=== PATIENT | female | born 1990 | race Caucasian/White ===

== ENCOUNTER 2023-09-16 18:47 | Emergency (ER) | payer OTHER, SELFPAY ==
--- NOTE | ~2023-09-16 | CT_ITS ---
EXAMINATION: CT ABDOMEN AND PELVIS WITHOUT CONTRAST CLINICAL INFORMATION: Lower abdominal pain COMPARISON: None available. TECHNIQUE: Multidetector volumetric imaging was performed from the superior aspect of the liver through the pubic symphysis. Sagittal and coronal reformatted images were obtained on the technologist's workstation. This CT examination was performed using dose optimization techniques as appropriate, variously including the following: *Automated exposure control *Adjustment of mA and/or kV according to patient size (this includes techniques or standardized protocols for targeted exams where dose is matched to indication/reason for exam; i.e. extremities or head) *Use of iterative reconstruction technique DLP: 277 mGy-cm FINDINGS: LUNG BASES: The visualized lung bases are unremarkable. LIVER, GALLBLADDER, AND BILIARY TREE: The liver is normal in size, shape, and attenuation. No focal hepatic lesion or biliary ductal dilatation is present. The gallbladder has been removed. PANCREAS: Unremarkable. SPLEEN: Unremarkable. ADRENAL GLANDS: Unremarkable. KIDNEYS AND URETERS: The kidneys are normal in size, shape, and attenuation. No hydronephrosis, hydroureter, or calculi seen. No perinephric stranding. BLADDER: Slightly thickened gallbladder wall, particularly on the left. Small left dome bladder diverticulum 2 small 2 mm dependent calcification questionable for small stones. GASTROINTESTINAL TRACT: The small and large bowel are unremarkable. The appendix is unremarkable. ABDOMINAL WALL: No significant hernia is appreciated. LYMPH NODES: Normal. VASCULAR: Unremarkable. PELVIC VISCERA: Unremarkable. OSSEOUS STRUCTURES: Unremarkable. CT/CT abdomen pelvis wo IV con IMPRESSION: Slightly thickened bladder wall, particularly on the left. Small left dome of bladder diverticulum. 2 small dependent 2mm calcifications questionable for small stones. Fleischner guidelines were followed.
[2023-09-16 19:21] VITALS: BP 136/79; PULSE 64; RESP 16; TEMP 36.9; O2SAT 98; BMI 22.6
--- NOTE | 2023-09-16 19:22 | ED.GENADULT ---
HPI - General Adult General Chief complaint: Abdominal Pain Stated complaint: abd pain Time Seen by Provider: 09/16/23 22:59 Source: patient and old records reviewed Mode of arrival: ambulatory Limitations: no limitations History of Present Illness HPI narrative: 33 yo female with PMH of cholecystectomy, recent kidney infection treated at [facility] states she just finished cephalexin denies ureteral stones or being told she had bladder stones. Her last dose of abx was one week ago. She comes in today with diffuse abdominal pain she has n/v/d and cannot eat. Her pain worsens with eating. She has had intermittent fevers as well. MD complaint: abdominal pain Onset (ago): week(s) (1) Location: abdomen Radiation: non-radiation Severity: moderate Quality: aching Pain Consistency: intermittent Relieving factors: none Exacerbating factors: eating Associated symptoms: fever/chills, loss of appetite, malaise and nausea/vomiting Treatments prior to arrival: none Related Data Previous Rx's Medication Instructions Recorded famotidine 20 mg tablet (Pepcid) 20 mg PO BID abdominal discomfort 09/17/23 #60 tabs lactobacillus combination no.4 3 3,000 mmu cells PO DAILY #14 caps 09/17/23 billion cell capsule (Probiotic) nitrofurantoin 100 mg PO BID 7 days #14 caps 09/17/23 monohydrate/macrocrystals 100 mg capsule (Macrobid) ondansetron 4 mg disintegrating 4 mg PO Q8H PRN nausea and 09/17/23 tablet vomiting #20 tabs Allergies Allergy/AdvReac Type Severity Reaction Status Date / Time No Known Allergies Allergy Verified 09/16/23 19:28 Review of Systems Review of Systems: Constitutional : No Weight loss, pos Fever, pos Chills ENT/Mouth : No sore throat, No Rhinorrhea Eyes: No Swelling, No Redness Cardiovascular : No Chest Pain, No SOB, NoEdema Respiratory : No Cough, No Sputum, No Wheezing Gastrointestinal : Positive Nausea, Positive Vomiting, positive Diarrhea, positive abdominal Pain, No Hematochezia, No Melena Genitourinary : No Dysuria, No Urinary Frequency, No Hematuria, No Urgency Musculoskeletal : No joint pain, No Myalgias, No Joint Swelling Skin : No Skin Lesions, No rash Neuro : No Weakness, No Numbness, No Dizziness, No Headache Psych : No Anxiety/Panic, No Depression All other systems reviewed and are negative. [facility] Past Medical History Attestation statement: The following information was validated with the patient. Medical History (Updated 09/17/23 @ 00:45 by Breonna Montilla DO) Pyelonephritis Surgical History S/P cholecystectomy Social History Social History (Updated 09/16/23 @ 23:30 by Breonna Montilla DO) Patient Tobacco Use Status: Never used Tobacco Advance Directives: No Advance Directives Information Provided: No Physical Exam ED Vital Signs: Vital Signs - 24 hr 09/16/23 19:21 09/16/23 21:38 09/16/23 22:56 Temperature 98.5 F 98.2 F 97.1 F Pulse Rate 64 65 58 Respiratory Rate 16 16 16 Blood Pressure 136/79 132/48 L 127/54 L Pulse Oximetry 98 97 100 Oxygen Delivery Method Room Air Room Air Room Air BMI result Body Mass Index 22.6 Appearance: Alert. Oriented X3. No acute distress. Eyes: Pupils equal, round and reactive to light. ENT: Pharynx normal. Neck: Normal inspection. Neck supple. CVS: Normal heart rate and rhythm. Pulses normal. Respiratory: No respiratory distress. Breath sounds normal. Abdomen: Soft and mild diffuse ttp has ttp suprapubic Skin: Skin warm and dry. Normal skin color. Normal skin turgor. Extremities: No lower extremity edema. Neuro: Oriented X 3. No motor deficit. No sensory deficit. Course Course Course Narrative: RME:?33 yo female here for eval of intermittent lower abd pain, N/V, diarrhea, fevers x2 weeks. 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 Taking tylenol at home without relief, last took this 4 hours ago. reports pain like this in the past when she had issues with my pancreas . denies current or hx of etoh consumption. reports being hospitalized for kidney infection at [facility] 2 weeks ago, prior to onset of symptoms. was placed on abx which she finished one week ago. no cvat. ttp of lower abd, no rebound or guarding. normoative bs x4. labs, UA, stool culture and imaging ordered. Full HPI, ROS and PE to be performed by the primary ED provider. Reevaluation(s) Reevaluation #1: cuello results - blood culture negative, UA did have positive results and WBC clumps but urine culture was negative Reevaluation #2: no diarrhea while in ED 5+ hours doubt cdiff Medications Administered Discontinued Medications Generic Name Dose Route Start Last Admin Trade Name Jennie PRN Reason Stop Dose Admin Sodium Chloride 1,000 mls @ 999 mls/hr 09/16/23 23:30 09/16/23 23:48 Ns IV 09/17/23 00:30 999 mls/hr .Q1H1M MARIAM Administration Ketorolac Tromethamine 15 mg 09/16/23 23:22 09/16/23 23:48 Ketorolac Tromethamine 15 Mg/Ml Vial IVPUSH 09/16/23 23:23 15 mg ONCE ONE Administration Ondansetron HCl 4 mg 09/16/23 23:22 09/16/23 23:48 Ondansetron Hcl 4 Mg/2 Ml Vial IVPUSH 09/16/23 23:23 4 mg ONCE ONE Administration Medical Decision Making Medical Decision Making [facility] Narrative: 33 yo female hx of recent pyelonephritis just finished cephalexin 1 week ago now here with lower abdominal pain but no urinary symptoms n/v and loose stools but denies numerous stools a day and no fecal incontinence. Not consistent with cdiff. She notes she has had fevers and chills as well. At this time will obtain labs, UA and CT scan for possible colitis. IVF, zofran and toradol ordered Differential Diagnosis Differential Diagnoses: The differential diagnosis associated with the presentation includes colitis, diverticulitis, UTI, renal colic, cdiff Admission/Observation Consideration of admission/observation: Escalation of care including admission/observation considered labs and CT scan reassuring normal VS not toxic can tolerate PO afebrile here neg CRP and ESR Lab Data [facility] Lab Attestation statement: I reviewed the patient's lab results. 09/16/23 20:09 09/16/23 20:09 Labs: Lab Results 09/16/23 Range/Units 20:09 WBC 5.0 (4.8-10.8) X10*3/uL RBC 4.46 (4.20-5.50) X10*6/uL Hgb 12.3 (12.0-16.0) g/dl Hct 38.2 (37.0-47.0) % MCV 85.7 (80.0-98.0) fL MCH 27.6 (27.0-33.0) pg MCHC 32.2 (31.0-35.0) g/dl RDW 14.9 (11.0-16.0) % Plt Count 199 (160-400) X10*3/uL MPV 10.4 (9.4-12.3) fL Immature Gran % (Auto) 0.2 (0.0-0.4) % Neut % (Auto) 57.4 (45-73) % Lymph % (Auto) 34.6 (20-40) % [place] % (Auto) 6.2 (2-11) % Eos % (Auto) 1.4 (0-4) % Baso % (Auto) 0.2 (0-2) % Lymph # (Auto) 1.7 (1.2-4.9) X10*3/uL [place] # (Auto) 0.3 (0.1-1.2) X10*3/uL Eos # (Auto) 0.1 (0.0-0.4) X10*3/uL Baso # (Auto) 0.0 (0.0-0.2) X10*3/uL Abs Immat Gran (auto) 0.01 (0.00-0.03) X10*3/uL Absolute Neuts (auto) 2.9 (2.0-8.3) x10*3/uL Absolute Nucleated RBC 0.000 (0.0-0.012) X10*3/uL Nucleated RBC % (auto) 0.0 (0.0-0.2) /100WBC ESR 5 (0-20) MM/HR Sodium 141 (135-145) mmol/L Potassium 3.8 (3.3-5.1) mmol/L Chloride 109 H (96-108) mmol/L Carbon Dioxide 23 (22-29) mmol/L Anion Gap 13 (12-20) BUN 7 L (9-16) mg/dL Creatinine 0.68 (0.5-1.4) mg/dL Estim Creat Clear Calc 75.9 Estimated GFR > 60 Random Glucose 93 (60-115) mg/dL Calcium 9.9 (8.4-10.2) mg/dL Magnesium 2.0 (1.6-2.6) mg/dL Total Bilirubin 0.4 (0.0-1.0) mg/dL AST 17 (5-31) U/L ALT 20 (0-31) U/L Alkaline Phosphatase 45 (39-117) U/L C-Reactive Protein < 0.10 (< or = 0.50) mg/dL Total Protein 7.9 (6.5-8.0) g/dL Albumin 4.7 (3.5-5.0) g/dL Lipase 27 (8-78) U/L Urine Color Yellow Urine Appearance Clear Urine pH 6.0 (5.0-9.0) Ur Specific [place] 1.010 (1.005-1.025) Urine Protein Negative (Neg-Trace) mg/dL Urine Glucose (UA) Negative (Negative) mg/dL Urine Ketones Negative (Negative) mg/dL Urine Blood Negative (Negative) Urine Nitrite Negative (Negative) Ur Leukocyte Esterase Negative (Negative) Urine Test NEGATIVE (NEGATIVE) COVID-19 (MICHELL) Negative (Negative) COVID-19 Clin Com See Note Influenza Type A (LAUREN) Negative (Negative) Influenza Type B (LAUREN) Negative (Negative) Influenza A & B Note See Note Independent Interpretation I performed an independent interpretation of an: CT Scan (bladder inflammation/bladder stones) Radiology Impression Discussion of test interpretation with radiology: I have reviewed the radiologist's reading. External Record Review External record reviewed: Prior outpatient labs Prescription Management I considered prescription management with: Antibiotic and Other Discharge Plan Discharge Clinical Impression: Bladder diverticulum, Bladder calculi Abdominal pain Qualifiers: Abdominal location: lower abdomen, unspecified Qualified Code(s): R10.30 - Lower abdominal pain, unspecified Diarrhea Qualifiers: Diarrhea type: unspecified type Qualified Code(s): R19.7 - Diarrhea, unspecified Patient Disposition: Home, Self-Care Instructions: Acute Diarrhea (ED), Abdominal Pain (ED), Bladder Stones (ED) Additional Instructions: return for worsening symptoms, return for fevers, vomiting, increased pain, inability to eat or drink. your CT scan shows possible inflammation and stones in the bladder but your labs and urine are normal at this time will start you on medications to coat your stomach and also urinary anti-septic. you need to see a urologist Prescriptions: New famotidine [Pepcid] 20 mg tablet 20 mg PO BID Qty: 60 0RF ondansetron 4 mg tablet,disintegrating 4 mg PO Q8H PRN (Reason: nausea and vomiting) Qty: 20 0RF nitrofurantoin monohyd/m-cryst [Macrobid] 100 mg capsule 100 mg PO BID 7 Days Qty: 14 0RF Rx Instructions: must administer with a meal/food Probiotic 3 billion cell capsule 3,000 mmu cells PO DAILY Qty: 14 0RF Rx Instructions: administer with a meal Referrals: Josh Waddell MD [Physician] - (call to schedule appointment)
[2023-09-16 20:12] LABS: MANUAL DIFF FLAG NO
[2023-09-16 20:13] LABS: Basophils Percent Auto 0.2 % (0-2); Eosinophils Absolute Auto 0.1 X10*3/uL (0.0-0.4); Eosinophils Percent Auto 1.4 % (0-4); Hematocrit 38.2 % (37.0-47.0); Hemoglobin 12.3 g/dl (12.0-16.0); Imm Gran Abs Auto 0.01 X10*3/uL (0.00-0.03); Imm Gran Pct Auto 0.2 % (0.0-0.4); Lymphocytes Absolute Auto 1.7 X10*3/uL (1.2-4.9); Lymphocytes Percent Auto 34.6 % (20-40); Mean Corpuscular HGB Conc 32.2 g/dl (31.0-35.0); Mean Corpuscular Hemoglobin 27.6 pg (27.0-33.0); Mean Corpuscular Volume 85.7 fL (80.0-98.0); Mean Platelet Volume 10.4 fL (9.4-12.3); Monocytes Absolute Auto 0.3 X10*3/uL (0.1-1.2); Monocytes Percent Auto 6.2 % (2-11); Neutrophils Absolute Auto 2.9 x10*3/uL (2.0-8.3); Neutrophils Percent Auto 57.4 % (45-73); Platelet Count 199 X10*3/uL (160-400); Red Blood Count 4.46 X10*6/uL (4.20-5.50); Red Cell Distribution Width 14.9 % (11.0-16.0)
[2023-09-16 20:14] LABS: Appearance Urine Clear; Color Urine Yellow; Glucose Urine UA Negative (Negative); Leukocyte Esterase Urine Negative (Negative); Nitrite Urine Negative (Negative); Urine Blood Negative (Negative); Urine Ketones Negative (Negative); Urine Protein Negative (Neg-Trace)
[2023-09-16 20:16] LABS: UPreg QC Valid YES; Urine Pregnancy NEGATIVE (NEGATIVE)
[2023-09-16 20:28] LABS: Alanine Aminotransferase 20 U/L (0-31); Albumin Level 4.7 g/dL (3.5-5.0); Alkaline Phosphatase 45 U/L (39-117); Anion Gap 13 (12-20); Aspartate Amino Transferase 17 U/L (5-31); Bilirubin Total 0.4 mg/dL (0.0-1.0); Blood Urea Nitrogen 7 mg/dL (9-16); Calcium 9.9 mg/dL (8.4-10.2); Carbon Dioxide 23 mmol/L (22-29); Chloride 109 mmol/L (96-108); Creatinine Clr Calc Pharmacy 75.9; Estimated Glomerular Filt Rate > 60; Glucose Random 93 mg/dL (60-115); Lipase 27 U/L (8-78); Potassium 3.8 mmol/L (3.3-5.1); Sodium 141 mmol/L (135-145); Total Protein 7.9 g/dL (6.5-8.0)
[2023-09-16 20:31] LABS: COVID-19 Test Negative (Negative); IDNOW Serial# 08D9AD1C; IDNOW Serial# 152EDE1D; Influenza A Negative (Negative); Influenza B2 Negative (Negative)
[2023-09-16 21:38] VITALS: BP 132/48; PULSE 65; RESP 16; TEMP 36.8; O2SAT 97
[2023-09-16 22:56] VITALS: BP 127/54; PULSE 58; RESP 16; TEMP 36.2; O2SAT 100
[2023-09-16] MEDS: ondansetron HCL 4 MG/2 ML VIAL IVPUSH (23:48)
[2023-09-16] MEDS: Ketorolac Tromethamine 15 MG/ML VIAL IVPUSH (23:48)
[2023-09-16] MEDS: 0.9 % Sodium Chloride 1,000 ML 999 ML IV (23:48)
[2023-09-16 23:49] LABS: C Reactive Protein < 0.10 mg/dL (< or = 0.50)
[2023-09-17 00:15] LABS: Erythrocyte Sedimentation Rate 5 MM/HR (0-20)
== END 2023-09-17 01:06 | disposition home or self-care (01) ==
PROVIDERS: Physician Assistant Medical; Emergency Provider Emergency Medicine; PCP Nurse Practitioner
DX: N32.3 Diverticulum of bladder (principal); R10.30 Lower abdominal pain, unspecified; R19.7 Diarrhea, unspecified; Z11.52 Encounter for screening for COVID-19; Z79.899 Other long term (current) drug therapy
CPT/HCPCS: 74176; 80053; 81003; 81025; 83690; 83735; 85025; 85652; 86140; 87502; 87635; 96374; 96375; 99284; J1885; J2405

== ENCOUNTER 2023-10-20 11:04 | Outpatient (AMB) | payer MEDICAID, SELFPAY ==
--- NOTE | 2023-10-20 08:54 | A.OFFVIS_ITS ---
Intake Intake Visit Reasons: 2mm Bladder Stones Intake Note: NEW Patient presents today via phone to established treatment for Bladder Stones: Meds- None Allergies to Antibiotic- No Known Allergies Blood Thinner- None Honeycomb Decapper Required: No Accompanied by: Self / Same As Patient Allergies No Known Allergies Allergy (Verified 10/20/23 09:16) Medication List - Last Reconciled 10/20/23 by Eun Hunt MD amoxicillin-pot clavulanate 500-125 mg (Augmentin) 1 tab PO BID cyanocobalamin (vitamin B-12) 1,000 mcg IM ergocalciferol (vitamin D2) 1,250 mcg PO QWEEK famotidine (Pepcid) 20 mg PO BID ferrous sulfate 30 mg PO lactobacillus combination no.4 (Probiotic) 3,000 mmu cells PO DAILY naproxen 250 mg PO BID PRN ondansetron 4 mg PO Q8H PRN HPI HPI Comments History of Present Illness Details Telehealth visit. Video attempted. Latoya is a 33 yo female with PMH of cholecystectomy, who was seen in the emergency room at [facility] on 09/16/2023 for abdominal pain. The patient states that she was previously admitted to [facility] for 3 days for a kidney infection. She had symptoms of fever vomiting for about 2 weeks so she went to [facility] to be evaluated, she was admitted for 3 days and she was sent home on antibiotics and felt better but then about 5 days after completing the antibiotics she began to have fever and nausea again and that is why she went to the [place] ED. She presented to the ED with complaints of abdominal pain, nausea vomiting diarrhea and intermittent fevers. Workup in the ED included CT scan of the abdomen and pelvis without IV contrast-findings kidneys within normal limits no hydronephrosis, small bladder stones approximately 2 mm with bladder wall thickening and bladder diverticulum. Urinalysis was not obtained on 09/16/2023. The patient was empirically treated with Macrobid 100 mg twice a day for 7 days. The patient states she still has intermittent fever which she takes Tylenol for. She states that when she feels that she has a fever and takes her temperature it has been between 99.8 and 100. The fever does respond to the Tylenol. I have discussed repeat imaging with renal and bladder ultrasound I will empirically give her a course of Augmentin 500 mg twice a day for 5 days and keep her on probiotics while she is taking the antibiotics. I have discussed follow-up in the office for office cystoscopy. Imaging: CTAP-09/16/23--Slightly thickened bladder wall, particularly on the left. Small left dome of bladder diverticulum. 2 small dependent 2mm calcifications questionable for small stones. 40 minutes spent in review of records pe rtaining to this visit, discussion with the patient and documentation of this visit. [facility] Medical History Ovarian cyst rupture Conductive hearing loss of left ear with unrestricted hearing of right ear History of pancreatitis Functional diarrhea Chronic abdominal pain History of COVID-19 Concussion with loss of consciousness Systolic murmur Current mild episode of major depressive disorder without prior episode Gastroesophageal reflux disease Closed fracture of left distal radius Vitamin B12 deficiency Syncope and collapse Menorrhagia Iron deficiency Chronic migraine without aura with status migrainosus, not intractable History of bladder stone Surgical History S/P laparoscopic appendectomy S/P cholecystectomy Family History Father No problems noted. Mother No problems noted. Social History Alcohol intake: current Alcohol intake frequency: does not drink Patient Tobacco Use Status: Never used Tobacco Review of Systems Const All systems reviewed & are unremarkable except as noted in HPI and below Reports no additional complaints Eyes Reports no additional complaints ENT Reports no additional complaints Card Denies dyspnea Resp Denies cough and Denies dyspnea GI Reports as per HPI Reports as per HPI Musc Reports numbness Skin/Breast Reports system reviewed and no additional complaints, except as documented, Reports rash and Reports unusual bruising Neuro Reports numbness Psych Reports no additional complaints Endo Reports no additional complaints Haseeb/Lymph Reports no additional complaints Aller/Immun Reports no additional complaints Results Reviewed Results Reviewed: Date of Service: 09/16/23 EXAMINATION: CT ABDOMEN AND PELVIS WITHOUT CONTRAST CLINICAL INFORMATION: Lower abdominal pain COMPARISON: None available. TECHNIQUE: Multidetector volumetric imaging was performed from the superior aspect of the liver through the pubic symphysis. Sagittal and coronal reformatted images were obtained on the technologist's workstation. This CT examination was performed using dose optimization techniques as appropriate, variously including the following: *Automated exposure control *Adjustment of mA and/or kV according to patient size (this includes techniques or standardized protocols for targeted exams where dose is matched to indication/reason for exam; i.e. extremities or head) *Use of iterative reconstruction technique DLP: 277 mGy-cm FINDINGS: LUNG BASES: The visualized lung bases are unremarkable. LIVER, GALLBLADDER, AND BILIARY TREE: The liver is normal in size, shape, and attenuation. No focal hepatic lesion or biliary ductal dilatation is present. The gallbladder has been removed. PANCREAS: Unremarkable. SPLEEN: Unremarkable. ADRENAL GLANDS: Unremarkable. KIDNEYS AND URETERS: The kidneys are normal in size, shape, and attenuation. No hydronephrosis, hydroureter, or calculi seen. No perinephric stranding. BLADDER: Slightly thickened gallbladder wall, particularly on the left. Small left dome bladder diverticulum 2 small 2 mm dependent calcification questionable for small stones. GASTROINTESTINAL TRACT: The small and large bowel are unremarkable. The appendix is unremarkable. ABDOMINAL WALL: No significant hernia is appreciated. LYMPH NODES: Normal. VASCULAR: Unremarkable. PELVIC VISCERA: Unremarkable. OSSEOUS STRUCTURES: Unremarkable. IMPRESSION: Slightly thickened bladder wall, particularly on the left. Small left dome of bladder diverticulum. 2 small dependent 2mm calcifications questionable for small stones. Assessment & Plan Assessment & Plan (1) Abdominal pain: Code(s): R10.9 - Unspecified abdominal pain Qualifiers: Abdominal location: lower abdomen, unspecified Qualified Code(s): R10.30 - Lower abdominal pain, unspecified (2) Bladder calculi: Code(s): N21.0 - Calculus in bladder Plan Augmentin 500 mg twice a day for 5 days Probiotics while on antibiotics Renal/bladder ultrasound. Follow-up office cystoscopy Orders: Orders US retroperitoneal comp Today N21.0 - Calculus in bladder, N39.0 - Urinary tract infection, site not specified, R10.9 - Unspecified abdominal pain Medications: New amoxicillin-pot clavulanate 500-125 mg (Augmentin) 1 tab PO BID 10 tabs 0RF Refilled lactobacillus combination no.4 (Probiotic) administer with a meal 3,000 mmu cells PO DAILY 14 caps 1RF Patient Instructions: The patient had an opportunity to ask questions regarding treatment plan. All questions were answered. Imaging, Laboratory studies and physical exam results were discussed and reviewed in detail. No major barriers to understanding were identified. The patient expressed understanding and agreement with the above treatment plan. The patient is aware they should contact our office by phone for worsening of their current condition or the appearance of new symptoms. Compliance is encouraged with any medications and followup testing that is ordered. It is a privilege to be allowed the opportunity to participate in the urologic care of your patient. If you have any questions or concerns regarding treatment for the above conditions please do not hesitate to contact me. The office telephone contact is [phone]. This note is constructed in part using voice recognition software. While every effort has been made to ensure accuracy rack puller errors may have been included. Yours sincerely, Eun Hunt MD Telehealth Telehealth Location of provider rendering services: practice address Location of patient: address on file Patient Identification confirmed using: Name, : Yes Telehealth method: voice only Patient verbally consented to treatment: Yes Patient verbally consented to billing insurance company: Yes Patient informed of any privacy concerns related to visit: Yes Minutes spent on Phone/Video with Pt.: 15 Coding Level of Care Code Tele New Pt Level 3 (00759) Diagnoses Abdominal pain R10.30 Abdominal location: lower abdomen, unspecified Bladder calculi N21.0
== END 2023-10-20 11:24 | disposition home or self-care (01) ==
LOC: HO.HUSH 11:04
PROVIDERS: PCP Nurse Practitioner; Visit Provider Urology
DX: R10.30 Lower abdominal pain, unspecified (principal); N21.0 Calculus in bladder
CPT/HCPCS: 99203

== ENCOUNTER → 2023-10-20 11:04 | Outpatient (BNVA) | payer MEDICAID, SELFPAY | PROVIDERS: PCP Nurse Practitioner; Visit Provider Urology ==

== ENCOUNTER 2023-11-09 09:57 | Outpatient (REF) | payer MEDICAID, SELFPAY ==
--- NOTE | ~2023-11-09 | US_ITS ---
EXAMINATION: US RETROPERITONEAL COMPLETE (RENAL) CLINICAL INFORMATION: Urinary tract infection, site not specified. COMPARISON: CT abdomen and pelvis 09/16/2023. TECHNIQUE: Real-time imaging of the kidneys and bladder. FINDINGS: RIGHT KIDNEY: 10.3 x 3.8 x 5.6 cm (SAG x AP x TRV). The kidney is normal in size, contour, and echogenicity. Renal cortical thickness is normal. No renal calculi or hydronephrosis. Small subcentimeter simple cyst in the right kidney. No imaging follow-up is recommended. LEFT KIDNEY: 11.7 x 5.2 x 4.2 cm (SAG x AP x TRV). The kidney is normal in size, contour, and echogenicity. Renal cortical thickness is normal. No calculi or focal parenchymal lesions. No hydronephrosis. BLADDER: Trabeculated bladder wall with small diverticuli including one at the superior anterior aspect of the bladder in the midline consistent with a urachal diverticulum/cyst. There are small calcifications in this diverticulum/cyst. US/US retroperitoneal comp IMPRESSION: Trabeculated urinary bladder. Multiple diverticuli, including a midline likely urachal remnant cyst/diverticulum with small calcifications. A discrete mass is not seen. Consider cystoscopy for further evaluation.
== END 2023-11-09 09:58 | disposition home or self-care (01) ==
LOC: HO.US 09:57
PROVIDERS: Visit Provider Urology
DX: N39.0 Urinary tract infection, site not specified (principal); R10.9 Unspecified abdominal pain; N21.0 Calculus in bladder
CPT/HCPCS: 76770

== ENCOUNTER 2023-11-25 14:14 | Outpatient (AMB) | payer OTHER, SELFPAY ==
--- NOTE | 2023-11-25 14:19 | A.OFFVIS_ITS ---
Intake Visit Reasons: cysto/US Intake Note: Patient presents today for a CYSTOSCOPY Procedure: Meds: None Allergies to Antibiotic: No Known Allergies Blood Thinner: None Urinalysis test clear for Cysto? YES Disposable Uro-G HD Cystoscope Cannula: Lot: [id number] Exp: 06/23/2026 Buggy Operator Required: No Accompanied by: Self / Same As Patient Allergies No Known Allergies Allergy (Verified 11/25/23 14:19) HPI Comments Details: 11/25/2023--Latoya is here for office cystoscopy. Cystoscopy findings, significant trabeculations with cellule and small diverticuli noted, in addition a larger diverticulum noted posterior to the left ureteral orifice. No suspicious bladder lesions visualized. Discussed with Latoya the it is unclear etiology for the significant bladder wall thickening. She denies any neurological conditions or childhood urological diagnoses. She does complain of having to push when urinating and hesitency of urination. Plan trial of alpha-kimi, tamsulosin. Review of chart: 10/20/2023-Telehealth visit. Video attempted. Latoya is a 33 yo female with PMH of cholecystectomy, who was seen in the emergency room at [facility] on 09/16/2023 for abdominal pain. The patient states that she was previously admitted to [facility] for 3 days for a kidney infection. She had symptoms of fever vomiting for about 2 weeks so she went to [facility] to be evaluated, she was admitted for 3 days and she was sent home on antibiotics and felt better but then about 5 days after completing the antibiotics she began to have fever and nausea again and that is why she went to the [place] ED. She presented to the ED with complaints of abdominal pain, nausea vomiting diarrhea and intermittent fevers. Workup in the ED included CT scan of the abdomen and pelvis without IV contrast-findings kidneys within normal limits no hydronephrosis, small bladder stones approximately 2 mm with bladder wall thickening and bladder diverticulum. Urinalysis was not obtained on 09/16/2023. The patient was empirically treated with Macrobid 100 mg twice a day for 7 days. The patient states she still has intermittent fever which she takes Tylenol for. She states that when she feels that she has a fever and takes her temperature it has been between 99.8 and 100. The fever does respond to the Tylenol. I have discussed repeat imaging with renal and bladder ultrasound I will empirically give her a course of Augmentin 500 mg twice a day for 5 days and keep her on probiotics while she is taking the antibiotics. I have discussed follow-up in the office for office cystoscopy. Imaging: CTAP-09/16/23--Slightly thickened bladder wall, particularly on the left. Small left dome of bladder diverticulum. 2 small dependent 2mm calcifications questionable for small stones. Plan: Tamsulosin 0.4 mg q hs, discussed SE dizzines. [facility] Medical History Ovarian cyst rupture Conductive hearing loss of left ear with unrestricted hearing of right ear History of pancreatitis Functional diarrhea Chronic abdominal pain History of COVID-19 Concussion with loss of consciousness Systolic murmur Current mild episode of major depressive disorder without prior episode Gastroesophageal reflux disease Closed fracture of left distal radius Vitamin B12 deficiency Syncope and collapse Menorrhagia Iron deficiency Chronic migraine without aura with status migrainosus, not intractable History of bladder stone Surgical History S/P laparoscopic appendectomy S/P cholecystectomy Family History Father No problems noted. Mother No problems noted. Social History Alcohol intake: current Alcohol intake frequency: does not drink Patient Tobacco Use Status: Never used Tobacco Review of Systems Const All systems reviewed & are unremarkable except as noted in HPI and below Reports no additional complaints Eyes Reports no additional complaints ENT Reports no additional complaints Card Reports no additional complaints Resp Reports no additional complaints GI Reports no additional complaints Reports as per HPI Musc Reports no additional complaints Skin/Breast Reports system reviewed and no additional complaints, except as documented Neuro Reports no additional complaints Psych Reports no additional complaints Endo Reports no additional complaints Haseeb/Lymph Reports no additional complaints Aller/Immun Reports no additional complaints Office Procedures Cystoscopy Consent Discussed risk and benefit or proposed procedure with the patient. Information consent for procedure given to the patient. Discussed technical aspects, risks, benefits and alternatives in full. Addressed all of the patient's questions and concerns regarding the procedure. The patient demonstrated knowledge and understanding. They wish to proceed with this procedure. Preparation The patient was prepped in the usual manner. A finance effectiveness manager was present and in the room. Genitalia was prepped with betadine solution in a sterile manner. Lidocaine Jelly 2% was placed into the urethra and 16Fr flexible Olympus cystoscope was inserted into the meatus after adequate lubrication. Procedure Time out per protocol performed. Bladder Inspection Bladder Inspection: The bladder was inspected in its entirety with utilization retroflexion displaying: Tumor(s): none visualized Trabeculation: moderate to severe, with cellule changes and diverticuli Mucosal Erthema: N/A Orifices: normal shape and position Urethra: normal Cystoscopy findings, significant trabeculations with cellule and small diverticuli noted, in addition a larger diverticulum noted posterior to the left ureteral orifice. No suspicious bladder lesions visualized. [id number] DISPOSABLE SCOPE URO-G FLEXIBLE SCOPE Procedure code (CPT) selection complete Office Meds lidocaine HCl 2 % mucosal jelly in applicator Performing Provider: Eun Hunt MD Performing Location: [facility] [place] [facility] Administered by: Fernando Guerra LPN on 11/25/23 14:38 Dose Route Admin Location Dispensed Lot Number Expiration Date ND Quilt Sewer 10 mL intra-urethral 20 mL naproxen 500 mg tablet Performing Provider: Eun Hunt MD Performing Location: [facility] [place] [facility] Administered by: Fernando Guerra LPN on 11/25/23 14:38 Dose Route Admin Location Dispensed Lot Number Expiration Date ND Quilt Sewer 500 mg PO 1 tab ciprofloxacin HCl 500 mg tablet Performing Provider: Eun Hunt MD Performing Location: [facility] [place] [facility] Administered by: Fernando Guerra LPN on 11/25/23 14:38 Dose Route Admin Location Dispensed Lot Number Expiration Date ND Quilt Sewer 500 mg PO 1 tab Results AMB Urinalysis, Automated UA Leukoctes 15 Madhu/uL Last Edit by DIPTI Mcpherson on 11/25/23 14:34 UA Nitrite Negative Last Edit by Roxane Dorsey A on 11/25/23 14:34 UA Urobilinogen 0.2 mg/dL Last Edit by Roxane Dorsey A on 11/25/23 14:3 4 UA Protein 15 mg/dL Last Edit by Roxane Dorsey A on 11/25/23 14:34 UA pH 6.0 Last Edit by Roxane Dorsey A on 11/25/23 14:34 UA Blood 200 Jhonny/uL Last Edit by Roxane Dorsey A on 11/25/23 14:34 3+ Roxane Dorsey 11/25/23 14:34 UA Specific [place] 1.020 Last Edit by Roxane Dorsey A on 11/25/23 14: 34 UA Ketone Negative Last Edit by Roxane Dorsey [facility] on 11/25/23 14:34 UA Bilirubin 0 mg/dL Last Edit by Roxane Dorsey [facility] on 11/25/23 14:34 UA Glucose 0 mg/dL Last Edit by Roxane Dorsey [facility] on 11/25/23 14:34 Results Reviewed Results Reviewed: Laboratory Last Values Urine pH (Auto) 6.0 11/25/23 14:33 Specific [place] (Auto) 1.020 11/25/23 14:33 Urine Protein (Auto) 15 mg/dL 11/25/23 14:33 Glucose (UA)(Auto) 0 mg/dL 11/25/23 14:33 Urine Ketones (Auto) Negative 11/25/23 14:33 Urine Blood (Auto) 200 Jhonny/uL 11/25/23 14:33 Urine Nitrite (Auto) Negative 11/25/23 14:33 Urine Bilirubin (Auto) 0 mg/dL 11/25/23 14:33 Urine Urobilinogen (Auto) 0.2 mg/dL 11/25/23 14:33 Leukocyte Esterase (Auto) 15 Madhu/uL 11/25/23 14:33 Date of Service: 09/16/23 EXAMINATION: CT ABDOMEN AND PELVIS WITHOUT CONTRAST CLINICAL INFORMATION: Lower abdominal pain COMPARISON: None available. TECHNIQUE: Multidetector volumetric imaging was performed from the superior aspect of the liver through the pubic symphysis. Sagittal and coronal reformatted images were obtained on the technologist's workstation. This CT examination was performed using dose optimization techniques as appropriate, variously including the following: *Automated exposure control *Adjustment of mA and/or kV according to patient size (this includes techniques or standardized protocols for targeted exams where dose is matched to indication/reason for exam; i.e. extremities or head) *Use of iterative reconstruction technique DLP: 277 mGy-cm FINDINGS: LUNG BASES: The visualized lung bases are unremarkable. LIVER, GALLBLADDER, AND BILIARY TREE: The liver is normal in size, shape, and attenuation. No focal hepatic lesion or biliary ductal dilatation is present. The gallbladder has been removed. PANCREAS: Unremarkable. SPLEEN: Unremarkable. ADRENAL GLANDS: Unremarkable. KIDNEYS AND URETERS: The kidneys are normal in size, shape, and attenuation. No hydronephrosis, hydroureter, or calculi seen. No perinephric stranding. BLADDER: Slightly thickened gallbladder wall, particularly on the left. Small left dome bladder diverticulum 2 small 2 mm dependent calcification questionable for small stones. GASTROINTESTINAL TRACT: The small and large bowel are unremarkable. The appendix is unremarkable. ABDOMINAL WALL: No significant hernia is appreciated. LYMPH NODES: Normal. VASCULAR: Unremarkable. PELVIC VISCERA: Unremarkable. OSSEOUS STRUCTURES: Unremarkable. IMPRESSION: Slightly thickened bladder wall, particularly on the left. Small left dome of bladder diverticulum. 2 small dependent 2mm calcifications questionable for small stones. Date of Service: 11/09/23 Procedure(s): US retroperitoneal comp Accession Number(s): [id number] cc: Eun Hunt MD~ 11/09/23-- EXAMINATION: US RETROPERITONEAL COMPLETE (RENAL) CLINICAL INFORMATION: Urinary tract infection, site not specified. COMPARISON: CT abdomen and pelvis 09/16/2023. TECHNIQUE: Real-time imaging of the kidneys and bladder. FINDINGS: RIGHT KIDNEY: 10.3 x 3.8 x 5.6 cm (SAG x AP x TRV). The kidney is normal in size, contour, and echogenicity. Renal cortical thickness is normal. No renal calculi or hydronephrosis. Small subcentimeter simple cyst in the right kidney. No imaging follow-up is recommended. LEFT KIDNEY: 11.7 x 5.2 x 4.2 cm (SAG x AP x TRV). The kidney is normal in size, contour, and echogenicity. Renal cortical thickness is normal. No calculi or focal parenchymal lesions. No hydronephrosis. BLADDER: Trabeculated bladder wall with small diverticuli including one at the superior anterior aspect of the bladder in the midline consistent with a urachal diverticulum/cyst. There are small calcifications in this diverticulum/cyst. IMPRESSION: Trabeculated urinary bladder. Multiple diverticuli, including a midline likely urachal remnant cyst/diverticulum with small calcifications. A discrete mass is not seen. Consider cystoscopy for further evaluation. Assessment & Plan Assessment & Plan (1) Slowing of urinary stream: Code(s): R39.198 - Other difficulties with micturition Category: Medical (2) Recurrent UTI: Code(s): N39.0 - Urinary tract infection, site not specified Category: Medical (3) Bladder wall thickening: Code(s): N32.89 - Other specified disorders of bladder Category: Medical Plan Flomax 0.4 mg daily Orders: Orders AMB Urinalysis Automated 11/25/23 Z13.9 - Encounter for screening, unspecified AMB Cystoscopy 11/25/23 N39.0 - Urinary tract infection, site not specified, R10.9 - Unspecified abdominal pain Medications: New tamsulosin (Flomax) 0.4 mg PO BEDTIME 30 caps 2RF Patient Instructions: The patient had an opportunity to ask questions regarding treatment plan. The patient expressed understanding and agreement with the above treatment plan. The patient is aware they should contact our office by phone for worsening of their current condition or the appearance of new symptoms. Compliance is encouraged with any medications and followup testing that is ordered. It is a privilege to be allowed the opportunity to participate in the urologic care of your patient. If you have any questions or concerns regarding treatment for the above conditions please do not hesitate to contact me. The office telephone contact is [phone]. This note is constructed in part using voice recognition software. While every effort has been made to ensure accuracy tourist camp attendant errors may have been included. Yours sincerely, Eun Hunt, MD Coding Level of Care Code Est Pt Level 4 (56584) Diagnoses Slowing of urinary stream R39.198 Recurrent UTI N39.0 Bladder wall thickening N32.89 CPT Codes Cystoscopy - CPT: 47179-[id number] ([id number])
== END 2023-11-25 15:33 | disposition home or self-care (01) ==
PROVIDERS: PCP Nurse Practitioner; Visit Provider Urology
DX: R10.9 Unspecified abdominal pain (principal); N39.0 Urinary tract infection, site not specified; Z13.9 Encounter for screening, unspecified
CPT/HCPCS: 52000; 99214

== ENCOUNTER → 2023-11-25 14:14 | Outpatient (BNVA) | payer OTHER, SELFPAY | PROVIDERS: PCP Nurse Practitioner; Visit Provider Urology | DX: R39.198 Other difficulties with micturition (principal); N39.0 Urinary tract infection, site not specified; N32.89 Other specified disorders of bladder | CPT/HCPCS: 52000; 81003; 99212 ==

== ENCOUNTER 2023-12-28 15:55 | Emergency (ER) | payer OTHER, SELFPAY ==
--- NOTE | ~2023-12-28 | XR_ITS ---
EXAMINATION: XR CHEST CLINICAL INFORMATION: Chest pain COMPARISON: None available. TECHNIQUE: Frontal view of the chest was obtained. FINDINGS: No significant abnormality is noted involving the heart, lungs, mediastinum, bony thorax or soft tissues. XR/XR chest 1V IMPRESSION: Unremarkable examination.
--- NOTE | 2023-12-28 15:56 | ECG_ITS ---
Test Reason : CP Blood Pressure : / mmHG Vent. Rate : 067 BPM Atrial Rate : 067 BPM P-R Int : 164 ms QRS Dur : 072 ms QT Int : 410 ms P-R-T Axes : 064 045 039 degrees QTc Int : 433 ms Normal sinus rhythm Normal ECG No previous ECGs available Referred By: Jennyfer Mckeon Electronically Signed By:MAIN CALVILLO
[2023-12-28 16:19] VITALS: BP 135/63; PULSE 67; RESP 16; TEMP 37; O2SAT 100; BMI 22.2
[2023-12-28 16:19] LABS: MANUAL DIFF FLAG NO
[2023-12-28 16:20] LABS: Basophils Percent Auto 0.3 % (0-2); Eosinophils Percent Auto 0.3 % (0-4); Hematocrit 33.5 % (37.0-47.0); Hemoglobin 10.4 g/dl (12.0-16.0); Imm Gran Abs Auto 0.01 X10*3/uL (0.00-0.03); Imm Gran Pct Auto 0.1 % (0.0-0.4); Lymphocytes Absolute Auto 1.6 X10*3/uL (1.2-4.9); Lymphocytes Percent Auto 22.8 % (20-40); Mean Corpuscular Hemoglobin 24.6 pg (27.0-33.0); Mean Corpuscular Volume 79.4 fL (80.0-98.0); Mean Platelet Volume 10.3 fL (9.4-12.3); Monocytes Absolute Auto 0.5 X10*3/uL (0.1-1.2); Neutrophils Absolute Auto 4.9 x10*3/uL (2.0-8.3); Neutrophils Percent Auto 69.5 % (45-73); Platelet Count 329 X10*3/uL (160-400); Red Blood Count 4.22 X10*6/uL (4.20-5.50); Red Cell Distribution Width 14.1 % (11.0-16.0); White Blood Count 7.1 X10*3/uL (4.8-10.8)
--- NOTE | 2023-12-28 16:30 | ED.GENADULT ---
HPI - General Adult General Chief complaint: Dizziness Stated complaint: chest pain, syncope, numbness Time Seen by Provider: 12/28/23 17:55 Source: patient, RN notes reviewed and old records reviewed Mode of arrival: ambulatory Limitations: no limitations History of Present Illness ED Provider: Parul HPI narrative: 33-year-old female with past medical history significant for an iron deficiency anemia, B12 deficiency presents for evaluation of intermittent chest pains and syncope Patient reports intermittent right-sided chest pain She does not currently experience the chest pain She states the pain is intermittent but random and not related to exertion She denies associated shortness of breath, coughing Patient states that she was supposed to get iron and B12 infusions twice a month She states that she has not had these infusions since July She reports that she was admitted a month ago at [facility] for ?a kidney infection. ? Denies any flank pain, fevers, chills, burning with urination currently. Related Data Home Medications ?Medication ?Instructions ?Recorded ?Confirmed cyanocobalamin (vitamin B-12) 1,000 mcg IM 10/20/23 10/20/23 1,000 mcg/mL injection solution ergocalciferol (vitamin D2) 1,250 1,250 mcg PO QWEEK 10/20/23 10/20/23 mcg (50,000 unit) capsule ferrous sulfate 28 mg iron tablet 30 mg PO 10/20/23 10/20/23 naproxen 250 mg tablet 250 mg PO BID PRN mild pain 10/20/23 10/20/23 Previous Rx's ?Medication ?Instructions ?Recorded famotidine 20 mg tablet (Pepcid) 20 mg PO BID abdominal discomfort 09/17/23 #60 tabs ondansetron 4 mg disintegrating 4 mg PO Q8H PRN nausea and 09/17/23 tablet vomiting #20 tabs amoxicillin 500 mg-potassium 1 tab PO BID #10 tabs 10/20/23 clavulanate 125 mg tablet (Augmentin) lactobacillus combination no.4 3 3,000 mmu cells PO DAILY #14 caps 10/20/23 billion cell capsule (Probiotic) tamsulosin 0.4 mg capsule (Flomax) 0.4 mg PO BEDTIME #30 caps 11/25/23 Allergies Allergy/AdvReac Type Severity Reaction Status Date / Time No Known Allergies Allergy Verified 12/28/23 16:23 Review of Systems Constitutional: Constitutional: Denies body ache(s), Denies chills and Denies fever(s) Eyes: Eyes: Denies blurry vision ENT: Denies sore throat Cardiovascular: Cardiovascular: Reports chest pain, Reports syncope and Denies dyspnea Respiratory: Respiratory: Denies cough and Denies dyspnea Gastrointestinal: Gastrointestinal: Denies abdominal pain, Denies nausea and Denies vomiting Musculoskeletal: Musculoskeletal: Denies back pain Integumentary/Breasts: Skin/Breast: Denies rash Neurologic: Reports syncope PMFSH Past Medical History Medical History Ovarian cyst rupture Conductive hearing loss of left ear with unrestricted hearing of right ear History of pancreatitis Functional diarrhea Chronic abdominal pain History of COVID-19 Concussion with loss of consciousness Systolic murmur Current mild episode of major depressive disorder without prior episode Gastroesophageal reflux disease Closed fracture of left distal radius Vitamin B12 deficiency Syncope and collapse Menorrhagia Iron deficiency Chronic migraine without aura with status migrainosus, not intractable History of bladder stone Surgical History S/P laparoscopic appendectomy S/P cholecystectomy Family History Family History Father No problems noted. Mother No problems noted. Social History Social History Alcohol intake: current Alcohol intake frequency: does not drink Patient Tobacco Use Status: Never used Tobacco Advance Directives: No Advance Directives Information Provided: No Physical Exam ED Vital Signs: Vital Signs - 24 hr 12/28/23 16:19 Temperature 98.6 F Pulse Rate 67 Respiratory Rate 16 Blood Pressure 135/63 Pulse Oximetry 100 Oxygen Delivery Method Room Air BMI result Body Mass Index 22.2 Const General: healthy appearing, comfortable, no acute distress, alert and awake Nutritional Appearance: well nourished Orientation/consciousness: patient oriented x3 HENMT Head: Yes normocephalic and Yes atraumatic Eyes Eyelids: Yes eyelids normal Conjunctivae: conjunctivae normal Sclerae: sclerae normal Corneas: corneas normal Pupils: Equal, round and reactive pupils present EOM: EOMs intact bilaterally Neck Neck: Yes full ROM Resp Effort & Inspection: normal respiratory effort, able to speak in complete sentences, no audible wheezes and not labored Auscultation: clear to auscultation bilaterally Cardio Rate: regular rate Rhythm: regular rhythm GI Inspection: No distended Palpation (GI): Soft to palpation, not firm, nontender, no guarding and not rigid Skin General skin exam: elasticity normal Neuro General: patient oriented x3 Cranial nerves: Yes Equal, round and reactive pupils present and Yes Bilaterally intact EOM present Cognition (Neuro): normal cognition Extrem Other: Moving all extremities well without any obvious deformities Course Course Course Narrative: This is an RME done by SALUD Mckeon: Additional HPI, ROS, PE not included below will be deferred to primary provider. 33 year old female presents w/ r sided cp x few days comes and goes, worse at night. Had 2 syncopal episode over the past few days. Numbness and tingling in both hands. Not on thinners or control. Hx of anemia which has felt like this in the past. Doesnt think she is Plan- labs Appearance: Alert.? Oriented X3.? No acute cardiopulmonary distress distress.? Head: Normocephalic, atraumatic, no step-offs or deformities CVS: Pulses normal.? Respiratory: No respiratory distress.? Abdomen: Soft and nontender.? Skin: ? Normal skin color. Extremities: 5/5 strength to bilateral upper and lower extremities Neuro: Oriented X 3.? No motor deficit.? No sensory deficit. Medical Decision Making Medical Decision Making [facility] Narrative: 33-year-old female presents for evaluation of intermittent chest pain. She has not currently experiencing chest pain. Her EKG is nonischemic, she is PERC negative. She is mildly anemic but admits to not having her infusions for the last 5 months. She has not currently on menstrual cycle. Her labs are otherwise reassuring. Vital signs are within normal limits. Plan for UA given the recent kidney infection Differential Diagnosis Differential Diagnoses: The differential diagnosis associated with the presentation includes Syncope Chest pain Costochondritis PE ACS Anemia Lab Data [facility] Lab Attestation statement: I reviewed the patient's lab results. No leukocytosis. The patient does have an anemia with a hemoglobin 10.4 and hematocrit 33.5. This is a microcytic anemia in the patient does have known microcytic anemia. No significant electrolyte abnormalities. The troponin is undetectable at less than 2.7 12/28/23 16:14 12/28/23 16:14 Labs: Lab Results 12/28/23 Range/Units 16:14 WBC 7.1 (4.8-10.8) X10*3/uL RBC 4.22 (4.20-5.50) X10*6/uL Hgb 10.4 L (12.0-16.0) g/dl Hct 33.5 L (37.0-47.0) % MCV 79.4 L (80.0-98.0) fL MCH 24.6 L (27.0-33.0) pg MCHC 31.0 (31.0-35.0) g/dl RDW 14.1 (11.0-16.0) % Plt Count 329 D (160-400) X10*3/uL MPV 10.3 (9.4-12.3) fL Immature Gran % (Auto) 0.1 (0.0-0.4) % Neut % (Auto) 69.5 (45-73) % Lymph % (Auto) 22.8 (20-40) % Rogers % (Auto) 7.0 (2-11) % Eos % (Auto) 0.3 (0-4) % Baso % (Auto) 0.3 (0-2) % Lymph # (Auto) 1.6 (1.2-4.9) X10*3/uL Rogers # (Auto) 0.5 (0.1-1.2) X10*3/uL Eos # (Auto) 0.0 (0.0-0.4) X10*3/uL Baso # (Auto) 0.0 (0.0-0.2) X10*3/uL Abs Immat Gran (auto) 0.01 (0.00-0.03) X10*3/uL Absolute Neuts (auto) 4.9 (2.0-8.3) x10*3/uL Absolute Nucleated RBC 0.000 (0.0-0.012) X10*3/uL Nucleated RBC % (auto) 0.0 (0.0-0.2) /100WBC Sodium 139 (135-145) mmol/L Potassium 3.9 (3.3-5.1) mmol/L Chloride 105 (96-108) mmol/L Carbon Dioxide 25 (22-29) mmol/L Anion Gap 13 (12-20) BUN 7 L (9-16) mg/dL Creatinine 0.74 (0.5-1.4) mg/dL Estim Creat Clear Calc 69.8 Estimated GFR > 60 Random Glucose 99 (60-115) mg/dL Calcium 9.8 (8.4-10.2) mg/dL Magnesium 2.1 (1.6-2.6) mg/dL Total Bilirubin 0.5 (0.0-1.0) mg/dL AST 25 (5-31) U/L ALT 25 (0-31) U/L Alkaline Phosphatase 43 (39-117) U/L Troponin I High Sens < 2.7 (<3.5-17.0) ng/L Total Protein 7.6 (6.5-8.0) g/dL Albumin 4.6 (3.5-5.0) g/dL Independent Interpretation I performed an independent interpretation of an: EKG and Plain X-Ray (No infiltrates or effusions) Interpretation: Normal sinus rhythm with a rate of 67 beats minute. No ectopy or ischemic changes Radiology Impression Discussion of test interpretation with radiology: I have reviewed the radiologist's reading. Radiologist Impression: XR/XR chest 1V IMPRESSION: Unremarkable examination. Discharge Plan Discharge Clinical Impression: Chest pain Patient Disposition: Home, Self-Care Instructions: Chest Pain (ED) Additional Instructions: Your workup in the ER today was reassuring. This includes your blood work, chest x-ray and EKG. You do have a mild anemia, I recommend rescheduling your iron and B12 infusions Follow-up with your primary doctor, return for new or worsening symptoms Prescriptions: No Action famotidine [Pepcid] 20 mg tablet 20 mg PO BID Qty: 60 0RF ondansetron 4 mg tablet,disintegrating 4 mg PO Q8H PRN (Reason: nausea and vomiting) Qty: 20 0RF cyanocobalamin (vitamin B-12) 1,000 mcg/mL solution 1,000 mcg IM ergocalciferol (vitamin D2) 1,250 mcg (50,000 unit) capsule 1,250 mcg PO QWEEK naproxen 250 mg tablet 250 mg PO BID PRN (Reason: mild pain) ferrous sulfate 28 mg iron tablet 30 mg PO Probiotic 3 billion cell capsule 3,000 mmu cells PO DAILY Qty: 14 1RF Rx Instructions: administer with a meal amoxicillin-pot clavulanate [Augmentin] 500-125 mg tablet 1 tab PO BID Qty: 10 0RF tamsulosin [Flomax] 0.4 mg capsule 0.4 mg PO BEDTIME Qty: 30 2RF Print Language: Chinese
[2023-12-28 16:40] LABS: Alanine Aminotransferase 25 U/L (0-31); Albumin Level 4.6 g/dL (3.5-5.0); Alkaline Phosphatase 43 U/L (39-117); Anion Gap 13 (12-20); Aspartate Amino Transferase 25 U/L (5-31); Bilirubin Total 0.5 mg/dL (0.0-1.0); Blood Urea Nitrogen 7 mg/dL (9-16); Calcium 9.8 mg/dL (8.4-10.2); Carbon Dioxide 25 mmol/L (22-29); Chloride 105 mmol/L (96-108); Creatinine Clr Calc Pharmacy 69.8; Estimated Glomerular Filt Rate > 60; Glucose Random 99 mg/dL (60-115); Magnesium 2.1 mg/dL (1.6-2.6); Potassium 3.9 mmol/L (3.3-5.1); Sodium 139 mmol/L (135-145); Total Protein 7.6 g/dL (6.5-8.0)
[2023-12-28 16:47] LABS: Troponin-I High Sensitivity < 2.7 ng/L (<3.5-17.0)
--- OUTSIDE RECORDS SUMMARY | 2023-12-28 17:31 | XMS_ITS | Continuity of Care Document ---
Author Organization [facility] ter Address [address] [place] [address]- Care Team Providers Care Wrapping Clerk Name Role Phone Claribel JOHNSON, Ynes Carter Primary Care Physician [phone] [place]counter [facility] [place](s): 02/18/22 - 05/02/[address] [address]- Attending Physician: Manuel Linn MD Admitting Physician: Manuel Linn MD Referring Physician: Manuel Linn MD Allergies, Adverse Reactions, Alerts No Known Allergies Medications Doculase 50 mg oral capsule 1 capsule = 50 mg, By Mouth, 2 times a day, PRN for constipation, may purchase over the counter. Hold for loose stools, # 180 capsule, 0 Refills, Maintenance, 09/06/19 12:26:00 EST, Capsule Start Date: 09/06/19 Status: Ordered ferrous sulfate 325 mg oral enteric coated tablet 325 mg, 1, tablet, By Mouth, Daily, # 90 tablet, Refills 0, Maintenance, 08/28/19 15:03:00 EST Start Date: 08/28/19 Status: Ordered omeprazole 20 mg oral delayed release tablet 1 tablet = 20 mg, By Mouth, Daily, # 30 tablet, 0 Refills, Maintenance, 08/28/19 14:54:00 EST, EC Tablet Start Date: 08/28/19 Status: Ordered Vitamin B12 1000 mcg oral tablet 1 tablet = 1,000 mcg, By Mouth, Daily, # 90 tablet, 0 Refills, Maintenance, 08/28/19 15:01:00 EST, Tablet Start Date: 08/28/19 Status: Ordered Vitamin C 500 mg oral tablet 1 tablet = 500 mg, By Mouth, Daily, # 90 tablet, 0 Refills, Maintenance, 08/28/19 15:00:00 EST, Tablet Start Date: 08/28/19 Status: Ordered Welchol 625 mg oral tablet 2 tablet = 1,250 mg, By Mouth, 2 times a day, # 56 tablet, 0 Refills, Maintenance, 01/07/21 13:22:00 EDT, Tablet, [id number], Partial fill upon patient request if the prescription isfor a schedule II opioid drug., 147.32, cm, ... Start Date: 01/07/21 Stop Date: 01/21/21 Status: Ordered Problem List Condition Confirmation Course Effective Dates Status H ealth Status Informant Anemia Confirmed Active S/P cholecystectomy Confirmed Active Social History Social History Type Response Smoking Status Never smoker entered on: 04/09/15 Sex Patient Care team information Personnel Name: Ynes Sanford NP Address: Address: [address] [place] [id number]
--- OUTSIDE RECORDS SUMMARY | 2023-12-28 17:31 | XMS_ITS | Continuity of Care Document ---
Author Organization [facility] Adult Address [address] [place] [address]- Care Team Providers Care Step Down Nurse Name Role Phone France Aj NP Primary Care Physician Encounter [facility] Date(s): 09/21/23 - 10/21/[address] [id number] Allergies, Adverse Reactions, Alerts No Known Allergies Immunizations Given and Recorded Vaccine Date Status Refusal Reason influenza virus vaccine, inactivated 07/08/21 Prabhu rded influenza virus vaccine, inactivated 09/17/16 Prabhu rded influenza virus vaccine, inactivated 07/03/15 Prabhu rded Human Papillomavirus Vaccine 09/17/16 Recorded Human Papillomavirus Vaccine 03/23/16 Recorded Human Papillomavirus Vaccine 04/29/09 Recorded Varicella Virus Vaccine 03/23/16 Recorded Varicella Virus Vaccine 08/07/15 Recorded tetanus/diphtheria/pertussis, acel(Tdap) 08/07/15 Recorded Meningococcal Conjugate Vaccine 04/29/09 Recorded tetanus-diphtheria toxoids (Td) 09/29/01 Recorded tetanus-diphtheria toxoids (Td) 12/20/00 Recorded tetanus-diphtheria toxoids (Td) 06/06/00 Recorded hepatitis B pediatric vaccine 12/21/00 Recorded hepatitis B pediatric vaccine 07/20/00 Recorded hepatitis B pediatric vaccine 06/06/00 Recorded Hepatitis A Pediatric Vaccine 12/21/00 Recorded Hepatitis A Pediatric Vaccine 07/20/00 Recorded Hepatitis A Pediatric Vaccine 06/06/00 Recorded Measles/Mumps/Rubella Virus Vaccine 07/20/00 Recor ded Measles/Mumps/Rubella Virus Vaccine 06/06/00 Recor ded Poliovirus Vaccine, Inactivated 11/15/96 Recorded Poliovirus Vaccine, Inactivated 02/24/93 Recorded Poliovirus Vaccine, Inactivated 06/28/92 Recorded Poliovirus Vaccine, Inactivated 03/17/92 Recorded Poliovirus Vaccine, Inactivated 06/04/91 Recorded Poliovirus Vaccine, Inactivated 02/13/91 Recorded Poliovirus Vaccine, Inactivated 90 Recorded Medications cyanocobalamin (B-12) (OP) = 1,000 mcg, take every other week, 0 Refills, Maintenance, 2 Start Date: 08/22/23 Status: Ordered ergocalciferol 63145 iu oral capsule 50,000 International_Units, 1, capsule, By Mouth, Every week, # 5 capsule, Refills 0, Tot. Refills 0, Maintenance, 07/24/23 9:21:00 EST, Route to Pharmacy Electronically, [facility]/pharmacy #[id number], Partial fill upon patient request if the prescription is for... Start Date: 07/24/23 Stop Date: 08/23/23 Status: Ordered Pepcid 40 mg oral tablet 1 tablet = 40 mg, By Mouth, Daily at bedtime, # 30 tablet, 0 Refills, Maintenance, 08/10/23 12:57:00 EST, Tablet, [facility]/pharmacy #[id number], Partial fill upon patient request if the prescription is for a schedule II opioid drug., 148, cm, 08/10/23 12:01:00 E... Start Date: 08/10/23 Status: Ordered Problem List Condition Confirmation Course Effective Dates Status H ealth Status Informant Anemia Confirmed Active Chronic diarrhea of unknown origin Confirmed Active Vitamin B12 deficiency Confirmed Active Ovarian cyst Confirmed Active S/P cholecystectomy Confirmed Active Iron deficiency Confirmed Active Anorexia Confirmed Active Heavy menses Confirmed Active Migraines Confirmed Active Pyelonephritis Confirmed Active Ovarian cyst rupture Confirmed Active MDD (major depressive disorder), recurrent episode, severe Confirmed Active Vitamin D deficiency Confirmed Active Social History Social History Type Response Smoking Status Never smoker entered on: 04/09/15 Sex Patient Care team information Care Team Personnel Name: Meghan Castro RN Position: [facility] RN Member Role: Primary Care Nurse Name: Nehal Oh Position: [facility] [place] RN Member Role: Primary Care Nurse Name: Anabela Fernandes RN Position: [facility] [place] RN Member Role: Primary Care Nurse Name: Theresa Bird Position: S RN Member Role: Primary Care Nurse Name: France Aj NP Position: [facility] PCO Associate Professional Member Role: PCP Address: Address: [address] [place] [address]- Name: Wendy Watson RN Position: [facility] SN RN Member Role: Primary Care Nurse Name: Maxwell Guevara RN Position: [facility] RN Member Role: Primary Care Nurse Care Team Related Persons Name: KAROLINA CALVO Address: home [address] [place] [address]
--- OUTSIDE RECORDS SUMMARY | 2023-12-28 17:31 | XMS_ITS | Continuity of Care Document ---
Author Organization [facility] Address [address] [place] [address]- Care Team Providers Care Databases Software Consultant Name Role Phone Claribel JOHNSON, Ynes Carter Primary Care Physician [id number] Date(s): 09/11/20 - 11/15/20 [facility] [address] [place] [id number] Discharge Disposition: A-D/C Home Attending Physician: Manuela [place] MD Admitting Physician: Manuela [place] MD Referring Physician: Claribel JOHNSON, Ynes Carter Allergies, Adverse Reactions, Alerts Substance Reaction Severity Status NKA Active Medications Doculase 50 mg oral capsule 1 [...] EST, Tablet Start Date: 08/28/19 Status: Ordered Problem List Condition Effective Dates Status Health Status Inform ant Anemia(Confirmed) Active S/P cholecystectomy(Confirmed) Active Vital Signs Most recent to oldest [Reference Range]: 1 Height 147 cm (09/15/20 2:38 PM) Weight 52.9 kg (09/15/20 2:38 PM) Pulse Rate [55-90 bpm] 85 bpm (09/15/20 2:38 PM) Body Mass Index [18.5-24.99] 24.48 (09/15/20 2:38 PM) Blood Pressure [90-138/55-84 mm Hg] 122/ 48mm Hg (09/15/20 2:38 PM) Temperature [96.8-100.4 DegF] 98.6 DegF (09/15/20 2:38 PM) Blood pressure sites Arm, right (09/15/20 2:38 PM) Temperature Route Temporal (09/15/20 2:38 PM) Dry Weight 52.9 kg (09/15/20 2:38 PM) Weight Obtained Via Standing scale (09/15/20 2:38 PM) Dry Weight Obtained Via Standing scale (09/15/20 2:38 PM) Social History Social History Type Response Smoking Status Never smoker entered on: 04/09/15 Sex
--- OUTSIDE RECORDS SUMMARY | 2023-12-28 17:31 | XMS_ITS | Continuity of Care Document ---
Author Organization [facility] Adult Address [address] [place] [address]- Care Team Providers Care Ehr Trainer Name Role Phone France Aj NP Primary Care Physician Encounter [facility] Date(s): 12/12/23 - 12/19/[address] [address]- Encounter Diagnosis Vitamin B12 deficiency(Discharge Diagnosis) - 12/12/23 Vitamin D deficiency(Discharge Diagnosis) - 12/12/23 Iron deficiency(Discharge Diagnosis) - 12/12/23 Heavy menses(Discharge Diagnosis) - 12/12/23 MDD (major depressive disorder), recurrent episode, severe(Discharge Diagnosis) - 12/12/23 Anemia(Discharge Diagnosis) - 12/12/23 Pyelonephritis(Discharge Diagnosis) - 12/12/23 Attending Physician: France Aj NP Allergies, Adverse Reactions, Alerts No Known Allergies [...] 2 Start Date: 08/22/23 Status: Ordered ergocalciferol 39552 iu oral capsule 50,000 International_Units, 1, capsule, By Mouth, Every week, # 5 capsule, Refills 0, Tot. Refills 0, Maintenance, 07/24/23 9:21:00 EST, Route to Pharmacy Electronically, [facility]/pharmacy #[id number], Partial fill upon patient request if the prescription is for... Start Date: 07/24/23 Stop Date: 08/23/23 Status: Ordered Pepcid 40 mg oral tablet 1 tablet = 40 mg, By Mouth, Daily at bedtime, # 30 tablet, 0 Refills, Maintenance, 08/10/23 12:57:00 EST, Tablet, [facility]/pharmacy #[id number], Partial fill upon patient request if the prescription is for a schedule II opioid drug., 148, cm, 08/10/23 12:01:00 E... Start Date: 08/10/23 Status: Ordered tamsulosin 0.4 mg oral capsule TAKE 1 CAPSULE BY MOUTH EVERY DAY AT BEDTIME Start Date: 12/02/23 Status: Ordered Problem List Condition Confirmation Course Effective Dates Status H ealth Status Informant Anemia Confirmed Active Anxiety disorder, unspecified Confirmed Active Chronic diarrhea of unknown origin Confirmed Active Vitamin B12 deficiency Confirmed Active Ovarian cyst Confirmed Active S/P cholecystectomy Confirmed Active Iron deficiency Confirmed Active Anorexia Confirmed Active Heavy menses Confirmed Active Migraines Confirmed Active Pyelonephritis Confirmed Active Ovarian cyst rupture Confirmed Active MDD (major depressive disorder), recurrent episode, severe Confirmed Active Vitamin D deficiency Confirmed Active Diagnosis Diagnosis Type Effective Dates Health Status Clinical Service Informant Vitamin B12 deficiency Discharge Diagnosis 12/12/23 Vitamin D deficiency Discharge Diagnosis 12/12/23 Iron deficiency Discharge Diagnosis 12/12/23 Heavy menses Discharge Diagnosis 12/12/23 MDD (major depressive disorder), recurrent episode, severe Discharge Diagnosis 12/12/23 Anemia Discharge Diagnosis 12/12/23 Pyelonephritis Discharge Diagnosis 12/12/23 Vital Signs Most recent to oldest [Reference Range]: 1 Height 147 cm (12/12/23 10:13 AM) Weight 47 kg (12/12/23 10:13 AM) Oxygen Saturation [94-100 %] 100 % (12/12/23 10:13 AM) Pulse Rate [55-90 bpm] 63 bpm (12/12/23 10:13 AM) Body Mass Index [18.5-24.99 kg/m2] 21.75 kg/m2 (12/12/23 10:13 AM) Blood Pressure [90-138/55-84 mm Hg] 105/ 64mm Hg (12/12/23 10:13 AM) Temperature [96.8-100.4 DegF] 98.3 DegF (12/12/23 10:13 AM) Mode of Delivery (Oxygen) Room air (12/12/23 10:13 AM) Blood pressure sites Arm, left (12/12/23 10:13 AM) Temperature Route Oral (12/12/23 10:13 AM) Weight Obtained Via Standing scale (12/12/23 10:13 AM) Social History Social History Type Response Smoking Status Never smoker entered on: 04/09/15 Sex Note * [place] Peter: PERFORM Event Display: Patient Education/Instruction Authored Date: [id number] Ambulatory Adult Visit Summary [facility] [address] [place], [place] [id number] Name: BURAK CALVO : 1990?? Visit: 12/12/2023 10:11?? Ambulatory Visit Instructions ?? Your Care Team Primary Care Provider France Aj NP? This Visit Provider France Aj NP Your Diagnosis Adult general medical exam Vitamin B12 deficiency Vitamin D deficiency Iron deficiency Heavy menses MDD (major depressive disorder), recurrent episode, severe Anemia Pyelonephritis Vitals Signs Temperature: 98.3 DegF Height: 147 cm Pulse Rate: 63 bpm Weight: 47 kg Systolic Blood Pressure: 105 mm Hg Body Mass Index: 21.75 kg/m2 Diastolic Blood Pressure: 64 mm Hg Body surface area: 1.39 Oxygen Saturation: 100 % ?? What to do next Scheduled Follow-Up Appointments Tuesday 11:00 AM EDT ?? With: Makayla Veliz [facility]: [facility] Status: Pending Tuesday 9:30 AM EDT ?? With: Mark Bhatia Where: [facility] [address] [place] [address]- Status: Pending Follow-Up Appointments Follow Up with??France Aj NP When:??12/19/2024 11:30 AM EDT Why: PETER Where: [address] [place] [address]- Future Orders Vitamin B12 Level (B12 Vitamin Level) - Once, *Est. 10/05/23, Order for Today?? Vitamin D 25 Hydroxy Level - Once, *Est. 10/05/23, Order for Today?? Medications The list below reflects the information in our records and provided by you today along with any changes made during this visit. Please continue your medications until treatment is completed or stopped by your provider. If this is different from the information you have or there are other questions,please contact the prescribing provider. What How Much When Instructions Unchanged Cyanocobalamin (cyanocobalamin (B-12) (OP)) 1,000 Microgram take every other week ?? Unchanged Ergocalciferol (ergocalciferol 72728 iu oral capsule) 1 capsule Oral Every week Duration: 30 Days Unchanged Famotidine (Pepcid 40 mg oral tablet) 1 tab(s) Oral Daily at Bedtime Unchanged Tamsulosin (tamsulosin 0.4 mg oral capsule) TAKE 1 CAPSULE BY MOUTH EVERY DAY AT BEDTIME ?? Medications and Immunizations Administered Medications Given During Visit No medications given during this visit.?? Allergies (NKA means No Known Allergies) NKA Common Emergency Awareness Tips IS IT A STROKE? Act FAST and Check for these signs: FACE Does the face look uneven? ARM Does one arm drift down? SPEECH Does their speech sound strange? TIME Call at any sign of stroke ?? Heart Attack Signs Chest discomfort: Most heart attacks involve discomfort in the center of the chest and lasts more than a few minutes, or goes away and comes back. It can feel like uncomfortable pressure, squeezing, fullness or pain. Discomfort in upper body: Symptoms can include pain or discomfort in one or both arms, back, neck, jaw or stomach. Shortness of breath: With or without discomfort. Other signs: Breaking out in a cold sweat, nausea, or lightheaded. Remember, MINUTES DO MATTER. If you experience any of these heart attack warning signs, call to get immediate medical attention! ?? Smoking can increase your chances of developing chronic health problems and can cause harmful effects to other family members in your house. If you smoke, you are strongly encouraged to quit. Please call [employer] at [phone] or 7-082-[employer]21[employer] (1898) or log in to [email or web address] for referrals to smoking cessation programs. ?? The National Suicide Prevention Hotline is available 21/02 if you or someone you know needs to find a reason to keep living. By calling 3-135-929-[employer] (3244) you'll be connected to a skilled, trained counselor at a crisis center in your area. [facility] [employer]ocket[employer] Education Portal You can view and manage your care through the patient portal or by using a health care ramón of your choosing. [employer] is a website that allows you to securely view your medical information including your hospital discharge summary, office visit summaries, medications and follow-up visits. You can also request appointments, renew medications, and request access to your medical information using a health care ramón of your choosing, or just ask a question. You can enroll at [email or web address] or register during your next office visit. [facility], in keeping with [facility] guidance, no longer requires face masks for staff, patientsor visitors in most situations. Similiar to time spent indoors at other locations, there is the chance that you were exposed to repiratory viruses during your time with us (such as flu or COVID-19). If you develop symptoms concerning for a viral respiratory infection, please seek testing (and treatment if indicated) from your medical provider or home test kit. ?? Disclaimer: The information provided is of a general nature and is intended to be used in conjunction with the recommendations and advice of your health care practitioner. Every effort has been made to ensure that the information provided is accurate and complete at the time it is provided to you however, as your needs change, or, as new information becomes available, different or additional instructions may be required. ?? If you have questions, please consult with your primary care provider or pharmacist, as appropriate. This information is not intended to serve as substitution for assessment and evaluation by a qualified health care provider. If you do not have a primary care provider, you may find a [facility] provider by calling [facility] at [phone]. Patient Care team information Care Team Personnel Name: Meghan Castro RN Position: [facility] RN Member Role: Primary Care Nurse Name: Nehal Oh Position: [facility] Onco RN Member Role: Primary Care Nurse Name: Anabela Fernandes RN Position: [facility] Onco RN Member Role: Primary Care Nurse Name: Theresa Bird Position: [facility] RN Member Role: Primary Care Nurse Name: France Aj NP Position: [facility] PCO Associate Professional Member Role: PCP Address: Address: [address] [place] [address]- Name: Elia Brower RN Position: [facility] RN Member Role: Primary Care Nurse Name: Wendy Watson RN Position: [facility] AMB Nurse Member Role: Primary Care Nurse Name: Maxwell Guevara RN Position: S RN Member Role: Primary Care Nurse Care Team Related Persons Name: KAROLINA CALVO Address: [address] [address]
--- OUTSIDE RECORDS SUMMARY | 2023-12-28 17:31 | XMS_ITS | Continuity of Care Document ---
Author Organization [facility] Address [address] [place] [address]- Care Team Providers Care Product Marketing Consultant Name Role Phone Claribel JOHNSON, Ynes Carter Primary Care Physician [phone] Encounter [facility] [id number] Date(s): 04/15/20 - 05/15/20 [facility] [address] [place] [address] [facility] Attending Physician: Singh Post Admitting Physician: AdmSingh iyer Referring Physician: AdmtrSingh Allergies, Adverse Reactions, Alerts Substance Reaction Severity [...] EC Tablet Start Date: 08/28/19 Status: Ordered topiramate 50 mg oral tablet 1 tablet = 50 mg, By Mouth, 2 times a day, # 60 tablet, 0 Refills, Maintenance, 08/28/19 14:58:00 EST, Tablet Start Date: 08/28/19 Status: Ordered Vitamin B12 1000 mcg oral tablet 1 tablet = 1,000 mcg, By Mouth, Every 7 days, # 90 tablet, 0 Refills, Maintenance, 08/28/19 15:01:00 EST, Tablet Start Date: 08/28/19 Status: Ordered Vitamin C 500 mg oral tablet 1 tablet = 500 mg, By Mouth, Daily, # 90 tablet, 0 Refills, Maintenance, 08/28/19 15:00:00 EST, Tablet Start Date: 08/28/19 Status: Ordered Zofran 8 mg oral tablet 1 tablet = 8 mg, By Mouth, Every 8 hours, PRN Nausea & Vomiting, # 10 tablet, 0 Refills, Maintenance, 09/06/19 12:25:00 EST, Tablet, [facility][id number], 147, cm, 09/05/19 22:13:00 EST, Height, 53.1, kg, 09/03/19 14:18:00 EST, Dry Weight Start Date: 09/06/19 Status: Ordered Problem List Condition Effective Dates Status Health Status Inform ant Anemia(Confirmed) Active S/P cholecystectomy(Confirmed) Active Social History Social History Type Response Smoking Status Never smoker entered on: 04/09/15 Sex
--- OUTSIDE RECORDS SUMMARY | 2023-12-28 17:31 | XMS_ITS | Continuity of Care Document ---
Author Organization [facility] Address [address] [place] [address]- Care Team Providers Care Billing Specialist Name Role Phone Claribel JOHNSON, Ynes Carter Primary [facility] Phys[id number] Date[facility]/03[facility] - 04/18/22 [facility] [address] [place] [address]- Discharge Disposition: A-D/C Home Attending Physician: Not on Staff, Attending MD Admitting Physician: Fred Rendon MD, Manuel Crenshaw Referring Physician: Ynes Sanford NP Allergies, Adverse Reactions, Alerts No Known [...] 0 Refills, Maintenance, 01/07/21 13:22:00 EDT, Tablet, [facility] #[id number], Partial fill upon patient request if the prescription isfor a schedule II opioid drug., 147.32, cm, ... Start Date: 01/07/21 Stop Date: 01/21/21 Status: Ordered Problem List Condition Effective Dates Status Health Status Inform ant Anemia(Confirmed) Active S/P cholecystectomy(Confirmed) Active Vital Signs Most recent to oldest [Reference Range]: 1 Height 147 cm (02/16/22 10:57 AM) Weight 48.1 kg (02/16/22 10:57 AM) Pulse Rate [55-90 bpm] 70 bpm (02/16/22 10:57 AM) Body Mass Index [18.5-24.99] 22.26 (02/16/22 10:57 AM) Blood Pressure [90-138/55-84 mm Hg] 122/ 49mm Hg (02/16/22 10:57 AM) Temperature [96.8-100.4 DegF] 98.6 DegF (02/16/22 10:57 AM) Blood pressure sites Arm, right (02/16/22 10:57 AM) Temperature Route Oral (02/16/22 10:57 AM) Dry Weight 48.1 kg (02/16/22 10:57 AM) Weight Obtained Via Standing scale (02/16/22 10:57 AM) Dry Weight Obtained Via Standing scale (02/16/22 10:57 AM) Social History Social History Type Response Smoking Status Never smoker entered on: 04/09/15 Sex Care Team Personnel Name: Ynes Sanford NP Address: [address] [place] [address]
--- OUTSIDE RECORDS SUMMARY | 2023-12-28 17:31 | XMS_ITS | Continuity of Care Document ---
Author Organization [facility] ter Address [address] [place] [address]- Care Team Providers Care Kiln Door Repairer Name Role Phone France Aj NP Primary Care Physician Encounter [facility] [facility] Date(s): 07/28/23 - 10/12/[address] [address] Attending Physician: Manuel Linn MD Admitting Physician: Manuel Linn MD Referring Physician: Fred Rendon MD, Manuel Crenshaw Allergies, Adverse Reactions, Alerts No Known Allergies [...] Maintenance, 2 Start Date: 08/22/23 Status: Ordered cyanocobalamin 1000 mcg/ml injectable solution 1 mL = 1,000 mcg, Intramuscular, Every 28 days, # 1 mL, 0 Refills, Maintenance, 07/24/23 9:20:00 EST, In[facility], [id number], Partial fill upon patient request if the prescription is for a schedule II opioid drug., 155, cm, 07/23/23 22:26:00 ES... Start Date: 07/24/23 Status: Ordered ergocalciferol 14335 iu oral capsule 50,000 International_Units, 1, capsule, By Mouth, Every week, # 5 capsule, Refills 0, Tot. Refills 0, Maintenance, 07/24/23 9:21:00 EST, Route to Pharmacy Electronically, [id number], Partial fill upon patient request if the prescription is for... Start Date: 07/24/23 Stop Date: 08/23/23 Status: Ordered Pepcid 40 mg oral tablet 1 tablet = 40 mg, By Mouth, Daily at bedtime, # 30 tablet, 0 Refills, Maintenance, 08/10/23 12:57:00 EST, Tablet, [id number], Partial fill upon patient request if [...] Team Personnel Name: Meghan Castro RN Position: S RN Member Role: Primary Care Nurse Name: Nehal Oh Position: [facility] Onco RN Member Role: Primary Care Nurse Name: Anabela Fernandes RN Position: [facility] Onco RN Member Role: Primary Care Nurse Name: Theresa Bird Position: S RN Member Role: Primary Care Nurse Name: France Aj NP Position: [facility] PCO Associate Professional Member Role: PCP Address: Address: [address] [place] [address]- Name: Wendy Watson RN Position: [facility] SN RN Member Role: Primary Care Nurse Name: Maxwell Guevara RN Position: S RN Member Role: Primary Care Nurse Care Team Related Persons Name: KAROLINA CALVO Address: home [address] [place] [address]
--- OUTSIDE RECORDS SUMMARY | 2023-12-28 17:31 | XMS_ITS | Continuity of Care Document ---
Author Organization [facility] ancer Care Address [address] [place] [address]- Care Team Providers Care Applique Cutter Name Role Phone Claribel JOHNSON, Ynes Carter Primary [id number] Date[facility]s): 02/03/22 - 03/05/22 [facility] [address] [place] [id number] Attending Physician: Singh Post Admitting Physician: AdmSingh iyer Referring Physician: Admtr, Singh Allergies, Adverse Reactions, Alerts No Known Allergies [...] 0 Refills, Maintenance, 01/07/21 13:22:00 EDT, Tablet, [facility][id number], Partial fill upon patient request if the prescription isfor a schedule II opioid drug., 147.32, cm, ... Start Date: 01/07/21 Stop Date: 01/21/21 Status: Ordered Problem List Condition Effective Dates Status Health Status Inform ant Anemia(Confirmed) Active S/P cholecystectomy(Confirmed) Active Social History Social History Type Response Smoking Status Never smoker entered on: 04/09/15 Sex
--- OUTSIDE RECORDS SUMMARY | 2023-12-28 17:32 | XMS_ITS | Continuity of Care Document ---
Author Organization [facility] Address [address] [place] [address]- Care Team Providers Care Tunnel Kiln Operator Name Role Phone Claribel JOHNSON, Ynes Carter Primary Care Physician Encounter [facility] [place] Date(s): 02/23/21 - 03/25/21 [facility] [address] [place] [address]- [place] Allergies, Adverse Reactions, Alerts Substance Reaction Severity Status NKA Active Medications Carafate 1 gm oral tablet 1 Gm, 1, tablet, By Mouth, 3 times a day before meals and bedtime, # 120 tablet, Refills 1, Tot. Refills 1, Maintenance, 02/23/21 16:58:00 EDT, Route to Pharmacy [facility]ically, [id number], Partial fill upon patient request if the prescription... Start Date: 02/23/21 Stop Date: 04/24/21 Status: Ordered Doculase 50 mg oral capsule 1 capsule [...] 15:03:00 EST Start Date: 08/28/19 Status: Ordered Nexium 40 mg oral enteric coated capsule 1 capsule = 40 mg, By Mouth, 2 times a day, # 90 capsule, 0 Refills, Maintenance, 03/09/21 21:30:00EDT, CR Capsule, [id number], Partial fill upon patient request if the prescription is for aschedule II opioid drug., 148, cm, 02/26/21 1:04:00... Start Date: 03/09/21 Status: Ordered omeprazole 20 mg oral delayed release tablet 1 tablet = 20 mg, By Mouth, Daily, # 30 tablet, 0 Refills, Maintenance, 08/28/19 14:54:00 EST, EC Tablet Start Date: 08/28/19 Status: Ordered Topamax 50 mg oral tablet 1 tablet = 50 mg, By Mouth, PRN Headache, 0 Refills, Maintenance, 12/30/20 12:27:00 EDT, Partial fill upon patient request if the prescription is for a schedule II opioid drug. Start Date: 12/30/20 Status: Ordered Vitamin B12 1000 mcg oral [...] 0 Refills, Maintenance, 01/07/21 13:22:00 EDT, [id number], Partial fill upon patient request if the prescription isfor a schedule II opioid drug., 147.32, cm, ... Start Date: 01/07/21 Stop Date: 01/21/21 Status: Ordered Zofran 4 mg oral tablet 1 tablet = 4 mg, By Mouth, Every 8 hours, PRN as needed for nausea/vomiting, # 15 tablet, 0 Refills, Maintenance, 02/26/21 0:57:00 EDT, Tablet, [facility]/pharmacy #[id number], Partial fill upon patient request if the prescription is for a schedule II opioid drug.... Start Date: 02/26/21 Stop Date: 03/03/21 Status: Ordered Zofran 4 mg oral tablet 1 tablet = 4 mg, By Mouth, PRN Vomiting, 0 Refills, Maintenance, 12/30/20 12:28:00 EDT, Partial fill upon patient request if the prescription is for a schedule II opioid drug. Start Date: 12/30/20 Status: Ordered Problem List Condition Effective Dates Status Health Status Inform ant Anemia(Confirmed) Active S/P cholecystectomy(Confirmed) Active Social History Social History Type Response Smoking Status Never smoker entered on: 04/09/15 Sex
--- OUTSIDE RECORDS SUMMARY | 2023-12-28 17:32 | XMS_ITS | Continuity of Care Document ---
Author Organization [facility] ter Address [address] [place] [address]- Care Team Providers Care Gimp Buttonhole Machine Operator Name Role Phone Claribel JOHNSON, Ynes Carter Primary Care Physician Encounter [place] Date(s): 12/04/20 - 12/11/[address] [address] Attending Physician: Manuela Tuttle MD Referring Physician: Ynes Sanford NP Allergies, Adverse Reactions, Alerts Substance Reaction Severity [...] EC Tablet Start Date: 08/28/19 Status: Ordered PEG-3350 with Electrolytes (Eqv-NuLYTELY) oral powder for reconstitution See Instructions, as directed, # 1 each, 0 Refills, Maintenance, 12/01/20 14:59:00 EDT, [facility] #[id number], ok to sub for any gallon prep, as directed, 148, cm, 10/16/20 3:30:00 EDT, Height,50, kg, 10/16/20 3:30:00 EDT, Dry Weight Start Date: 12/01/20 Status: Ordered Vitamin B12 1000 mcg oral [...]
--- OUTSIDE RECORDS SUMMARY | 2023-12-28 17:32 | XMS_ITS | Continuity of Care Document ---
Author Organization [facility] anc Care Address [address] [place] [address]- Care Team Providers Care Alcohol Rubber Name Role Phone Claribel JOHNSON, Ynes Carter Primary Care Physician Encounter [facility] Date(s): 06/03/23 - 07/03/23 [facility] [address] [place] [address] Attending Physician: AdmSingh iyer Admitting Physician: Admtr, Singh Referring Physician: Admtr, Ar8 Allergies, Adverse Reactions, Alerts No Known Allergies Medications cyanocobalamin 500 mcg sublingual tablet 1 tablet = 500 mcg, Sublingual, Daily, # 90 tablet, 0 Refills, Maintenance, 08/24/22 18:04:00 EST, Tablet, [facility]/pharmacy #[id number], Partial fill upon patient request if the prescription is for a schedule II opioid drug., 148, cm, 08/24/22 9:06:00 EST, Alan... Start Date: 08/24/22 Stop Date: 11/22/22 Status: Ordered Doculase 50 mg oral capsule [...] 0 Refills, Maintenance, 01/07/21 13:22:00 EDT, Tablet, [facility] #[id number], Partial fill upon patient request if the prescription isfor a schedule II opioid drug., 147.32, cm, ... Start Date: 01/07/21 Stop Date: 01/21/21 Status: Ordered Problem List Condition Confirmation Course Effective Dates Status H ealth Status Informant Anemia Confirmed Active S/P cholecystectomy Confirmed Active Social History Social History Type Response Smoking Status Never smoker entered on: 04/09/15 Sex Laboratory * Event Display: Non Lab Results Authored Date: * Event Display: Non Lab Results Authored Date: * Event Display: Non Lab Results Authored Date: * Event Display: Non Lab Results Authored Date: Patient Care team information Care Team Personnel Name: Nehal Oh Position: [facility] Onco RN Member Role: Primary Care Nurse Name: Ynes Sanford NP Position: [facility] Outreach Member Role: PCP Address: Address: [address] [place] [address] Name: Anabela Fernandes RN Position: [facility] Onco RN Member Role: Primary Care Nurse Name: Wendy Watson RN Position: [facility] SN RN Member Role: Primary Care Nurse Care Team Related Persons Name: KAROLINA CALVO Address: home [address] [place] [address]
--- OUTSIDE RECORDS SUMMARY | 2023-12-28 17:32 | XMS_ITS | Continuity of Care Document ---
Author Organization [facility] an[facility] Care Address [address] [place] [address]- Care Team Providers Care Raise Miner Name Role Phone Claribel JOHNSON, Ynes Carter Primary Care [id number] Date(s): 11/18/22 - 02/21/23 [facility] [address] [place] [address] Discharge Disposition: A-D/C Home Attending Physician: Fred Rendon MD, Manuel Crenshaw Admitting Physician: Manuel Linn MD Referring Physician: Ynes Sanford NP Allergies, Adverse Reactions, Alerts No Known Allergies Medications cyanocobalamin 500 mcg sublingual tablet 1 tablet = 500 mcg, Sublingual, Daily, # 90 tablet, 0 Refills, Maintenance, 08/24/22 18:04:00 EST, Tablet, [facility]/pharmacy #[id number], Partial fill upon patient request if the prescription is for a schedule II opioid drug., 148, cm, 08/24/22 9:06:00 EST, Heig... Start Date: 08/24/22 Stop Date: 11/22/22 Status: [...] 0 Refills, Maintenance, 01/07/21 13:22:00 EDT, Tablet, [facility][id number], Partial fill upon patient request if the [...] Care Team Personnel Name: Nehal Oh Position: S Onco RN Member Role: Primary Care Nurse Name: Ynes Sanford NP Position: S Outreach Member Role: PCP Address: Address: [address] [place] [id number] Name: Dena DEMPSEY, [facility] Position: S Onco RN Member Role: Primary Care Nurse Care Team Related Persons Name: HEMANT CALVOA Address: home [address] [place] [address]
--- OUTSIDE RECORDS SUMMARY | 2023-12-28 17:32 | XMS_ITS | Continuity of Care Document ---
Author Organization [facility] Address [address] [place] [address]- Care Team Providers Care Clerk Supervisor Name Role Phone Claribel JOHNSON, Ynes Carter Primary Care Physician [place] [facility] [place] 02/23/21 - 03/25/21 [facility] [address] [place] [address]- [place] Allergies, Adverse Reactions, Alerts Substance Reaction [...] 0 Refills, Maintenance, 01/07/21 13:22:00 EDT, [id number], Partial fill upon patient request if the prescription isfor a schedule II opioid drug., 147.32, cm, ... Start Date: 01/07/21 Stop Date: 01/21/21 Status: Ordered Zofran 4 mg oral tablet 1 tablet = 4 mg, By Mouth, Every 8 hours, PRN as needed for nausea/vomiting, # 15 tablet, 0 Refills, Maintenance, 02/26/21 0:57:00 EDT, Tablet, [facility]/pharmacy #[id number], Partial fill upon patient request [...]
--- OUTSIDE RECORDS SUMMARY | 2023-12-28 17:32 | XMS_ITS | Continuity of Care Document ---
Author Organization [facility] Address [address] [place] [address]- Care Team Providers Care Regional Vice President Life Sales Name Role Phone Claribel JOHNSON, Ynes Carter Primary Care Physician Encounter [facility] Date(s): 02/23/21 - 03/25/21 [facility] [address] [place] [address]- [place] Allergies, Adverse Reactions, Alerts Substance Reaction [...] 0 Refills, Maintenance, 01/07/21 13:22:00 EDT, Tablet, [facility] #[id number], Partial fill upon patient request if the prescription isfor a schedule II opioid drug., 147.32, cm, ... Start Date: 01/07/21 Stop Date: 01/21/21 Status: Ordered Zofran 4 mg oral tablet 1 tablet = 4 mg, By Mouth, Every 8 hours, PRN as needed for nausea/vomiting, # 15 tablet, 0 Refills, Maintenance, 02/26/21 0:57:00 EDT, Tablet, [facility]/pharmacy #[id number], Partial fill upon patient [...]
--- OUTSIDE RECORDS SUMMARY | 2023-12-28 17:32 | XMS_ITS | Continuity of Care Document ---
Author Organization [facility] Address [address] [place] [address]- Care Team Providers Care Molder Bench Name Role Phone Claribel JOHNSON, Ynes Carter Primary Care Physician Encounter [facility] Date(s): 01/12/21 - 02/11/21 [facility] [address] [place] [address]- Allergies, Adverse Reactions, Alerts Substance Reaction Severity [...] 0 Refills, Maintenance, 01/07/21 13:22:00 EDT, Tablet, [facility] #[id number], Partial fill upon patient request if the [...]
--- OUTSIDE RECORDS SUMMARY | 2023-12-28 17:32 | XMS_ITS | Continuity of Care Document ---
Author Organization [facility] Address [address] [place] [address]- Care Team Providers Care Hedis Review Nurse Name Role Phone France Aj NP Primary Care Physician En[place] [facility] [place]s): 10/06/23 - 11/05/[facility] [address] [place] [id number] Attending Physician: Singh Post Admitting Physician: AdmSingh iyer Referring Physician: AdmtrSingh Allergies, Adverse Reactions, Alerts No Known Allergies [...] 2 Start Date: 08/22/23 Status: Ordered ergocalciferol 50375 iu oral capsule 50,000 International_Units, 1, capsule, By Mouth, Every week, # 5 capsule, Refills 0, Tot. Refills 0, Maintenance, 07/24/23 9:21:00 EST, Route to Pharmacy Electronically, [facility]/pharmacy #[id number], Partial fill upon patient request if the prescription is for... Start Date: 07/24/23 Stop Date: 08/23/23 Status: Ordered Pepcid 40 mg oral tablet 1 tablet = 40 mg, By Mouth, Daily at bedtime, # 30 tablet, 0 Refills, Maintenance, 08/10/23 12:57:00 EST, Tablet, [facility]/pharmacy #[id number], Partial fill upon patient request [...] 04/09/15 Sex Laboratory * Event Display: Non BH Lab Results Authored Date: * Event Display: Non BH Lab Results Authored Date: * Event Display: Non BH Lab Results Authored Date: * Event Display: Non BH Lab Results Authored Date: Patient Care team information Care Team Personnel Name: Meghan Castro RN Position: [facility] RN Member Role: Primary Care Nurse Name: Nehal Oh Position: [facility] Onco RN Member Role: Primary Care Nurse Name: Anabela Fernandes RN Position: [facility] Onco RN Member Role: Primary Care Nurse Name: Theresa Bird Position: [facility] RN Member Role: Primary Care Nurse Name: France Aj NP Position: [facility] PCO Associate Professional Member Role: PCP Address: Address: [address] [place] [address]- Name: Wendy Watson RN Position: [facility] SN RN Member Role: Primary Care Nurse Name: Maxwell Guevara RN Position: [facility] RN Member Role: Primary Care Nurse Care Team Related Persons Name: KAROLINA CALVO Address: [address] [address]
--- OUTSIDE RECORDS SUMMARY | 2023-12-28 17:32 | XMS_ITS | Continuity of Care Document ---
Author Organization [facility] Address [address] [place] [address]- Care Team Providers Care Driving Teacher Name Role Phone Claribel JOHNSON, Ynes Carter Primary Care Physician [id number] Date(s): 01/07/22 - 02/06/22 [facility] [address] [place] [address]- Attending Physician: Singh Psot Admitting Physician: AdmtrSingh Referring Physician: Admtr ArSelina Allergies, Adverse Reactions, Alerts No Known Allergies Medications Carafate 1 gm oral tablet 1 Gm, 1, tablet, By Mouth, 3 times a day before meals and bedtime, # 120 tablet, Refills 1, Tot. Refills 1, Maintenance, 02/23/21 16:58:00 EDT, Route to Pharmacy Electronically, [facility]/pharmacy #[id number], Partial fill upon patient request [...] 0 Refills, Maintenance, 01/07/21 13:22:00 EDT, Tablet, [facility] #[id number], Partial fill upon patient request if the prescription isfor a schedule II opioid drug., 147.32, cm, ... Start Date: 01/07/21 Stop Date: 01/21/21 Status: Ordered Zofran 4 mg oral tablet 1 tablet = 4 mg, By Mouth, Every 8 hours, PRN as needed for nausea/vomiting, # 15 tablet, 0 Refills, Maintenance, 02/26/21 0:57:00 EDT, Tablet, [id number], Partial fill upon patient request if the prescription is for a schedule II opioid drug.... Start Date: 02/26/21 Stop Date: 03/03/21 Status: Ordered Zofran 4 mg oral tablet 1 tablet = 4 mg, By Mouth, Every 8 hours, PRN as needed for nausea/vomiting, # 15 tablet, 0 Refills, Maintenance, 10/28/21 0:32:00 EDT, Tablet, [id number], Partial fill upon patient request if the prescription is for a schedule II opioid drug.... Start Date: 10/28/21 Stop Date: 11/02/21 Status: Ordered Zofran 4 mg oral tablet [...]
--- OUTSIDE RECORDS SUMMARY | 2023-12-28 17:32 | XMS_ITS | Continuity of Care Document ---
Author Organization [facility] ancer Care Address [address] [place] [address]- Care Team Providers Care Financial Secretary Name Role Phone Claribel JOHNSON, Ynes Carter [id number] 08[facility]14[facility] [address] [place] [address] Allergies, Adverse Reactions, Alerts No Known Allergies Medications cyanocobalamin 1000 mcg/ml injectable solution 1 mL = 1,000 mcg, Intramuscular, Every week, # 4 mL, 0 Refills, Maintenance, 07/24/23 9:20:00 EST, Injection, [facility]/pharmacy #[id number], Partial fill upon patient request if the prescription is for a schedule II opioid drug., 155, cm, 07/23/23 22:26:00 EST,... Start Date: 07/24/23 Status: Ordered ergocalciferol 59218 iu oral capsule 50,000 International_Units, 1, capsule, [...] 12:01:00 E... Start Date: 08/10/23 Status: Ordered thiamine 100 mg oral tablet 100 mg, 1, tablet, By Mouth, Daily, for 30 days, # 30 tablet, Refills 0, Tot. Refills 0, Acute 08/23/23 9:22:00 EST, 07/24/23 9:22:00 EST, Route to Pharmacy Electronically, [facility]/pharmacy #[id number], Partial fill upon patient request if the prescription is f... Start Date: 07/24/23 Stop Date: 08/23/23 Status: Ordered Problem List Condition Confirmation Course [...] Care Nurse Name: Ynes Sanford NP Position: [facility] Outreach Member Role: PCP Address: Address: [address] [place] [address] Name: Anabela Fernandes RN Position: S Onco RN Member Role: Primary Care Nurse Name: Theresa Bird Position: S RN Member Role: Primary Care Nurse Name: Elia Brower RN Position: S RN Member Role: Primary Care Nurse Name: Wendy Watson RN Position: [facility] SN RN Member Role: Primary Care Nurse Name: Maxwell Guevara RN Position: S RN Member Role: Primary Care Nurse Care Team Related Persons Name: KAROLINA CALVO Address: home [address] [place] [address]
--- OUTSIDE RECORDS SUMMARY | 2023-12-28 17:32 | XMS_ITS | Continuity of Care Document ---
Author Organization [facility] ancer Care Address [address] [place] [address]- Care Team Providers Care Director Loan Name Role Phone Claribel JOHNSON, Ynes Carter Primary Care Physician Encounter [facility] [place] Date(s): 02/21/23 - 03/23/23 [facility] [address] [place] [address] Allergies, Adverse Reactions, Alerts No Known Allergies Medications cyanocobalamin 500 mcg sublingual tablet 1 tablet = 500 mcg, Sublingual, Daily, # 90 tablet, 0 Refills, Maintenance, 08/24/22 18:04:00 EST, Tablet, [facility]/pharmacy #[id number], Partial fill upon patient request if the prescription is for a schedule II opioid drug., 148, cm, 08/24/22 9:06:00 EST, [facility]... Start Date: 08/24/22 Stop Date: 11/22/22 Status: [...] 0 Refills, Maintenance, 01/07/21 13:22:00 EDT, Tablet, [facility] #[id number], Partial fill upon patient request if the [...] Care Team Personnel Name: Nehal Oh Position: [facility] Onco RN Member Role: Primary Care Nurse Name: Ynes Sanford NP Position: [facility] Outreach Member Role: PCP Address: Address: [address] [place] [address] Name: Anabela Fernandes RN Position: [facility] Onco RN Member Role: Primary Care Nurse Name: Wendy Watson RN Position: [facility] SN RN Member Role: Primary Care Nurse Care Team Related Persons Name: CLOVERIsmaelDAYAN KAROLINA Address: home [address] [place] [address]
--- OUTSIDE RECORDS SUMMARY | 2023-12-28 17:32 | XMS_ITS | Continuity of Care Document ---
Author Organization 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 Role Phone [place] Aj NP Primary Care Physician [phone] Encounter [facility] Date(s): 12/02/23 - 12/09/[address] [address]- Encounter Diagnosis Dizziness(Discharge Diagnosis) - 12/02/23 Benign positional vertigo(Discharge Diagnosis) - 12/02/23 Generalized weakness(Discharge Diagnosis) - 12/02/23 Anemia(Discharge Diagnosis) - 12/02/23 Attending Physician: Valeria Banks NP Allergies, Adverse Reactions, Alerts No Known [...] 2 Start Date: 08/22/23 Status: Ordered ergocalciferol 77930 iu oral capsule 50,000 International_Units, 1, capsule, By Mouth, Every week, # 5 capsule, Refills 0, Tot. Refills 0, Maintenance, 07/24/23 9:21:00 EST, Route to Pharmacy Electronically, [facility]/pharmacy #[id number], Partial fill upon patient request if the prescription is for... Start Date: 07/24/23 Stop Date: 08/23/23 Status: Ordered Pepcid 40 mg oral tablet 1 tablet = 40 mg, By Mouth, Daily at bedtime, # 30 tablet, 0 Refills, Maintenance, 08/10/23 12:57:00 EST, Tablet, [facility]/pharmacy #[id number], Partial fill upon patient request if [...] Effective Dates Health Status Clinical Service Informant Dizziness Discharge Diagnosis 12/02/23 Benign positional vertigo Discharge Diagnosis 12/02/23 Generalized weakness Discharge Diagnosis 12/02/23 Anemia Discharge Diagnosis 12/02/23 Vital Signs Most recent to oldest [Reference Range]: 1 2 Height 147 cm (12/02/23 10:04 AM) 147 cm (12/02/23 9:45 AM) Weight 47.2 kg (12/02/23 9:45 AM) Oxygen Saturation [94-100 %] 99 % (12/02/23 9:45 AM) Pulse Rate [55-90 bpm] 74 bpm (12/02/23 9:45 AM) Body Mass Index [18.5-24.99 kg/m2] 21.84 kg/m2 (12/02/23 9:45 AM) Blood Pressure [90-138/55-84 mm Hg] 106/ 60mm Hg (12/02/23 10:04 AM) 103/60mm Hg (12/02/23 9:45 AM) Temperature [96.8-100.4 DegF] 98.3 DegF (12/02/23 9:45 AM) Mode of Delivery (Oxygen) Room air (12/02/23 9:45 AM) Blood pressure sites Arm, left (12/02/23 10:04 AM) Arm, right (12/02/23 9:45 AM) Temperature Route Oral (12/02/23 9:45 AM) Social History Social History Type Response Smoking Status Never smoker entered on: 04/09/15 Sex Note * Charu Bowman: PERFORM, SIGN, VERIFY Event Display: Patient Education/Instruction Authored Date: [id number] [facility] *[facility] Clinical Summary Name BURAK CALVO Age 33 Years 1990 PCP France Aj NP PCP Visit Date 12/02/2023 09:34:00 Additional Instructions: Please schedule an appointment with Makayla Pineda for counseling Scheduled Appointments?? Future Appointments ?*[facility] ?[address],??[address] ?Phone:??[phone]?Fax:??-- ?Appt. Date:??12/12/2023?10:15 AM ?Scheduled Provider:??Madai JOHNSON, [place] ?*[facility] ?Phone:??--?Fax:??-- ?Appt. Date:??12/16/2023?11:00 AM ?Scheduled Provider:??Makayla Veliz ?*[facility] ?[address]??[place],??[place],??[address] ?Phone:??--?Fax:??-- ?Appt. Date:??02/20/2024?9:30 AM ?Scheduled Provider:??Antonieta BRANNON, Mark Sewell Follow-Up Instructions ?? Diagnosis Weakness; Dizziness and giddiness; Benign paroxysmal vertigo, unspecified ear; Anemia, unspecified Medications: Please continue your medications until treatment is completed or stopped by your provider. Discuss any questions related to medications with your provider. Medications to Continue with No Changes These medications were not printed or sent to your pharmacy Cyanocobalamin (cyanocobalamin (B-12) (OP)) 1,000 Microgram. take every other week. Next Dose: Ergocalciferol (ergocalciferol 97028 iu oral capsule) 1 capsule Oral every week for 30 Days. Refills: 0. Next Dose: Famotidine (Pepcid 40 mg oral tablet) 1 tab(s) Oral Daily at Bedtime. Refills: 0. Next Dose: Meclizine (meclizine 12.5 mg oral tablet) 2 tab(s) Oral 3 times a day as needed for dizziness for 10 Days. Refills: 0. Next Dose: Tamsulosin (tamsulosin 0.4 mg oral capsule) TAKE 1 CAPSULE BY MOUTH EVERY DAY AT BEDTIME. Next Dose: Allergy Info:?? NKA Medications Given This Visit Future Orders ?No future orders Future Orders ?No future orders Vital Signs Height 147 cm Weight 47.2 kg BMI 21.84 kg/m2 Blood Pressure 106 mm Hg/60 mm Hg Temperature 98.3 DegF Pulse Rate 74 bpm Respiratory Rate 02 Sat Mode of Delivery 99 %/Room air You can now view a summary of your hospital visit from the comfort of your home through a free online portal called [employer]. [employer] is a website that allows you to securely view your medical information including discharge summary, medications and follow-up visits. ??You can alsosend a secure electronic message to your doctor???s office to request appointments, renew medications or just ask a question. You can enroll at [email or web address] or register during your next office visit. Disclaimer:?? The information provided is of a general nature and is intended to be used in conjunction with the recommendations and advice of your health care practitioner. ??Every effort has been made to ensure that the information provided is accurate and complete at the time it is provided to you however, as your needs change, or, as new ??information becomes available, different or additional instructions may be required. If you have questions, please consult with your primary care provider or pharmacist, as appropriate. ??This information is not intended to serve as substitution for assessment and evaluation by a qualified health care provider. If you do not have a primary care provider, you may find a [facility] provider by calling [facility] Tap[employer]wd Link at [phone]. [facility], in keeping with [facility] guidance, no longer requires face masks for staff, patientsor visitors in most situations. Similar to time spent indoors at other locations, there is the chance that you were exposed to respiratory viruses during your time with us (such as flu or COVID-19).? If you develop symptoms concerning for a viral respiratory infection, please seek testing (and treatment if indicated) from your medical provider or home test kit. For information about the plan of care including goals and instructions for your diagnosis, please see the patient education orders section of this document. Patient Education Materials?? The content of this educational material or handout may have been modified, supplemented, or adapted from its original content and format to support your individualized medical care. * Valeria Banks NP: PERFORM, SIGN, VERIFY Event Display: Patient Education/Instruction Authored Date: [id number] [facility] *[facility] Clinical Summary Name BURAK CALVO Age 33 Years 1990 PCP [place] Aj NP PCP Visit Date 12/02/2023 09:34:00 Additional Instructions: Please schedule an appointment with Makayla Pineda for counseling Scheduled Appointments?? Future Appointments ?*[facility] ?[address],??[place],??[address] ?Phone:??[phone]?Fax:??-- ?Appt. Date:??12/12/2023?10:15 AM ?Scheduled Provider:??Madai JOHNSON, [place] ?*[facility] ?[address]??[place],??[place],??[address] ?Phone:??--?Fax:??-- ?Appt. Date:??02/20/2024?9:30 AM ?Scheduled Provider:??Antonieta BRANNON, Mark Sewell Follow-Up Instructions ?? Diagnosis Weakness; Dizziness and giddiness; Benign paroxysmal vertigo, unspecified ear; Anemia, unspecified Medications: Please continue your medications until treatment is completed or stopped by your provider. Discuss any questions related to medications with your provider. Medications to Continue with No Changes These medications were not printed or sent to your pharmacy Cyanocobalamin (cyanocobalamin (B-12) (OP)) 1,000 Microgram. take every other week. Next Dose: Ergocalciferol (ergocalciferol 01396 iu oral capsule) 1 capsule Oral every week for 30 Days. Refills: 0. Next Dose: Famotidine (Pepcid 40 mg oral tablet) 1 tab(s) Oral Daily at Bedtime. Refills: 0. Next Dose: Meclizine (meclizine 12.5 mg oral tablet) 2 tab(s) Oral 3 times a day as needed for dizziness for 10 Days. Refills: 0. Next Dose: Tamsulosin (tamsulosin 0.4 mg oral capsule) TAKE 1 CAPSULE BY MOUTH EVERY DAY AT BEDTIME. Next Dose: Allergy Info:?? NKA Medications Given This Visit Future Orders ?No future orders Future Orders ?No future orders Vital Signs Height 147 cm Weight 47.2 kg BMI 21.84 kg/m2 Blood Pressure 103 mm Hg/60 mm Hg Temperature 98.3 DegF Pulse Rate 74 bpm Respiratory Rate 02 Sat Mode of Delivery 99 %/Room air You can now view a summary of your hospital visit from the comfort of your home through a free online portal called [employer]. [employer] is a website that allows you to securely view your medical information including discharge summary, medications and follow-up visits. ??You can alsosend a secure electronic message to your doctor???s office to request appointments, renew medications or just ask a question. You can enroll at [email or web address] or register during your next office visit. Disclaimer:?? The information provided is of a general nature and is intended to be used in conjunction with the recommendations and advice of your health care practitioner. ??Every effort has been made to ensure that the information provided is accurate and complete at the time it is provided to you however, as your needs change, or, as new ??information becomes available, different or additional instructions may be required. If you have questions, please consult with your primary care provider or pharmacist, as appropriate. ??This information is not intended to serve as substitution for assessment and evaluation by a qualified health care provider. If you do not have a primary care provider, you may find a [facility] provider by calling [facility] [employer]wd Link at [phone]. [facility], in keeping with [facility] guidance, no longer requires face masks for staff, patientsor visitors in most situations. Similar to time spent indoors at other locations, there is the chance that you were exposed to respiratory viruses during your time with us (such as flu or COVID-19).? If you develop symptoms concerning for a viral respiratory infection, please seek testing (and treatment if indicated) from your medical provider or home test kit. For information about the plan of care including goals and instructions for your diagnosis, please see the patient education orders section of this document. Patient Education Materials?? The content of this educational material or handout may have been modified, supplemented, or adapted from its original content and format to support your individualized medical care. * Darren JOHNSON, Valeria Heath: SIGN, VERIFY, PERFORM Event Display: Patient Education/Instruction Authored Date: [id number] [facility] *[facility] Clinical Summary Name BURAK CALVO Age 33 Years 1990 PCP [place] Aj NP PCP Visit Date 12/02/2023 09:34:00 Additional Instructions: Please schedule an appointment with Brody Verde for counseling Scheduled Appointments?? Future Appointments ?*[facility] ?[address],??[place],??[address] ?Phone:??[phone]?Fax:??-- ?Appt. Date:??12/12/2023?10:15 AM ?Scheduled Provider:??[place] Aj NP ?*[facility] ?[address]??[place],??[place],??[address] ?Phone:??--?Fax:??-- ?Appt. Date:??02/20/2024?9:30 AM ?Scheduled Provider:??Antonieta BRANNON, Mark Sewell Follow-Up Instructions ?? Diagnosis Weakness; Dizziness and giddiness; Benign paroxysmal vertigo, unspecified ear; Anemia, unspecified Medications: Please continue your medications until treatment is completed or stopped by your provider. Discuss any questions related to medications with your provider. Medications to Continue with No Changes These medications were not printed or sent to your pharmacy Cyanocobalamin (cyanocobalamin (B-12) (OP)) 1,000 Microgram. take every other week. Next Dose: Ergocalciferol (ergocalciferol 61527 iu oral capsule) 1 capsule Oral every week for 30 Days. Refills: 0. Next Dose: Famotidine (Pepcid 40 mg oral tablet) 1 tab(s) Oral Daily at Bedtime. Refills: 0. Next Dose: Meclizine (meclizine 12.5 mg oral tablet) 2 tab(s) Oral 3 times a day as needed for dizziness for 10 Days. Refills: 0. Next Dose: Tamsulosin (tamsulosin 0.4 mg oral capsule) TAKE 1 CAPSULE BY MOUTH EVERY DAY AT BEDTIME. Next Dose: Allergy Info:?? NKA Medications Given This Visit Future Orders ?No future orders Future Orders ?No future orders Vital Signs Height 147 cm Weight 47.2 kg BMI 21.84 kg/m2 Blood Pressure 103 mm Hg/60 mm Hg Temperature 98.3 DegF Pulse Rate 74 bpm Respiratory Rate 02 Sat Mode of Delivery 99 %/Room air You can now view a summary of your hospital visit from the comfort of your home through a free online portal called [employer]. [employer] is a website that allows you to securely view your medical information including discharge summary, medications and follow-up visits. ??You can alsosend a secure electronic message to your doctor???s office to request appointments, renew medications or just ask a question. You can enroll at [email or web address] or register during your next office visit. Disclaimer:?? The information provided is of a general nature and is intended to be used in conjunction with the recommendations and advice of your health care practitioner. ??Every effort has been made to ensure that the information provided is accurate and complete at the time it is provided to you however, as your needs change, or, as new ??information becomes available, different or additional instructions may be required. If you have questions, please consult with your primary care provider or pharmacist, as appropriate. ??This information is not intended to serve as substitution for assessment and evaluation by a qualified health care provider. If you do not have a primary care provider, you may find a [facility] provider by calling [facility] Tap[employer]wd Link at [phone]. [facility], in keeping with [facility] guidance, no longer requires face masks for staff, patientsor visitors in most situations. Similar to time spent indoors at other locations, there is the chance that you were exposed to respiratory viruses during your time with us (such as flu or COVID-19).? If you develop symptoms concerning for a viral respiratory infection, please seek testing (and treatment if indicated) from your medical provider or home test kit. For information about the plan of care including goals and instructions for your diagnosis, please see the patient education orders section of this document. Patient Education Materials?? The content of this educational material or handout may have been modified, supplemented, or adapted from its original content and format to support your individualized medical care. Patient Care team information Care Team Personnel Name: Meghan Castro RN Position: [facility] RN Member Role: Primary Care Nurse Name: Nehal Oh Position: [facility] Onco RN Member Role: Primary Care Nurse Name: Anabela Fernandes RN Position: [facility] Onco RN Member Role: Primary Care Nurse Name: Theresa Bird Position: [facility] RN Member Role: Primary Care Nurse Name: [place] Aj NP Position: [facility] PCO Associate Professional Member Role: PCP Address: Address: [address] [place] [address] Name: Elia Brower RN Position: [facility] RN Member Role: Primary Care Nurse Name: Wendy Watson RN Position: [facility] AMB Nurse Member Role: Primary Care Nurse Name: Maxwell Guevara RN Position: [facility] RN Member Role: Primary Care Nurse Care Team Related Persons Name: KAROLINA CALVO Address: [address] [place] [address]
--- OUTSIDE RECORDS SUMMARY | 2023-12-28 17:32 | XMS_ITS | Continuity of Care Document ---
Author Organization [facility] ter Address [address] [place] [id number]- Care Team Providers Care Green End Man Name Role Phone Claribel JOHNSON, Ynes Carter Primary Care Physician Encounter [facility] [place], [place] Date(s): 07/18/23 - 07/24/[address] [address]- Encounter Diagnosis Vitamin B12 deficiency(Final) - 07/18/23 Iron deficiency anemia(Final) - 07/18/23 Fatigue(Final) - 07/18/23 Discharge Disposition: A-D/C Home Attending Physician: Amanda Flores MD Admitting Physician: Melody Sheehan MD Referring Physician: Not on Staff, Referring MD Allergies, Adverse Reactions, Alerts No Known Allergies Medications cyanocobalamin 1000 mcg/ml injectable solution 1 mL = 1,000 mcg, Intramuscular, Every week, # 4 mL, 0 Refills, Maintenance, 07/24/23 9:20:00 EST, Injection, [id number], Partial fill upon patient request if the prescription is for a schedule II opioid drug., 155, cm, 07/23/23 22:26:00 EST,... Start Date: 07/24/23 Status: Ordered ergocalciferol 35390 iu oral capsule 50,000 International_Units, 1, capsule, By Mouth, Every week, # 5 capsule, Refills 0, Tot. Refills 0, Maintenance, 07/24/23 9:21:00 EST, Route to Pharmacy Electronically, [id number], Partial fill upon patient request if the prescription is for... Start Date: 07/24/23 Stop Date: 08/23/23 Status: Ordered oxyCODONE 5 mg oral tablet 2.5 mg, Tablet, By Mouth, Once, PRN for Pain , Moderate, Routine, 07/24/23 7:04:00 EST Start Date: 07/24/23 Stop Date: 07/24/23 Status: Completed thiamine 100 mg oral tablet 100 mg, 1, tablet, By Mouth, Daily, for 30 days, # 30 tablet, Refills 0, Tot. Refills 0, Acute 08/23/23 9:22:00 EST, 07/24/23 9:22:00 EST, Route to Pharmacy Electronically, [id number], Partial fill upon patient request if the prescription is f... Start Date: 07/24/23 Stop Date: 08/23/23 Status: Ordered Problem List Condition Confirmation Course Effective Dates Status H ealth Status Informant Anemia Confirmed Active S/P cholecystectomy Confirmed Active Results Radiology Reports * Exam Date Time Procedure Performing Provider Status 07/18/23 4:[address] Head/Brain W/O Contrast Devika Islas; Donald (Verified) Notes: (CT Head/Brain W/O Contrast) Reason For Exam: right hand numbness;Other: RESULT: CT Head/Brain W/O Contrast CT Head/Brain W/O Contrast INDICATION: Hx of Present Illness: Patient reports bilat hand numbness and weakness x 2 months. Wasseen by PCP and instructed to go to ED for further eval tx.; Reason: Other:; right hand numbness; Clinical Question(s): Tumor Primary; Order Comment: TECHNIQUE: Noncontrast head CT using axial technique and reconstructed in axial and coronal planes.Iterative reconstruction techniques are used to optimize dose and image quality. COMPARISON: 01/15/2021. FINDINGS: Organizational Development Specialist view findings, lines and tubes: None. BRAIN AND EXTRA-AXIAL SPACES: No parenchymal hemorrhage, midline shift, or mass effect. Casiano-white matter differentiation is wellpreserved. No acute infarct. Ventricles, sulci, and basilar cisterns are normal. No white matter lesions. No subarachnoid hemorrhage. No subdural or epidural collection. CALVARIUM, SKULL BASE, AND SOFT TISSUES: No fractures or suspicious bony lesions. The paranasal sinuses and mastoid air cells are clear. Visualized orbits and globes are intact. The extracranial soft tissues are unremarkable. IMPRESSION: No acute intracranial pathology. WSN: [id number] Ordering Physician: Ivana De Santiago Dictated By: Topher Macedo MD Dictated Date/Time: 07/18/23 4:17 pm Reviewed By: Topher Macedo MD Signed By: Topher Macedo MD Signed Date/Time: 07/18/23 4:17 pm Transcribed By: YESENIA Transcribed Date/Time: 07/18/23 4:17 pm Vital Signs Most recent to oldest [Reference Range]: 1 2 3 Height 155 cm (07/23/23 10:26 PM) 155 cm (07/23/23 3:34 PM) 155 cm (07/23/23 6:10 AM) Weight 49.8 kg (07/22/23 8:48 AM) 49.8 kg (07/19/23 11:36 AM) Oxygen Saturation [94-100 %] 100 % (07/23/23 10:26 PM) 100 % (07/23/23 3:34 PM) 98 % (07/23/23 6:10 AM) Pulse Rate [55-90 bpm] 64 bpm (07/23/23 10:26 PM) 62 bpm (07/23/23 3:34 PM) 56 bpm (07/23/23 6:10 AM) Body Mass Index [18.5-24.99 kg/m2] 20.73 kg/m2 (07/22/23 8:48 AM) 20.73 kg/m2 (07/19/23 11:36 AM) Blood Pressure [90-138/55-84 mm Hg] 115/67mm Hg (07/23/23 10:26 PM) 120/69mm Hg (07/23/23 3:34 PM) 118/70mm Hg (07/23/23 6:10 AM) Respiratory Rate [16-30 br/min] 16 br/min (07/24/23 6:42 AM) 18 br/min (07/23/23 10:26 PM) 16 br/min (07/23/23 3:34 PM) Temperature [96.8-100.4 DegF] 98.8 DegF (07/23/23 10:26 PM) 97.9 DegF (07/23/23 3:34 PM) 97.9 DegF (07/23/23 6:10 AM) Mode of Delivery (Oxygen) Room air (07/23/23 10:26 PM) Room air (07/23/23 3:34 PM) Room air (07/23/23 6:10 AM) Blood pressure sites Arm, left (07/23/23 10:26 PM) Arm, left (07/23/23 3:34 PM) Arm, right (07/23/23 6:10 AM) Temperature Route Oral (07/23/23 10:26 PM) Oral (07/23/23 3:34 PM) Oral (07/23/23 6:10 AM) Dry Weight 49.8 kg (07/19/23 11:36 AM) 48 kg (07/19/23 2:39 AM) 48 kg (07/18/23 6:23 PM) Weight Obtained Via Bed scale (07/19/23 11:36 AM) Dry Weight Obtained Via Patient/family s tated (07/18/23 12:02 PM) Social History Social History Type Response Smoking Status Never smoker entered on: 04/09/15 Sex Consult note * Virginia DAWSON, Aren Crenshaw: MODIFY, MODIFY, MODIFY, PERFORM, MODIFY, MODIFY Event Display: Consultation Note Authored Date: Patient: ??BURAK CALVO ? Age:??33 Years?Sex:??Female?:??1990?? Referrring Provider Amanda Flores MD Chief Complaint Hand numbness and weakness Reason for Consultation Chronic diarrhea, malabsorption, and consideration of enteral feeding History of Present Illness 33-year-old woman with history of iron deficiency anemia secondary to menorrhagia on IV iron infusions and vitamin B12 deficiency??who we are asked to see for chronic diarrhea, malabsorption and consideration of enteral feeding. ?? Patient presented on 07/18 with hand numbness and weakness and was found to have a hemoglobin of 7.2 from 8.1 in May and vitamin B12 deficiency. MCV 73. Iron 14. % iron sat 3. Ferritin 5. She wasadmitted for acute on chronic iron deficiency anemia and vitamin B12 deficiency. She has no GI bleed symptoms. She reports heavy menses. Seen by hematology who noted she has had iron deficiency anemia since 2015 and recommended iron and B12 supplementation.??Hematology requests GI consultation for chronic diarrhea, malabsorption, and consideration of enteral feeding. ?? She reports 2 years of 10 times daily diarrhea since her gallbladder was removed.??It is sometimes associated with abdominal pain. No hematochezia. She also has poor appetite almost daily. She haslost 10 pounds in 4 months.??No family history of IBD or colon cancer.??EGD on 12/30/2020 showed gastritis. Gastric biopsies showed gastric intestinal metaplasia and absence of H. pylori. Duodenal biopsies were normal/without evidence of Celiac disease. Colonoscopy to TI with adequate prep on 12/30/2020 was normal. Colon biopsies were negative for microscopic colitis.?? Review of Systems ROS per??HPI Physical Exam Vitals & Measurements T:??98.4?F?? TMIN:??98.2?F?? TMAX:??98.8?F?? HR:??67??(Peripheral)?? RR:??18?? BP:??119/72?? SpO2:??100%?? General:??No acute distress. Well developed HEENT:??Moist mucus membranes. Anicteric sclera Respiratory:??Speaking comfortably. Not dyspneic Cardiovascular:??Normal rate, regular rhythm, no murmurs?? GI/Abdomen:??Normal active bowel sounds, soft, non-tender, non-distended Extremities:??No edema. No clubbing or cyanosis. Skin:??No jaundice. No rash Neurologic:??Alert & Oriented. Moves all extremities.?? Psychiatric:??Mood and affect appropriate Assessment/Plan Assessment:??33-year-old woman with history of iron deficiency anemia secondary to menorrhagia on IV iron infusions??who presented with weakness and was admitted for acute on chronic iron deficiency anemia managed by hematology. GI is consulted for chronic diarrhea, malabsorption and consideration of enteral feeding. ?? Diarrhea Vitamin B12 deficiency Iron deficiency anemia Patient's B12 deficiency may be from pernicious anemia in the context of atrophic gastitis (as previously seen??by EGD). Although she had previous negative biopsies for celiac disease and microscopiccolitis, given severity of diarrhea would repeat EGD/colonoscopy with biopsies. ?? Recommendations: -EGD/colonoscopy with biopsies tomorrow to rule out celiac disease, microscopic colitis, IBD, etc. Plan to also perform gastric mapping for history of gastric intestinal metaplasia. -Clear liquid diet, NPO after MN -GoLYTELY to start tonight -If EGD/colonoscopy with biopsies are unrevealing, we will probably recommend supportive therapy with Imodium as needed and/or cholestyramine ?? Plan discussed with primary team.?? Patient discussed with??attending physician?Renita ?? Aren Coleman MD?? Gastroenterology Fellow - PGY 5 ?? Problem List/Past Medical History Ongoing Anemia S/P cholecystectomy Procedure/Surgical History ???Colonoscopy and biopsy of colon (12/30/2020)???Esophagogastroduodenoscopy and biopsy (12/30/2020)???Cholecystectomy Laparoscopic (08/30/2019) Medications Inpatient Acetaminophen Tablet, 650 mg, By Mouth, Every 4 hours, PRN Cyanocobalamin Inj, 1000 mcg= 1 mL, Intramuscular, Daily Docusate Sodium Capsule, 100 mg= 1 capsule, By Mouth, 2 times a day, PRN Melatonin Tablet, 3 mg, By Mouth, Daily at bedtime, PRN NaCL 0.9% Flush, 3 mL, IV Push, Every 8 hours, PRN Senna Tablet, 8.6 mg= 1 tablet, By Mouth, 2 times a day, PRN Thiamine Inj, 100 mg= 1 mL, IV Push Slowly, 2 times a day Vitamin D 07994 iu oral capsule, 42246 units, By Mouth, Every week Home No active home medications Allergies NKA Social History Alcohol Use: Never. Exercise Regular exercise: Yes. Exercise frequency: 3-4 times/week. Nutrition/Health Diet: Regular. Substance Abuse Use: Never. Tobacco Never smoker Family History No family history of IBD or colon cancer Lab Results Test Name Test Result Date/Time WBC 5.9 k/mm3 07/19/2023 02:03 EST WBC 6.3 k/mm3 07/18/2023 14:05 EST Hgb 8.3 Gm/dL 07/19/2023 02:03 EST Hgb 7.0 Gm/dL 07/18/2023 14:05 EST Platelet Count 301 k/mm3 07/19/2023 02:03 EST Platelet Count 328 k/mm3 07/18/2023 14:05 EST Sodium 141 mmol/L 07/18/2023 14:05 EST Potassium 4.5 mmol/L 07/18/2023 14:05 EST Glucose Level 100 mg/dL 07/18/2023 14:05 EST BUN 6 mg/dL 07/18/2023 14:05 EST Creatinine-Blood 0.5 mg/dL 07/18/2023 14:05 EST Estimated GFR Creatinine 125 ML/MIN/1.73 M2 07/18/2023 14:05 EST TSH 2.67 uIU/mL 07/18/2023 14:05 EST * Renita DAWSON, Paul Peng: PERFORM Event Display: Consultation Note Authored Date: I have reviewed the patient's medical history, findings on examination, diagnosis and treatment plan as documented in the fellow note. Case and its management discussed with fellow. ?? Patient seen and evaluated independently at the bedside on the day of the consultation, history of chronic diarrhea, that has significantly worsened following the cholecystectomy and again a few months ago, patient felt discouraged from the lack of overall improvement which prompted her to decide to stop taking all her medications which led to current admission with severe vitamin b12 deficiency ?? Discussed with patient pros and cons of further diagnostic work-up and given reported worsening of symptoms it would be reasonable to repeat endoscopy and colonoscopy which patient would like to do as an inpatient, will plan to obtain biopsies for intestinal metaplasia, screening for celiac disease/microscopic colitis ?? Will continue to follow-up with you * Vale DAWSON, Marina Rosario: PERFORM Event Display: Consult Authored Date: Patient: ??BURAK CALVO ? Age:??33 Years?Sex:??Female?:??1990?? Objective Vitals & Measurements T:??98.8?F?? TMIN:??97.7?F?? TMAX:??98.8?F?? HR:??64??(Peripheral)?? RR:??17?? BP:??117/69?? SpO2:??100%?? Physical Exam Petite female, awake, alert, O x 4, in NAD appearing very pale, non-diaphoretic, non-toxic Skin: warm, normal turgor, clear, (++) pallor, anicteric/no jaundice HEENT: PERRLA, EOM-I, MMM, tongue glossy, smooth, normal dentition, no ENT abnormality Neck: supple without palp LN nor thyromegaly nor mass. Chest: CTA bilat posteriorly w/o DTP. No CVAT, mild lumbar back pain reported on palpation. Breast exam not performed Heart: s1 s2 HRRR w/o m/r/g Abd: soft, mildly tender/subtle guarding to LLQ near inguinal groin: no mass. Scaphoid. Liver and spleen edges are not palpable. Vascular: warm, without clubbing/cyanosis/edeam Neuro: no [id number] dysmetria. CN II-XII grossly in tact. Patient c/o light sensitivity for her eyes/vision Lab Results Test Name Test Result Date/Time WBC 5.9 k/mm3 07/19/2023 02:03 EST WBC 6.3 k/mm3 07/15/2023 16:37 EST WBC 5.9 k/mm3 03/01/2023 12:32 EDT RBC 3.87 m/mm3 07/19/2023 02:03 EST RBC 3.58 m/mm3 07/15/2023 16:37 EST RBC 3.96 m/mm3 03/01/2023 12:32 EDT Hgb 8.3 Gm/dL 07/19/2023 02:03 EST Hgb 7.2 Gm/dL 07/15/2023 16:37 EST Hgb 8.1 Gm/dL 03/01/2023 12:32 EDT Hct 28.8 % 07/19/2023 02:03 EST Hct 26.6 % 07/15/2023 16:37 EST Hct 29.7 % 03/01/2023 12:32 EDT MCV 74.4 femtoliters 07/19/2023 02:03 EST MCV 74.3 femtoliters 07/15/2023 16:37 EST MCV 75.0 femtoliters 03/01/2023 12:32 EDT MCH 21.4 pg 07/19/2023 02:03 EST MCH 20.1 pg 07/15/2023 16:37 EST MCH 20.5 pg 03/01/2023 12:32 EDT MCHC 28.8 g/dL 07/19/2023 02:03 EST MCHC 27.1 g/dL 07/15/2023 16:37 EST MCHC 27.3 g/dL 03/01/2023 12:32 EDT Platelet Count 301 k/mm3 07/19/2023 02:03 EST Platelet Count 313 k/mm3 07/15/2023 16:37 EST Platelet Count 246 k/mm3 03/01/2023 12:32 EDT RDW-SD 53.6 femtoliters 07/19/2023 02:03 EST MPV 10.2 femtoliters 07/19/2023 02:03 EST Nucleated RBC (Automated) 0.0 #/100 WBC'S 07/19/2023 02:03 EST Abs. NRBC 0.0 k/mm3 07/19/2023 02:03 EST Abs. Neut 4.3 k/mm3 07/19/2023 02:03 EST Abs. Lymph 1.1 k/mm3 07/19/2023 02:[address] [place] 0.5 k/mm3 07/19/2023 02:03 EST Abs. Eo 0.0 k/mm3 07/19/2023 02:03 EST Abs. Baso 0.0 k/mm3 07/19/2023 02:03 EST Vitamin B12 Level <150 pg/mL 07/18/2023 14:05 EST Vitamin B12 Level <150 pg/mL 07/15/2023 16:37 EST Vitamin B12 Level <150 pg/mL 02/22/2023 14:36 EDT Folic Acid Level 12.4 ng/mL 07/15/2023 16:37 EST Folic Acid Level 13.5 ng/mL 03/01/2023 12:32 EDT Iron Level 14 mcg/dL 07/15/2023 16:37 EST Iron Level 13 mcg/dL 03/01/2023 12:32 EDT Iron Binding Capacity, Unsaturated 391 mcg/dL 07/15/2023 16:37 EST Iron Binding Capacity, Unsaturated 367 mcg/dL 03/01/2023 12:32 EDT Iron Binding Capacity, Estimated Total 405 mcg/dL 07/15/2023 16:37 EST Iron Binding Capacity, Estimated Total 380 mcg/dL 03/01/2023 12:32 EDT % Iron Saturation 3 % 07/15/2023 16:37 EST % Iron Saturation 3 % 03/01/2023 12:32 EDT Ferritin Level 5 ng/mL 07/15/2023 16:37 EST Ferritin Level 5 ng/mL 03/01/2023 12:32 EDT 25 OH-Vitamin D Level 13.6 ng/mL 07/19/2023 02:03 EST Methylmalonic Acid Level 338 03/01/2023 12:32 EDT CBC?? Abs. NRBC: 0 k/mm3 (07/19/23 02:03:00) Hct:??28.8 %??Low (07/19/23 02:03:00) Nucleated RBC (Automated): 0 #/100 WBC'S (07/19/23 02:03:00) RBC:??3.87 m/mm3??Low (07/19/23 02:03:00) RDW-SD:??53.6 femtoliters??High (07/19/23 02:03:00) WBC: 5.9 k/mm3 (07/19/23 02:03:00) Diagnostic Results ?? HPI, ROS performed and previous hematology outpatient consultation and follow up with Fred reviewed including from 03/01/2023. Please see HPI and ROS as already documented in Admission Note by Dr. Montanez on 07/18/23 Briefly, this is a 33 yr F with h/o significant iron deficiency anemia, vitamin B12 deficiency since 2014. She states she had menorrhagia and at one time was prescribed OCP's for menorrhagia but did not like side effects and stopped. She reports having had syncope several times from severe anemia/iron deficeiency. See also below A/P for some of pertinent current ROS. ?? Peripheral blood smear from 07/19/23 was reviewed. There is mixed population of RBC's. Presence of 5- and 6-lobed PMN is occcasionally found. Some RBC's are hypochromic. 1+-2+ anisocytosis. PLTs withnormal granulation. No NRBC. Possibly megaloblastic monocytes (macrophages) also present. No blastsor promyelocytes nor nRBC. ? IMAGING PERTINENT PAST RESULTS: ?? (09/03/2019 10:52 EST MRI Abdomen W/O Contrast) ? Result type:?MRI Abdomen W/O Contrast Result date:?September 03, 2019 10:52 EST Result status:?Auth (Verified) Result title:?MRI Abdomen W/O Contrast Performed by:?Franko Martinez MD on September 03, 2019 11:43 EST Verified by:?Franko Conroy MD on September 03, 2019 11:48 EST Encounter info:?[id number], [facility], Disch IP, 09/03/2019 - 09/06/2019 ?? * Final Report * ?? Reason For Exam Pain ?? RESULT: MRI Abdomen W/O Contrast MRI Abdomen W/O Contrast? CLINICAL INDICATION: Pain; Clinical Question(s): Biliary Obstruction;?? Hx of Present Illness: pt reports epigastric pain radiating to back x1day. hx of cholecystectomy on08 30 2019 ?? TECHNIQUE: Multiplanar, multisequence noncontrast MRI evaluation of the abdomen was performed without intravenous contrast. 3-D rotating maximum intensity projection MRCP images of the biliary tree were generated on the same workstation with concurrent physician supervision. ?? COMPARISON: CT abdomen pelvis with contrast 09/03/2019 ?? FINDINGS: LOWER THORAX: ??No pleural or pericardial effusion. Mild linear bibasilar atelectasis. ?? LIVER: ??Normal contour and size. No suspicious lesion, within limits on noncontrast technique. Mild hepatic steatosis as evidenced by loss of signal on opposed phase T1-weighted images. ?? GALLBLADDER: ??Status-post cholecystectomy. Susceptibility artifact in the gallbladder fossa related to surgical clips from recent cholecystectomy. Trace fluid in the gallbladder bed is likely postoperative. ?? BILE DUCTS: ??No biliary ductal dilatation. ?? SPLEEN: ??Upper limit of normal for size. No suspicious lesion. ?? PANCREAS: ??There is fusiform dilation of the pancreatic parenchyma, particularly of the body and tail. Faintly increased T2 signal of the body and tail of pancreas suggests interstitial edema. Thereis associated trace peripancreatic fluid. The overall appearance is suspicious for interstitial panc reatitis. No pancreatic ductal dilatation. Splenic vein flow voids suggest splenic vein patency. Noperipancreatic fluid collection.? ADRENAL GLANDS: ??No nodules. ?? KIDNEYS: ??No hydronephrosis. 6 mm T2 hyperintense, T1 hypointense lesion in the lower pole right kidney most likely represents a cyst. No suspicious lesion, within limits of noncontrast technique. ?? STOMACH/UPPER GI TRACT: ??The stomach is physiologically distended. The visualized loops of small and large bowel are normal in caliber.? PERITONEUM AND RETROPERITONEUM: ??No loculated fluid collection or peritoneal mass. Mild mesentericedema. Scattered areas of susceptibility artifact within the abdomen, most notable anterior to the liver corresponds to known small volume pneumoperitoneum related to recent laparoscopic procedure. The extent of pneumoperitoneum is better demonstrated on recent CT. ?? LYMPH NODES: ??No lymphadenopathy. ?? VESSELS: ??Abdominal aorta is nonaneurysmal. Large caliber arteries and veins demonstrate intact flow voids. Hepatic, portal and splenic veins patent. Retroaortic left renal vein, anatomic variant. Visualized inferior vena cava unremarkable. ?? ABDOMINAL WALL: ??Scattered areas of susceptibility artifact in the anterior abdominal wall relatedto recent laparoscopic procedure. Abdominal wall is otherwise unremarkable. ?? BONES: ??Unremarkable. ?? IMPRESSION: 1. ??Diffuse somewhat fusiform dilation of the body and tail of pancreas with interstitial pancreatic edema and trace peripancreatic fluid. The appearance is compatible with acute interstitial pancreatitis. No acute pancreatic fluid collection or evidence of local complication. 2. ??No biliary ductal dilatation or intraductal filling defect. 3. ??Persistent small volume pneumoperitoneum better visualized on comparison CT scan. 4. ??Mild hepatic steatosis.? I have personally reviewed the images and I agree with this report. WSN: [id number] ? Signature Line Dictated By: ?Franko Martinez MD Date/Time: ?09/03/19 11:43 a Reviewed By: ?Franko Conroy MD [1] Assessment/Plan ??Ms. Burak Babcock is a 33 yr G0, P0 female with history of severe??recurrent iron?? deficiency anemia with a primarily microcytic anemia and abnormally low serum vitamin B12 (without pancytopenia). She states her last dose of vitamin B12 was in October 2022 and due to travel outside of country she was not continuing to receive her 1-2 times per month vitamin??B12 injections which she wouldsometimes receive at PCP office. She also states she missed her recent iron infusion therapy that was arranged by Dr. Ibarra, our colleague, her primary bottom scrubber also due to her traveling. The patient has had failure to thrive and lost 10 lbs over a year due to inability to tolerate adequate PO nutritional intake since she has??liquid (brown) diarrhea whenever she attempts to eat/drink.??The patient had some past diagnosis of??'atrophic gastritis' in her EMR, however has not had??further evaluation than one EGD in the past. She has??lost 10 lbs over the past year and has also had symptoms she attribute to B12 deficiency: dropping things/poor hand sensory/key attendant/strength as well as in her feet however, despite??past B12 im injections, she has never??had complete resolution of symptoms. There is no family history of anemia, B12 deficiency nor diarrhea or GI disorder. The patient has 7 brothers and no sister. She has also frequent menses approximately 2 times per month for 1 week at a time but states she has not been found for cause; she has also not had any other bleeding: noepistaxis/gum bleeding, hemoptysis, nor hematemesis/melena/hematochezia. She received 1 unit PRBC this admission, that is her fourth transfusion PRBC in her life. The patient reports a healthy childhood.??She has some hair loss, ?photosensitivity rash, denies general joint pains except lower back. She has had 1 surgery in past: cholecystectomy for??cholelithiasis and tolerated w/o any bleeding complication. ?? We recommend: 1) either Ferric gluconate 125 mg iv daily or??iron sucrose (Venofer) up to 400 mg??iv??weekly or if permitted/formulary inpatient higher dose iv iron formulations. 2) daily??cyanocobalamin 1000 microgram i.m.??x 1 week, then weekly x 4??weeks, then monthly. 3) Recheck vitamin B12 level a few days after dose has been given; if B12 does not rise, may need to check transcobalamin I and II. 4) Added methylmalonic acid,??homocysteine level, draw pyridoxine (vitamin B6 level). Consider thiamine level or empirically supplement. 5) Nutrition consult for malnutrition 6) GI consult for malabsorption: chronic diarrhea work up and consideration for enteral vs. peripheral parenteral nutrition. 7)??Repeat reticulocyte count, CBC 8) Add-on PERLITA, C-reactive protein level. Consider lipase. 9) Social work to assist with reinstate patient's [employer] insurance ? Marina Collazo M.D. [1]??MRI Abdomen W/O Contrast; Franko Conroy MD 09/03/2019 10:52 EST Admission evaluation note * Raisa DAWSON, Reena Haddad: MODIFY Reena Kline MD: MODIFY, MODIFY Teresa Montanez MD: MODIFY, MODIFY Teresa Montanez MD: MODIFY, MODIFY Teresa Montanez MD: MODIFY, MODIFY Teresa Montanez MD: MODIFY, MODIFY Teresa Montanez MD: MODIFY, MODIFY Teresa Montanez MD: MODIFY, MODIFY Teresa Montanez MD: MODIFY, MODIFY Teresa Montanez MD: MODIFY, MODIFY Teresa Montanez MD: MODIFY, MODIFY Teresa Montanez MD: MODIFY, PERFORM Teresa Montanez MD: PERFORM Event Display: Admission Note Authored Date: [id number] Patient: ??BURAK CALVO ? Age:??33 Years?Sex:??Female?:??1990?? Chief Complaint/Reason for Consultation From PCP. pt c/o bilat hand numbness/weakness x 2 months.reports dropping objects x 2 months. PCP requesting further neuro eval. pt also feels as though iron is low and is dur for her regluarly schediron infusion tomorrow. 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 She says that she gets numbness in the arms and the hands??where and she drops objects.?? Patient has??also have??weaknesses in the legs??after work??and sometimes she cannot stand??right.?? She says that these??episodes??are usually??more in the afternoon/evening than in the [facility].?? She was diagnosed with iron deficiency and vit b12 deficiency after??a fall.?Patient says that she does not eat dairy or eggs but does eat pork/chicken/meat every day. Denies nitrous oxide use or any medications. No one has been able to figure out why she has??Vitamin B12 deficiency.??Lasttime she recalls she has iron??injections/vit b12 injections are on October.? There have been??2 occasions where??she has episodes where her??face??drooped and had numbness. ??1instance was??when she while she was at work??where a coworker noticed that??and it went away in 20minutes. ??During that time she had trouble speaking. Patient also says that she has blurry vision with deep eye pain and photophobia.? Says she has some eye pain behind her eyes and vision loss that last for a day and returns the following day. She also??has had mouth sores??that goes away with the medication prescribed by the dentist.?? She has multiple in her side of the mouth and in the middle of the tongue. Patient also endorses some abdominal pain even after cholecystectomy that does not really change with foods or bowel movements and its level of pain varies by day. She used to skip meals all the timeand used to have nausea and vomiting. Now she has abdominal pains but no nausea or vomiting. Patient denies hematuria, hematochezia,??bloody bowel movements.??palpitations. ?? Gynecology history:??Last menstrual period patient had 3-week history of menstruation. ??She usually have 1 week of menstruation??and 1 week off??but 1 week on menstruation.?? She uses 1 pack??which has 36 pieces??in 3 days. ??She also has seen clots.? In the ED the patient CBC shows hemoglobin 7.0, MCV of 73.1, BMP grossly normal, low vitamin B12 levels.?? Normal TSH.?? Low ferritin and iron saturation percentage. CT head brain shows no acute intracranial pathology. Received 1 unit of blood. ?? During my evaluation, patient was receiving blood at bedside and not in distress. Review of Systems 10 point review of systems performed and negative except as noted above. Objective Measurements?? Height: 155 cm (07/18/23) Dry Weight: 48 kg (07/18/23) ? Vital Signs?? Temperature: 98 DegF (07/18/23 18:23:00) Temperature Route: Oral (07/18/23 18:23:00) Pulse Rate: 60 bpm (07/18/23 17:32:00) Respiratory Rate: 16 br/min (07/18/23 17:32:00) Systolic Blood Pressure: 115 mm Hg (07/18/23 17:32:00) Diastolic Blood Pressure: 59 mm Hg (07/18/23 17:32:00) Blood pressure sites: Arm, right (07/18/23 17:32:00) Mean Arterial Pressure: 78 mm Hg (07/18/23 17:32:00) Pulse Pressure: 56 mm Hg (07/18/23 17:32:00) Oxygen Saturation: 100 % (07/18/23 17:32:00) Mode of Delivery (Oxygen): Room air (07/18/23 17:32:00) Early Warning Score: 0 (07/18/23:43) ? Physical Exam General: Patient in no acute distress, small in stature. HEENT: normocephalic, atraumatic, PERRLA, EOMI, moist mucous membranes with no oral lesions. No lymphadenopathy or thyromegaly appreciated. right gaze ?? palsy. Respiratory: bilateral equal air entry, clear to auscultation with no wheezes or crackles. Adequaterespiratory rate and effort on room air.?? CVS: regular rate and rhythm, S1 and S2 present, no murmurs.. No JVD.?? Abdomen: soft, non tender, non distended, bowel sounds present. Extremities: no cyanosis, pulses present and equal bilaterally. N o edema noted b/l.?? Neuro: alert and oriented x3. Cranial nerves II-XII grossly intact. Moving all extremities spontaneously. Normal tones, following simple commands.?? Loss of balance while she walks. Derm: No signs of infection, surrounding skin is intact with no evidence of erythema, no purulent discharge, no tenderness?? Psych: Normal mood and affect ?? 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 ? Acute on Chronic?? Anemia Microcytic anemia Iron Deficiency Anemia Severe Vitamin B12 Deficiency Bilateral Hand and Leg Numbness/Weakness most likely peripheral rneuropathy due to vit b12 deficiency. Patient claims to eat meat, pork and chicken every day. Does not eat lactose or eggs. Has had an work up in the past but will order intrinsic factor for pernicious anemia given abdominal pains. Also will order other potential causes of low vitb12 such as HIV, Iron Deficit 1041mg ? Plan: -IV 250 mg Iron Venofer -Vit B12 1000mg injection daily for a week then 1000mg per week -CBC -Hg>7 -HIV -peripheral smear -reticulocyte count -intrinsic factor -UA -- for proteinuria -vit D -h pylori ? Diet: Regular DVT prophylaxis: none Code Status: Full Patient case and plan discussed with ??Raisa?? Teresa Montanez MD?? Internal Medicine PGY-1 Pager:??[phone]? Attending Attestation: I have seen and evaluated this patient???07/19/2023 in ED C pod after shepresented for evaluation??of multiple complaints including progressive fatigue, generalized weakness,??as well as bilateral hand numbness, weakness???dropping things??and difficulty walking,??foggy mentation, skin changes???xerostomia, ??with recent??worsening menorrhagia???last menses lasting 3 weeks each??going through??up to 12 pads per day?found to have??severe??microcytic anemia with hemoglobin of 7 and MCV 73??with iron deficiency???iron level??14, ferritin 5,??3% iron saturation??aswell as??continually low B12 level less than 150?admitted for further treatment and evaluationof persistent anemia??due to mixed/combined??iron deficiency??that is thought to be related to chronic loss and poor??absorption??of iron??as well as severe??B12 deficiency of uncertain etiology. ??Her head CT shows no acute process and it seems that her neuro symptoms can be most c/w B12 deficiency. The records indicate the patient has had anemia since??2014 at which time she had presented to [facility] with syncope and was found to have a hemoglobin of 5.4???at that time she had iron deficiency and borderline B12 deficiency.?She did require blood transfusion at that time in 2014. ??She also indicates that she believes she had a blood transfusion at the age of 2???no trauma or bleeding reported at that time- this cannot be confirmed in the records.?She has always had short stature (states that many in her family have short stature but she is shorter than others).?She also reports that she was premature??at ???uncertain of weeks. She??has had chronic diarrhea sinceher cholecystectomy in 2019 but at that point she had already been diagnosed with??anemia. ??Her evaluation for autoimmune etiology of malabsorption???celiac parietal antibodies??and intrinsic factorantibodies were within normal limits in 02/19???intrinsic factor was 1 (normal is??0-1.1). ??Her last EGD was in 2020 and showed atrophic gastritis.?? Since she has been on repeated courses of IV ironand B12 injections with some charting indicating missed appointments.?She has been off PPI??as well as all of her other medications at least since 10/2022. 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 ?? [] ?? Histories Allergies Allergies ?(Active and Proposed Allergies Only) NKA? (Severity: Unknown severity, Onset: Unknown) ? Past Medical History/Problem List Active Problems??(2) Anemia Iron deficiency B12 deficiency Previous??celiac??labs, parietal antibodies and intrinsic factor blocking antibody were??in normal range in 01/2022 History of severe menorrhagia History of cranial nerve palsy with left eye medial deviation Reported history of pancreatitis???uncertain etiology History of GERD History of atrophic gastritis Migraine ? Past Surgical History Colonoscopy and biopsy of colon: 12/30/20 Esophagogastroduodenoscopy and biopsy: 12/30/20 S/P cholecystectomy 08/2018 ?? Social History Alcohol Details:??Use: Never. Exercise Details:??Regular exercise: Yes. ??Exercise frequency: 3-4 times/week. Nutrition/Health Details:??Diet: Regular. Substance Abuse Details:??Use: Never. Tobacco Details:??Never smoker ? Family History No family history recorded. No known GI malignancy or chronic anemia in her family. ??Short stature runs in her family ?? Medications Home Medications No medications documented.? Note???she was prescribed OCP, iron??and B12??treatments but discontinued them on her own in 10/2022 Results Recent Labs BLOOD BANK Blood Type O Positive ()?? 07/18/2023 16:20 Antibody Screen Negative ()?? 07/18/2023 16:20 RBC Unit ID [id number] ()?? 07/18/2023 16:20 RBC Available IS ()?? 07/18/2023 16:20 ?? BLOOD COUNT & DIFF WBC 6.3 k/mm3 ()?? 07/18/2023 14:05 RBC 3.53 m/mm3 (Low)?? 07/18/2023 14:05 Hgb 7.0 Gm/dL (Low)?? 07/18/2023 14:05 Hct 25.8 % (Low)?? 07/18/2023 14:05 MCV 73.1 femtoliters (Low)?? 07/18/2023 14:05 MCH 19.8 pg (Low)?? 07/18/2023 14:05 MCHC 27.1 g/dL (Low)?? 07/18/2023 14:05 Platelet Count 328 k/mm3 ()?? 07/18/2023 14:05 RDW-SD 51.8 femtoliters (High)?? 07/18/2023 14:05 MPV 10.6 femtoliters ()?? 07/18/2023 14:05 Nucleated RBC (Automated) 0.0 #/100 WBC'S ()?? 07/18/2023 14:05 Abs. NRBC 0.0 k/mm3 ()?? 07/18/2023 14:05 Abs. Neut 5.0 k/mm3 ()?? 07/18/2023 14:05 Abs. Lymph 0.9 k/mm3 ()?? 07/18/2023 14:[address] [place] 0.4 k/mm3 ()?? 07/18/2023 14:05 Abs. Eo 0.0 k/mm3 ()?? 07/18/2023 14:05 Abs. Baso 0.0 k/mm3 ()?? 07/18/2023 14:05 Neut % 79.5 % (High)?? 07/18/2023 14:05 Lymph % 13.8 % (Low)?? 07/18/2023 14:05 [place] % 5.9 % ()?? 07/18/2023 14:05 Eos % 0.2 % ()?? 07/18/2023 14:05 Baso % 0.0 % ()?? 07/18/2023 14:05 Imm Gran 0.6 % ()?? 07/18/2023 14:05 Abs. Imm Gran 0.0 k/mm3 ()?? 07/18/2023 14:05 ?? CHEM GENERAL Sodium 141 mmol/L ()?? 07/18/2023 14:05 Potassium 4.5 mmol/L ()?? 07/18/2023 14:05 Chloride 106 mmol/L ()?? 07/18/2023 14:05 Bicarbonate Level 25 mmol/L ()?? 07/18/2023 14:05 Anion Gap 10 ()?? 07/18/2023 14:05 Glucose Level 100 mg/dL (High)?? 07/18/2023 14:05 BUN 6 mg/dL ()?? 07/18/2023 14:05 Creatinine-Blood 0.5 mg/dL ()?? 07/18/2023 14:05 Estimated GFR Creatinine 125 ML/MIN/1.73 M2 ()?? 07/18/2023 14:05 Calcium 9.3 mg/dL ()?? 07/18/2023 14:05 Magnesium 2.1 mg/dL ()?? 07/18/2023 14:05 Vitamin B12 Level <150 pg/mL (Low)?? 07/18/2023 14:05 ?? ENDOCRINE/TUMOR MARKER TSH 2.67 uIU/mL ()?? 07/18/2023 14:05 Blood <1 mIU/mL ()?? 07/18/2023 14:05 ?? URINE OTHER Est Creatinine Clearance 120.90 mL/min ()?? 07/18/2023 14:57 ? Abnormal Labs ?? BLOOD COUNT & DIFF ??Abs. Imm Gran ??0.0 k/mm3 () ??07/18/2023 14:05 ??Abs. NRBC ??0.0 k/mm3 () ??07/18/2023 14:05 ??Hct ??25.8 % (Low) ??07/18/2023 14:05 ??Hgb ??7.0 Gm/dL (Low) ??07/18/2023 14:05 ??Imm Gran ??0.6 % () ??07/18/2023 14:05 ??Lymph % ??13.8 % (Low) ??07/18/2023 14:05 ??MCH ??19.8 pg (Low) ??07/18/2023 14:05 ??MCHC ??27.1 g/dL (Low) ??07/18/2023 14:05 ??MCV ??73.1 femtoliters (Low) ??07/18/2023 14:05 ??Neut % ??79.5 % (High) ??07/18/2023 14:05 ??Nucleated RBC (Automated) ??0.0 #/100 WBC'S () ??07/18/2023 14:05 ??RBC ??3.53 m/mm3 (Low) ??07/18/2023 14:05 ??RDW-SD ??51.8 femtoliters (High) ??07/18/2023 14:05 ? CHEM GENERAL ??Estimated GFR Creatinine ??125 ML/MIN/1.73 M2 () ??07/18/2023 14:05 ??Glucose Level ??100 mg/dL (High) ??07/18/2023 14:05 ??Vitamin B12 Level ??<150 pg/mL (Low) ??07/18/2023 14:05 ? ENDOCRINE/TUMOR MARKER ??Blood ??<1 mIU/mL () ??07/18/2023 14:05 ? Note: Critical results are displayed in red. ? Blood Glucose Trend Glucose Level:??100 mg/dL??High (07/18/23 14:05:00) ? CBC, CBC w/Diff?? CBC?? Differential?? WBC: 6.3 k/mm3 (14:05) Abs. Neut: 5 k/mm3 (14:05) RBC:??3.53 m/mm3??Low (14:05) Abs. Lymph: 0.9 k/mm3 (14:05) Hct:??25.8 %??Low (14:05) Abs. [place]: 0.4 k/mm3 (14:05) RDW-SD:??51.8 femtoliters??High (14:05) Abs. Eo: 0 k/mm3 (14:05) Nucleated RBC (Automated): 0 #/100 WBC'S (14:05) Abs. Baso: 0 k/mm3 (14:05) Abs. NRBC: 0 k/mm3 (14:05) Neut %:??79.5 %??High (14:05) ?? Lymph %:??13.8 %??Low (14:05) ?? [place] %: 5.9 % (14:05) ?? Eos %: 0.2 % (14:05) ?? Baso %: 0 % (14:05) ?? Imm Gran: 0.6 % (14:05) ?? Abs. Imm Gran: 0 k/mm3 (14:05) ? EKG study * Event Display: ECG 12-Lead Authored Date: Please click on pdf link to open report * Event Display: ECG 12-Lead Authored Date: Ventricular Rate: 57 BPM Atrial Rate: 57 BPM P-R Interval: 160 ms QRS Duration: 70 ms Q-T Interval: 420 ms QTC Calculation(Bazett): 408 ms P [place]: 52 degrees R [place]: 37 degrees T [place]: 15 degrees Sinus bradycardia Otherwise normal ECG When compared with ECG of 26-APR-2022 12:37, Nonspecific T wave abnormality no longer evident in Lateral leads Confirmed by EMPERATRIZ INGRAM ([id number]) on 07/22/2023 10:30:22 AM Mor[place]: EMPERATRIZ INGRAM Hospital Progress note * Nicanor DEMPSEY, Kathy: PERFORM, SIGN, VERIFY Event Display: Progress Note Hospital Authored Date: [id number] Patient: BURAK CALVO Age: 33 years Sex: Female : 1990 Associated Diagnoses: None Author: Kathy Vick RN Findings Problem Related to Alteration in Comfort : Alteration in Comfort/new 07/24/2023 14:00 EST Alteration in Comfort Related to Disease process Goals & Outcomes: Comfort Pt will report acceptable level of comfort & pain control Interventions Implemented: Comfort Assess pain using appropriate pain scale/tools, Assess aggravating factors & prevent them accordingly, Assess alleviating factors & promote them accordingly Goals/Interventions, Comfort Yes Comfort, Problem Start 07/23/2023 2:35 Reviewed plan with, Comfort Patient Patient Progression, Comfort Resolved problem Comfort, Problem Ongoing Yes Comfort, Problem Resolved 07/24/2023 14:21 . Alteration in Tissue Perfusion : Alteration in Tissue Perfusion 07/24/2023 14:00 EST Alteration Tissue Perfusion related to Anemia Goals & Outcomes: Tissue perfusion Pt will maintain optimal perfusion to vital organs, Pt will resume/maintain adequate peripheral circulation, Pt will experience improved tissue perfusion, Pt will achieve progressive healing of injured area, Pt will be hemodynamically stable, Pt will achieve no rmal/improved/optimal neuro status, Pt will return to baseline respiratory function, Pt will maintain adequate GI function appropriate for pt, Pt will maintain adequate function appropriate for pt, Pt will be discharged without infection, Pt/ S.O. will state understanding of plan of care, Pt/S.O. will verbalize understanding of the D/C plan Interventions: Tissue Perfusion Resolved problem, Interventions no longer in effect Goals/Interventions, Tissue Perfusion Yes Tissue Perfusion, Problem Start 07/24/2023 1:31 Reviewed Plan with, Tissue Perfusion Patient Patient Progression, Tissue Perfusion Resolved problem Problem Resolved, Tissue Perfusion 07/24/2023 14:21 . Evaluation Pt alert, oriented x 4, denies pain on assessment. Pt does not present with any cardiac/resp distress. Sched meds given. Pt discharged home, instructions reviewed w her, questions encouraged and answered. IV access removed, cath tip intact. Pt left unit ambulatory accompanied by staff PCT.. Discharge Information Case Management Discharge Plan : Case Management Discharge Plan Data 07/24/2023 14:18 EST Discharge Level of Care at Discharge Home/Long-Term/Foster Care * Meghan Castro RN: PERFORM, SIGN, VERIFY Event Display: Progress Note Hospital Authored Date: Patient: BURAK CALVO Age: 33 years Sex: Female : 1990 Associated Diagnoses: None Author: Meghan Castro RN Findings Problem Related to Alteration in Tissue Perfusion : Alteration in Tissue Perfusion 07/23/2023 23:00 EST Alteration Tissue Perfusion related to Anemia Goals & Outcomes: Tissue perfusion Pt will maintain optimal perfusion to vital organs, Pt will resume/maintain adequate peripheral circulation, Pt will experience improved tissue perfusion, Pt will achieve progressive healing of injured area, Pt will be hemodynamically stable, Pt will achieve no rmal/improved/optimal neuro status, Pt will return to baseline respiratory function, Pt will maintain adequate GI function appropriate for pt, Pt will maintain adequate function appropriate for pt, Pt will be discharged without infection, Pt/ S.O. will state understanding of plan of care, Pt/S.O. will verbalize understanding of the D/C plan Interventions: Tissue Perfusion Assess for s/s of infection of lines, drains, incisions, Assess/Monitor activity tolerance, Assess/Monitor cardiac dysrhythmias, Assess/Monitor mental status, Monitor blood loss, Monitor Intake & Output, Teach pt/caregiver on use of pain scale BH Goals/Interventions, Tissue Perfusion Yes Tissue Perfusion, Problem Start 07/24/2023 1:31 Reviewed Plan with, Tissue Perfusion Patient Patient Progression, Tissue Perfusion Plan Initiation . Nursing Data Integumentary Data. : Integumentary Data. 07/24/2023 1:23 EST Skin Color Normal for ethnicity Skin Integrity Intact Activity Walks frequently Mobility No limitations Integumentary WNL Integumentary WNL . Vital Signs : VITAL SIGNS SECTION 07/23/2023 22:26 EST Temperature 98.8 DegF Temperature Route Oral Pulse Rate 64 bpm Respiratory Rate 18 br/min Systolic Blood Pressure 115 mm Hg Diastolic Blood Pressure 67 mm Hg Blood pressure sites Arm, left Mean Arterial Pressure 83 mm Hg Pulse Pressure 48 mm Hg Oxygen Saturation 100 % Mode of Delivery (Oxygen) Room air . Evaluation P: Alteration in ???Tissaue perfusion function I: See Plan of care for Interventions E: Patient is A/O x # Lungs are clear on RA . Denies SOB or chest pain. . Good dorsi/plantar flexion and strong /equal BL hand grasp. Abdomen is . Bowel sounds are present in all quadrants . Reports passing flatus. Tolerating a regular diet. Denies nausea or vomiting. LBM on 07/23 . Skin is intact and shows no sign of breakdown Voiding CYU . Ambulates independentlty . Able to ambulate 300 ffeet..+PP, +CMS, no edema present. Pain reported as 2/10 , Administered PRN ???tylenol with good effect. . Bed in lowest locked position, call morales in use. Patient is progressing according to plan.. * Sandra DAWSON, Amanda Peng: PERFORM Event Display: Progress Note Hospital Authored Date: Patient: ??BURAK CALVO ? Age:??33 Years?Sex:??Female?:??1990?? Subjective Seen and examined today No new issue ?? Review of Systems Constitutional: No fever or chills. ENT: No sore throat or nasal congestion. Respiratory: No shortness of breath or cough??. Cardiovascular: No chest pain or??palpitation. Gastrointestinal: No nausea, vomiting or diarrhea. Skin: No rash or lesion Neurology: No speech problem no vision problem no focal weakness, no dizziness. Psychiatric: Cooperative, normal mood and affect Objective ?? Physical Exam Awake, alert, oriented Lungs: Clear to auscultation bilateral, no wheezing no rales Heart: Regular rate and rhythm, no murmur, no rub or gallop Abdomen: Soft, nontender, nondistended; Bowel sounds present Extremity: No edema cyanosis clubbing Neurological: No focal deficit Psychiatric: Normal mood and affect Assessment/Plan Assessment:??33 y/o female with past medical history of anemia secondary to iron deficiency due to menorrhagia and B12 12 deficiency since 2014 , chronic CN palsy, states she had left department because of 2 months of fatigue and bilateral hand numbness/weakness/tingling which has gotten worse in the past month admitted due to acute on chronic anemia due to iron deficiency as well as severe vit b12 deficiency. ?? She was evaluated by Hematology as out patient. Her anemia was attributed to menorrhagia but also has evidence of atrophic gastritis on EGD. She was arranged for IV iron in March 2022 and August 2022 but did [place] She continues to be hesitant to use IV iron but would like to see the labs today before making a decision. Patient also has concomitant vitamin B12 deficiency and work-up for celiac disease, pernicious anemia and antiparietal cell antibodywas negative. He lasy saw Hematology in Mar 2023; but did not show up for 3 mo f/up in on 06/07/23. It seems that her worsening of iron and B12 def anemia is related to non compliance ? Fatigue (R53.83):??. ?? Iron deficiency anemia (D50.9):??. ?? Vitamin B12 deficiency (E53.8):? Acute on Chronic Anemia Microcytic anemia Iron Deficiency Anemia Severe Vitamin B12 Deficiency ?? 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 ?? S/P Iron infusion 07/19/23 and 07/20/23 Hematology consulted and appreciated recommendation Received venefor X2 GI consulted; s/p EGD showing gastric atrophy; biopsy taken ? Plan: Will continue B12 1000mg injection daily for a week; then 1000mg per week X 4 weeks and then monthly Will recheck vitamin B12 level a few days after dose has been given; if B12 does not rise, may needto check transcobalamin I and II. Follow vitamin B6 level) Will give IV thiamine emperically ?? She will finish 7 days IM B12 tomorrow and can be discharged home ? VTE Prophylaxis:??Pneumo boot , ambulation ?VTE Prophylaxis Assessment:??VTE Prophylaxis Ordered ?? Code Status:??Full Code ?Order Code Status:??Code Status Ordered ?? Ongoing Medical Necessity:??Parental B12 ?? Discharge Planning:??Likely d/c tomorrow ? Note * Kathy Vick RN: PERFORM Event Display: Discharge/Transfer Note Hospital Authored Date: [id number] Nursing Discharge Note Entered On: 07/24/2023 14:20 EST Performed On: 07/24/2023 14:18 EST by Kathy Vick RN Nursing Discharge Note 2 Discharge Time : 07/24/2023 14:19 EST Discharge Level of Care at Discharge : Home/Long-Term/Foster Care Patient Left Unit Via : Ambulatory Patient Accompanied Off Unit with : Other: self DC Instructions Provided & Signed by Pt : Yes Patient Understands D/C Instructions : Yes Patient Instructions Discharge Signed : Yes Did Pt have Specialty Bed or Wound Vac : No Kathy Vick RN - 07/24/2023 14:18 EST * Sandra DAWSON, Amanda Peng: PERFORM Event Display: Discharge/Transfer Note Hospital Authored Date: [id number] Patient: ??BURAK CALVO ? Age:??33 Years?Sex:??Female?:??1990?? Patient Information Discharge Location: 4 Primary Care Physician: Ynes Sanford NP Admit Date/Time: 07/18/23 17:27 Discharge Disposition Discharge Disposition: ?? Discharge Diagnosis Fatigue (R53.83) Iron deficiency anemia (D50.9) Vitamin B12 deficiency (E53.8) ?? _ Discharge Medications Cyanocobalamin (cyanocobalamin 1000 mcg/ml injectable solution)?1?Milliliter?1,000?Microgram?Intramuscular?Every week?for 4?doses/times Ergocalciferol (ergocalciferol 49918 iu oral capsule)?50,000?International Unit?1?capsule?By Mouth?Every week?for 30?Days Thiamine (thiamine 100 mg oral tablet)?100?Milligram?1?tablet?By Mouth?Daily?for 30?Days ? Medications Started All meds are new Allergies Allergies ?(Active and Proposed Allergies Only) NKA? (Severity: Unknown severity, Onset: Unknown) ? Hospital Course 33 y/o female with past medical history of anemia secondary to iron deficiency due to menorrhagia and B12 12 deficiency since 2014 , chronic CN palsy, states she had left department because of 2 months of fatigue and bilateral hand numbness/weakness/tingling which has gotten worse in the past month admitted due to acute on chronic anemia due to iron deficiency as well as severe vit b12 deficiency. ? She was evaluated by Hematology as out patient. Her anemia was attributed to menorrhagia but also has evidence of atrophic gastritis on EGD. She was arranged for IV iron in March 2022 and August 2022 but did [place] receive [place] She continues to be hesitant to use IV iron but would like to see the labs today before making a decision. Patient also has concomitant vitamin B12 deficiency and work-up for celiac disease, pernicious anemia and antiparietal cell antibodywas negative. He lasy saw Hematology in Mar 2023; but did not show up for 3 mo f/up in on 06/07/23. It seems that her worsening of iron and B12 def anemia is related to non compliance ? Fatigue (R53.83): . ? Iron deficiency anemia (D50.9): . ? Vitamin B12 deficiency (E53.8): ??Acute on Chronic Anemia ??Microcytic anemia ??Iron Deficiency Anemia ??Severe Vitamin B12 Deficiency ? 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 ? S/P Iron infusion 07/19/23 and 07/20/23 ??Hematology consulted ?Received venefor X2 ??GI consulted; s/p EGD showing gastric atrophy; biopsy taken ??Received daily IM B12 for 7 days Neurology symptoms improved ?? Hb improved to 9.3 B12 improved from <150 to 1845 Vit D 3 level 13.6 ? She is being discharged home in a stable and improved condition ?Plan: ??Will continue B12 1000mg injection per week X 4 weeks and then monthly (next dose Jul 31 (aug 01) Will continue thiamin Will continue Vit D weekly ?? Note: Patient states that he m other is an RN and can give her Vit B12 IM; alternately she can get it from PCP office or At Hematology office (she will be following with Hematology Will also need periodic iron infusion; will defer to Hematology ? Objective Vital Signs?? Temperature: 98.8 DegF (07/23/23 22:26:00) Temperature Route: Oral (07/23/23 22:26:00) Pulse Rate: 64 bpm (07/23/23 22:26:00) Respiratory Rate: 16 br/min (07/24/23 06:42:00) Systolic Blood Pressure: 115 mm Hg (07/23/23 22::00) Diastolic Blood Pressure: 67 mm Hg (07/23/23 22:26:00) Blood pressure sites: Arm, left (07/23/23 22:26:00) Mean Arterial Pressure: 83 mm Hg (07/23/23 22:26:00) Pulse Pressure: 48 mm Hg (07/23/23 22:26:00) Oxygen Saturation: 100 % (07/23/23 22:26:00) Mode of Delivery (Oxygen): Room air (07/23/23 22:26:00) Early Warning Score: 0 (07/24/23 06:43:15) ? . Physical Exam Awake, alert, oriented Lungs: Clear to auscultation bilateral, no wheezing no rales Heart: Regular rate and rhythm, no murmur, no rub or gallop Abdomen: Soft, nontender, nondistended; Bowel sounds present Extremity: No edema cyanosis clubbing Neurological: No focal deficit Psychiatric: Normal mood and affect Surgical Procedures Colonoscopy/Gastroscopy (EGD) 07/22/2023 09:45 Pending Results Add On Lab Order ordered on 07/20/2023 Add On Lab Order ordered on 07/21/2023 H. pylori Antigen ordered on 07/19/2023 Hold Lavender Tube (BB) ordered on 07/18/2023 Methylmalonic Acid ordered on 07/19/2023 Pathology Tissue Request ordered on 07/22/2023 Transfuse RBCs ordered on 07/18/2023 Type and Screen, Use Hold Lavender ordered on 07/18/2023 Vitamin B6 Level ordered on 07/21/2023 Follow-Up Appointments Added Follow Up ?Time Frame ?Comments Fred Rendon MD, Manuel Crenshaw?2 to 3 weeks Claribel JOHNSON, Ynes Carter?1 week Home Health Face to Face ^[facility] Results Discharge Labs BLOOD BANK Blood Type O Positive ()?? 07/18/2023 16:20 Antibody Screen Negative ()?? 07/18/2023 16:20 RBC Unit ID [id number] ()?? 07/18/2023 16:20 RBC Available PT ()?? 07/18/2023 16:20 ?? BLOOD COUNT & DIFF WBC 6.6 k/mm3 ()?? 07/24/2023 01:09 RBC 4.16 m/mm3 (Low)?? 07/24/2023 01:09 Hgb 9.3 Gm/dL (Low)?? 07/24/2023 01:09 Hct 32.5 % (Low)?? 07/24/2023 01:09 MCV 78.1 femtoliters (Low)?? 07/24/2023 01:09 MCH 22.4 pg (Low)?? 07/24/2023 01:09 MCHC 28.6 g/dL (Low)?? 07/24/2023 01:09 Platelet Count 248 k/mm3 ()?? 07/24/2023 01:09 RDW-SD 59.3 femtoliters (High)?? 07/24/2023 01:09 MPV 11.2 femtoliters ()?? 07/24/2023 01:09 Nucleated RBC (Automated) 0.0 #/100 WBC'S ()?? 07/24/2023 01:09 Abs. NRBC 0.0 k/mm3 ()?? 07/24/2023 01:09 Abs. Neut 4.5 k/mm3 ()?? 07/24/2023 01:09 Abs. Lymph 1.4 k/mm3 ()?? 07/24/2023 01:[address] [place] 0.5 k/mm3 ()?? 07/24/2023 01:09 Abs. Eo 0.1 k/mm3 ()?? 07/24/2023 01:09 Abs. Baso 0.0 k/mm3 ()?? 07/24/2023 01:09 Neut % 68.3 % ()?? 07/24/2023 01:09 Lymph % 21.7 % ()?? 07/24/2023 01:09 [place] % 7.6 % ()?? 07/24/2023 01:09 Eos % 1.5 % ()?? 07/24/2023 01:09 Baso % 0.3 % ()?? 07/24/2023 01:09 Peripheral Blood Smear Review Interp. Reviewed by pathologist. ()?? 07/19/2023 02:03 Retic Count 1.5 % ()?? 07/19/2023 02:03 Retic Count Corrected 1.0 % ()?? 07/19/2023 02:03 Retic Production Index 0.6 % (Low)?? 07/19/2023 02:03 Imm Gran 0.6 % ()?? 07/24/2023 01:09 Abs. Imm Gran 0.0 k/mm3 ()?? 07/24/2023 01:09 ?? CARDIAC Homocysteine, Plasma/Serum 11.6 ??mole/L ()?? 07/21/2023 01:01 ? CHEM GENERAL Sodium 140 mmol/L ()?? 07/24/2023 01:09 Potassium 4.0 mmol/L ()?? 07/24/2023 01:09 Chloride 105 mmol/L ()?? 07/24/2023 01:09 Bicarbonate Level 25 mmol/L ()?? 07/24/2023 01:09 Anion Gap 10 ()?? 07/24/2023 01:09 Glucose Level 108 mg/dL (High)?? 07/24/2023 01:09 BUN 6 mg/dL ()?? 07/24/2023 01:09 Creatinine-Blood 0.6 mg/dL ()?? 07/24/2023 01:09 Estimated GFR Creatinine 121 ML/MIN/1.73 M2 ()?? 07/24/2023 01:09 Calcium 9.3 mg/dL ()?? 07/18/2023 14:05 Magnesium 1.8 mg/dL ()?? 07/22/2023 00:34 Lipase 25 units/L ()?? 07/19/2023 02:03 Vitamin B12 Level 1849 pg/mL (High)?? 07/22/2023 00:34 C-Reactive Protein 0.8 mg/dL (High)?? 07/19/2023 02:03 ?? ENDOCRINE/TUMOR MARKER TSH 2.67 uIU/mL ()?? 07/18/2023 14:05 Blood <1 mIU/mL ()?? 07/18/2023 14:05 ?? HEME OTHER Hold Lavender Top SPECIMEN DISCARDED AFTER 24 HOURS. ()?? 07/19/2023 06:48 ? IMMUNOLOGY GENERAL Anti-Nuclear Antibody Screen NEGATIVE ()?? 07/19/2023 02:03 Intrinsic Factor Blocking Ab 10.5 (High)?? 07/19/2023 02:03 ?? MISC. CHEMISTRY 25 [place]-Vitamin D Level 13.6 ng/mL (Low)?? 07/19/2023 02:03 ? SEROLOGY INF DISEASE HIV 4th Generation Ab-Ag Result NEGATIVE (N)?? 07/19/2023 02:03 ? UA/URINALYSIS Appear/Color, Urine LIGHT ORANGE ()?? 07/19/2023 05:30 Specific [place], Urine 1.026 ()?? 07/19/2023 05:30 pH, Urine 6.5 ()?? 07/19/2023 05:30 Albumin, Urine TRACE (Abnormal)?? 07/19/2023 05:30 Glucose, Urine NEGATIVE (N)?? 07/19/2023 05:30 Ketones, Urine 2+ (Abnormal)?? 07/19/2023 05:30 Bilirubin, Urine NEGATIVE (N)?? 07/19/2023 05:30 Hemoglobin, Urine NEGATIVE (N)?? 07/19/2023 05:30 Nitrite, Urine NEGATIVE (N)?? 07/19/2023 05:30 Leukocyte, Urine NEGATIVE (N)?? 07/19/2023 05:30 Urobilinogen 2 mg/dL (Abnormal)?? 07/19/2023 05:30 WBC's, Urine 1 /HPF ()?? 07/19/2023 05:30 RBC's, Urine 2 /HPF ()?? 07/19/2023 05:30 Bacteria SLIGHT HPF (Abnormal)?? 07/19/2023 05:30 Squamous Epith 2 /HPF ()?? 07/19/2023 05:30 Mucus SLIGHT /LPF ()?? 07/19/2023 05:30 ?? URINE OTHER Est Creatinine Clearance 100.75 mL/min ()?? 07/22/2023 03:03 ? 35 minutes spent on discharge * Kathy Vick RN: PERFORM Event Display: Patient Education/Instruction Authored Date: [id number] Inpatient Adult Discharge Instructions [place] [id number] Name: BURAK CALVO : 1990 Visit: 07/18/2023 17:27:00 Current Date: 07/24/2023 11:23 Account: [id number] Inpatient Adult Discharge Instructions We would like to thank you for allowing us to assist you with your healthcare needs. The following includes patient education materials and information regarding your injury/illness. Our entire staffstrives to provide an excellent experience for our patients and their families. PLEASE ENSURE YOU FOLLOW-UP PER THE INSTRUCTIONS BELOW! ?? YOUR OPINION IS IMPORTANT TO US! Please complete the survey you may receive by mail or email. Your feedback will be used to make improvements to the healthcare experiences of our patients and their families. Surveys are administered by [employer] ?? If further treatment with your primary care physician or another doctor is recommended, it is important for you to keep the appointment. Call your primary care physician or return to the Emergency Department immediately if your condition worsens, fails to improve, or new symptoms develop. If you need to find a doctor, you can call [facility] Link for a referral at [phone] or toll free at [phone] or log in to [email or web address].. ?? [facility], in keeping with [facility] guidance, no longer requires face masks [...] medical provider or home test kit. ?? You can view and manage your care through the patient portal or by using a health care ramón of your choosing. [employer] is a website that allows you to securely view your medical information including your hospital discharge summary, office visit summaries, medications and follow-up visits. You can also request appointments, renew medications, and request access to your medical information using a health care ramón of your choosing, or just ask a question. You can enroll at [email or web address] or register during your next office visit. You have been discharged from [facility], Patient Care Unit: S64. If you have any questions regarding these instructions after you leave, please call us and we will be happy to assist you. [facility] Your Care Team Attending Physician Amanda Flores MD Consulting Providers Renita DAWSON, Paul Peng; Marina Collazo MD Discharging Providers Amanda Flores MD Reason for Admission From PCP. pt c/o bilat hand numbness/weakness x 2 months.reports dropping objects x 2 months. PCP requesting further neuro eval. pt also feels as though iron is low and is dur for her regluarly schediron infusion tomorrow. Your Diagnosis Vitamin B12 deficiency Iron deficiency anemia Fatigue Tests Performed Below is a partial list of the tests performed during your hospitalization. You may have had other tests and procedures not included in this list. Please discuss all test results with your provider. ANTI-NUCLEAR ANTIBODY SCREEN B12 Vitamin Level Basic Metabolic Panel BUN C-REACTIVE PROTEIN CBC w/ Differential Creatinine Electrolytes Glucose Level HIV Ab-Ag 4th Generation HOLD LAVENDER TUBE Homocysteine Level Intrinsic Factor Blocking Antibody LIPASE Magnesium Level Peripheral Blood Smear Review Serum Quantitative Reticulocyte Ct TSH with T4 Reflex (Adults Only) UA Vitamin D [address] Head/Brain W/O Contrast Primary Care Provider Ynes Sanford NP Advance Directive Health Care Proxy on File No Discharge Vitals Temperature: 98.8 DegF Height: 155 cm Pulse Rate: 64 bpm Weight: 49.8 kg Respiratory Rate: 16 br/min Body Mass Index: 20.73 kg/m2 Systolic Blood Pressure: 115 mm Hg Body surface area: 1.46 Diastolic Blood Pressure: 67 mm Hg ?? Oxygen Saturation: 100 % ?? Studies Pending All tests and labs ordered during this hospital stay have been completed unless listed below. Please discuss all pending results with your provider listed above in these instructions. ?? Add On Lab Order H. pylori Antigen Hold Lavender Tube (BB) Methylmalonic Acid (METHYLMALONIC ACID, SERUM) Pathology Tissue Request () Transfuse RBCs Type and Screen, Use Hold Lavender Vitamin B6 Level What to do next Instructions From Your Doctor Discharge Orders You Need to Schedule the Following Appointments Follow Up with??Fred Rendon MD, Manuel Crenshaw When:??Within 2 to 3 weeks Follow Up with??Ynes Sanford NP When:??Within 1 week Where: [address] [place] [id number]- Discharge Medications BURAK CALVO :1990 Visit Date:07/18/2023 Medications: Please continue your medications until treatment is completed or stopped by your provider. Medications not listed below should be discontinued. Discuss any questions related to medications with your provider. What How Much When Instructions Next Dose New Ergocalciferol (ergocalciferol 49003 iu oral capsule) 1 capsule Oral Every week Duration: 30 Days Pickup at [facility]/pharmacy #1971 Last dose given 07/20/23 Next dose 07/27/23 New Thiamine (thiamine 100 mg oral tablet) 1 tab(s) Oral Daily Duration: 30 Days Pickup at [facility]/pharmacy #[id number]/25/23 Changed Cyanocobalamin (cyanocobalamin 1000 mcg/ ml injectable solution) 1 Milliliter Intramuscular Every week Duration: 4 doses/times Pickup at [facility]/pharmacy #1971 Last dose given 07/24/23 Next dose 07/31/23 Pharmacy Information [facility]/pharmacy #1972: [address], [place] [id number] [phone] ?? What How Much When Comments Stop Taking Ascorbic Acid (Vitamin C 500 mg oral tablet) 1 tab(s) Oral Daily STOP Stop Taking Colesevelam (Welchol 625 mg oral tablet) 2 tab(s) Oral Twice a day Duration: 14 Days STOP? Stop Taking Docusate (Doculase 50 mg oral capsule) 1 capsule Oral Twice a day as needed for for constipation may purchase over the counter. Hold for loose stools ?? STOP Stop Taking Ferrous Sulfate (ferrous sulfate 325 mg oral enteric coated tablet) 1 tab(s) Oral Daily STOP Stop Taking Omeprazole (omeprazole 20 mg oral delayed release tablet) 1 tab(s) Oral Daily STOP Test Results Below is a partial list of the most recent Laboratory test results done prior to this discharge. You may have had other tests and procedures not included in this list. Please discuss all test resultswith your provider. Antibody Screen - Negative (07/18/2023) Blood Type - O Positive (07/18/2023) Est Creatinine Clearance - 100.75 mL/min (07/22/2023) RBC Available - PT (07/18/2023) RBC Unit ID - [id number] (07/18/2023) ANTI-NUCLEAR ANTIBODY SCREEN (07/19/2023) ???Anti-Nuclear Antibody Screen - NEGATIVE B12 Vitamin Level (07/22/2023) ???Vitamin B12 Level - 1849 pg/mL Basic Metabolic Panel (07/18/2023) ???Sodium - 141 mmol/L???Potassium - 4.5 mmol/L???Chloride - 106 mmol/L???Bicarbonate Level - 25 mmol/L???Anion Gap - 10???Glucose Level - 100 mg/dL???BUN - 6 mg/dL???Creatinine-Blood - 0.5 mg/dL???Estimated GFR Creatinine - 125 ML/MIN/1.73 M2???Calcium - 9.3 mg/dL BUN (07/24/2023) ???BUN - 6 mg/dL C-REACTIVE PROTEIN (07/19/2023) ???C-Reactive Protein - 0.8 mg/dL CBC w/ Differential (07/24/2023) ???WBC - 6.6 k/mm3???RBC - 4.16 m/mm3???Hgb - 9.3 Gm/dL???Hct - 32.5 %???MCV - 78.1 femtoliters???MCH - 22.4 pg???MCHC - 28.6 g/dL???Platelet Count - 248 k/mm3???RDW-SD - 59.3 femtoliters???MPV - 11.2 femtoliters???Nucleated RBC (Automated) - 0.0 #/100 WBC'S???Abs. NRBC - 0.0 k/mm3???Abs. Neut - 4.5 k/mm3???Abs. Lymph - 1.4 k/mm3???Abs. [place] - 0.5 k/mm3???Abs. Eo - 0.1 k/mm3???Abs. Baso - 0.0 k/mm3???Neut % - 68.3 %???Lymph % - 21.7 %???[place] % - 7.6 %???Eos % - 1.5 %???Baso % - 0.3 %???Imm Gran- 0.6 %???Abs. Imm Gran - 0.0 k/mm3 Creatinine (07/24/2023) ???Creatinine-Blood - 0.6 mg/dL???Estimated GFR Creatinine - 121 ML/MIN/1.73 M2 Electrolytes (07/24/2023) ???Sodium - 140 mmol/L???Potassium - 4.0 mmol/L???Chloride - 105 mmol/L???Bicarbonate Level - 25 mmol/L???Anion Gap - 10 Glucose Level (07/24/2023) ???Glucose Level - 108 mg/dL HIV Ab-Ag 4th Generation (07/19/2023) ???HIV 4th Generation Ab-Ag Result - NEGATIVE HOLD LAVENDER TUBE (07/19/2023) ???Hold Lavender Top - SPECIMEN DISCARDED AFTER 24 HOURS. Homocysteine Level (07/21/2023) ???Homocysteine, Plasma/Serum - 11.6 ??mole/L Intrinsic Factor Blocking Antibody (07/19/2023) ???Intrinsic Factor Blocking Ab - 10.5 LIPASE (07/19/2023) ???Lipase - 25 units/L Magnesium Level (07/22/2023) ???Magnesium - 1.8 mg/dL Peripheral Blood Smear Review (07/19/2023) ???Peripheral Blood Smear Review Interp. - Reviewed by pathologist. Serum Quantitative (07/18/2023) ? ?Blood - <1 mIU/mL Reticulocyte Ct (07/19/2023) ???Retic Count - 1.5 %???Retic Count Corrected - 1.0 %???Retic Production Index - 0.6 % TSH with T4 Reflex (Adults Only) (07/18/2023) ???TSH - 2.67 uIU/mL UA (07/19/2023) ???Appear/Color, Urine - LIGHT ORANGE???Specific [place], Urine - 1.026???pH, Urine - 6.5???Albumin, Urine - TRACE???Glucose, Urine - NEGATIVE???Ketones, Urine - 2+???Bilirubin, Urine - NEGATIVE???Hemoglobin, Urine - NEGATIVE???Nitrite, Urine - NEGATIVE???Leukocyte, Urine - NEGATIVE???Urobilinogen - 2 mg/dL???WBC's, Urine - 1 /HPF???RBC's, Urine - 2 /HPF???Bacteria - SLIGHT???Squamous Epith - 2 /HPF???Mucus - SLIGHT Vitamin D 25 Hydroxy Level (07/19/2023) ???25 [place]-Vitamin D Level - 13.6 ng/mL Allergies (NKA means No Known Allergies) NKA Problems Active Problems??(2) Anemia?? S/P cholecystectomy?? Education Materials Below is the list of Educational Leaflet Providered with your Discharge Instructions. Valuables and Belongings I fully understand and agree that [facility] accepts no responsibility for all my personal property including clothing, toilet articles, radios, jewelry, dentures, hearing aids, rings, money, or any other property that is in my possession or is brought to me after admission. I understand certain valuables may be placed in a hospital safe for a short period of time. I understand that the hospital is not liable for loss or damage due to accident, fire, or other natural occurrence while said property is in the safe. I accept full responsibility for any personal property that I keep with me, and will not hold the hospital responsible in case of loss or disappearance. I acknowledge that i have been encouraged to send valuables and belongings home. ?? Review of Valuable and Belonging List: With patient Date for Pt to Sign Valuables/Belongings: 07/22/23 08:48:00 ?? Valuables & Belongings ?? Clothes Electronic devices Jewelry Monetary Items Personal devices Miscellaneous Medications (Valuables) Valuables at Bedside ?? Cell phone ? Other: car keys ?? Valuables Sent Home ? Valuables Sent to Security ? Other Discharge Information ? Pulmonary Rehab Status?? Pulmonary Rehab Discharge Status?? Respiratory Rate: 16 br/min ? Common Emergency Awareness Tips IS IT A [...] are strongly encouraged to quit. Please call [facility] [employer] Link at [phone] or [phone] ([phone]) or log in to [email or web address] for referrals to smoking cessation programs. ?? 358 Suicide & Crisis Lifeline is available 21/02 if you or someone you know needs to find a reason to keep living. By calling 929 you'll be connected to a skilled, trained counselor at a crisis center in your area. INPATIENT DISCHARGE INSTRUCTIONS SIGNATURE PAGE BURAK CALVO Location:[facility] Registration Date and Time:07/18/2023 17:27 EST Primary Care Physician: Ynes Sanford NP, Attending Physician: Sandra DAWSON, Amanda Peng, I UMESH LINDABRAULIO, have received the above patient education materials/instructions and have verbalized understanding. If ambulance or transport services are being used I further acknowledge being given a choice of service. ?? If you need to contact me, please call me at this number: . 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 Signature: Relationship to Patient: Witness Name/Signature: Date: Patient Care team information Care Team Personnel Name: Meghan Castro RN Position: [facility] RN Member Role: Primary Care Nurse Name: Nehal Oh Position: [facility] Onco RN Member Role: Primary Care Nurse Name: Ynes Sanford NP Position: [facility] Outreach Member Role: PCP Address: Address: [address] [place] [id number]- Name: Anabela Fernandes RN Position: [facility] Onco RN Member Role: Primary Care Nurse Name: Theresa Bird Position: [facility] RN Member Role: Primary Care Nurse Name: Elia Brower RN Position: [facility] RN Member Role: Primary Care Nurse Name: Wendy Watson RN Position: [facility] SN RN Member Role: Primary Care Nurse Name: Maxwell Guevara RN Position: [facility] RN Member Role: Primary Care Nurse Name: Torrie BEGUM Attending Position: [facility] ED Medicine MD Name: Wesly Javier LPN Position: [facility] ED RN W/OE and Tasks Member Role: Patient Care Provider Name: Jasmyne Green Position: [facility] ED OA Charge Member Role: ED Associate Name: Tanisha Almendarez NP Position: [facility] Associate Professional Member Role: ED Physician Sugar Boiler Address: Address: [address] [place] [address] [place] [address]- Name: Shirley Luis Position: [facility] ED [facility] Name: Melissa Hussein Position: [facility] ED [facility] Care Team Related Persons Name: KAROLINA CALVO Address: home [address] [place] [id number]
--- OUTSIDE RECORDS SUMMARY | 2023-12-28 17:32 | XMS_ITS | Continuity of Care Document ---
Author Organization [facility] C ancer Care Address [address] [place] [address]- Care Team Providers Care Promotion Officer Name Role Phone Claribel JOHNSON, Ynes Carter Primary Care Physician [phone] [id number] Date(s): 02/21/23 - 05/14/23 [facility] [address] [place] [address] Discharge Disposition: A-D/C Home Attending Physician: Manuel Linn MD Admitting Physician: Manuel Linn MD Referring Physician: Ynes Sanford NP Allergies, Adverse Reactions, Alerts No Known Allergies Medications cyanocobalamin 500 mcg sublingual tablet 1 tablet = 500 mcg, Sublingual, Daily, # 90 tablet, 0 Refills, Maintenance, 08/24/22 18:04:00 EST, Tablet, [facility]/pharmacy #[id number], Partial fill upon patient [...] 0 Refills, Maintenance, 01/07/21 13:22:00 EDT, Tablet, [facility][id number], Partial fill upon patient request if the prescription isfor a schedule II opioid drug., 147.32, cm, ... Start Date: 01/07/21 Stop Date: 01/21/21 Status: Ordered Problem List Condition Confirmation Course Effective Dates Status H ealth Status Informant Anemia Confirmed Active S/P cholecystectomy Confirmed Active Vital Signs Most recent to oldest [Reference Range]: 1 Height 148 cm (03/01/23 11:22 AM) Weight 49.5 kg (03/01/23 11:22 AM) Oxygen Saturation [94-100 %] 100 % (03/01/23 11:22 AM) Pulse Rate [55-90 bpm] 66 bpm (03/01/23 11:22 AM) Body Mass Index [18.5-24.99 kg/m2] 22.6 kg/m2 (03/01/23 11:22 AM) Blood Pressure [90-138/55-84 mm Hg] 111/ 63mm Hg (03/01/23 11:22 AM) Temperature [96.8-100.4 DegF] 98.4 DegF (03/01/23 11:22 AM) Mode of Delivery (Oxygen) Room air (03/01/23 11:22 AM) Blood pressure sites Arm, left (03/01/23 11:22 AM) Temperature Route Oral (03/01/23 11:22 AM) Dry Weight 49.5 kg (03/01/23 11:22 AM) Weight Obtained Via Standing scale (03/01/23 11:22 AM) Dry Weight Obtained Via Standing scale (03/01/23 11:22 AM) Social History Social History Type Response Smoking Status Never smoker entered on: 04/09/15 Sex Note * Marzena Drummond: VERIFY, PERFORM, SIGN Event Display: Patient Education/Instruction Authored Date: [id number] [facility] *Heme/Onc Adult Clinical Summary Name BURAK CALVO Age 32 Years 1990 PCP Claribel CURRICULUM SUPERVISOR, Ynes Carter PCP Visit Date 02/21/2023 10:26:00 Additional Instructions: Scheduled Appointments?? Future Appointments ?[facility] ?[address] ?[facility],??[address] ?Phone:??[phone]?Fax:??-- ?Appt. Date:??06/06/2023?7:30 AM ?Scheduled Provider:??[id number] Follow-Up Instructions ?? With: Address: When: Manuel Rendon [address] [facility] Hem/[place] [address] Business (1) 06/07/2023 2:30 PM Diagnosis Medications: Please continue your medications until treatment is completed or stopped by your provider. Discuss any questions related to medications with your provider. Medications to Continue with No Changes These medications were not printed or sent to your pharmacy Ascorbic Acid (Vitamin C 500 mg oral tablet) 1 tab(s) Oral Daily. Next Dose: Colesevelam (Welchol 625 mg oral tablet) 2 tab(s) Oral twice a day for 14 Days. Refills: 0. Next Dose: Cyanocobalamin (cyanocobalamin 500 mcg sublingual tablet) 1 tab(s) Sublingual Daily for 90 Days. Refills: 0. Next Dose: Cyanocobalamin (Vitamin B12 1000 mcg oral tablet) 1 tab(s) Oral Daily. Next Dose: Docusate (Doculase 50 mg oral capsule) 1 capsule Oral twice a day as needed for constipation. may purchase over the counter. Hold for loose stools. Refills: 0. Next Dose: Ferrous Sulfate (ferrous sulfate 325 mg oral enteric coated tablet) 1 tab(s) Oral Daily. Next Dose: Omeprazole (omeprazole 20 mg oral delayed release tablet) 1 tab(s) Oral Daily. Next Dose: Allergy Info:?? NKA Medications Given This Visit Future Orders ?No future orders Vital Signs Height 148 cm Weight 49.5 kg BMI 22.6 kg/m2 Blood Pressure 111 mm Hg/63 mm Hg Temperature 98.4 DegF Pulse Rate 66 bpm Respiratory Rate 02 Sat Mode of Delivery 100 %/Room air You can now view a summary of your hospital visit from the comfort of your home through a free online portal called [employer]. [employer] is a website that allows you to securely view your medical information including discharge summary, medications and follow-up visits. ??You can alsosend a secure electronic message to your doctor???s office to request appointments, renew medications or just ask a question. You can enroll at [email or web address] or register during your next office visit. [...] primary care provider, you may find a [facility] provider by calling [facility] at [phone]. For information about the plan of care [...] Care Team Personnel Name: Nehal Oh Position: [facility] Onco RN Member Role: Primary Care Nurse Name: Ynes Sanford NP Position: [facility] Outreach Member Role: PCP Address: Address: [address] [place] [address]- Name: Anabela Fernandes RN Position: [facility] Onco RN Member Role: Primary Care Nurse Name: Wendy Watson RN Position: [facility] SN RN Member Role: Primary Care Nurse Name: Fred Rendon MD, Manuel Crenshaw Position: [facility] Physician - Oncology Med Service: Hematology & Oncology Member Role: Admitting Physician Address: Address: [address] [facility] Hem/[place] [address]- Care Team Related Persons Name: KAROLINA CALVO Address: home [address] [place] [address]
--- OUTSIDE RECORDS SUMMARY | 2023-12-28 17:32 | XMS_ITS | Continuity of Care Document ---
Author Organization [facility] Adult Address [address] [place] [address]- Care Team Providers Care Maker Up Folding Name Role Phone France Aj NP Primary Care Physician [phone] Encounter [facility] [place] [place] Date(s): 10/05/23 - 11/04/23 [facility] Adult [address] [place] [address]- Allergies, Adverse Reactions, Alerts No Known Allergies [...] 2 Start Date: 08/22/23 Status: Ordered ergocalciferol 05604 iu oral capsule 50,000 International_Units, 1, capsule, By Mouth, Every week, # 5 capsule, Refills 0, Tot. Refills 0, Maintenance, 07/24/23 9:21:00 EST, Route to Pharmacy Electronically, [facility]/pharmacy #[id number], Partial fill upon patient request if the prescription is for... Start Date: 07/24/23 Stop Date: 08/23/23 Status: Ordered Pepcid 40 mg oral tablet 1 tablet = 40 mg, By Mouth, Daily at bedtime, # 30 tablet, 0 Refills, Maintenance, 08/10/23 12:57:00 EST, Tablet, [facility]/pharmacy #[id number], Partial fill upon patient request [...] Team Personnel Name: Meghan Castro RN Position: [facility] RN Member Role: Primary Care Nurse Name: Nehal Oh Position: [facility] Onco RN Member Role: Primary Care Nurse Name: Anabela Fernandes RN Position: [facility] Onco RN Member Role: Primary Care Nurse Name: Theresa Bird Position: [facility] RN Member Role: Primary Care Nurse Name: France Aj NP Position: [facility] PCO Associate Professional Member Role: PCP Address: Address: [address] [place] [address]- Name: Wendy Watson RN Position: [facility] RN Member Role: Primary Care Nurse Name: Maxwell Guevara RN Position: [facility] RN Member Role: Primary Care Nurse Care Team Related Persons Name: KAROLINA CALVO Address: [address] [address]
--- OUTSIDE RECORDS SUMMARY | 2023-12-28 17:32 | XMS_ITS | Continuity of Care Document ---
Author Organization [facility] Address [address] [place] [address]- Care Team Providers Care Communications Scientist Name Role Phone Claribel JOHNSON, Ynes Carter Primary Care Physician En[place] [facility] [place] Date(s): 08/20/20 - 11/05/20 [facility] [address] [place] [address]- Attending Physician: Jamari Moreno MD Admitting Physician: Jamari Moreno MD Referring Physician: Ynes Sanford NP Allergies, [...]
--- OUTSIDE RECORDS SUMMARY | 2023-12-28 17:32 | XMS_ITS | Continuity of Care Document ---
Author Organization [facility] ancer Care Address [address] [place] [address]- Care Team Providers Care Multi Media Specialist Name Role Phone Claribel JOHNSON, Ynes Carter Primary Care Physician Encounter [facility] [facility] Date(s): 11/18/22 - 12/18/22 [facility] Care [address] [place] [address] Attending Physician: Admjaylon, Singh Admitting Physician: Admtr, Ar8 Referring Physician: Admtr, Ar8 Allergies, Adverse Reactions, Alerts No Known Allergies Medications cyanocobalamin 500 mcg sublingual tablet 1 tablet = 500 mcg, Sublingual, Daily, # 90 tablet, 0 Refills, Maintenance, 08/24/22 18:04:00 EST, Tablet, [facility]/pharmacy #[id number], Partial fill upon [...] 0 Refills, Maintenance, 01/07/21 13:22:00 EDT, Tablet, [facility] #[id number], Partial fill upon patient request if the prescription isfor a schedule II opioid drug., 147.32, cm, 2... Start Date: 01/07/21 Stop Date: 01/21/21 Status: [...] S Outreach Member Role: PCP Address: Address: [address] [place] [address]- Name: Anabela Fernandes RN Position: S Onco RN Member Role: Primary Care Nurse Care Team Related Persons Name: KAROLINA CALVO Address: home [address] [place] [address]
--- OUTSIDE RECORDS SUMMARY | 2023-12-28 17:32 | XMS_ITS | Continuity of Care Document ---
Author Organization [facility] Address [address] [place] [address]- Care Team Providers Care Draw Frame Operator Name Role Phone Claribel JOHNSON, Ynes Carter Primary Care Physician [phone] [id number] Date[facility]s): 10/09/21 - 02/06/22 [facility] [address] [place] [address]- Attending Physician: Jamari Moreno MD Admitting Physician: Jamari Moreno MD Referring Physician: Ynes Sanford NP Allergies, Adverse Reactions, Alerts No Known Allergies Medications Carafate 1 gm oral tablet 1 Gm, 1, tablet, By Mouth, 3 times a day before meals and bedtime, # 120 tablet, Refills 1, Tot. Refills 1, Maintenance, 02/23/21 16:58:00 EDT, Route to Pharmacy Electronically, [facility]/pharmacy #[id number], Partial fill upon patient request [...] 0 Refills, Maintenance, 01/07/21 13:22:00 EDT, Tablet, [facility] #[id number], Partial fill upon patient request if the [...]
--- OUTSIDE RECORDS SUMMARY | 2023-12-28 17:32 | XMS_ITS | Continuity of Care Document ---
Author Organization [facility] ancer Care Address [address] [place] [address]- Care Team Providers Care Poultry Veterinarian Name Role Phone Claribel JOHNSON, Ynes Carter Primary Care Physician [phone] En[place] [facility] Date(s): 08/20/22 - 09/19/22 [facility] Care [address] [place] [address] Attending Physician: Admjaylon, Singh Admitting Physician: Admtr, Ar8 Referring Physician: Admtr, Ar8 Allergies, Adverse Reactions, Alerts No Known Allergies Medications cyanocobalamin 500 mcg sublingual tablet 1 tablet = 500 mcg, Sublingual, Daily, # 90 tablet, 0 Refills, Maintenance, 08/24/22 18:04:00 EST, Tablet, [facility]/pharmacy #[id number], Partial fill upon patient request if [...] 0 Refills, Maintenance, 01/07/21 13:22:00 EDT, Tablet, [facility] #[id number], Partial fill upon patient request if the prescription isfor a schedule II opioid drug., 147.32, cm, 2... Start Date: 01/07/21 Stop Date: 01/21/21 Status: Ordered Problem List Condition Confirmation Course Effective Dates Status H ealth Status Informant Anemia Confirmed Active S/P cholecystectomy Confirmed Active Social History Social History Type Response Smoking Status Never smoker entered on: 04/09/15 Sex Note * Event Display: Non BH Lab Results Authored Date: * Event Display: Non BH Lab Results Authored Date: * Event Display: Non BH Lab Results Authored Date: * Event Display: Non BH Lab Results Authored Date: Patient Care team information Care Team Personnel Name: Nehal Oh Position: S Onco RN Member Role: Primary Care Nurse Name: Ynes Sanford NP Position: [facility] Outreach Member Role: PCP Address: Address: [address] [place] [address] Name: Anabela Fernandes RN Position: S Onco RN Member Role: Primary Care Nurse Name: Wendy Watson RN Position: S RN Member Role: Primary Care Nurse Care Team Related Persons Name: KAROLINA CALVO Address: home [address] [place] [address]
--- OUTSIDE RECORDS SUMMARY | 2023-12-28 17:32 | XMS_ITS | Continuity of Care Document ---
Author Organization [facility] ter Address [address] [place] [address]- Care Team Providers Care Ramp Attendant Name Role Phone Claribel JOHNSON, Ynes Carter Primary Care Physician [phone] Encounter [facility] [place] [facility] R [id number] Date(s): 03/04/23 - 05/13/[address] [address]- Attending Physician: Fred Rendon MD, Manuel Crenshaw Admitting Physician: Manuel Linn MD Referring Physician: Fred Rendon MD, Manuel Crenshaw Allergies, Adverse Reactions, Alerts No Known Allergies Medications cyanocobalamin 500 mcg sublingual tablet 1 tablet = 500 mcg, Sublingual, Daily, # 90 tablet, 0 Refills, Maintenance, 08/24/22 18:04:00 EST, Tablet, [facility] #[id number], Partial fill upon patient request if the prescription is for a schedule II opioid drug., 148, cm, 08/24/22 9:06:00 EST, [place]... Start Date: 08/24/22 Stop Date: 11/22/22 Status: [...] 0 Refills, Maintenance, 01/07/21 13:22:00 EDT, Tablet, [facility] #[id number], Partial fill upon patient request if the [...] Name: Ynes Sanford NP Position: [facility] Outreach Member Role: PCP Address: Address: [address] [place] [address]- Name: Anabela Fernandes RN Position: S Onco RN Member Role: Primary Care Nurse Name: Wendy Watson RN Position: [facility] SN RN Member Role: Primary Care Nurse Care Team Related Persons Name: KAROLINA CALVO Address: home [address] [place] [address]
--- OUTSIDE RECORDS SUMMARY | 2023-12-28 17:32 | XMS_ITS | Continuity of Care Document ---
Author Organization [facility] Address [address] [place] [address]- Care Team Providers Care Geophysical E Logger Name Role Phone Claribel JOHNSON, Ynes Carter Primary Care Physician [phone] Encounter [facility] [place] Date(s): 10/06/20 - 11/05/20 [facility] [address] [place] [address] Attending Physician: Singh Post Admitting [...]
--- OUTSIDE RECORDS SUMMARY | 2023-12-28 17:32 | XMS_ITS | Continuity of Care Document ---
Author Organization [facility] Gastroenter [facility] Address [address] [place] [address]- Care Team Providers Care Pit Worker Power Shovel Name Role Phone Claribel JOHNSON, Ynes Carter Primary Care Physician [phone] En[place] [facility] [place] Date(s): 12/01/20 - 12/31/20 [facility] [address] [place] [address] Attending Physician: Singh Post Admitting Physician: Singh Post Referring Physician: AdmtrSingh Allergies, Adverse Reactions, Alerts [...] Tablet Start Date: 08/28/19 Status: Ordered Zofran 4 mg oral tablet [...]
--- OUTSIDE RECORDS SUMMARY | 2023-12-28 17:32 | XMS_ITS | Continuity of Care Document ---
Author Organization [facility] ancer Care Address [address] [place] [address]- Care Team Providers Care Carpenter Labor Supervisor Name Role Phone Claribel JOHNSON, Ynes Carter Primary Care Physician [id number] Date(s): 12/04/20 - 01/03/21 [facility] [address] [place] [address]- Allergies, Adverse Reactions, Alerts Substance Reaction Severity [...]
--- OUTSIDE RECORDS SUMMARY | 2023-12-28 17:32 | XMS_ITS | Continuity of Care Document ---
Author Organization [facility] ter Address [address] [place] [address]- Care Team Providers Care Computer System Specialist Name Role Phone Claribel JOHNSON, Ynes Carter Primary Care Physician [place] [facility] [place] R [id number] Date(s): 03/04/23 - 05/06/[address] [address] Attending Physician: Fred Rendon MD, Manuel Crenshaw [...] 0 Refills, Maintenance, 01/07/21 13:22:00 EDT, Tablet, [facility] #[id number], Partial fill upon patient request if the [...] Care Nurse Name: Ynes Sanford NP Position: [facility] Outreach Member Role: PCP Address: Address: [address] [place] [address]- Name: Anabela Fernandes RN Position: S Onco RN Member Role: Primary Care Nurse Name: Wendy Watson RN Position: [facility] SN RN Member Role: Primary Care Nurse Care Team Related Persons Name: KAROLINA CALVO Address: home [address] [place] [address]
--- OUTSIDE RECORDS SUMMARY | 2023-12-28 17:32 | XMS_ITS | Continuity of Care Document ---
Author Organization [facility] Address [address] [place] [address]- Care Team Providers Care Magnetic Resonance Imaging Coordinator Name Role Phone Claribel JOHNSON, Ynes Carter Primary Care Physician [place] [facility] [place] 02/23/21 - 03/25/21 [facility] [address] [place] [address]- [place] Allergies, Adverse Reactions, Alerts Substance Reaction [...] 0 Refills, Maintenance, 01/07/21 13:22:00 EDT, Table[id number], Partial fill upon patient request if the prescription isfor a schedule II opioid drug., 147.32, cm, ... Start Date: 01/07/21 Stop Date: 01/21/21 Status: Ordered Zofran 4 mg oral tablet 1 tablet = 4 mg, By Mouth, Every 8 hours, PRN as needed for nausea/vomiting, # 15 tablet, 0 Refills, Maintenance, 02/26/21 0:57:00 EDT, Tablet, [facility]/pharmacy #[id number], Partial [...]
--- OUTSIDE RECORDS SUMMARY | 2023-12-28 17:32 | XMS_ITS | Continuity of Care Document ---
Author Organization [facility] ancer Care Address [address] [place] [address]- Care Team Providers Care Hotel Office Manager Name Role Phone Claribel JOHNSON, Ynes Carter Primary Care Physician [place] [facility] [place]): 12/04/20 - 01/03/21 [facility] [address] [place] [address] Attending Physician: Singh Post Admitting Physician: AdmtrSingh Referring Physician: Admtr, Singh Allergies, Adverse Reactions, Alerts Substance Reaction Severity [...]
--- OUTSIDE RECORDS SUMMARY | 2023-12-28 17:32 | XMS_ITS | Continuity of Care Document ---
Author Organization [facility]astroenter [facility] Address [address] [place] [address]- Care Team Providers Care Professor Of Anthropology Name Role Phone Claribel JOHNSON, Ynes Carter Primary Care Physician En[place] [facility] [place] Date(s): 01/12/21 - 02/11/21 [facility] [address] [place] [address]- Allergies, Adverse Reactions, Alerts Substance Reaction Severity [...] 0 Refills, Maintenance, 01/07/21 13:22:00 EDT, Tablet, [facility] #[id number], Partial fill upon patient request if the [...]
--- OUTSIDE RECORDS SUMMARY | 2023-12-28 17:32 | XMS_ITS | Continuity of Care Document ---
Author Organization [facility] ter Address [address] [place] [address]- Care Team Providers Care Uniform Force Captain Name Role Phone France Aj NP Primary Care Physician Encounter [facility] Date(s): 07/28/23 - 10/05/[address] [address] Attending Physician: Manuel Linn MD Admitting Physician: [...] ES... Start Date: 07/24/23 Status: Ordered ergocalciferol 62765 iu oral capsule 50,000 International_Units, 1, capsule, [...] Primary Care Nurse Name: Nehal Oh Position: [facility] Onco RN Member Role: Primary Care Nurse Name: Anabela Fernandes RN Position: [facility] Onco RN Member Role: Primary Care Nurse Name: Theresa Bird Position: S RN Member Role: Primary Care Nurse Name: France Aj NP Position: [facility] PCO Associate Professional Member Role: PCP Address: Address: [address] [place] [address]- Name: Wendy Watson RN Position: [facility] SN RN Member Role: Primary Care Nurse Name: Maxwell Guevara RN Position: [facility] RN Member Role: Primary Care Nurse Care Team Related Persons Name: KAROLINA CALVO Address: [address] [place] [address]
--- OUTSIDE RECORDS SUMMARY | 2023-12-28 17:32 | XMS_ITS | Continuity of Care Document ---
Author Organization [facility] C ancer Care Address [address] [place] [address]- Care Team Providers Care Chemic Mangler Name Role Phone Claribel JOHNSON, Ynes Carter Primary Care Physician [id number] Date(s[facility] 12/04/20 - 02/03/21 [facility] [address] [place] [address] Discharge Disposition: A-D/C Home Attending Physician: Manuela [...] 0 Refills, Maintenance, 01/07/21 13:22:00 EDT, Tablet, [facility] #[id number], Partial fill upon patient request if the [...]
--- OUTSIDE RECORDS SUMMARY | 2023-12-28 17:32 | XMS_ITS | Continuity of Care Document ---
Author Organization [facility] ter Address [address] [place] [address]- Care Team Providers Care Pit Manager Name Role Phone Claribel JOHNSON, Ynes Carter Primary Care Physician [phone] Encounter [facility] ACCT R [id number] Date(s): 08/09/23 - 08/10/[address] [address]- Encounter Diagnosis Gastritis(Final) - 08/10/23 Discharge Disposition: A-D/C Home Attending Physician: Parag Duggan MD Admitting Physician: Parag Duggan MD Referring Physician: Not on Staff, Referring [...] EST,... Start Date: 07/24/23 Status: Ordered ergocalciferol 76645 iu oral capsule 50,000 International_Units, 1, capsule, [...] 0 Refills, Maintenance, 08/10/23 12:57:00 EST, Tablet, [facility]/pharmacy #[id number], Partial fill upon patient request if the prescription is for a schedule II opioid drug., 148, cm, 08/10/23 12:01:00 E... Start Date: 08/10/23 Status: Ordered thiamine 100 mg oral tablet 100 mg, 1, tablet, By Mouth, Daily, for 30 days, # 30 tablet, Refills 0, Tot. Refills 0, Acute 08/23/23 9:22:00 EST, 07/24/23 9:22:00 EST, Route to Pharmacy Electronically, [facility]/pharmacy #[id number], Partial fill upon patient request if the prescription is f... Start Date: 07/24/23 Stop Date: 08/23/23 Status: Ordered Problem List Condition Confirmation Course Effective Dates Status H ealth Status Informant Anemia Confirmed Active S/P cholecystectomy Confirmed Active Vital Signs Most recent to oldest [Reference Range]: 1 2 3 Height 148 cm (08/10/23 12:01 PM) 148 cm (08/10/23 6:54 AM) 148 cm (08/09/23 11:52 PM) Oxygen Saturation [94-100 %] 100 % (08/10/23 12:01 PM) 100 % (08/10/23 9:24 AM) 100 % (08/10/23 6:54 AM) Pulse Rate [55-90 bpm] 55 bpm (08/10/23 12:01 PM) 51 bpm *L* (08/10/23 9:24 AM) 64 bpm (08/10/23 6:54 AM) Blood Pressure [90-138/55-84 mm Hg] 120/66mm Hg (08/10/23 12:01 PM) 132/71mm Hg (08/10/23 9:24 AM) 122/68mm Hg (08/10/23 6:54 AM) Respiratory Rate [16-30 br/min] 12 br/min *L* (08/10/23 12:01 PM) 16 br/min (08/10/23 6:54 AM) 16 br/min (08/10/23 2:17 AM) Temperature [96.8-100.4 DegF] 97.9 DegF (08/10/23 12:01 PM) 98.0 DegF (08/10/23 9:24 AM) 98.2 DegF (08/10/23 2:17 AM) Mode of Delivery (Oxygen) Room air (08/10/23 12:01 PM) Room air (08/10/23 9:24 AM) Room air (08/10/23 6:54 AM) Blood pressure sites Arm, right (08/10/23 12:01 PM) Arm, left (08/10/23 9:24 AM) Arm, right (08/10/23 6:54 AM) Temperature Route Oral (08/10/23 12:01 PM) Oral (08/10/23 9:24 AM) Oral (08/10/23 2:17 AM) Dry Weight 47.7 kg (08/10/23 12:01 PM) 47.7 kg (08/10/23 6:54 AM) 47.7 kg (08/09/23 11:52 PM) Dry Weight Obtained Via Patient/family s tated (08/09/23 11:52 PM) Social History Social History Type Response Smoking Status Never smoker entered on: 04/09/15 Sex Note * Anne-Marie Stewart NP: PERFORM Event Display: Patient Education Leaflets Authored Date: [id number] Famotidine Oral Tablet ?? Famotidine Oral Tablet Brands: Pepcid Uses This medicine is used for the following purposes: ??? heartburn ??? inflammation of stomach ??? prevent heartburn ??? prevent indigestion ??? stomach acid ??? stomach acid reflux ??? ulcers in stomach or intestines ??? ulcers in stomach or intestines ?? Instructions This medicine may be taken with or without food. Swallow with a full glass (8 oz) of water unless your doctor gives you different instructions. Keep the medicine at room temperature. Avoid heat and direct light. Keep the medicine away from heat and light. This medicine can reduce the absorption of other medicines. Talk to your doctor or pharmacist aboutthe best times to use this product. It is important that you keep taking each dose of this medicine on time even if you are feeling well. If you forget to take a dose on time, take it as soon as you remember. If it is almost time for thenext dose, do not take the missed dose. Return to your normal schedule. Do not take 2 doses at one time. Drug interactions can change how medicines work or increase risk for side effects. Tell your healthcare providers about all medicines taken. Include prescription and [id number]-pvf-[id number] medicines, vitamins, and herbal medicines. Speak with your doctor or pharmacist before starting or stopping any medicine. Tell your doctor if symptoms do not get better or if they get worse. ?? Cautions Tell your doctor and pharmacist if you ever had an allergic reaction to a medicine. Do not use the medication any more than instructed. Tell the doctor or pharmacist if you are , planning to be , or . Do not share this medicine with anyone who has not been prescribed this medicine. ?? Side Effects The following is a list of some common side effects from this medicine. Please speak with your doctor about what you should do if you experience these or other side effects. ??? constipation or diarrhea ??? headaches Call your doctor or get medical help right away if you notice any of these more serious side effects: ??? bleeding or bruising ??? chest pain ??? confusion ??? dizziness ??? fainting ??? fast or irregular heart beats ??? seizures ??? shortness of breath A few people may have an allergic reaction to this medicine. Symptoms can include difficulty breathing, skin rash, itching, swelling, or severe dizziness. If you notice any of these symptoms, seek medical help quickly. ?? Extra Please speak with your doctor, nurse, or pharmacist if you have any questions about this medicine. ?? [email or web address] IMPORTANT NOTE: This document tells you briefly how to take your medicine, but it does not tell youall there is to know about it. Your doctor or pharmacist may give you other documents about your medicine. Please talk to them if you have any questions. Always follow their advice. There is a more complete description of this medicine available in [place]i. Scan this code on your smartphone or tablet or use the web address below. You can also ask your pharmacist for a printout. If you have any questions, please ask your pharmacist. The display and use of this drug information is subject to Terms of Use. Copyright(c) 2022 [employer]. ?? The [employer] All rights reserved. This information is not intended as a substitute for professional medical care. Always follow your healthcare professional's instructions. ?? * Anne-Marie Stewart NP: PERFORM Event Display: Patient Education Leaflets Authored Date: [id number] Gastritis (Adult) ?? [id number] Gastritis (Adult) Gastritis is??inflammation and??irritation of the stomach lining. You can have it for a short time (acute) or it can be long lasting (chronic). Infection with bacteria called??H. pylori most often causes gastritis.??More than 1 out of 3 people in the [place] have these bacteria in their bodies. In many cases,??H. pylori??causes no problems or symptoms. But in some people, the infection irritates thestomach lining and causes gastritis. H. pylori may be diagnosed through blood, stool, or breath tests, or by a biopsy during an endoscopy. Other causes of stomach irritation include drinking alcohol,smoking or chewing tobacco, or taking pain-relieving medicines called nonsteroidal anti-inflammatory drugs (NSAIDs), such as aspirin or ibuprofen. Some illegal drugs (such as cocaine) and immune conditions can also cause gastritis. Symptoms of gastritis can include: ??? Belly pain or bloating ??? Feeling full quickly ??? Loss of appetite ??? Weight loss ??? Nauseaor vomiting ??? Vomiting blood or having black stools ??? Feeling more tired than normal An inflamed and irritated stomach lining is more likely to develop a sore called an ulcer. To help prevent this, gastritis should be evaluated and treated as soon as symptoms occur. Home care If needed, your healthcare provider may prescribe medicines. If you have??H. pylori??infection, treating it will likely ease your symptoms. Other changes can help reduce stomach irritation and help it heal. ??? Take prescription medicines as directed. If you have been prescribed medicines for??H. pylori??infection, take them as directed. Take all of the medicine until it's finished or until your provider tells you to stop taking it, even if you start to feel better. ??? Follow your healthcare provider's advice on NSAIDs. Your provider may advise you not to take NSAIDs such as ibuprofen. If you take daily aspirin for your heart or other health reasons, don't stop without talking with your provider first. ??? Don't drink alcohol. If you need help stopping your use of alcohol, ask your provider for treatment resources. ??? Stop smoking. Smoking can irritate the stomach and delay healing. As much as possible, stay away from secondhand smoke. If you smoke and have trouble stopping, ask your provider for help. ?? Follow-up care Follow up with your healthcare provider, or as advised. You may need testing to check for inflammation or an ulcer. ?? When to get medical advice Call your healthcare provider if any of the following occur: ??? Stomach pain that gets worse or moves to the lower right belly (appendix area) ??? Chest pain that suddenly appears or gets worse, or spreads to the back, neck, shoulder, or arm ??? Frequent vomiting (can???t keep down liquids) ??? Blood in the stool or vomit (red or black in color) ??? Feeling weak or dizzy ??? Shortness of breath ??? Unexplained weight loss ??? Fever of 100.4??F (38??C) or higher, or as directed by your healthcare provider ??? Symptoms that get worse, or new symptoms ?? Last Reviewed Date: 2022 ?? 9837-1090 [employer] All rights reserved. This information is not intended as a substitute for professional medical care. Always follow your healthcare professional's instructions. ?? Patient Care team information Care Team Personnel Name: Meghan Castro RN Position: [facility] RN Member Role: Primary Care Nurse Name: Nehal Oh Position: [facility] Onco RN Member Role: Primary Care Nurse Name: Ynes Sanford NP Position: [facility] Outreach Member Role: PCP Address: Address: [address] [place] [address] Name: Anabela Fernandes RN Position: [facility] Onco RN Member Role: Primary Care Nurse Name: Theresa Bird Position: [facility] RN Member Role: Primary Care Nurse Name: Elia Brower RN Position: [facility] RN Member Role: Primary Care Nurse Name: Wendy Watson RN Position: [facility] SN RN Member Role: Primary Care Nurse Name: Maxwell Guevara RN Position: S RN Member Role: Primary Care Nurse Name: Terrie Archer RN Position: [facility] ED RN W/OE and Tasks Member Role: Patient Care Provider Name: Anne-Marie Stewart NP Position: [facility] Associate Professional Member Role: ED Physician Rib Builder Address: Address: [address] [place] [address]- Name: Parag Duggan MD Position: [facility] ED Medicine MD Member Role: Admitting Physician Address: Address: [address] [place] [address] Name: Pal Peter Position: [facility] ED TA [facility] Member Role: Patient Care Provider Care Team Related Persons Name: KAROLINA CALVO Address: home [address] [place] [address]
--- OUTSIDE RECORDS SUMMARY | 2023-12-28 17:32 | XMS_ITS | Continuity of Care Document ---
Author Organization [facility] Address [address] [place] [address]- Care Team Providers Care Conveyor Man Name Role Phone France Aj NP Primary Care Physician Encounter [facility] Date(s): 06/03/23 - 10/06/23 [facility] [address] [place] [address] Discharge Disposition: A-D/C Home Attending Physician: Fred [...] ES... Start Date: 07/24/23 Status: Ordered ergocalciferol 81259 iu oral capsule 50,000 International_Units, 1, capsule, [...] Team Personnel Name: Meghan Castro RN Position: [facility] RN Member Role: Primary Care Nurse Name: Nehal Oh Position: [facility] Onco RN Member Role: Primary Care Nurse Name: Anabela Fernandes RN Position: [facility] Onco RN Member Role: Primary Care Nurse Name: Theresa Bird Position: S RN Member Role: Primary Care Nurse Name: France Aj NP Position: [facility] PCO Associate Professional Member Role: PCP Address: Address: [address] [place] [address]- Name: Wendy Watson RN Position: [facility] SN RN Member Role: Primary Care Nurse Name: Maxwell Guevara RN Position: S RN Member Role: Primary Care Nurse Care Team Related Persons Name: WILLIAMJULIA KAROLINA Address: [address] [address]
--- OUTSIDE RECORDS SUMMARY | 2023-12-28 17:33 | XMS_ITS | Continuity of Care Document ---
Author Organization [facility] Address [address] [place] [address]- Care Team Providers Care Marshmallow Maker Name Role Phone France Aj NP Primary Care Physician Encounter [facility] Date(s): 10/22/23 - 10/23/[address] [address]- Discharge Disposition: A-D/C Home Attending Physician: Rasta Ness MD Admitting Physician: Rasta Ness MD Referring Physician: Not on Staff, Referring [...] 2 Start Date: 08/22/23 Status: Ordered ergocalciferol 24984 iu oral capsule 50,000 International_Units, 1, capsule, By Mouth, Every week, # 5 capsule, Refills 0, Tot. Refills 0, Maintenance, 07/24/23 9:21:00 EST, Route to Pharmacy Electronically, [facility]/pharmacy #[id number], Partial fill upon patient request if the prescription is for... Start Date: 07/24/23 Stop Date: 08/23/23 Status: Ordered MorPHINE Inj 4 mg, Injection, IV Push Slowly, Every 5 minutes for 3 doses/times, PRN for Pain , Moderate, and SBP greater than 100, Routine, 10/22/23 23:21:00 EDT, Stop date Limited # of times Start Date: 10/22/23 Stop Date: 10/23/23 Status: Discontinued Pepcid 40 mg oral tablet 1 tablet [...] Confirmed Active Vitamin D deficiency Confirmed Active Results Radiology Reports * Exam Date Time Procedure Performing Provider Status 10/23/23 2:[address] Abd/Pelvis W/ IV + Oral Contrast Rachael Helms; Donald (Verified) Notes: (CT Abd/Pelvis W/ IV + Oral Contrast) Reason For Exam: Lower abdominal pain, back pain;Other: RESULT: CT Abd/Pelvis W/ IV + Oral Contrast CT Abd/Pelvis W/ IV + Oral Contrast Hx of Present Illness: abd and lower back pain; Reason: Other:; Lower abdominal pain, back pain; Clinical Question(s): Appendicitis; Obstructive uropathy, pyelonephritis TECHNIQUE: Spiral CT through the abdomen and pelvis with IV contrast formatted in 3 planes. 100 cc of Omnipaque 300 was administered intravenously. This study was performed without oral contrast. Weight-based protocol using automatic tube modulation was used to optimize exposure parameters. CTDIvol Body: 9.80 mGy, DLP Body: 466 mGy*cm. COMPARISON: CT abdomen and pelvis 08/21/2023. FINDINGS: Licensed Practical Nurse Instructor View Findings, Lines and Tubes: None. Visualized Chest: Lung bases are clear. No pleural effusion. The heart is normal in size. No pericardial effusion. Diaphragm: Normal. Liver: Normal. Gallbladder: Absent consistent with prior cholecystectomy. Bile ducts: Mild central intrahepatic and extrahepatic biliary duct dilatation, marginally more pronounced than the prior study, though may be related to reservoir effect in setting of prior cholecystectomy. No definite distal obstructing process is demonstrated. Spleen: Normal. Pancreas: Normal. Adrenal glands: Normal. Kidneys and ureters: No hydronephrosis, stones, or suspicious masses. Simple cyst lower pole of theleft kidney. Bladder: Very mild thickening of the bladder wall without significant surrounding fat stranding. Unchanged 1.1 cm low attenuation focus along the left anterolateral wall with a punctate calcification, stable dating back to 09/03/2019 likely benign. Reproductive organs: Physiologic cysts in both kidneys. Anteverted uterus. No suspicious adnexal lesion. Stomach, small bowel, and large bowel: Stomach, small bowel and large bowel are normal in caliber. No evidence of bowel obstruction. No acute inflammatory process of the bowel. Appendix: Normal. Peritoneum and retroperitoneum: No pneumoperitoneum. Trace free fluid in the cul-de-sac, likely physiologic. No omental or mesenteric lesions. Lymph nodes: No enlarged lymph nodes. Blood vessels: Normal. No aneurysm. No evidence of venous thrombosis. Retroaortic left renal vein. Abdominal and pelvic wall: Unremarkable. Bones: No acute abnormality. IMPRESSION: 1. Very mild wall thickening of the urinary bladder. The appearance is nonspecific, though clinicalcorrelation should be made for cystitis. 2. No evidence of appendicitis as questioned. A similar preliminary report was provided by Vidya. WSN: [id number] Ordering Physician: Grover Mendoza Dictated By: Franko Martinez MD Dictated Date/Time: 10/23/23 11:30 a Reviewed By: Franko Martinez MD Signed By: Franko Martinez MD Signed Date/Time: 10/23/23 11:30 am Transcribed By: YESENIA Transcribed Date/Time: 10/23/23 11:24 am Vital Signs Most recent to oldest [Reference Range]: 1 2 3 Height 148 cm (10/22/23 9:54 PM) Weight 46 kg (10/22/23 9:54 PM) Oxygen Saturation [94-100 %] 100 % (10/23/23 3:07 AM) 100 % (10/23/23 12:23 AM) 99 % (10/22/23 9:54 PM) Pulse Rate [55-90 bpm] 60 bpm (10/23/23 3:07 AM) 83 bpm (10/23/23 12:23 AM) 63 bpm (10/22/23 9:54 PM) Blood Pressure [90-138/55-84 mm Hg] 105/55mm Hg (10/23/23 3:07 AM) 125/65mm Hg (10/23/23 12:23 AM) 128/73mm Hg (10/22/23 9:54 PM) Respiratory Rate [16-30 br/min] 16 br/min (10/23/23 3:07 AM) 18 br/min (10/23/23 12:50 AM) 16 br/min (10/23/23 12:23 AM) Temperature [96.8-100.4 DegF] 97.8 DegF (10/22/23 9:54 PM) Mode of Delivery (Oxygen) Room air (10/23/23 3:07 AM) Room air (10/23/23 12:23 AM) Room air (10/22/23 9:54 PM) Blood pressure sites Arm, right (10/23/23 12:23 AM) Arm, right (10/22/23 9:54 PM) Temperature Route Femoral (10/22/23 9:54 PM) Dry Weight 46 kg (10/22/23 9:54 PM) Weight Obtained Via Patient/family state d (10/22/23 9:54 PM) Dry Weight Obtained Via Patient/family s tated (10/22/23 9:54 PM) Social History Social History Type Response Smoking Status Never smoker entered on: 04/09/15 Sex Note * Grover DAWSON, Rasta Dupree: PERFORM Event Display: Patient Education Leaflets Authored Date: [id number] Unknown Causes of Abdominal Pain(Adult) ?? [id number] Unknown Causes of Abdominal Pain(Adult) The exact cause of your belly (abdominal) pain is not clear. Your exam and tests don't suggest a dangerous cause at this time. This does not mean that this is something to worry about. Everyone likesto know the exact cause of the problem. But sometimes with belly pain, there is no clear-cut cause,and this could be a good thing. Your symptoms can be treated, and you should feel better.?? Your condition does not seem serious now. But sometimes the signs of a serious problem may take more time to appear. For this reason,??it's important for you to watch for any new symptoms, problems,??or worsening of your condition. Over the next few days, the abdominal pain may come and go. Or it may be constant. Other common symptoms can include nausea and vomiting. Sometimes it can be difficult to tell if you feel nauseous. You may just feel bad and not connect that feeling to nausea. Constipation, diarrhea, and a fever maygo along with the pain. The pain may continue even if treated correctly over the following days. Depending on how things go, sometimes the cause can become clear and you may need more??or different treatment. You may also need other evaluations, medicines, or tests. Home care Your healthcare provider may prescribe medicine for pain, symptoms, or an infection. ??Follow the healthcare provider's instructions for taking these medicines. General care ??? Rest as much as you can until your next exam. No strenuous activities. ??? Try to not do anything that may have caused your symptoms. This might be not taking any medicines unless otherwise directed by your healthcare provider. It might be not eating certain foods or doing certain activities. ??? Find positions that ease discomfort. A small pillow placed on your belly may help relieve pain. ??? Something warm on your belly such as a heating pad may help, but be careful not to burn yourself. Diet ??? Don???t??force yourself to eat, especially if having cramps, vomiting, or diarrhea. ??? Water is important so you don't get dehydrated. Soup may also be good. Sports drinks may also help, especially if they are not too acidic. Don't drink sugary drinks as this can make things worse. Take liquids in small amounts. Don???t??guzzle them. ??? Caffeine sometimes makes the pain and cramping worse. ??? Don???t take??dairy products if you have vomiting or diarrhea. ??? Don't eat large amounts at a time. Eat several small meals during the day instead of 2 or 3 larger meals. Wait a few minutesbetween bites. ??? Eat a diet low in fiber (called a low-residue diet). Foods allowed include refined breads, white rice, fruit and vegetable juices without pulp, tender meats. These foods will pass more easily through the intestine. ??? Don???t have??whole-grain foods, whole fruits and vegetables,meats, seeds and nuts, fried or fatty foods, dairy, alcohol and spicy foods until your symptoms go away. ?? Follow-up care Follow up with your healthcare provider, or as advised, if your pain does not begin to improve in the next 24 hours. ?? Call 911 Call?? 911 if any of these occur: ??? Trouble breathing ??? Confusion ??? Fainting or loss of consciousness ??? Rapid heart rate ??? Seizure ?? When to seek medical advice Call your healthcare provider right away if any of these occur: ??? Pain gets worse or moves to theright lower abdomen ??? New or worsening vomiting or diarrhea ??? Swelling of the abdomen ??? Unable to pass stool for more than??3 days ??? Fever of 100.4??F (38??C) or higher, or as directed by your healthcare provider ??? Blood in vomit or bowel movements (dark red or black color) ??? Yellow color of eyes and skin (jaundice) ??? Weakness, dizziness ??? Chest, arm, back, neck, or jaw pain ??? Can't keep down medicines, liquids, or water because of too much vomiting ??? If you have a vagina: unexpected vaginal bleeding or missed period ?? Last Reviewed Date: 2021 ?? The [employer]. All rights reserved. This information is not intended as a substitute for professional medical care. Always follow your healthcare professional's instructions. ?? Patient Care team information Care Team Personnel Name: Meghan Castro RN Position: [facility] RN Member Role: Primary Care Nurse Name: Nehal Oh Position: [facility] Onco RN Member Role: Primary Care Nurse Name: Anabela Fenrandes RN Position: [facility] Onco RN Member Role: Primary Care Nurse Name: Theresa Bird Position: S RN Member Role: Primary Care Nurse Name: France Aj NP Position: [facility] PCO Associate Professional Member Role: PCP Address: Address: [address] [place] [address]- Name: Wendy Watson RN Position: [facility] SN RN Member Role: Primary Care Nurse Name: Maxwell Guevara RN Position: S RN Member Role: Primary Care Nurse Care Team Related Persons Name: KAROLINA CALVO Address: [address] [address]
--- OUTSIDE RECORDS SUMMARY | 2023-12-28 17:33 | XMS_ITS | Continuity of Care Document ---
Author Organization [facility] C an[facility] Address [address] [place] [address]- Care Team Providers Care Chemical Pumper Name Role Phone Claribel JOHNSON, Ynes Carter Primary Care Physician [phone] Encounter [facility] Date(s): 10/20/20 - 11/19/20 [facility] [address] [place] [address]- Allergies, Adverse Reactions, Alerts Substance Reaction Severity [...]
--- OUTSIDE RECORDS SUMMARY | 2023-12-28 17:33 | XMS_ITS | Continuity of Care Document ---
Author Organization [facility] Adult Address [address] [place] [address]- Care Team Providers Care Verifier Operator Name Role Phone France Aj NP Primary Care Physician [phone] [place] [facility] [place](s[place] 10/04/23 - 10/11/[address] [address]- Encounter Diagnosis Ovarian cyst(Discharge Diagnosis) - 10/04/23 Heavy menses(Discharge Diagnosis) - 10/04/23 Vitamin D deficiency(Discharge Diagnosis) - 10/04/23 Vitamin B12 deficiency(Discharge Diagnosis) - 10/04/23 Iron deficiency(Discharge Diagnosis) - 10/04/23 Chronic diarrhea of unknown origin(Discharge Diagnosis) - 10/04/23 Anorexia(Discharge Diagnosis) - 10/04/23 Migraines(Discharge Diagnosis) - 10/04/23 MDD (major depressive disorder), recurrent episode, severe(Discharge Diagnosis) - 10/04/23 Pyelonephritis(Discharge Diagnosis) - 10/04/23 Kidney stones(Discharge Diagnosis) - 10/04/23 GERD (gastroesophageal reflux disease)(Discharge Diagnosis) - 10/04/23 Attending Physician: France Aj NP Allergies, Adverse [...] 0 Refills, Maintenance, 07/24/23 9:20:00 EST, Injection, [facility]/pharmacy #[id number], Partial fill upon patient request if the prescription is for a schedule II opioid drug., 155, cm, 07/23/23 22:26:00 ES... Start Date: 07/24/23 Status: Ordered ergocalciferol 31702 iu oral capsule 50,000 International_Units, 1, capsule, [...] Effective Dates Health Status Clinical Service Informant Ovarian cyst Discharge Diagnosis 10/04/23 Heavy menses Discharge Diagnosis 10/04/23 Vitamin D deficiency Discharge Diagnosis 10/04/23 Vitamin B12 deficiency Discharge Diagnosis 10/04/23 Iron deficiency Discharge Diagnosis 10/04/23 Chronic diarrhea of unknown origin Discharge Diagnosis 10/04/23 Anorexia Discharge Diagnosis 10/04/23 Migraines Discharge Diagnosis 10/04/23 MDD (major depressive disorder), recurrent episode, severe Discharge Diagnosis 10/04/23 Pyelonephritis Discharge Diagnosis 10/04/23 Kidney stones Discharge Diagnosis 10/04/23 GERD (gastroesophageal reflux disease) Discharge Diagnosis 10/04/23 Procedures Procedure Date Related Diagnosis Body Site Status Wrist Left fracture repair w ith screws and pins Completed Vital Signs Most recent to oldest [Reference Range]: 1 Height 146.6 cm (10/04/23 3:25 PM) Weight 48.2 kg (10/04/23 3:25 PM) Oxygen Saturation [94-100 %] 99 % (10/04/23 3:25 PM) Pulse Rate [55-90 bpm] 62 bpm (10/04/23 3:25 PM) Body Mass Index [18.5-24.99 kg/m2] 22.43 kg/m2 (10/04/23 3:25 PM) Blood Pressure [90-138/55-84 mm Hg] 122/ 69mm Hg (10/04/23 3:25 PM) Temperature [96.8-100.4 DegF] 98.4 DegF (10/04/23 3:25 PM) Mode of Delivery (Oxygen) Room air (10/04/23 3:25 PM) Blood pressure sites Arm, left (10/04/23 3:25 PM) Temperature Route Oral (10/04/23 3:25 PM) Weight Obtained Via Standing scale (10/04/23 3:25 PM) Social History Social History Type Response Smoking Status Never smoker entered on: 04/09/15 Sex Note * Colby Charu: PERFORM, SIGN, VERIFY Event Display: Patient Education/Instruction Authored Date: [id number] [facility] *[facility] Clinical Summary Name BURAK CALVO Age 33 Years 1990 PCP Madai JOHNSON, France PCP Visit Date 10/04/2023 15:23:00 Additional Instructions: 1-2 months annual Scheduled Appointments?? Future Appointments ?No Future Appointments Scheduled Follow-Up Instructions ?? Diagnosis Deficiency of other specified B group vitamins; Vitamin D deficiency, unspecified; Excessive and frequent menstruation with regular cycle; Iron deficiency; Unspecified ovarian cyst, unspecified side Medications: Please continue your medications until treatment is completed or stopped by your provider. Discuss any questions related to medications with your provider. Medications to Continue with No Changes These medications were not printed or sent to your pharmacy Cyanocobalamin (cyanocobalamin (B-12) (OP)) 1,000 Microgram. take every other week. Next Dose: Cyanocobalamin (cyanocobalamin 1000 mcg/ml injectable solution) 1 Milliliter Intramuscular every week for 4 doses/times. Refills: 0. Next Dose: Ergocalciferol (ergocalciferol 98135 iu oral capsule) 1 capsule Oral every week for 30 Days. Refills: 0. Next Dose: Famotidine (Pepcid 40 mg oral tablet) 1 tab(s) Oral Daily at Bedtime. Refills: 0. Next Dose: Allergy Info:?? NKA Medications Given This Visit Future Orders ?Vitamin B12 Level? Order Date:10/04/23?- Complete on or after?10/04/23 ?Vitamin D 25 Hydroxy Level? Order Date:10/04/23?- Complete on or after?10/04/23 Vital Signs Height 146.6 cm Weight 48.2 kg BMI 22.43 kg/m2 Blood Pressure 122 mm Hg/69 mm Hg Temperature 98.4 DegF Pulse Rate 62 bpm Respiratory Rate 02 Sat Mode of Delivery 99 %/Room air You can now view a summary of your hospital visit from the comfort of your home through a free online portal called [employer]oneDeploy. DroneDeploy is a website that allows you to securely view your medical information including discharge summary, medications and follow-up visits. ??You can alsosend a secure electronic message to your doctor???s office to request appointments, renew medications or just ask a question. You can enroll at [email or web address] or register during your next office visit. [...] primary care provider, you may find a [facility] provider by calling [facility] [employer] Link at [phone]. [facility], in keeping with [facility] guidance, no longer requires face masks for [...] to support your individualized medical care. * France Aj NP: PERFORM, SIGN, VERIFY Event Display: Patient Education/Instruction Authored Date: [id number] [facility] *[facility] Clinical Summary Name BURAK CALVO Age 33 Years 1990 PCP France Aj NP PCP Visit Date 10/04/2023 15:23:00 Additional Instructions: 1-2 months annual Scheduled Appointments?? Future Appointments ?No Future Appointments Scheduled Follow-Up Instructions ?? Diagnosis Medications: Please continue your medications until treatment is completed or stopped by your provider. Discuss any questions related to medications with your provider. Medications to Continue with No Changes These medications were not printed or sent to your pharmacy Cyanocobalamin (cyanocobalamin (B-12) (OP)) 1,000 Microgram. take every other week. Next Dose: Cyanocobalamin (cyanocobalamin 1000 mcg/ml injectable solution) 1 Milliliter Intramuscular every week for 4 doses/times. Refills: 0. Next Dose: Ergocalciferol (ergocalciferol 81420 iu oral capsule) 1 capsule Oral every week for 30 Days. Refills: 0. Next Dose: Famotidine (Pepcid 40 mg oral tablet) 1 tab(s) Oral Daily at Bedtime. Refills: 0. Next Dose: Allergy Info:?? NKA Medications Given This Visit Future Orders ?Vitamin B12 Level? Order Date:10/04/23?- Complete on or after?10/04/23 ?Vitamin D 25 Hydroxy Level? Order Date:10/04/23?- Complete on or after?10/04/23 Vital Signs Height 146.6 cm Weight 48.2 kg BMI 22.43 kg/m2 Blood Pressure 122 mm Hg/69 mm Hg Temperature 98.4 DegF Pulse Rate 62 bpm Respiratory Rate 02 Sat Mode of Delivery 99 %/Room air You can now view a summary of your hospital visit from the comfort of your home through a free online portal called [employer]De[employer]. [employer]Deploy is a website that allows you to securely view your medical information including discharge summary, medications and follow-up visits. ??You can alsosend a secure electronic message to your doctor???s office to request appointments, renew medications or just ask a question. You can enroll at [email or web address] or register during your next office visit. [...] primary care provider, you may find a [facility] provider by calling [facility] [employer] Link at [phone]. [facility], in keeping with [facility] guidance, no longer requires face masks for [...] Team Personnel Name: Meghan Castro RN Position: [facility] RN Member Role: Primary Care Nurse Name: Nehal Oh Position: [facility] Onco RN Member Role: Primary Care Nurse Name: Anabela Fernandes RN Position: [facility] Onco RN Member Role: Primary Care Nurse Name: Theresa Bird Position: S RN Member Role: Primary Care Nurse Name: France Aj NP Position: [facility] PCO Associate Professional Member Role: PCP Address: Address: [address] [place] [address]- Name: Wendy Watson RN Position: [facility] SN RN Member Role: Primary Care Nurse Name: Maxwell Guevara RN Position: S RN Member Role: Primary Care Nurse Care Team Related Persons Name: KAROLINA CALVO Address: [address] [address]
--- OUTSIDE RECORDS SUMMARY | 2023-12-28 17:33 | XMS_ITS | Continuity of Care Document ---
Author Organization [facility] Address [address] [place] [address]- Care Team Providers Care College Basketball Coach Name Role Phone Claribel JOHNSON, Ynes Carter Primary Care Physician En[place] [facility] [place](s): 03/03/21 - 04/02/21 [facility] [address] [place] [address]- [place] Allergies, Adverse Reactions, Alerts Substance Reaction [...] 0 Refills, Maintenance, 01/07/21 13:22:00 EDT, Tablet, [facility] #[id number], Partial fill upon patient request if the prescription isfor a schedule II opioid drug., 147.32, cm, ... Start Date: 01/07/21 Stop Date: 01/21/21 Status: Ordered Zofran 4 mg oral tablet 1 tablet = 4 mg, By Mouth, Every 8 hours, PRN as needed for nausea/vomiting, # 15 tablet, 0 Refills, Maintenance, 02/26/21 0:57:00 EDT, Tablet, [facility]/pharmacy #[id number], Partial fill upon patient request [...]
--- OUTSIDE RECORDS SUMMARY | 2023-12-28 17:33 | XMS_ITS | Continuity of Care Document ---
Author Organization [facility] Address [address] [place] [address]- Care Team Providers Care Phlebotomy Services Representative Name Role Phone Claribel JOHNSON, Ynes Carter Primary Care Physician [place] [facility] [place](s): 01/06/21 - 02/05/21 [facility] [address] [place] [address]- Allergies, Adverse Reactions, Alerts Substance Reaction Severity [...] 0 Refills, Maintenance, 01/07/21 13:22:00 EDT, Tablet, [facility] #[id number], Partial fill upon patient request if the [...]
--- OUTSIDE RECORDS SUMMARY | 2023-12-28 17:33 | XMS_ITS | Continuity of Care Document ---
Author Organization [facility] Address [address] [place] [address]- Care Team Providers Care E M Assembler Name Role Phone Claribel JOHNSON, Ynes Carter Primary Care Physician [phone] [place] [facility] [place](s): 01/06/21 - 02/05/21 [facility] [address] [place] [address]- Allergies, Adverse Reactions, Alerts Substance Reaction Severity [...] 0 Refills, Maintenance, 01/07/21 13:22:00 EDT, Tablet, [facility] #[id number], Partial fill upon patient request if the [...]
--- OUTSIDE RECORDS SUMMARY | 2023-12-28 17:33 | XMS_ITS | Continuity of Care Document ---
Author Organization [facility] Address [address] [place] [address]- Care Team Providers Care Bridal Gown Fitter Name Role Phone Claribel JOHNSON, Ynes Carter Primary Care Physician [id number] Date(s): 08/20/22 - 10/24/22 [facility] [address] [place] [address] Discharge Disposition: A-D/C Home Attending Physician: Manuel [...] 0 Refills, Maintenance, 01/07/21 13:22:00 EDT, Tablet, [facility] #[id number], Partial fill upon patient request if the prescription isfor a schedule II opioid drug., 147.32, cm, ... Start Date: 01/07/21 Stop Date: 01/21/21 Status: Ordered Problem List Condition Confirmation Course Effective Dates Status H ealth Status Informant Anemia Confirmed Active S/P cholecystectomy Confirmed Active Vital Signs Most recent to oldest [Reference Range]: 1 Height 148 cm (08/24/22 9:06 AM) Weight 49.1 kg (08/24/22 9:06 AM) Oxygen Saturation [94-100 %] 100 % (08/24/22 9:06 AM) Pulse Rate [55-90 bpm] 72 bpm (08/24/22 9:06 AM) Body Mass Index [18.5-24.99 kg/m2] 22.42 kg/m2 (08/24/22 9:06 AM) Blood Pressure [90-138/55-84 mm Hg] 117/ 64mm Hg (08/24/22 9:06 AM) Temperature [96.8-100.4 DegF] 98.0 DegF (08/24/22 9:06 AM) Mode of Delivery (Oxygen) Room air (08/24/22 9:06 AM) Blood pressure sites Arm, right (08/24/22 9:06 AM) Temperature Route Temporal (08/24/22 9:06 AM) Dry Weight 49.1 kg (08/24/22 9:06 AM) Weight Obtained Via Standing scale (08/24/22 9:06 AM) Dry Weight Obtained Via Standing scale (08/24/22 9:06 AM) Social History Social History Type Response Smoking Status Never smoker entered on: 04/09/15 Sex Note * Lupis Randall MA: PERFORM, SIGN, VERIFY Event Display: Patient Education/Instruction Authored Date: [id number] [facility] *Heme/Onc Adult Clinical Summary Name BURAK CALVO Age 32 Years 1990 PCP Claribel JOHNSON, Ynes Carter PCP Visit Date 08/20/2022 09:29:00 Additional Instructions: Scheduled Appointments?? Future Appointments ?No Future Appointments Scheduled Follow-Up Instructions ?? With: Address: When: Manuel Rendon [address] [place] [address] Hem/[place] [address] [facility] (1) 11/23/2022 9:30 AM Diagnosis Medications: Please continue your medications until [...] 14 Days. Refills: 0. Next Dose: Cyanocobalamin (Vitamin [...] orders Vital Signs Height 148 cm Weight 49.1 kg BMI 22.42 kg/m2 Blood Pressure 117 mm Hg/64 mm Hg Temperature 98.0 DegF Pulse Rate 72 bpm Respiratory Rate 02 Sat Mode of Delivery 100 %/Room air You can now view a summary of your hospital visit from the comfort of your home through a free online portal called Nebo. Nebo is a website that allows you to securely view your medical information including discharge summary, medications and follow-up visits. ??You can alsosend a secure electronic message to your doctor???s office to request appointments, renew medications or just ask a question. You can enroll at [email or web address] or register during your next office visit. [...] primary care provider, you may find a [facility] provider by calling [facility] [employer] at [phone]. For information about the plan of care [...] Care Team Personnel Name: Nehal Oh Position: [facility] Onco RN Member Role: Primary Care Nurse Name: Ynes Sanford NP Position: [facility] Outreach Member Role: PCP Address: Address: [address] [place] [address] Name: Anabela Fernandes RN Position: [facility] Onco RN Member Role: Primary Care Nurse Care Team Related Persons Name: UMESH KAROLINA Address: home [address] [place] [address]
--- OUTSIDE RECORDS SUMMARY | 2023-12-28 17:33 | XMS_ITS | Continuity of Care Document ---
Author Organization [facility] Address [address] [place] [address]- Care Team Providers Care Academic Hospitalist Name Role Phone Claribel JOHNSON, Ynes Carter Primary Care Physician [phone] Encounter [facility] [place] Date(s): 02/24/22 - 03/26/22 [facility] [address] [place] [address]- Allergies, Adverse Reactions, Alerts No Known Allergies [...] 0 Refills, Maintenance, 01/07/21 13:22:00 EDT, Tablet, [id number], Partial fill upon patient request if the prescription isfor a schedule II opioid drug., 147.32, cm, ... Start Date: 01/07/21 Stop Date: 01/21/21 Status: Ordered Problem List Condition Effective Dates Status Health Status Inform ant Anemia(Confirmed) Active S/P cholecystectomy(Confirmed) Active Social History Social History Type Response Smoking Status Never smoker entered on: 04/09/15 Sex Care Team Personnel Name: Ynes Sanford NP Address: [address] [place] [address]
--- OUTSIDE RECORDS SUMMARY | 2023-12-28 17:33 | XMS_ITS | Continuity of Care Document ---
Author Organization [facility] Address [address] [place] [address]- Care Team Providers Care Procedures Nurse Name Role Phone France Aj NP Primary Care Physician Encounter [facility] [place] Date(s): 10/06/23 - 12/18/23 [facility] [address] [place] [address] Discharge Disposition: A-D/C Home Attending Physician: Manuel Linn MD Admitting Physician: Manuel Linn MD Referring Physician: France Aj NP Allergies, Adverse Reactions, [...] 2 Start Date: 08/22/23 Status: Ordered ergocalciferol 96750 iu oral capsule 50,000 International_Units, 1, capsule, By Mouth, Every week, # 5 capsule, Refills 0, Tot. Refills 0, Maintenance, 07/24/23 9:21:00 EST, Route to Pharmacy Electronically, [facility]/pharmacy #[id number], Partial fill upon patient request if the prescription is for... Start Date: 07/24/23 Stop Date: 08/23/23 Status: Ordered Pepcid 40 mg oral tablet 1 tablet = 40 mg, By Mouth, Daily at bedtime, # 30 tablet, 0 Refills, Maintenance, 08/10/23 12:57:00 EST, Tablet, [facility]/pharmacy #[id number], Partial fill upon patient [...] Confirmed Active Vitamin D deficiency Confirmed Active Vital Signs Most recent to oldest [Reference Range]: 1 Height 146.6 cm (10/18/23 9:14 AM) Weight 47.5 kg (10/18/23 9:14 AM) Oxygen Saturation [94-100 %] 99 % (10/18/23 9:14 AM) Pulse Rate [55-90 bpm] 71 bpm (10/18/23 9:14 AM) Body Mass Index [18.5-24.99 kg/m2] 22.1 kg/m2 (10/18/23 9:14 AM) Blood Pressure [90-138/55-84 mm Hg] 107/ 58mm Hg (10/18/23 9:14 AM) Temperature [96.8-100.4 DegF] 97.6 DegF (10/18/23 9:14 AM) Mode of Delivery (Oxygen) Room air (10/18/23 9:14 AM) Blood pressure sites Arm, right (10/18/23 9:14 AM) Temperature Route Oral (10/18/23 9:14 AM) Dry Weight 47.5 kg (10/18/23 9:14 AM) Weight Obtained Via Standing scale (10/18/23 9:14 AM) Dry Weight Obtained Via Standing scale (10/18/23 9:14 AM) Social History Social History Type Response Smoking Status Never smoker entered on: 04/09/15 Sex Note * Marzena Drummond: PERFORM, SIGN, VERIFY Event Display: Patient Education/Instruction Authored Date: [id number] [facility] *Heme/Onc Adult Clinical Summary Name BURAK CALVO Age 33 Years 1990 PCP France Aj NP PCP Visit Date 10/06/2023 10:14:00 Additional Instructions: Scheduled Appointments?? Future Appointments ?*[facility] [address],??[address] ?Phone:??--?Fax:??-- ?Appt. Date:??12/12/2023?10:15 AM ?Scheduled Provider:??France Aj NP Follow-Up Instructions ?? With: Address: When: Manuel Rendon [address] [place] [address] Hem/[place] [address] [facility] (1) In 13 weeks 01/17/2024 Diagnosis Medications: Please continue your medications until treatment is completed or stopped by your provider. Discuss any questions related to medications with your provider. Medications to Continue with No Changes These medications were not printed or sent to your pharmacy Cyanocobalamin (cyanocobalamin (B-12) (OP)) 1,000 Microgram. take every other week. Next Dose: Cyanocobalamin (cyanocobalamin 1000 mcg/ml injectable solution) 1 Milliliter Intramuscular Every 28days for 4 doses/times. Refills: 0. Next Dose: Ergocalciferol (ergocalciferol 90422 iu oral capsule) 1 capsule Oral every week for 30 Days. Refills: 0. Next Dose: Famotidine (Pepcid 40 mg oral tablet) 1 tab(s) Oral Daily at Bedtime. Refills: 0. Next Dose: Allergy Info:?? NKA Medications Given This Visit Future Orders ?No future orders Future Orders ?No future orders Vital Signs Height 146.6 cm Weight 47.5 kg BMI 22.1 kg/m2 Blood Pressure 107 mm Hg/58 mm Hg Temperature 97.6 DegF Pulse Rate 71 bpm Respiratory Rate 02 Sat Mode of Delivery 99 %/Room air You can now view a summary of your hospital visit from the comfort of your home through a free online portal called [email or web address]. [email or web address][employer]ru is a website that allows you to securely view your medical information including discharge summary, medications and follow-up visits. ??You can alsosend a secure electronic message to your doctor???s office to request appointments, renew medications or just ask a question. You can enroll at [email or web address] or register during your next [...] care provider, you may find a [facility] provider by calling [facility] Link at [phone]. [facility], in keeping with [facility] guidance, no longer requires face masks [...] Care Nurse Name: Anabela Fernandes RN Position: [facility] Onco RN Member Role: Primary Care Nurse Name: Theresa Bird [facility] RN Member Role: Primary Care Nurse Name: France Aj NP Position[facility] PCO Associate Professional Member Role: PCP Address: Address: [address] [place] [address]- [place] Name: Elia Brower RN Position[facility] RN Member Role: Primary Care Nurse Name: Wendy Watson RN Position: [facility] AMB Nurse Member Role: Primary Care Nurse Name: Maxwell Guevara RN Position[facility] RN Member Role: Primary Care Nurse Name: Fred Rendon MD, Manuel Crenshaw Position[facility] Physician - Oncology Med Service: Hematology & Oncology Member Role: Admitting Physician Address: Address: [address] [place] [address] Hem/[place] [address]- [place] Care Team Related Persons Name: KAROLINA CALVO Address: home [address] [place] [address]
--- OUTSIDE RECORDS SUMMARY | 2023-12-28 17:33 | XMS_ITS | Continuity of Care Document ---
Author Organization [facility] Address [address] [place] [address]- Care Team Providers Care Mechanical Maintenance Technician Name Role Phone Claribel JOHNSON, Ynes Carter Primary Care Physician [place] [facility] [place](s): 09/11/20 - 10/11/20 [facility] [address] [place] [address]- Attending Physician: Singh Post Admitting Physician: AdmtrSingh [...]
--- OUTSIDE RECORDS SUMMARY | 2023-12-28 17:33 | XMS_ITS | Continuity of Care Document ---
Author Organization [facility] Address [address] [place] [address]- Care Team Providers Care Commercial Stripper Name Role Phone Claribel JOHNSON, Ynes Carter Primary Care Physician [phone] Encounter [facility] [place] Date(s): 02/21/23 - 03/23/23 [facility] [address] [place] [id number] Attending Physician: AdmSingh iyer Admitting Physician: Admtr, [...] 0 Refills, Maintenance, 01/07/21 13:22:00 EDT, Tablet, [facility] #[id number], Partial fill upon patient request if the [...] Care Team Personnel Name: Nehal Oh Position: [facility] Onco RN Member Role: Primary Care Nurse Name: Ynes Sanford NP Position: [facility] Outreach Member Role: PCP Address: Address: [address] [place] [address] Name: Anabela Fernandes RN Position: [facility] Onco RN Member Role: Primary Care Nurse Name: Wendy Watson RN Position: [facility] SN RN Member Role: Primary Care Nurse Care Team Related Persons Name: KAROLINA CALVO Address: home [address] [place] [address]
--- OUTSIDE RECORDS SUMMARY | 2023-12-28 17:33 | XMS_ITS | Continuity of Care Document ---
Author Organization [facility] Address [address] [place] [id number]- Care Team Providers Care Equipment Maint Tech Name Role Phone Claribel JOHNSON, Ynes Carter Primary Care Physician [phone] [id number] Date(s): 01/16/20 - 05/15/20 [facility] [address] [place] [address]- [facility] Attending Physician: Anali Hernandez MD Admitting Physician: Anali Hernandez MD Referring Physician: Ynes Sanford NP Allergies, [...] 0 Refills, Maintenance, 09/06/19 12:25:00 EST, Tablet, [facility]/pharmacy #[id number], 147, cm, 09/05/19 22:13:00 EST, Height, 53.1, kg, 09/03/19 14:18:00 EST, Dry Weight Start Date: 09/06/19 Status: Ordered Problem List Condition Effective Dates Status Health Status Inform ant Anemia(Confirmed) Active S/P cholecystectomy(Confirmed) Active Social History Social History Type Response Smoking Status Never smoker entered on: 04/09/15 Sex
[2023-12-28 18:19] VITALS: BP 105/57; PULSE 54; RESP 14; TEMP 36.4; O2SAT 100
[2023-12-28 19:14] LABS: Appearance Urine Clear; Color Urine Yellow; Glucose Urine UA Negative (Negative); Leukocyte Esterase Urine Negative (Negative); Nitrite Urine Negative (Negative); Urine Blood Negative (Negative); Urine Ketones 15 mg/dL (Negative); Urine Protein Negative (Neg-Trace)
[2023-12-28 19:16] LABS: Urine Pregnancy NEGATIVE (NEGATIVE)
[2023-12-28 19:17] LABS: UPreg QC Valid YES
[2023-12-28 19:30] VITALS: BP 123/59; PULSE 65; RESP 18; TEMP 36.8; O2SAT 98
[2023-12-28 19:34] VITALS: BP 123/59; PULSE 65; RESP 18; TEMP 36.8; O2SAT 98
== END 2023-12-28 19:34 | disposition home or self-care (01) ==
PROVIDERS: Physician Assistant; Emergency Provider Emergency Medicine; PCP Nurse Practitioner
DX: R07.9 Chest pain, unspecified (principal); D50.9 Iron deficiency anemia, unspecified; E53.8 Deficiency of other specified B group vitamins; Z79.899 Other long term (current) drug therapy
CPT/HCPCS: 36415; 71045; 80053; 81003; 81025; 83735; 84484; 85025; 93005; 99283; 99284

== ENCOUNTER → 2023-12-28 15:56 | Outpatient (BNV) | payer OTHER, SELFPAY | PROVIDERS: Emergency Provider Emergency Medicine; PCP Nurse Practitioner; Visit Provider Internal Medicine | DX: R07.9 Chest pain, unspecified (principal) | CPT/HCPCS: 93010 ==

== ENCOUNTER 2024-02-22 15:56 | Emergency (ER) | payer OTHER, SELFPAY ==
--- NOTE | ~2024-02-22 | CT_ITS ---
EXAMINATION: CT ABDOMEN AND PELVIS WITHOUT CONTRAST CLINICAL INFORMATION: Right flank pain COMPARISON: Ultrasound kidneys 11/09/2023, CT abdomen pelvis 09/16/2023 TECHNIQUE: Multidetector volumetric imaging was performed from the superior aspect of the liver through the pubic symphysis. Sagittal and coronal reformatted images were obtained on the technologist's workstation. This CT examination was performed using dose optimization techniques as appropriate, variously including the following: *Automated exposure control *Adjustment of mA and/or kV according to patient size (this includes techniques or standardized protocols for targeted exams where dose is matched to indication/reason for exam; i.e. extremities or head) *Use of iterative reconstruction technique DLP: 281 mGy-cm FINDINGS: LUNG BASES: The visualized lung bases are unremarkable. LIVER, GALLBLADDER, AND BILIARY TREE: The liver is normal in size, shape, and attenuation. No focal hepatic lesion or biliary ductal dilatation is present. Status post cholecystectomy. PANCREAS: Unremarkable. SPLEEN: Unremarkable. ADRENAL GLANDS: Unremarkable. KIDNEYS AND URETERS: The kidneys are normal in size, shape, and attenuation. No hydronephrosis, hydroureter, or calculi seen. No perinephric stranding. BLADDER: There is a 1.4 cm mass in the region of the urachus with a small foci of calcification. The bladder wall is symmetrically thickened. Similar findings were seen on the 09/16/2023 study. Cystoscopy was recommended. Has this been performed? GASTROINTESTINAL TRACT: The small and large bowel are unremarkable. The appendix is unremarkable. ABDOMINAL WALL: No significant hernia is appreciated. LYMPH NODES: Normal. VASCULAR: Unremarkable. PELVIC VISCERA: The retroverted uterus and adnexa are unremarkable. Single surgical clip is present in the pelvis. No free pelvic fluid is seen. OSSEOUS STRUCTURES: Unremarkable. CT/CT abdomen pelvis wo IV con IMPRESSION: 1. A cause for the patient's right flank pain has not been found. There is no nephrolithiasis. 2. Incidental note made of cholecystectomy, 1.4 cm mass in the region of the urachus with symmetric bladder wall thickening. Cystoscopy had been recommended previously. Fleischner guidelines were followed.
[2024-02-22 16:23] VITALS: BP 129/62; PULSE 68; RESP 18; TEMP 36.9; O2SAT 100; BMI 22.2
--- NOTE | 2024-02-22 16:26 | ED.GENADULT ---
HPI - General Adult General Chief complaint: Back Pain/Injury Stated complaint: back pain Time Seen by Provider: 02/22/24 18:40 Source: patient Mode of arrival: ambulatory Limitations: no limitations History of Present Illness ED Provider: Dr. Josie Arenas HPI narrative: Patient comes to the emergency room complaining of right-sided back pain. Patient states that the pain is worse with certain movements. Patient states it has been constant for about 1.5 weeks. Patient states that she does have issues with her bladder and sees urology forehead. Patient denies any kidney stones. Patient denies any recent trauma Related Data Home Medications ?Medication ?Instructions ?Recorded ?Confirmed cyanocobalamin (vitamin B-12) 1,000 mcg IM 10/20/23 10/20/23 1,000 mcg/mL injection solution ergocalciferol (vitamin D2) 1,250 1,250 mcg PO QWEEK 10/20/23 10/20/23 mcg (50,000 unit) capsule ferrous sulfate 28 mg iron tablet 30 mg PO 10/20/23 10/20/23 naproxen 250 mg tablet 250 mg PO BID PRN mild pain 10/20/23 10/20/23 Previous Rx's ?Medication ?Instructions ?Recorded famotidine 20 mg tablet (Pepcid) 20 mg PO BID abdominal discomfort 09/17/23 #60 tabs ondansetron 4 mg disintegrating 4 mg PO Q8H PRN nausea and 09/17/23 tablet vomiting #20 tabs amoxicillin 500 mg-potassium 1 tab PO BID #10 tabs 10/20/23 clavulanate 125 mg tablet (Augmentin) lactobacillus combination no.4 3 3,000 mmu cells PO DAILY #14 caps 10/20/23 billion cell capsule (Probiotic) tamsulosin 0.4 mg capsule (Flomax) 0.4 mg PO BEDTIME #30 caps 11/25/23 cyclobenzaprine 10 mg tablet 10 mg PO TID PRN muscle spasm #14 02/22/24 tabs Allergies Allergy/AdvReac Type Severity Reaction Status Date / Time No Known Allergies Allergy Verified 02/22/24 16:27 Review of Systems Review of Systems: Constitutional : No Weight loss, No Fever, No Chills, No Night Sweats, No Fatigue, No Malaise ENT/Mouth : No Hearing loss, No Ear Pain, No Nasal Congestion, No Sinus Pain, No Hoarseness, No sore throat, No Rhinorrhea, No Swallowing Difficulty Eyes: No Eye Pain, No Swelling, No Redness, No Foreign Body, No Discharge, No Vision Changes Cardiovascular : No Chest Pain, No SOB, No Dyspnea on Exertion, No Orthopnea, No Edema, No Palpitations Respiratory : No Cough, No Sputum, No Wheezing, No Smoke Exposure, No Dyspnea Gastrointestinal : No Nausea, No Vomiting, No Diarrhea, No Constipation, No abdominal Pain, No Hematochezia, No Melena Genitourinary : no irregular bleeding, No Dysuria, No Urinary Frequency, No Hematuria, No Urinary Incontinence, No Urgency, No Flank Pain, No Urinary Flow Changes, No Hesitancy Musculoskeletal : Complaining of right middle back pain, No joint pain, No Myalgias, No Joint Swelling Skin : No Skin Lesions, No rash Neuro : No Weakness, No Numbness, No Paresthesias, No Loss of Consciousness, No Dizziness, No Headache Psych : No Anxiety/Panic, No Depression, No SI/HI/AH/VH, No Social Issues, Heme/Lymph: No Bruising, No Bleeding,No Lymphadenopathy Endocrine : No Polyuria, No Polydipsia, No Temperature Intolerance PMFSH Past Medical History Medical History Ovarian cyst rupture Conductive hearing loss of left ear with unrestricted hearing of right ear History of pancreatitis Functional diarrhea Chronic abdominal pain History of COVID-19 Concussion with loss of consciousness Systolic murmur Current mild episode of major depressive disorder without prior episode Gastroesophageal reflux disease Closed fracture of left distal radius Vitamin B12 deficiency Syncope and collapse Menorrhagia Iron deficiency Chronic migraine without aura with status migrainosus, not intractable History of bladder stone Surgical History S/P laparoscopic appendectomy S/P cholecystectomy Family History Family History Father No problems noted. Mother No problems noted. Social History Social History Alcohol intake: current Alcohol intake frequency: does not drink Patient Tobacco Use Status: Never used Tobacco Advance Directives: No Advance Directives Information Provided: Yes Physical Exam ED Vital Signs: Vital Signs - 24 hr 02/22/24 16:23 02/22/24 19:04 Temperature 98.5 F 98.1 F Pulse Rate 68 65 Respiratory Rate 18 16 Blood Pressure 129/62 121/63 Pulse Oximetry 100 100 Oxygen Delivery Method Room Air Room Air BMI result Body Mass Index 22.2 Const Other: Appearance: Alert. Oriented X3. No acute distress. Eyes: Pupils equal, round and reactive to light. ENT: Pharynx normal. Neck: Normal inspection. Neck supple. No lymph nodes noted. No crepitus CVS: Normal heart rate and rhythm. Pulses normal. Normal S1 and S2 Respiratory: No respiratory distress. Breath sounds normal. No Wheezing. No rales Abdomen: Soft and nontender. No rigidity. No distention. Back: Pain to palpation in the middle of the back on the right, no thoracic spine tenderness, no CVA tenderness Skin: Skin warm and dry. Normal skin color. Normal skin turgor. Extremities: No lower extremity edema. No Lacerations. No Rash Neuro: Oriented X 3. No motor deficit. No sensory deficit. Moving all extremities. No slurred speech. CN 2 through 12 grossly intact Psych: calm, cooperative, normal affect Course Course Course Narrative: This is a rapid medical exam performed by Cori Franco NP: Additional HPI, ROS, PE not included below will be deferred to primary provider. Patient is a 33-year-old female with history of recurrent UTIs presenting with right flank pain for the past week. Subjective fevers, nausea. Had diarrhea the other day which has since resolved. Plan: labs, UA Medical Decision Making Medical Decision Making [facility] Narrative: -my interpretation of labs: Patient has anemia, per patient it is chronic she gets iron transfusions and blood transfusions regularly, has follow-up with heme Onc, normal chemistry urine -scan unremarkable for kidney stones. Patient does have a cyst/mass in the bladder which patient states that she is aware and follows up with Urology. -patient is source of pain likely musculoskeletal Differential Diagnosis Differential Diagnoses: The differential diagnosis associated with the presentation includes (Ureterolithiasis, bladder cyst, back pain) Admission/Observation Consideration of admission/observation: Escalation of care including admission/observation considered (Given patient's past medical history and symptoms, observation considered) Lab Data [facility] Lab Attestation statement: I reviewed the patient's lab results. 02/22/24 16:46 02/22/24 16:46 Labs: Lab Results 02/22/24 Range/Units 16:46 WBC 6.4 (4.8-10.8) X10*3/uL RBC 4.05 L (4.20-5.50) X10*6/uL Hgb 9.1 L (12.0-16.0) g/dl Hct 30.3 L (37.0-47.0) % MCV 74.8 L (80.0-98.0) fL MCH 22.5 L (27.0-33.0) pg MCHC 30.0 L (31.0-35.0) g/dl RDW 15.7 (11.0-16.0) % Plt Count 235 D (160-400) X10*3/uL MPV 10.3 (9.4-12.3) fL Immature Gran % (Auto) 0.5 H (0.0-0.4) % Neut % (Auto) 68.9 (45-73) % Lymph % (Auto) 22.2 (20-40) % [place] % (Auto) 7.3 (2-11) % Eos % (Auto) 0.9 (0-4) % Baso % (Auto) 0.2 (0-2) % Lymph # (Auto) 1.4 (1.2-4.9) X10*3/uL [place] # (Auto) 0.5 (0.1-1.2) X10*3/uL Eos # (Auto) 0.1 (0.0-0.4) X10*3/uL Baso # (Auto) 0.0 (0.0-0.2) X10*3/uL Abs Immat Gran (auto) 0.03 (0.00-0.03) X10*3/uL Absolute Neuts (auto) 4.4 (2.0-8.3) x10*3/uL Absolute Nucleated RBC 0.000 (0.0-0.012) X10*3/uL Nucleated RBC % (auto) 0.0 (0.0-0.2) /100WBC Sodium 140 (135-145) mmol/L Potassium 4.3 (3.3-5.1) mmol/L Chloride 107 (96-108) mmol/L Carbon Dioxide 23 (22-29) mmol/L Anion Gap 14 (12-20) BUN 9 (9-16) mg/dL Creatinine 0.70 (0.5-1.4) mg/dL Estim Creat Clear Calc 73.8 Estimated GFR > 60 Random Glucose 100 (60-115) mg/dL Calcium 9.3 (8.4-10.2) mg/dL Total Bilirubin 0.4 (0.0-1.0) mg/dL AST 19 (5-31) U/L ALT 20 (0-31) U/L Alkaline Phosphatase 28 L (39-117) U/L Total Protein 7.1 (6.5-8.0) g/dL Albumin 4.4 (3.5-5.0) g/dL Beta HCG, Quant < 2 mIU/mL Urine Color Yellow Urine Appearance Clear Urine pH 6.5 (5.0-9.0) Ur Specific [place] 1.020 (1.005-1.025) Urine Protein Negative (Neg-Trace) mg/dL Urine Glucose (UA) Negative (Negative) mg/dL Urine Ketones Trace (Negative) mg/dL Urine Blood Negative (Negative) Urine Nitrite Negative (Negative) Ur Leukocyte Esterase Trace H (Negative) Urine RBC 0-2 (0-2) /HPF Urine WBC 0-5 (0-5) /HPF Ur Squamous Epith Cells 6-10 (0-2) /HPF Urine Bacteria None Seen (None Seen) Hyaline Casts 0-2 (0-2) /LPF Independent Interpretation I performed an independent interpretation of an: CT Scan Radiology Impression Discussion of test interpretation with radiology: I have reviewed the radiologist's reading. Radiologist Impression: FINDINGS: LUNG BASES: The visualized lung bases are unremarkable. LIVER, GALLBLADDER, AND BILIARY TREE: The liver is normal in size, shape, and attenuation. No focal hepatic lesion or biliary ductal dilatation is present. Status post cholecystectomy. PANCREAS: Unremarkable. SPLEEN: Unremarkable. ADRENAL GLANDS: Unremarkable. KIDNEYS AND URETERS: The kidneys are normal in size, shape, and attenuation. No hydronephrosis, hydroureter, or calculi seen. No perinephric stranding. BLADDER: There is a 1.4 cm mass in the region of the urachus with a small foci of calcification. The bladder wall is symmetrically thickened. Similar findings were seen on the 09/16/2023 study. Cystoscopy was recommended. Has this been performed? GASTROINTESTINAL TRACT: The small and large bowel are unremarkable. The appendix is unremarkable. ABDOMINAL WALL: No significant hernia is appreciated. LYMPH NODES: Normal. VASCULAR: Unremarkable. PELVIC VISCERA: The retroverted uterus and adnexa are unremarkable. Single surgical clip is present in the pelvis. No free pelvic fluid is seen. OSSEOUS STRUCTURES: Unremarkable. CT/CT abdomen pelvis wo IV con IMPRESSION: 1. A cause for the patient's right flank pain has not been found. There is no nephrolithiasis. 2. Incidental note made of cholecystectomy, 1.4 cm mass in the region of the urachus with symmetric bladder wall thickening. Cystoscopy had been recommended previously. Critical Care Time Critical Care Time Critical Care Time: Yes Total Critical Care Time: 35 Attestation: I have personally provided critical care time. Time includes review of lab data, radiology results, discussion with consultants, and monitoring for potential decompensation. Intervention performed as documented. Discharge Plan Discharge Clinical Impression: Back pain Patient Disposition: Home, Self-Care Instructions: Back Pain (ED) Additional Instructions: Please follow-up with your primary care physician tomorrow. If you have any worsening or new symptoms, please return to the emergency room or call 911 Prescriptions: New cyclobenzaprine 10 mg tablet 10 mg PO TID PRN (Reason: muscle spasm) Qty: 14 0RF No Action famotidine [Pepcid] 20 mg tablet 20 mg PO BID Qty: 60 0RF ondansetron 4 mg tablet,disintegrating 4 mg PO Q8H PRN (Reason: nausea and vomiting) Qty: 20 0RF cyanocobalamin (vitamin B-12) 1,000 mcg/mL solution 1,000 mcg IM ergocalciferol (vitamin D2) 1,250 mcg (50,000 unit) capsule 1,250 mcg PO QWEEK naproxen 250 mg tablet 250 mg PO BID PRN (Reason: mild pain) ferrous sulfate 28 mg iron tablet 30 mg PO Probiotic 3 billion cell capsule 3,000 mmu cells PO DAILY Qty: 14 1RF Rx Instructions: administer with a meal amoxicillin-pot clavulanate [Augmentin] 500-125 mg tablet 1 tab PO BID Qty: 10 0RF tamsulosin [Flomax] 0.4 mg capsule 0.4 mg PO BEDTIME Qty: 30 2RF Print Language: Tuvaluan
[2024-02-22 16:53] LABS: MANUAL DIFF FLAG NO
[2024-02-22 16:54] LABS: Basophils Percent Auto 0.2 % (0-2); Eosinophils Absolute Auto 0.1 X10*3/uL (0.0-0.4); Eosinophils Percent Auto 0.9 % (0-4); Hematocrit 30.3 % (37.0-47.0); Hemoglobin 9.1 g/dl (12.0-16.0); Imm Gran Abs Auto 0.03 X10*3/uL (0.00-0.03); Imm Gran Pct Auto 0.5 % (0.0-0.4); Lymphocytes Absolute Auto 1.4 X10*3/uL (1.2-4.9); Lymphocytes Percent Auto 22.2 % (20-40); Mean Corpuscular Hemoglobin 22.5 pg (27.0-33.0); Mean Corpuscular Volume 74.8 fL (80.0-98.0); Mean Platelet Volume 10.3 fL (9.4-12.3); Monocytes Absolute Auto 0.5 X10*3/uL (0.1-1.2); Monocytes Percent Auto 7.3 % (2-11); Neutrophils Absolute Auto 4.4 x10*3/uL (2.0-8.3); Neutrophils Percent Auto 68.9 % (45-73); Platelet Count 235 X10*3/uL (160-400); Red Blood Count 4.05 X10*6/uL (4.20-5.50); Red Cell Distribution Width 15.7 % (11.0-16.0); White Blood Count 6.4 X10*3/uL (4.8-10.8)
[2024-02-22 16:55] LABS: Appearance Urine Clear; Color Urine Yellow; Glucose Urine UA Negative (Negative); Leukocyte Esterase Urine Trace (Negative); Nitrite Urine Negative (Negative); PH 6.5 (5.0-9.0); UMIC TRIGGER UACC YES; Urine Blood Negative (Negative); Urine Ketones Trace mg/dL (Negative); Urine Protein Negative (Neg-Trace)
[2024-02-22 17:10] LABS: Bacteria Urine None Seen (None Seen); Hyaline Casts Urine 0-2 /LPF (0-2); RBC Urine 0-2 /HPF (0-2); WBC Urine 0-5 /HPF (0-5)
[2024-02-22 17:17] LABS: Alanine Aminotransferase 20 U/L (0-31); Albumin Level 4.4 g/dL (3.5-5.0); Alkaline Phosphatase 28 U/L (39-117); Anion Gap 14 (12-20); Aspartate Amino Transferase 19 U/L (5-31); Bilirubin Total 0.4 mg/dL (0.0-1.0); Blood Urea Nitrogen 9 mg/dL (9-16); Calcium 9.3 mg/dL (8.4-10.2); Carbon Dioxide 23 mmol/L (22-29); Chloride 107 mmol/L (96-108); Creatinine Clr Calc Pharmacy 73.8; Estimated Glomerular Filt Rate > 60; Glucose Random 100 mg/dL (60-115); Potassium 4.3 mmol/L (3.3-5.1); Sodium 140 mmol/L (135-145); Total Protein 7.1 g/dL (6.5-8.0)
[2024-02-22 17:22] LABS: HCG Quantitative < 2 mIU/mL
[2024-02-22 19:04] VITALS: BP 121/63; PULSE 65; RESP 16; TEMP 36.7; O2SAT 100
[2024-02-22 20:24] VITALS: BP 121/63; PULSE 65; RESP 16; TEMP 36.7; O2SAT 100
== END 2024-02-22 20:25 | disposition home or self-care (01) ==
PROVIDERS: Registered Nurse Emergency; Emergency Provider Emergency Medicine
DX: R10.9 Unspecified abdominal pain (principal)
CPT/HCPCS: 36415; 74176; 80053; 81001; 81003; 84702; 85025; 99283; 99284

== ENCOUNTER 2024-03-27 20:09 | Emergency (ER) | payer OTHER, SELFPAY ==
--- NOTE | 2024-03-27 20:16 | ECG_ITS ---
Test Reason : headache Blood Pressure : / mmHG Vent. Rate : 059 BPM Atrial Rate : 059 BPM P-R Int : 206 ms QRS Dur : 070 ms QT Int : 388 ms P-R-T Axes : 063 035 021 degrees QTc Int : 384 ms Sinus bradycardia Otherwise normal ECG When compared with ECG of 28-DEC-2023 15:58, No significant change was found Referred By: Jennyfer Mckeon Electronically Signed By:LONNIE WAGNER
--- NOTE | 2024-03-27 20:36 | ED.GENADULT ---
HPI - General Adult General Chief complaint: Dizziness Stated complaint: Syncope/Headache/Nausea Time Seen by Provider: 03/27/24 22:37 Source: patient Mode of arrival: ambulatory Limitations: no limitations History of Present Illness ED Provider: earnestine SWAN narrative: Patient with chronic iron deficiency anemia, dysfunctional uterine bleeding supposed to get iron infusions which she refusing to take it last infusion was in 10/2023 been feeling dizzy lightheaded especially on standing has a near-syncope episode 3 days ago upper respiratory symptoms patient is refusing any iron replacement blood transfusion at this time no shortness a breath no chest pain Related Data Home Medications ?Medication ?Instructions ?Recorded ?Confirmed cyanocobalamin (vitamin B-12) 1,000 mcg IM 10/20/23 10/20/23 1,000 mcg/mL injection solution ergocalciferol (vitamin D2) 1,250 1,250 mcg PO QWEEK 10/20/23 10/20/23 mcg (50,000 unit) capsule ferrous sulfate 28 mg iron tablet 30 mg PO 10/20/23 10/20/23 naproxen 250 mg tablet 250 mg PO BID PRN mild pain 10/20/23 10/20/23 Previous Rx's ?Medication ?Instructions ?Recorded famotidine 20 mg tablet (Pepcid) 20 mg PO BID abdominal discomfort 09/17/23 #60 tabs ondansetron 4 mg disintegrating 4 mg PO Q8H PRN nausea and 09/17/23 tablet vomiting #20 tabs amoxicillin 500 mg-potassium 1 tab PO BID #10 tabs 10/20/23 clavulanate 125 mg tablet (Augmentin) lactobacillus combination no.4 3 3,000 mmu cells PO DAILY #14 caps 10/20/23 billion cell capsule (Probiotic) tamsulosin 0.4 mg capsule (Flomax) 0.4 mg PO BEDTIME #30 caps 11/25/23 cyclobenzaprine 10 mg tablet 10 mg PO TID PRN muscle spasm #14 02/22/24 tabs Allergies Allergy/AdvReac Type Severity Reaction Status Date / Time No Known Allergies Allergy Verified 03/27/24 21:08 Review of Systems Review of Systems: Yes all other systems are reviewed and are negative PMFSH Past Medical History Medical History Ovarian cyst rupture Conductive hearing loss of left ear with unrestricted hearing of right ear History of pancreatitis Functional diarrhea Chronic abdominal pain History of COVID-19 Concussion with loss of consciousness Systolic murmur Current mild episode of major depressive disorder without prior episode Gastroesophageal reflux disease Closed fracture of left distal radius Vitamin B12 deficiency Syncope and collapse Menorrhagia Iron deficiency Chronic migraine without aura with status migrainosus, not intractable History of bladder stone Surgical History S/P laparoscopic appendectomy S/P cholecystectomy Family History Family History Father No problems noted. Mother No problems noted. Social History Social History Alcohol intake: current Alcohol intake frequency: does not drink Patient Tobacco Use Status: Never used Tobacco Advance Directives: No Advance Directives Information Provided: No Do you have a plan to hurt others: No Plan Physical Exam ED Vital Signs: Vital Signs - 24 hr 03/27/24 21:06 Temperature 97.9 F Pulse Rate 60 Respiratory Rate 18 Blood Pressure 122/55 L Pulse Oximetry 99 Oxygen Delivery Method Room Air BMI result Body Mass Index 22.7 Appearance: Alert. Oriented X3. No acute distress. Eyes: Pallor+ ENT: Pharynx normal. Oral Mucosa moist Neck: Normal inspection. Neck supple. CVS: Normal heart rate and rhythm. Pulses normal. Respiratory: No respiratory distress. Equal air entry bilateral, no wheezing/rales/rhonchi Abdomen: Soft and nontender. Bowel sounds are present, Skin: Skin warm and dry. Normal skin color. Normal skin turgor. Extremities: No lower extremity edema. No calf tenderness Neuro: Oriented X 3. Course Course Course Narrative: This is an RME done by SALUD Mckeon: Additional HPI, ROS, PE not included below will be deferred to primary provider. Appearance: Alert.? Oriented X3.? No acute cardiopulmonary distress distress.? Head: Normocephalic, atraumatic, no step-offs or deformities Neck: Normal inspection.? Neck supple.? CVS: Pulses normal.? Respiratory: No respiratory distress.? Abdomen: Soft and nontender.? Skin: ? Normal skin color. Extremities: 5/5 strength to bilateral upper and lower extremities Back: No midline tenderness, no C-spine tenderness, full range of motion, No CVA tenderness bilaterally Neuro: Oriented X 3.? No motor deficit.? No sensory deficit. Medical Decision Making Medical Decision Making [facility] Narrative: Patient with chronic iron deficiency anemia requiring iron infusions which she refusing at this time knowing the importance as she has poor absorption of iron patient has normal orthostatics. Advised to follow with night auditor for further evaluation management Lab Data [facility] Lab Attestation statement: I reviewed the patient's lab results. 03/27/24 20:43 03/27/24 20:43 Labs: Lab Results 03/27/24 Range/Units 20:43 WBC 4.7 L (4.8-10.8) X10*3/uL RBC 3.68 L (4.20-5.50) X10*6/uL Hgb 8.3 L (12.0-16.0) g/dl Hct 27.3 L (37.0-47.0) % MCV 74.2 L (80.0-98.0) fL MCH 22.6 L (27.0-33.0) pg MCHC 30.4 L (31.0-35.0) g/dl RDW 17.2 H (11.0-16.0) % Plt Count 207 (160-400) X10*3/uL MPV Not Reportable Immature Gran % (Auto) 0.2 (0.0-0.4) % Neut % (Auto) 56.0 (45-73) % Lymph % (Auto) 34.1 (20-40) % [place] % (Auto) 8.2 (2-11) % Eos % (Auto) 1.3 (0-4) % Baso % (Auto) 0.2 (0-2) % Lymph # (Auto) 1.6 (1.2-4.9) X10*3/uL [place] # (Auto) 0.4 (0.1-1.2) X10*3/uL Eos # (Auto) 0.1 (0.0-0.4) X10*3/uL Baso # (Auto) 0.0 (0.0-0.2) X10*3/uL Abs Immat Gran (auto) 0.01 (0.00-0.03) X10*3/uL Absolute Neuts (auto) 2.6 (2.0-8.3) x10*3/uL Absolute Nucleated RBC 0.000 (0.0-0.012) X10*3/uL Nucleated RBC % (auto) 0.0 (0.0-0.2) /100WBC Sodium 141 (135-145) mmol/L Potassium 3.8 (3.3-5.1) mmol/L Chloride 111 H (96-108) mmol/L Carbon Dioxide 22 (22-29) mmol/L Anion Gap 12 (12-20) BUN 10 (9-16) mg/dL Creatinine 0.71 (0.5-1.4) mg/dL Estim Creat Clear Calc TNP Estimated GFR > 60 Random Glucose 95 (60-115) mg/dL Calcium 9.2 (8.4-10.2) mg/dL Total Bilirubin 0.3 (0.0-1.0) mg/dL AST 22 (5-31) U/L ALT 29 (0-31) U/L Alkaline Phosphatase 42 (39-117) U/L Troponin I High Sens < 2.7 (<3.5-17.0) ng/L Total Protein 6.5 (6.5-8.0) g/dL Albumin 4.1 (3.5-5.0) g/dL Discharge Plan Discharge Clinical Impression: Chronic iron deficiency anemia Patient Disposition: Home, Self-Care Instructions: Iron Deficiency Anemia (ED) Additional Instructions: Please follow-up with your night auditor for iron transfusions Your hemoglobin is dropping today it was 8.3 Prescriptions: No Action famotidine [Pepcid] 20 mg tablet 20 mg PO BID Qty: 60 0RF ondansetron 4 mg tablet,disintegrating 4 mg PO Q8H PRN (Reason: nausea and vomiting) Qty: 20 0RF cyclobenzaprine 10 mg tablet 10 mg PO TID PRN (Reason: muscle spasm) Qty: 14 0RF cyanocobalamin (vitamin B-12) 1,000 mcg/mL solution 1,000 mcg IM ergocalciferol (vitamin D2) 1,250 mcg (50,000 unit) capsule 1,250 mcg PO QWEEK naproxen 250 mg tablet 250 mg PO BID PRN (Reason: mild pain) ferrous sulfate 28 mg iron tablet 30 mg PO Probiotic 3 billion cell capsule 3,000 mmu cells PO DAILY Qty: 14 1RF Rx Instructions: administer with a meal amoxicillin-pot clavulanate [Augmentin] 500-125 mg tablet 1 tab PO BID Qty: 10 0RF tamsulosin [Flomax] 0.4 mg capsule 0.4 mg PO BEDTIME Qty: 30 2RF Print Language: Pakistani
[2024-03-27 20:47] LABS: MANUAL DIFF FLAG NO
[2024-03-27 20:56] LABS: Basophils Percent Auto 0.2 % (0-2); Eosinophils Absolute Auto 0.1 X10*3/uL (0.0-0.4); Eosinophils Percent Auto 1.3 % (0-4); Hematocrit 27.3 % (37.0-47.0); Hemoglobin 8.3 g/dl (12.0-16.0); Imm Gran Abs Auto 0.01 X10*3/uL (0.00-0.03); Imm Gran Pct Auto 0.2 % (0.0-0.4); Lymphocytes Absolute Auto 1.6 X10*3/uL (1.2-4.9); Lymphocytes Percent Auto 34.1 % (20-40); Mean Corpuscular HGB Conc 30.4 g/dl (31.0-35.0); Mean Corpuscular Hemoglobin 22.6 pg (27.0-33.0); Mean Corpuscular Volume 74.2 fL (80.0-98.0); Monocytes Absolute Auto 0.4 X10*3/uL (0.1-1.2); Monocytes Percent Auto 8.2 % (2-11); Neutrophils Absolute Auto 2.6 x10*3/uL (2.0-8.3); Platelet Count 207 X10*3/uL (160-400); Red Blood Count 3.68 X10*6/uL (4.20-5.50); Red Cell Distribution Width 17.2 % (11.0-16.0); White Blood Count 4.7 X10*3/uL (4.8-10.8)
[2024-03-27 21:06] VITALS: BP 122/55; PULSE 60; RESP 18; TEMP 36.6; O2SAT 99; BMI 22.7
[2024-03-27 21:07] LABS: Alanine Aminotransferase 29 U/L (0-31); Albumin Level 4.1 g/dL (3.5-5.0); Alkaline Phosphatase 42 U/L (39-117); Anion Gap 12 (12-20); Aspartate Amino Transferase 22 U/L (5-31); Bilirubin Total 0.3 mg/dL (0.0-1.0); Blood Urea Nitrogen 10 mg/dL (9-16); Calcium 9.2 mg/dL (8.4-10.2); Carbon Dioxide 22 mmol/L (22-29); Chloride 111 mmol/L (96-108); Estimated Glomerular Filt Rate > 60; Glucose Random 95 mg/dL (60-115); Potassium 3.8 mmol/L (3.3-5.1); Sodium 141 mmol/L (135-145); Total Protein 6.5 g/dL (6.5-8.0)
[2024-03-27 21:20] LABS: Troponin-I High Sensitivity < 2.7 ng/L (<3.5-17.0)
[2024-03-27 23:16] VITALS: BP 124/61; PULSE 61
[2024-03-27 23:17] VITALS: BP 120/66; PULSE 62
[2024-03-27 23:19] VITALS: BP 134/68; PULSE 72
[2024-03-27 23:20] VITALS: BP 134/68; PULSE 72; RESP 12; TEMP 37.1; O2SAT 100
[2024-03-27 23:35] VITALS: BP 134/68; PULSE 72; RESP 12; TEMP 37.1; O2SAT 100
== END 2024-03-27 23:36 | disposition home or self-care (01) ==
PROVIDERS: Physician Assistant; Emergency Provider Internal Medicine; PCP Nurse Practitioner Family
DX: D50.9 Iron deficiency anemia, unspecified (principal); R55 Syncope and collapse; R00.1 Bradycardia, unspecified; R51.9 Headache, unspecified; R11.0 Nausea; Z79.899 Other long term (current) drug therapy
CPT/HCPCS: 36415; 80053; 84484; 85025; 93005; 99283; 99284

== ENCOUNTER 2024-05-04 18:32 | Emergency (ER) | payer OTHER, SELFPAY ==
[2024-05-04 18:53] VITALS: BP 114/76; PULSE 66; O2SAT 99
[2024-05-04 19:00] VITALS: BP 132/79; PULSE 63; RESP 19; TEMP 36.7; O2SAT 100; BMI 20.1
--- NOTE | 2024-05-04 19:07 | ED.PSYCH ---
HPI - Psych General Chief Complaint: Psychiatric Symptoms Stated Complaint: SI Time Seen by Provider: 05/04/24 18:41 Source: patient and EMS Mode of arrival: EMS Limitations: no limitations History of Present Illness HPI Narrative: Patient is a 34-year-old female who presents to the emergency department via EMS on a section 12 coming from [facility]. She states that she has been following with [facility] for the past month. It is difficult to ascertain a clear history from her, she is not very forthcoming. She is quite upset that she iss here. When asked whether she is experiencing any suicidal ideations she states ?I do not like to answer that question?. When asked whether she is experiencing any homicidal ideation she denies. She expresses significant stress over my medical condition for 10 years?, but is not specify exactly what this is in reference to. She does endorse a history of iron-deficiency anemia, B12 deficiency, and urinary tract infections, but she denies any urinary symptoms at this time, no abdominal pain nausea vomiting or flank pain. No recent fevers or chills. For section 12 indicates that she has a medical condition she is not taking care of herself as evidenced by not eating or sleeping. I have requested care team to obtain records from [facility] for further evaluation Related Data Allergies Allergy/AdvReac Type Severity Reaction Status Date / Time No Known Allergies Allergy Verified 05/04/24 19:05 Review of Systems Review of Systems: Yes all other systems are reviewed and are negative PMFSH Past Medical History Attestation statement: The following information was validated with the patient. Source: old records reviewed Medical History Ovarian cyst rupture Conductive hearing loss of left ear with unrestricted hearing of right ear History of pancreatitis Functional diarrhea Chronic abdominal pain History of COVID-19 Concussion with loss of consciousness Systolic murmur Current mild episode of major depressive disorder without prior episode Gastroesophageal reflux disease Closed fracture of left distal radius Vitamin B12 deficiency Syncope and collapse Menorrhagia Iron deficiency Chronic migraine without aura with status migrainosus, not intractable History of bladder stone Surgical History S/P laparoscopic appendectomy S/P cholecystectomy Family History Family History Father No problems noted. Mother No problems noted. Social History Social History Alcohol intake: current Alcohol intake frequency: does not drink Patient Tobacco Use Status: Never used Tobacco Smoked in Last 30 Days: No Use of substances other than those prescribed or required for medical reasons: No Advance Directives: No Advance Directives Information Provided: No Do you have a plan to hurt others: No Plan Physical Exam Vital Signs: Vital Signs: Last Vital Signs Temp 98.4 F 05/04/24 22:29 Pulse 72 05/04/24 22:29 Resp 14 05/04/24 22:29 BP 117/61 05/04/24 22:29 Pulse Ox 98 05/04/24 22:29 O2 Del Method Room Air 05/04/24 22:29 BMI result Body Mass Index 20.1 Appearance: Alert.?Oriented to person, place and time. No acute distress.?Normal affect. Eyes: Pupils equal, round and reactive to light.? ENT: Pharynx normal.?? Neck: Normal inspection.? Neck supple.?? CVS: Heart sounds normal. Normal heart rate and rhythm.? Pulses normal.?? Respiratory: No respiratory distress.? Lung sounds clear to auscultation bilaterally?? Abdomen: Soft and non-tender. Normoactive bowel sounds. Skin: Skin warm and dry.? Normal skin color.? Extremities: No lower extremity edema.? No calf ttp? Neuro: Moves all extremities spontaneously. Sensation intact bilaterally. CN II-XII intact. No focal neuro deficits. Ambulates with normal steady gait. Medications Administered Discontinued Medications Generic Name Dose Route Start Last Admin Trade Name Jennie PRN Reason Stop Dose Admin Acetaminophen 975 mg 05/05/24 02:02 05/05/24 02:08 Acetaminophen 325 Mg Tablet PO 05/05/24 02:03 975 mg ONCE ONE Administration Medical Decision Making Medical Decision Making [facility] Narrative: Patient is a 34 old female with past medical history of iron-deficiency anemia, B12 deficiency, urinary tract infections, history of pancreatitis, history of ovarian cyst with rupture, chronic abdominal pain, GERD, migraines presenting to emergency department on a section 12 from [facility] in the community. Is difficult to ascertain history from patient, she is not very forthcoming, there is concern possible suicidal ideations though she will not elaborate on this. She offers no physical complaints at the time of my evaluation. Her physical examination is benign. She arrives nontoxic afebrile, no tachycardia or respiratory distress. Plan to obtain serum labs for medical clearance in addition to urinalysis, plan to involve care team to facilitate obtaining records from [facility] Differential Diagnosis Differential Diagnoses: The differential diagnosis associated with the presentation includes (See narrative above and below for further detail) Admission/Observation Consideration of admission/observation: Escalation of care including admission/observation considered Patient is being observed in the Emergency Department for depression and anxiety. Observation time was started at 20:43 on 05/04/2024.?The patient is currently stable and non-toxic appearing. Observation is being initiated in the Emergency Department to allow time to help differentiate if the patient's depression and anxiety is due to Substance Induced Mood Disorder and Anxiety versus Major Depressive Disorder, Bipolar Aleah, Bipolar Depression, and Schizophrenia. The patient will receive frequent psychiatric assessments from the provider as well as from nursing staff. The patient will also be monitored for the need of PRN agitation medications such as Haldol, Ativan, and Benadryl. Consult Healthcare Provider Management of the patient was discussed with: Behavioral Health Provider Lab Data MDM Lab Attestation statement: I reviewed the patient's lab results. Urinalysis with trace leukocyte esterase, 1+ urine bacteria with squamous epithelial cells present, currently asymptomatic, would defer antibiotic initiation at this time, may be urogenital contamination. Toxicology negative. Chemistries without electrolyte derangement or BROOKE. HCG negative. CBC without leukocytosis, has a chronic microcytic anemia that does not meet transfusion criteria, no thrombocytopenia. 05/04/24 20:04 05/04/24 20:04 Labs: Lab Results 05/04/24 05/04/24 Range/Units 19:16 20:04 WBC 6.9 (4.8-10.8) X10*3/uL RBC 4.46 D (4.20-5.50) X10*6/uL Hgb 9.5 L (12.0-16.0) g/dl Hct 32.6 L (37.0-47.0) % MCV 73.1 L (80.0-98.0) fL MCH 21.3 L (27.0-33.0) pg MCHC 29.1 L (31.0-35.0) g/dl RDW 16.2 H (11.0-16.0) % Plt Count 308 D (160-400) X10*3/uL MPV 10.7 (9.4-12.3) fL Immature Gran % (Auto) 0.6 H (0.0-0.4) % Neut % (Auto) 69.2 (45-73) % Lymph % (Auto) 22.7 (20-40) % [place] % (Auto) 7.1 (2-11) % Eos % (Auto) 0.1 (0-4) % Baso % (Auto) 0.3 (0-2) % Lymph # (Auto) 1.6 (1.2-4.9) X10*3/uL [place] # (Auto) 0.5 (0.1-1.2) X10*3/uL Eos # (Auto) 0.0 (0.0-0.4) X10*3/uL Baso # (Auto) 0.0 (0.0-0.2) X10*3/uL Abs Immat Gran (auto) 0.04 H (0.00-0.03) X10*3/uL Absolute Neuts (auto) 4.7 (2.0-8.3) x10*3/uL Absolute Nucleated RBC 0.000 (0.0-0.012) X10*3/uL Nucleated RBC % (auto) 0.0 (0.0-0.2) /100WBC Sodium 142 (135-145) mmol/L Potassium 3.8 (3.3-5.1) mmol/L Chloride 107 (96-108) mmol/L Carbon Dioxide 25 (22-29) mmol/L Anion Gap 14 (12-20) BUN 9 (9-16) mg/dL Creatinine 0.78 (0.5-1.4) mg/dL Estim Creat Clear Calc 80.0 Estimated GFR > 60 Random Glucose 111 (60-115) mg/dL Calcium 9.7 (8.4-10.2) mg/dL Magnesium 2.1 (1.6-2.6) mg/dL Beta HCG, Quant < 2 mIU/mL Urine Color Dark Yellow Urine Appearance Cloudy Urine pH 6.0 (5.0-9.0) Ur Specific [place] >= 1.030 H (1.005-1.025) Urine Protein Trace (Neg-Trace) mg/dL Urine Glucose (UA) Negative (Negative) mg/dL Urine Ketones 40 (Negative) mg/dL Urine Blood Negative (Negative) Urine Nitrite Negative (Negative) Ur Leukocyte Esterase Trace H (Negative) Urine RBC 0-2 (0-2) /HPF Urine WBC 0-5 (0-5) /HPF Ur Squamous Epith Cells 6-10 (0-2) /HPF Urine Bacteria 1+ (None Seen) Hyaline Casts 0-2 (0-2) /LPF Salicylates < 5.0 L (15-30) mg/dL Urine Opiates Screen Not Detected (Not Detect) Ur Buprenorphine Scrn Not Detected (Not Detect) ng/mL Ur Oxycodone Screen Not Detected (Not Detect) ng/mL Urine Methadone Screen Not Detected (Not Detect) ng/mL Urine Fentanyl Screen Not Detected (Not Detect) Ur Barbiturates Screen Not Detected (Not Detect) Ur Phencyclidine Scrn Not Detected (Not Detect) Ur Amphetamines Screen Not Detected (Not Detect) U Benzodiazepines Scrn Not Detected (Not Detect) Urine Cocaine Screen Not Detected (Not Detect) U Marijuana (THC) Screen Not Detected (Not Detect) Ethyl Alcohol < 10 mg/dL Independent Historian Clinical information obtained from an independent historian. History obtained from or confirmed by: EMS External Record Review External record reviewed: Outpatient record Discharge Plan Discharge Clinical Impression: Depression Patient Disposition: Still a Patient Interventions: [place]-Suicide Risk Severity Scale Last Done: 05/04/24 19:45 Print Language: Dominican
[2024-05-04 19:22] LABS: Appearance Urine Cloudy; Color Urine Dark Yellow; Glucose Urine UA Negative (Negative); Leukocyte Esterase Urine Trace (Negative); Nitrite Urine Negative (Negative); Specific Gravity - Urine >= 1.030 (1.005-1.025); UMIC TRIGGER UACC YES; Urine Blood Negative (Negative); Urine Ketones 40 mg/dL (Negative); Urine Protein Trace mg/dL (Neg-Trace)
[2024-05-04 19:34] LABS: Bacteria Urine 1+ (None Seen); Hyaline Casts Urine 0-2 /LPF (0-2); RBC Urine 0-2 /HPF (0-2); WBC Urine 0-5 /HPF (0-5)
[2024-05-04 19:43] LABS: Amphetamine Screen Urine Not Detected (Not Detect); Barbiturates, Urine Not Detected (Not Detect); Benzodiazepines Screen Urine Not Detected (Not Detect); Buprenorphine Scr Not Detected (Not Detect); Cannabinoid Screen Urine Not Detected (Not Detect); Cocaine Screen Urine Not Detected (Not Detect); Fentanyl, urine Not Detected (Not Detect); Methadone Screen, Urine Not Detected (Not Detect); Opiate Screen Urine Not Detected (Not Detect); Oxycodone Screen Urine Not Detected (Not Detect); Phencyclidine Screen Urine Not Detected (Not Detect)
[2024-05-04 20:14] LABS: MANUAL DIFF FLAG NO
[2024-05-04 20:15] LABS: Basophils Percent Auto 0.3 % (0-2); Eosinophils Percent Auto 0.1 % (0-4); Hematocrit 32.6 % (37.0-47.0); Hemoglobin 9.5 g/dl (12.0-16.0); Imm Gran Abs Auto 0.04 X10*3/uL (0.00-0.03); Imm Gran Pct Auto 0.6 % (0.0-0.4); Lymphocytes Absolute Auto 1.6 X10*3/uL (1.2-4.9); Lymphocytes Percent Auto 22.7 % (20-40); Mean Corpuscular HGB Conc 29.1 g/dl (31.0-35.0); Mean Corpuscular Hemoglobin 21.3 pg (27.0-33.0); Mean Corpuscular Volume 73.1 fL (80.0-98.0); Mean Platelet Volume 10.7 fL (9.4-12.3); Monocytes Absolute Auto 0.5 X10*3/uL (0.1-1.2); Monocytes Percent Auto 7.1 % (2-11); Neutrophils Absolute Auto 4.7 x10*3/uL (2.0-8.3); Neutrophils Percent Auto 69.2 % (45-73); Platelet Count 308 X10*3/uL (160-400); Red Blood Count 4.46 X10*6/uL (4.20-5.50); Red Cell Distribution Width 16.2 % (11.0-16.0); White Blood Count 6.9 X10*3/uL (4.8-10.8)
[2024-05-04 20:33] LABS: Anion Gap 14 (12-20); Blood Urea Nitrogen 9 mg/dL (9-16); Calcium 9.7 mg/dL (8.4-10.2); Carbon Dioxide 25 mmol/L (22-29); Chloride 107 mmol/L (96-108); Estimated Glomerular Filt Rate > 60; Ethanol < 10 mg/dL; Glucose Random 111 mg/dL (60-115); Magnesium 2.1 mg/dL (1.6-2.6); Potassium 3.8 mmol/L (3.3-5.1); Salicylate < 5.0 mg/dL (15-30); Sodium 142 mmol/L (135-145)
[2024-05-04 20:38] LABS: HCG Quantitative < 2 mIU/mL
--- NOTE | 2024-05-04 20:50 | PC.NURSE ---
Patient states she no longer takes any medication, med rec completed reflecting no current meds.
[2024-05-04 22:29] VITALS: BP 117/61; PULSE 72; RESP 14; TEMP 36.9; O2SAT 98
--- NOTE | 2024-05-04 23:33 | PC.NURSE ---
pt came out of room saying she is upset that he family found out she was here and came to see her. wants no contact with family
--- NOTE | 2024-05-05 00:30 | PC.NURSE ---
keys taken home by brother, pt okayed
[2024-05-05] MEDS: Acetaminophen 325 MG TABLET 975 MG PO (02:08)
--- NOTE | 2024-05-05 02:11 | PC.NURSE ---
pt medicated per SEP for headache
[2024-05-05 06:00] VITALS: BP 110/50; PULSE 55; RESP 16; TEMP 36.6; O2SAT 99
--- NOTE | 2024-05-05 11:04 | PC.NURSE ---
late entry: Assumed care of patient at 0645, patient appears to be in no apparent distress this am, periodically calling people on phone in common area. pt offers no complaints to this RN at this time. pending inpatient bedsearch
[2024-05-05 14:52] VITALS: BP 126/71; PULSE 73; RESP 16; TEMP 36.9; O2SAT 98
[2024-05-05 20:03] VITALS: BP 143/89; PULSE 70; RESP 20; TEMP 37.2; O2SAT 99
[2024-05-06] MEDS: LORazepam 1 MG TABLET 2 MG PO (02:31)
--- NOTE | 2024-05-06 02:31 | PC.NURSE ---
Patient reports not being able to fall asleep. Dr. Cabrera notified, patient medicated with Lorazepam 2 mg PO with good effect, patient in bed asleep, RR 16, even chest wall rise and fall.
--- NOTE | 2024-05-06 08:42 | PC.NURSE ---
Assumed care of patient at 0645, patient appears to be in no apparent distress this am, calm and cooperative, occasionally wandering around BH pod. Pt currently resting in her bed, respirations even and unlabored. Continue plan of care for inpatient bedsearch
[2024-05-06] MEDS: Ibuprofen 600 MG TABLET PO (10:35)
[2024-05-06 16:34] VITALS: BP 138/67; PULSE 66; RESP 16; TEMP 36.4; O2SAT 97
--- NOTE | 2024-05-06 19:30 | PC.NURSE ---
patient appeared to remain at rest presently respirations ar even and unlabored patient appears in no distress
--- NOTE | 2024-05-06 21:26 | PC.NURSE ---
patient has approached t/w 3 times now asking for dc. the patient was due for MSU by care team and t/w notified care team. mag soon after request would head back to room and plonk herself on her bed seeming stoic and not too distressed. t/w offered comfort meds and tried to explain regarding the circumstances of her arrival but she staes harrison been here for 2 days and youve done nothing for me patient currently tidying room and t/w notified care team. client appears to be calling someone.
--- NOTE | 2024-05-07 02:02 | PC.NURSE ---
patient still awake presently, awaiting morning coming so she can call [facility] names
[2024-05-07 05:57] VITALS: BP 132/72; PULSE 77; RESP 18; TEMP 37.1; O2SAT 100
--- NOTE | 2024-05-07 06:39 | PC.NURSE ---
patient meeting w care team seems sad expressive, frustrated.
--- NOTE | 2024-05-07 07:26 | PC.NURSE ---
Assumed care of patient it 0645. Patient is observed talking on the phone at this time. No distress observed. Breathing is even and unlabored.
--- NOTE | 2024-05-07 08:51 | PC.NURSE ---
Therapist Annel's number: [phone]
[2024-05-07] MEDS: hydrOXYzine HCL 50 MG TABLET PO (09:11)
[2024-05-07] MEDS: Acetaminophen 325 MG TABLET 650 MG PO (13:21)
[2024-05-07] MEDS: Diphenoxylate/Atrop 2.5/0.025 TABLET 1 TAB PO (16:03)
--- NOTE | 2024-05-07 17:36 | MHC.CARE ---
Pt accepted to [facility] for tonight 05/07. Accepting is [facility]. Accepting facility will call for N2N
[2024-05-07 18:00] LABS: COVID-19 Test Negative (Negative); IDNOW Serial# 152EDE1D
[2024-05-07 22:44] VITALS: BP 126/70; PULSE 62; RESP 18; TEMP 36.9; O2SAT 96
[2024-05-07 23:20] VITALS: BP 126/70; PULSE 62; RESP 18; TEMP 36.9; O2SAT 96
== END 2024-05-07 23:20 ==
PROVIDERS: Nurse Practitioner Family; Emergency Provider Emergency Medicine Emergency Medical Services; PCP Nurse Practitioner Family
DX: F32.A Depression, unspecified (principal); R45.851 Suicidal ideations; Z87.440 Personal history of urinary (tract) infections; Z79.899 Other long term (current) drug therapy; Z11.52 Encounter for screening for COVID-19
CPT/HCPCS: 36415; 80048; 80179; 80307; 81001; 83735; 84702; 85025; 87635; 99285; S9485

== ENCOUNTER 2024-07-12 23:29 | Emergency (ER) | payer OTHER, SELFPAY ==
[2024-07-12 23:52] VITALS: BP 119/65; PULSE 71; RESP 16; TEMP 37.1; O2SAT 100; BMI 21.1
[2024-07-13 01:11] LABS: MANUAL DIFF FLAG NO
[2024-07-13 01:13] LABS: Basophils Percent Auto 0.3 % (0-2); Eosinophils Absolute Auto 0.1 X10*3/uL (0.0-0.4); Eosinophils Percent Auto 0.8 % (0-4); Hematocrit 26.1 % (37.0-47.0); Hemoglobin 7.6 g/dl (12.0-16.0); Imm Gran Abs Auto 0.02 X10*3/uL (0.00-0.03); Imm Gran Pct Auto 0.3 % (0.0-0.4); Lymphocytes Absolute Auto 1.5 X10*3/uL (1.2-4.9); Lymphocytes Percent Auto 23.2 % (20-40); Mean Corpuscular HGB Conc 29.1 g/dl (31.0-35.0); Mean Corpuscular Hemoglobin 19.7 pg (27.0-33.0); Mean Corpuscular Volume 67.8 fL (80.0-98.0); Mean Platelet Volume 9.8 fL (9.4-12.3); Monocytes Absolute Auto 0.5 X10*3/uL (0.1-1.2); Monocytes Percent Auto 7.3 % (2-11); Neutrophils Absolute Auto 4.4 x10*3/uL (2.0-8.3); Neutrophils Percent Auto 68.1 % (45-73); Platelet Count 309 X10*3/uL (160-400); Red Blood Count 3.85 X10*6/uL (4.20-5.50); Red Cell Distribution Width 18.2 % (11.0-16.0); White Blood Count 6.5 X10*3/uL (4.8-10.8)
[2024-07-13 01:30] LABS: Albumin Level 4.7 g/dL (3.5-5.0); Anion Gap 13 (12-20); Aspartate Amino Transferase 22 U/L (5-31); Bilirubin Total 0.4 mg/dL (0.0-1.0); Blood Urea Nitrogen 11 mg/dL (9-16); Calcium 9.7 mg/dL (8.4-10.2); Carbon Dioxide 24 mmol/L (22-29); Chloride 106 mmol/L (96-108); Creatinine Clr Calc Pharmacy 63.2; Estimated Glomerular Filt Rate > 60; Glucose Random 110 mg/dL (60-115); Potassium 4.1 mmol/L (3.3-5.1); Sodium 139 mmol/L (135-145); Total Protein 7.4 g/dL (6.5-8.0)
[2024-07-13 01:39] LABS: HCG Quantitative < 2 mIU/mL
[2024-07-13 01:49] LABS: Influenza A PCR NEGATIVE (Negative); Influenza B PCR NEGATIVE (Negative); Resp Syncy Virus RNA Qual PCR NEGATIVE (Negative); SARS COV2 PCR INHOUSE NEGATIVE (Negative)
[2024-07-13 02:05] LABS: Alanine Aminotransferase 22 U/L (0-31); Alkaline Phosphatase 30 U/L (39-117)
[2024-07-13 02:49] VITALS: BP 110/52; PULSE 58; RESP 16; TEMP 36.9; O2SAT 98
--- NOTE | 2024-07-13 03:40 | ED.WEAKNESS ---
HPI - Weakness General Chief complaint: Weakness Stated complaint: numbness in hands and feet Time Seen by Provider: 07/13/24 02:53 Source: patient Mode of arrival: ambulatory Limitations: no limitations History of Present Illness ED Provider: HPI Narrative: Patient's with eating disorder with iron-deficiency anemia and B12 deficiency secondary to malabsorption requiring iron infusion in B12 injections last injection was last year patient did not have any follow up does not want to take the pills as has a poor absorption comes here for bilateral tingling of the hands and feet and weakness Related Data Home Medications ?Medication ?Instructions ?Recorded ?Confirmed pantoprazole 40 mg tablet,delayed 40 mg PO DAILY 05/07/24 05/07/24 release Allergies Allergy/AdvReac Type Severity Reaction Status Date / Time No Known Allergies Allergy Verified 07/12/24 23:59 Review of Systems Review of Systems: Yes all other systems are reviewed and are negative PMFSH Past Medical History Medical History Ovarian cyst rupture Conductive hearing loss of left ear with unrestricted hearing of right ear History of pancreatitis Functional diarrhea Chronic abdominal pain History of COVID-19 Concussion with loss of consciousness Systolic murmur Current mild episode of major depressive disorder without prior episode Gastroesophageal reflux disease Closed fracture of left distal radius Vitamin B12 deficiency Syncope and collapse Menorrhagia Iron deficiency Chronic migraine without aura with status migrainosus, not intractable History of bladder stone Surgical History S/P laparoscopic appendectomy S/P cholecystectomy Family History Family History Father No problems noted. Mother No problems noted. Social History Social History Alcohol intake: current Alcohol intake frequency: does not drink Patient Tobacco Use Status: Never used Tobacco Advance Directives: No Advance Directives Information Provided: No Physical Exam Vital Signs: Vital Signs: Last Vital Signs Temp 97.4 F 07/13/24 03:59 Pulse 69 07/13/24 03:59 Resp 16 07/13/24 03:59 BP 107/51 L 07/13/24 03:59 Pulse Ox 100 07/13/24 03:59 O2 Del Method Room Air 07/13/24 03:59 BMI result Body Mass Index 21.1 Appearance: Alert. Oriented X3. No acute distress. Eyes: Pallor+ ENT: Pharynx normal. Oral Mucosa moist Neck: Normal inspection. Neck supple. CVS: Normal heart rate and rhythm. Pulses normal. Respiratory: No respiratory distress. Equal air entry bilateral, no wheezing/rales/rhonchi Abdomen: Soft and nontender. Bowel sounds are present, no mass palpable, no CVA tenderness Skin: Skin warm and dry. Normal skin color. Normal skin turgor. Extremities: No lower extremity edema. No calf tenderness Neuro: Oriented X 3. No motor deficit. No sensory deficit.No cerebellar signs , cranial nerves II-XII intact Medications Administered Discontinued Medications Generic Name Dose Route Start Last Admin Trade Name Freq PRN Reason Stop Dose Admin Folic Acid 1 mg 07/13/24 03:45 07/13/24 04:17 Folic Acid 1 Mg Tablet PO 07/13/24 03:46 Not Given ONCE ONE Medical Decision Making Medical Decision Making [facility] Narrative: Patient has refused oral treatment of possible B12 deficiency and iron advised to go to rheumatology clinic today and get the set of patient has a plan to go to [facility] oncology department for further management Lab Data [facility] Lab Attestation statement: I reviewed the patient's lab results. 07/13/24 01:04 07/13/24 01:04 Labs: Lab Results 07/13/24 Range/Units 01:04 WBC 6.5 (4.8-10.8) X10*3/uL RBC 3.85 L (4.20-5.50) X10*6/uL Hgb 7.6 L (12.0-16.0) g/dl Hct 26.1 L (37.0-47.0) % MCV 67.8 L (80.0-98.0) fL MCH 19.7 L (27.0-33.0) pg MCHC 29.1 L (31.0-35.0) g/dl RDW 18.2 H (11.0-16.0) % Plt Count 309 (160-400) X10*3/uL MPV 9.8 (9.4-12.3) fL Immature Gran % (Auto) 0.3 (0.0-0.4) % Neut % (Auto) 68.1 (45-73) % Lymph % (Auto) 23.2 (20-40) % [place] % (Auto) 7.3 (2-11) % Eos % (Auto) 0.8 (0-4) % Baso % (Auto) 0.3 (0-2) % Lymph # (Auto) 1.5 (1.2-4.9) X10*3/uL [place] # (Auto) 0.5 (0.1-1.2) X10*3/uL Eos # (Auto) 0.1 (0.0-0.4) X10*3/uL Baso # (Auto) 0.0 (0.0-0.2) X10*3/uL Abs Immat Gran (auto) 0.02 (0.00-0.03) X10*3/uL Absolute Neuts (auto) 4.4 (2.0-8.3) x10*3/uL Absolute Nucleated RBC 0.000 (0.0-0.012) X10*3/uL Nucleated RBC % (auto) 0.0 (0.0-0.2) /100WBC Sodium 139 (135-145) mmol/L Potassium 4.1 (3.3-5.1) mmol/L Chloride 106 (96-108) mmol/L Carbon Dioxide 24 (22-29) mmol/L Anion Gap 13 (12-20) BUN 11 (9-16) mg/dL Creatinine 0.81 (0.5-1.4) mg/dL Estim Creat Clear Calc 63.2 Estimated GFR > 60 Random Glucose 110 (60-115) mg/dL Calcium 9.7 (8.4-10.2) mg/dL Iron 9 L (30-160) mcg/dL TIBC 352 (228-428) mcg/dL % Saturation 3 L (15-50) % Unsat Iron Binding 343 ug/dL Total Bilirubin 0.4 (0.0-1.0) mg/dL AST 22 (5-31) U/L ALT 22 (0-31) U/L Alkaline Phosphatase 30 L (39-117) U/L Total Protein 7.4 (6.5-8.0) g/dL Albumin 4.7 (3.5-5.0) g/dL Beta HCG, Quant < 2 mIU/mL Influenza Type A (PCR) NEGATIVE (Negative) Influenza Type B (PCR) NEGATIVE (Negative) RSV RNA Qual (PCR) NEGATIVE (Negative) SARS-CoV-2 RNA (RT-PCR) NEGATIVE (Negative) Discharge Plan Discharge Clinical Impression: Anemia, Combined B12 and folate deficiency anemia Patient Disposition: Home, Self-Care Instructions: Anemia (ED) Additional Instructions: The start taking iron infusion and B12 and folic acid as advised You need to follow up with customer service manager to set up for infusion Prescriptions: No Action pantoprazole 40 mg tablet,delayed release (DR/EC) 40 mg PO DAILY Referrals: Macy Hdz MD [Physician] - 1 week Interventions: ED Discharge Assessment Last Done: 07/13/24 03:59 Discharge Date/Time: 07/13/24 04:05 Print Language: South Sudanese
[2024-07-13 03:52] VITALS: BP 107/51; PULSE 69; RESP 16; TEMP 36.3; O2SAT 100
[2024-07-13 03:59] VITALS: BP 107/51; PULSE 69; RESP 16; TEMP 36.3; O2SAT 100
[2024-07-13 04:03] LABS: Iron 9 mcg/dL (30-160); Percent Iron Saturation 3 % (15-50); Total Iron Binding Capacity 352 mcg/dL (228-428); Unsaturated Iron Binding 343 ug/dL
== END 2024-07-13 04:05 | disposition home or self-care (01) ==
PROVIDERS: Emergency Provider Internal Medicine; PCP Nurse Practitioner Family
DX: D52.9 Folate deficiency anemia, unspecified (principal); R20.2 Paresthesia of skin; D50.9 Iron deficiency anemia, unspecified; Z03.818 Encounter for observation for suspected exposure to other biological agents ruled out
CPT/HCPCS: 0241U; 80053; 83540; 84702; 85025; 99283

== ENCOUNTER 2024-11-12 22:21 | Inpatient (IN) | payer OTHER, SELFPAY ==
[2024-11-12 22:23] VITALS: BP 124/59; PULSE 78; RESP 14; TEMP 36.6; O2SAT 100; BMI 20.9
--- NOTE | 2024-11-12 22:42 | ECG_ITS ---
Test Reason : med clearance Blood Pressure : */* mmHG Vent. Rate : 67 BPM Atrial Rate : 67 BPM P-R Int : 164 ms QRS Dur : 72 ms QT Int : 384 ms P-R-T Axes : 60 31 25 degrees QTcB Int : 405 ms Normal sinus rhythm Normal ECG When compared with ECG of 27-Mar-2024 20:28, No significant change was found Referred By: Generic ED Physician Electronically Signed By: LETY RIOS MD
--- OUTSIDE RECORDS SUMMARY | 2024-11-12 22:55 | XMS_ITS | Clinical Summary ---
Author Organization [facility] Address [address] [facility] [address] [place] [address] Phone Care Team Providers Care Pricing Clerk Name Role Phone MadaiFrance sun ELIZABETH Primary Care Provider [phone] Allergies No known active allergies Medications No known medications Active Problems Problem Noted Date Diagnosed Date Urinary tract infection 01/31/2024 Vitamin B12 deficiency 07/04/2017 Overview (01/31/2024): 07/18/23-07/24/23 Admitted for severe acute on chronic anemia; needs weekly B12 injection and iron infusions, f/u with hematology Iron deficiency anemia 02/27/2015 Overview (01/31/2024): 06/18/[address] Tuttle at [facility] Heme/Onc for anemia. Advised to take B12 1000 mcg PO QD Received IV iron sucrose 500mg IV x 3 doses. F/u 6 weeks. 10/13/15 F/u with Heme/onc: advised to continue ferrous sulfate once daily and cyanocobalamin 1000 mcg PO QD. She was advised she could stop these. Goal is to prevent menstrual loss. Advised to recheck ferritin B12 levels in 6 months. 05/17/17 F/u Dr Tuttle at [facility] Heme/Onc. Plan: scheduled for iron infusion (ferrous carbyoxymaltose 650 mg x 2) and recheck CBC and ferritin 6 weeks after 08/22/17 F/u Dr Tuttle. Iron deficiency has been corrected by IV iron. F/u PRN 09/16/20 F/u Dr Tuttle. Restart iron infusions x 2, recheck CBC and ferritin after 6 weeks. Consider 3rd infusion if still deficient. Advised to continue oral B12 supplement and return to IM B12 once monthly if not responding. 08/20/22 F/u Heme/onc; recheck labs and consider restarting iron infusions. 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 Immunizations Immunization Administration Dates Next Due DTP 11/15/1996 HPV, Quadrivalent 04/29/2009 Hep A, 2 Dose 12/21/2000,07/20/2000,06/06/2000 Hep B, Adolescent or Pediatric 12/21/2000,1999,06/06/2000 IPV 11/15/1996, 3,06/28/1992,03/17,06/04/1991,02/13/1991,1990 Influenza, Quadrivalent, Pre servative Free 07/08/2021,09/17/2016 MMR 07/20/2000,06/06/2000 Meningococcal MCV4P 04/29/2009 Td 09/29/2001,12/20/2000,06/06/2000 Tdap 08/07/2015 Varicella 03/23/2016,08/07/2015 Social History Tobacco Use Types Packs/Day Years Used Date Smoking Tobacco: Never Assessed Comments Unknown Sex and Gender Information Value Date Recorded Sex Assigned at Not on file Legal Sex Female 2:35 PM EDT Gender Identity Not on file Sexual Orientation Not on file Last Filed Vital Signs Vital Sign Reading Time Taken Comments Blood Pressure 100/60 01/31/2024 2:55 PM EDT Pulse 73 01/31/2024 2:55 PM EDT Temperature - - Respiratory Rate - - Oxygen Saturation 99% 01/31/2024 2:55 PM EDT Inhaled Oxygen Concentration - - Weight 49.2 kg (108 lb 6.4 oz) 01/31/2024 2:55 P M EDT Height - - Body Mass Index - - Plan of Treatment Health Maintenance Due Date Last Done Comments Pneumococcal Vaccine: Peds ( 0 to 5 Years) and At-Risk Patients (6 to 49 Years) (1 of 2 - PCV) 2009 Influenza Vaccine (Season Ended) 2025 07/08/20 21, 09/17/2016 Hepatitis B Vaccine Completed 12/21/2000, 07/20/2000, 06/06/2000 Insurance [facility] Care Teams Pricing Clerk Relationship Specialty Start Date End Date France Aj NP [address] [place] [id number] PCP - General Nurse Practitioner 10/27/23
--- OUTSIDE RECORDS SUMMARY | 2024-11-12 22:55 | XMS_ITS | Clinical Summary ---
Author Organization [facility] Address [address] [place] [address] Phone Care Team Providers Care Urologist Md Name Role Phone France Aj Primary Care Provider [phone] Allergies No known active allergies Encounters Date Type Department Care Team Description 10/22/2024 10:36 PM EDT - 10/23/2024 3:35 AM EDT Emergency [facility] Emergency [address] [place] [address] Discharge Disposition: Home or Self Care from Last 3 Months Medical History Medical History Date Comments Anemia Iron deficiency B12 deficiency Social History Tobacco Use Types Packs/Day Years Used Date Smoking Tobacco: Never Smokeless Tobacco: Never Tobacco Cessation:Counseling Given: Not Answered Comments Unknown Sex and Gender Information Value Date Recorded Sex Assigned at Female 10/23/2024 3:31 AM EDT Legal Sex Female 3:55 AM EST Gender Identity Female 10/23/2024 3:31 AM EDT Sexual Orientation Straight 10/23/2024 3: 31 AM EDT Obstetrics History Last Filed Vital Signs Vital Sign Reading Time Taken Comments Blood Pressure 112/66 10/22/2024 10:40 PM EDT Pulse 72 10/22/2024 10:40 PM EDT Temperature 36.8 ??C (98.2 ??F) 10/22/2024 10:40 PM E DT Respiratory Rate 16 10/22/2024 10:40 PM EDT Oxygen Saturation 98% 10/22/2024 10:40 PM EDT Inhaled Oxygen Concentration - - Weight 45.4 kg (100 lb) 10/22/2024 10:40 PM EDT Height 147.3 cm (4' 10 ) 10/22/2024 10:40 PM EDT Body Mass Index 20.9 10/22/2024 10:40 PM EDT Plan of Treatment Health Maintenance Due Date Last Done Comments Cervical Cancer Screening: Pap Smear 2011 HIV Screening 07/04/2022 Social Influencers of Health Screening 07/04/2022 Depression Screening 12/01/2023 11/30/2022 COVID-19 Vaccine ( season) 2024 Influenza Vaccine (Season Ended) 2025 07/08/2021, 09/17/2016, 07/03/2015 DTaP,Tdap,and Td Vaccines (6 - Td or Tdap) 08/07/2025 08/07/2015, 09/29/2001, 12/20/2000, Additional history exists IPV Vaccines Completed 11/15/1996, 01/30, 06/28/1992, Additional history exists MMR Vaccines Completed 07/20/2000, 06/06/2000 Hepatitis B Vaccines Completed 12/21/2000, 07/20/2000, 06/06/2000 Meningococcal ACWY Vaccine Aged Out 04/29/2009 N o longer eligible based on patient's age to complete this topic Varicella Vaccines Aged Out 03/23/2016, 08/07/2015 No longer eligible based on patient's age to complete this topic HPV Vaccines Completed 09/17/2016, 03/02, 04/29/2009 Hepatitis C Screening Completed 03/30/2021 HIB Vaccines Aged Out No longer eligi ble based on patient's age to complete this topic Hepatitis A Vaccines Aged Out No long er eligible based on patient's age to complete this topic Meningococcal B Vaccine Aged Out No l onger eligible based on patient's age to complete this topic Pneumococcal Vaccine: Pediatrics (0 to 5 Years) and At-Risk Patients (6 to 64 Years) Aged Out No longer eligible based on patient's age to complete this topic RSV Immunization Patients Under 20 months Aged Out No longer eligible based on patient's age to complete this topic Insurance [facility] MEDICAID ADVANTAGE Care Teams Urologist Md Relationship Specialty Start Date End Date France Aj [address] [place] [id number] PCP - General 07/04/24
--- OUTSIDE RECORDS SUMMARY | 2024-11-12 22:55 | XMS_ITS | Clinical Summary ---
Author Organization [facility] Address [address] [place] [address] Care Team Providers Care Manufacturers Service Representative Name Role Phone Unavailable Primary Care Provider Unavailabl e Source Comments PLEASE NOTE, if this patient is a minor, it may be UNLAWFUL to discuss sensitive information that is contained in these records (such as FAMILY PLANNING, MENTAL HEALTH or SUBSTANCE ABUSE) with the minor patient's parent or other person without the patient's specific authorization.[facility] Allergies No known active allergies Medications cyanocobalamin (VITAMIN B-12) 1,000 mcg/mL injectionIndicat ions:Vitamin B12 deficiency Inject 1 mL into the muscle every 30 (thirty) days 1 mL 11 4 Active naproxen (NAPROSYN) 250 mg tablet Take 250 mg by mouth 2 (two) times daily with a meal 4 Active ciprofloxacin (CIPRO) 500 mg tablet TAKE 1 TABLET BY MOUTH EVERY 12 HOURS,X2 DAYS 4 Active famotidine (PEPCID) 40 mg tabletIndication s:Gastroesophage al reflux disease with esophagitis without hemorrhage Take 1 Tablet by mouth 2 (two) times daily as needed for heartburn 180 Tablet 4 Active ergocalciferol (VITAMIN D-2) 1,250 mcg (50,000 unit) capsuleIndicatio ns:Current mild episode of major depressive disorder without prior episode ([facility] V24) Take 1 Capsule by mouth once a week 12 Capsule 3 4 Active Active Problems Problem Noted Date Diagnosed Date Pyelonephritis 09/13/2023 Overview (09/13/2023): 08/22/23-08/23/23 Admitted to [facility] for pyelonephritis and Ovarian cyst rupture. Ovarian cyst rupture 09/13/2023 Conductive hearing loss of l eft ear with unrestricted hearing of right ear 09/03/2021 Overview (09/03/2021): 07/03/15 Eval at ENT of [facility]. Mild hearing loss in L ear r/t previous tympanoplasty. Per ENT< pt's symptoms are most likely r/t anemia. History of pancreatitis 09/03/2019 s/p lap rigo 04/23/2021 Overview (04/23/2021): Result type: MRI Abdomen W/O Contrast Result date: September 03, 2019 10:52 EST Result status: Auth (Verified) Result title: MRI Abdomen W/O Contrast Performed by: Franko Martinez MD on September 03, 2019 11:43 EST Verified by: Franko Conroy MD on September 03, 2019 11:48 EST Encounter info: [id number], [facility], Disch IP, 09/03/2019 - 09/06/2019 * Final Report * Reason For Exam Pain RESULT: MRI Abdomen W/O Contrast MRI Abdomen W/O Contrast CLINICAL INDICATION: Pain; Clinical Question(s): Biliary Obstruction; Hx of Present Illness: pt reports epigastric pain radiating to back x1day. hx of cholecystectomy on 08 30 2019 TECHNIQUE: Multiplanar, multisequence noncontrast MRI evaluation of the abdomen was performed without intravenous contrast. 3-D rotating maximum intensity projection MRCP images of the biliary tree were generated on the same workstation with concurrent physician supervision. COMPARISON: CT abdomen pelvis with contrast 09/03/2019 FINDINGS: LOWER THORAX: No pleural or pericardial effusion. Mild linear bibasilar atelectasis. LIVER: Normal contour and size. No suspicious lesion, within limits on noncontrast technique. Mild hepatic steatosis as evidenced by loss of signal on opposed phase T1-weighted images. GALLBLADDER: Status-post cholecystectomy. Susceptibility artifact in the gallbladder fossa related to surgical clips from recent cholecystectomy. Trace fluid in the gallbladder bed is likely postoperative. BILE DUCTS: No biliary ductal dilatation. SPLEEN: Upper limit of normal for size. No suspicious lesion. PANCREAS: There is fusiform dilation of the pancreatic parenchyma, particularly of the body and tail. Faintly increased T2 signal of the body and tail of pancreas suggests interstitial edema. There is associated trace peripancreatic fluid. The overall appearance is suspicious for interstitial pancreatitis. No pancreatic ductal dilatation. Splenic vein flow voids suggest splenic vein patency. No peripancreatic fluid collection. ADRENAL GLANDS: No nodules. KIDNEYS: No hydronephrosis. 6 mm T2 hyperintense, T1 hypointense lesion in the lower pole right kidney most likely represents a cyst. No suspicious lesion, within limits of noncontrast technique. STOMACH/UPPER GI TRACT: The stomach is physiologically distended. The visualized loops of small and large bowel are normal in caliber. PERITONEUM AND RETROPERITONEUM: No loculated fluid collection or peritoneal mass. Mild mesenteric edema. Scattered areas of susceptibility artifact within the abdomen, most notable anterior to the liver corresponds to known small volume pneumoperitoneum related to recent laparoscopic procedure. The extent of pneumoperitoneum is better demonstrated on recent CT. LYMPH NODES: No lymphadenopathy. VESSELS: Abdominal aorta is nonaneurysmal. Large caliber arteries and veins demonstrate intact flow voids. Hepatic, portal and splenic veins patent. Retroaortic left renal vein, anatomic variant. Visualized inferior vena cava unremarkable. ABDOMINAL WALL: Scattered areas of susceptibility artifact in the anterior abdominal wall related to recent laparoscopic procedure. Abdominal wall is otherwise unremarkable. BONES: Unremarkable. IMPRESSION: 1. Diffuse somewhat fusiform dilation of the body and tail of pancreas with interstitial pancreatic edema and trace peripancreatic fluid. The appearance is compatible with acute interstitial pancreatitis. No acute pancreatic fluid collection or evidence of local complication. 2. No biliary ductal dilatation or intraductal filling defect. 3. Persistent small volume pneumoperitoneum better visualized on comparison CT scan. 4. Mild hepatic steatosis. I have personally reviewed the images and I agree with this report. WSN: [id number] Signature Line Dictated By: Franko Martinez MD Dictated Date/Time: 09/03/19 11:43 a Reviewed By: Franko Conroy MD Signed By: Franko Conroy MD Signed Date/Time: 09/03/19 11:48 am Transcribed By: YESENIA Transcribed Date/Time: 09/03/19 11:26 am MRI Abdomen W/O Contrast This document has an image History of COVID-19 03/30/2021 Overview (03/30/2021): Tested positive [employer] 2020. Chronic abdominal pain 03/30/2021 Functional diarrhea 03/30/2021 Concussion with loss of consciousness 01/19/2021 Overview (01/19/2021): 01/15/21 seen at [place] ED for head injury due to syncopal episode. Head CT negative, Dx: concussion. Current mild episode of sapna r depressive disorder without prior episode ([facility] V24) 10/06/2020 Systolic murmur 10/06/2020 Overview (03/30/2021): 01/27/21 Echo at [facility] normal, EF 55-65% Gastroesophageal reflux disease 12/11/2019 Overview (03/30/2021): 12/01/20 Eval at [facility] Gastro for abd pain/ GERD, N/V, Anemia. GI recommends EGD and colonoscopy for further investigation. Get some labs to r/o IBD or Celiac disease and completion of work up. Abdominal pain may be due to PUD or possibly adhesions from prior surgery. Question of bile acid induced diarrhea. 12/30/20 EGD/coloscopy at [facility]. Normal histology except for some intestinal metaplasia/ gastritis. S/P laparoscopic cholecystectomy 201807/17/2019 Overview (07/17/2019): Following with [facility] General SUrgery. RUQ U/S 06/15/19 shows cholelithiasis without evidence of cholecystitis. Closed fracture of left distal radius 04/07/2019 Overview (08/27/2019): 03/27/19 F/u with [facility]. Casted. 07/02/19 F/u Dr Corbin at [facility]. Recommend continue OT x 4 weeks. Vitamin B12 deficiency 07/04/2017 Overview (08/10/2023): 07/18/23-07/24/23 Admitted for severe acute on chronic anemia; needs weekly B12 injection and iron infusions, f/u with hematology Syncope and collapse 10/06/2015 Overview (07/01/2017): Head CT September 2015 WNL Cardiology appt 10/08/15. No cardiac findings, does not feel dizziness and syncope are of cardia origin. Eval by Dr Stevens at [facility] Cardiology Negative tilt table test 12/17/15 at [facility] cardio 04/20/16 EEG is normal. 05/03/17 [place] ED for fall / ISAAC x 7 days. States fell down 2 flights of stairs and hit head. Pt with AMS in the ED but returned to baseline prior to discharge. Head CT WNL, found to be anemic. ASCUS of cervix with negativ e high risk HPV 2014, repeat cotesting in 3 years 07/03/2015 Overview (07/03/2015): 06/12/15 Dr Walters Results: ASCUS, + abdias, Neg HPV. Neg GC, Neg Chlam Iron deficiency anemia 02/27/2015 Overview (08/10/2023): 06/18/[address] Tuttle at [facility] Heme/Onc for anemia. Advised to take [...] 6 months. 05/17/17 F/u Dr Tuttle at [facility] Heme/Onc. Plan: scheduled for iron infusion [...] restarting iron infusions. Advised to f/u with valve steamer re: menorrhagia 03/01/23 F/u Heme/onc; plan to restart IM B12 and iron infusions. Menorrhagia 02/27/2015 Overview (06/22/2015): 03/25/[address] Jayson Walters MD at [facility] shiatsu therapist Group. Start NOAM, Aviane 10 mcv-100 mcg 1 tab PO QD. F/u 3 months. 06/12/15 F/u for annual exam with Dr Walters. 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 Pap smear done. Advised continue Aviane. Chronic migraine without aur a without status migrainosus, not intractable 12/26/2014 Overview (08/03/2017): Head CT 03/17/15 at [facility] negative for intracranial pathology. 11/29/15 Saw Mishel Pendleton NP at [facility] Neurology. Dx'd with chronic migrainous headaches without aura, transformed and no daily d/t overuse of analgesics. Syncopal spells appear vasovagal. Vertigo with some nystagmus noted; possibly vestibulopathy. Referred for EEG to r/o epileptic process. Referred back to [facility] fro Tilt Table Testing and Holter Monitoring. PT for vestibular rehab. Refer to ophthal to eval for possible 6th nerve palsy. MRI w/o contrast . Trial Medrol Dosepak to break rebound ISAAC and then return to Topamax 25mg 1/2 tab qHS then 1 tab qHS after 2 weeks with analgesic only 2-3 doses per week. F/u 3 months. 03/29/16 F/u with Mishel Pendleton at [facility] Neurology. Reordered EEG and brain MRI to further eval syncopal episodes And CN palsy. Continue PT for vestibular rehab for vertigo, increase Topamax to 50 mg qHS. F/u 3 months. 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 Continue Topamax 37.5 mg and titrate up to 50 mg if necessary. Given Medrol Dosepack to break ISAAC cycle, use Excedrin only 2 doses/pweek. F/u 3 months 12/14/17 F/u with Marlene Pendleton NP. Migraines have returned to daily. Syncopal spells continue. Advised 48 hr Holter monitoring to r/o cardiac source of syncopal spells and 24 hour AEEG to r/o epileptic sounce. Will increase topamax to 50 mg BID, will f/u with hematology Resolved Problems Problem Noted Date Diagnosed Date Resolved Date Acute cystitis 05/25/2021 06/24/2021 Overview (05/25/2021): 05/02/21 [facility] ED. Pain of upper abdomen 07/17/20192020 UTI (urinary tract infection) 08/18/2017 10/06/2020 Overview (08/18/2017): 07/10/17 [facility] ED for RUQ pain. CT scan shows evidence of recently passed renal calculi. Also dc with UTI- tx Cipro and pyridium Immunizations Immunization Administration Dates Next Due DTP 11/15/1996 Flu, Preservative Free 07/08/2021,09/17/2016 HEP B, PED/ADOL 12/21/2000,07/20/2000,06/06/2000 HPV 9 (Gardasil) 09/17/2016,03/23/2016 HPV, QUADRIVALENT 04/29/2009 Hep A, Ped/adol, 2 Dose 12/21/2000,07/20/2000, History Of Varicella 04/29/2009 INFLUENZA, SEASONAL, INJECTABLE 07/03/2015 IPV 11/15/1996, 3,06/28/1992,03/17,06/04/1991,02/13/1991,1990 MENINGOCOCCAL MCV4P (MENACTRA) 04/29/2009 MENINGOCOCCAL VACCINE,CONJUG ATE (NON-INTERFACE) 04/29/2009 MMR (MMR II/Priorix) 07/20/2000,06/06/2000 PPD 03/23/2016,07/15/2015 TDAP 08/07/2015 Td(adult),2 Lf tetanus toxoid,preservative free 09/29/2001,12/20/2000,06/06/2000 Varicella, Live Vaccine 03/23/2016,08/07/2015 Family History Medical History Relation Name Comments No Known Problems Brother 1 No Known Problems Brother 2 No Known Problems Brother 3 No Known Problems Brother 4 No Known Problems Brother 5 No Known Problems Brother 6 No Known Problems Brother 7 No Known Problems Brother 8 No Known Problems Brother 9 No Known Problems Father Bleeding/Blood Disorder Mother Anem ia Hypertension Mother Cancer Neg Diabetes Neg Relation Name Status Comments Brother 1 Alive Brother 2 Alive Brother 3 Alive Brother 4 Alive Brother 5 Alive Brother 6 Alive Brother 7 Alive Brother 8 Alive Brother 9 Alive Father Alive Mother Alive Social History Tobacco Use Types Packs/Day Years Used Date Smoking Tobacco: Never Passive Smoke Exposure: Never Smokeless Tobacco: Never Tobacco Cessation:Counseling Given: Not Answered Alcohol Use Standard Drinks/Week Comments No 0 (1 standard drink = 0.6 oz pur e alcohol) Social Connections Answer Date Recorded Connectedness 0 2024 Financial Resource Strain Answer Date R ecorded Financial Resource Strain 0 2018 Stress Answer Date Recorded Stress 0 03/22/2019 Physical Activity Answer Date Recorded Physical Activity 0 03/22/2019 Food Insecurity Answer Date Recorded Food 0 04/26/2024 Transportation Needs Answer Date Record ed Transportation 0 03/22/2019 Housing Stability Answer Date Recorded Housing 0 03/22/2019 Safety and Environment Answer Date Prabhu rded Safety 0 10/27/2022 Utilities Answer Date Recorded Utilities 0 03/22/2019 Employment Answer Date Recorded Employment 0 03/22/2019 Comments No Sex and Gender Information Value Date Recorded Sex Assigned at Female 05/15/2017 7:45 PM PDT Legal Sex Female 11:35 AM PDT Gender Identity Female 05/15/2017 7:45 PM PDT Sexual Orientation Straight 12/07/2017 12 :09 PM PDT Occupation Industry Job Start Date Job End Date employed Not on file Not on file Not on file Last Filed Vital Signs Vital Sign Reading Time Taken Comments Blood Pressure 98/66 09/15/2023 1:55 PM EST Pulse 62 09/15/2023 1:55 PM EST Temperature 37 ??C (98.6 ??F) 09/15/2023 1:55 PM EST Respiratory Rate 16 09/15/2023 1:55 PM EST Oxygen Saturation 98% 09/15/2023 1:55 PM EST Inhaled Oxygen Concentration - - Weight 46.9 kg (103 lb 6.4 oz) 09/15/2023 1:55 P M EST Height 147.3 cm (4' 10 ) 09/15/2023 1:55 PM EST Body Mass Index 21.61 09/15/2023 1:55 PM EST Plan of Treatment Not on file Goals Goal Patient Goal Type Associated Problems Recent Progress Patient-Stated? Author Generic BH/MH Care Plan Generic BH/MH No Vu Price LSW Generic BH/MH Care Plan Generic BH/MH No Vu Price LSW Alleviate depression and restore daily life roles and activities Care Plan Depression On track( 12:17 PM EDT) No Vu Price LSW Explore and practice at least three evidence-based relaxation activities that reduce depression Care Plan Depression On track( 12:17 PM EDT) No Vu Price LSW Report decreased intensity of symptoms Care Plan Depression On track( 12:17 PM EDT) No Vu Price LSW Improve mood Care Plan Mood No Vu Price LSW Identify 2 barriers to improving quality of life and problem solving?? ways to overcome each barrier. Care Plan Mood On track( 12:18 PM EDT) No Vu Price LSW Procedures Procedure Name Priority Date/Time Associated Diagnosis Comments HIV 1/2 AG & AB W/RFLX (4TH GEN) Routine 03/30/2021 9:51 AM EDT Screening for HIV without presence of risk factors HEPATITIS C AB W/RFLX HCV RNA, QT, RT PCR Routine 03/30/2021 9:51 AM EDT Need for hepatitis C screening test from Last 3 Months or Most Recently Relevant to Health Maintenance Results * HEPATITIS C AB W/RFLX HCV RNA, QT, RT PCR (03/30/2021 9:51 AM EDT) HEPATITIS C ANTIBODY NON-REACT MARJORIE NON-REACT MARJORIE [employer] [facility] SIGNAL TO CUT-OFF 0.01 <1.00 [employer] [facility] Comment: HCV antibody was non-reactive. There is no laboratory evidence of HCV infection. In most cases, no further action is required. However, if recent HCV exposure is suspected, a test for HCV RNA (test code 38345) is suggested. For additional information please refer to http://[employer]/faq/YWR78d3 (This link is being provided for informational/ educational purposes only.) Blood Blood / Unknown 03/30/2021 9:51 AM EDT 03/30/2021 9:51 AM EDT Ynes Sanford NURSE EDUCATOR LAB - BLOOD DRAW Edited R esult - Final [employer] [address] [place] [phone], [employer] [address] [address] * HIV 1/2 AG & AB W/RFLX (4TH GEN) (03/30/2021 9:51 AM EDT) [facility] HIV AG/AB, 4TH GEN NON-REAC TIVE NON-REAC TIVE [employer] Comment: HIV-1 antigen and HIV-1/HIV-2 antibodies were not detected. There is no laboratory evidence of HIV infection. PLEASE NOTE: This information has been disclosed to you from records whose confidentiality may be protected by state law. ??If your state requires such protection, then the state law prohibits you from making any further disclosure of the information without the specific written consent of the person to whom it pertains, or as otherwise permitted by law. A general authorization for the release of medical or other information is NOT sufficient for this purpose. ?? For additional information please refer to http://[employer]/faq/COI436 (This link is being provided for informational/ educational purposes only.) The performance of this assay has not been clinically validated in patients less than 2 years old. Blood Blood / Unknown 03/30/2021 9 :51 AM EDT 03/30/2021 9:51 AM EDT Ynes Sanford NURSE EDUCATOR LAB - BLOOD DRAW Final Re sult [facility] [address] [facility] [address] [place] [address], [facility] [address] [address] from Last 3 Months or Most Recently Relevant to Health Maintenance Additional Health Concerns Active Problems Noted Date Diagnosed Date Generic BH/MH 01/26/2023 Depression 01/26/2023 Mood 01/26/2023 Insurance [facility]
[2024-11-12 22:59] LABS: MANUAL DIFF FLAG NO
[2024-11-12 23:07] LABS: Basophils Percent Auto 0.3 % (0-2); Eosinophils Absolute Auto 0.1 X10*3/uL (0.0-0.4); Imm Gran Abs Auto 0.02 X10*3/uL (0.00-0.03); Imm Gran Pct Auto 0.3 % (0.0-0.4); Lymphocytes Absolute Auto 1.8 X10*3/uL (1.2-4.9); Lymphocytes Percent Auto 29.1 % (20-40); Mean Corpuscular Hemoglobin 18.1 pg (27.0-33.0); Mean Corpuscular Volume 67.1 fL (80.0-98.0); Monocytes Absolute Auto 0.5 X10*3/uL (0.1-1.2); Neutrophils Absolute Auto 3.7 x10*3/uL (2.0-8.3); Neutrophils Percent Auto 61.3 % (45-73); Platelet Count 217 X10*3/uL (160-400); Red Blood Count 3.43 X10*6/uL (4.20-5.50); Red Cell Distribution Width 19.5 % (11.0-16.0); White Blood Count 6.1 X10*3/uL (4.8-10.8)
[2024-11-12 23:09] LABS: Hemoglobin 6.2 g/dl (12.0-16.0)
[2024-11-12 23:23] LABS: Alanine Aminotransferase 18 U/L (0-31); Albumin Level 4.5 g/dL (3.5-5.0); Alkaline Phosphatase 34 U/L (39-117); Anion Gap 11 (12-20); Aspartate Amino Transferase 19 U/L (5-31); Bilirubin Total 0.3 mg/dL (0.0-1.0); Blood Urea Nitrogen 6 mg/dL (9-16); Calcium 9.1 mg/dL (8.4-10.2); Carbon Dioxide 22 mmol/L (22-29); Chloride 110 mmol/L (96-108); Creatinine Clr Calc Pharmacy 82.5; Estimated Glomerular Filt Rate > 60; Glucose Random 96 mg/dL (60-115); Magnesium 1.9 mg/dL (1.6-2.6); Phosphorus 3.3 mg/dL (2.7-4.5); Potassium 3.6 mmol/L (3.3-5.1); Sodium 139 mmol/L (135-145); Total Protein 6.9 g/dL (6.5-8.0)
[2024-11-12 23:32] LABS: HCG Quantitative < 2 mIU/mL
[2024-11-12 23:36] LABS: Influenza A PCR NEGATIVE (Negative); Influenza B PCR NEGATIVE (Negative); Resp Syncy Virus RNA Qual PCR NEGATIVE (Negative); SARS COV2 PCR INHOUSE NEGATIVE (Negative)
[2024-11-13] VITALS (9 sets, daily range): BP systolic 112–149; BP diastolic 49–85; PULSE 55–70; RESP 10–20; TEMP 36.6–37.1; O2SAT 99–100; BMI 26.3
[2024-11-13 02:20] LABS: OBS Int Ctl Valid YES; OBS1 NEGATIVE (NEGATIVE)
--- NOTE | 2024-11-13 02:59 | ED_ITS ---
HPI - General Adult General Chief complaint: General Medical Stated complaint: needs to be seen has papers to fill out Time Seen by Provider: 11/13/24 01:19 History of Present Illness ED Provider: Marsha Saba PA-C HPI narrative: 34-year-old female with a history of eating disorder with iron-deficiency anemia and B12 deficiency secondary to malabsorption requiring iron infusion in B12 injection, with contributory dysfunctional uterine bleeding, presents requesting medical clearance. Patient is supposed to attend an inpatient treatment program for her eating disorder, her intake is later this morning. Associated chronic fatigue, dizziness, shortness of breath with activity. Denies chest pain. Patient states she has a ongoing black stool. When she has a menstrual cycle, she bleeds for 3 weeks, has reprieve for 1 week, then resumes the heavy bleeding. Patient will be due for her menstrual cycle next week. Related Data Home Medications ?Medication ?Instructions ?Recorded ?Confirmed pantoprazole 40 mg tablet,delayed 40 mg PO DAILY 05/07/24 05/07/24 release Allergies Allergy/AdvReac Type Severity Reaction Status Date / Time No Known Allergies Allergy Verified 11/12/24 22:26 Review of Systems 2 Review of Systems: Yes all other systems are reviewed and are negative Constitutional: Constitutional: Reports fatigue, Denies fever(s), Denies headache(s), Reports lethargy, Reports malaise and Reports poor appetite ENT: Reports dizziness and Denies headache(s) Cardiovascular: Cardiovascular: Denies chest pain and Reports dyspnea on exertion Respiratory: Respiratory: Reports dyspnea on exertion Gastrointestinal: Gastrointestinal: Denies abdominal pain, Reports melena, Denies nausea and Denies vomiting Genitourinary: Genitourinary: Reports other (Vaginal bleeding) Neurologic: Reports dizziness and Denies headache(s) Endocrine: Endocrine: Reports fatigue PMFSH Past Medical History Attestation statement: The following information was validated with the patient. Medical History Ovarian cyst rupture Conductive hearing loss of left ear with unrestricted hearing of right ear History of pancreatitis Functional diarrhea Chronic abdominal pain History of COVID-19 Concussion with loss of consciousness Systolic murmur Current mild episode of major depressive disorder without prior episode Gastroesophageal reflux disease Closed fracture of left distal radius Vitamin B12 deficiency Syncope and collapse Menorrhagia Iron deficiency Chronic migraine without aura with status migrainosus, not intractable History of bladder stone Surgical History S/P laparoscopic appendectomy S/P cholecystectomy Family History Family History Father No problems noted. Mother No problems noted. Social History Social History Alcohol intake: current Alcohol intake frequency: does not drink Patient Tobacco Use Status: Never used Tobacco Advance Directives: No Advance Directives Information Provided: No Do you have a plan to hurt others: No Plan Physical Exam ED Vital Signs: Vital Signs - 24 hr 11/12/24 22:23 11/13/24 02:45 Temperature 97.9 F 98.1 F Pulse Rate 78 70 Respiratory Rate 14 16 Blood Pressure 124/59 L 141/68 H Pulse Oximetry 100 Oxygen Delivery Method Room Air BMI result Body Mass Index 20.9 Const Other: Alert, pale complexion with dark skin tone over her eyelids, dry cool skin to touch, appears older than stated age Orientation/consciousness: patient oriented x3 Resp Effort & Inspection: normal respiratory effort Cardio Other: Normal peripheral perfusion GI Other: No melena not, no bright red blood per rectum no stool in rectal vault Skin Other: Cool pale dry, no rash Neuro General: patient oriented x3, gait normal, no focal motor deficits and CN's II- XI intact bilaterally Psych Other: Cooperative Procedures Procedure Narrative Procedure Narrative: Ultrasound-guided IVs 18 gauge 1-3/4 inch IVs placed in bilateral upper extremities, both with adequate blood return, both flushes well and secured with Tegaderm Medical Decision Making Medical Decision Making MDM Narrative: 34-year-old female with a history of eating disorder with iron-deficiency anemia and B12 deficiency secondary to malabsorption requiring iron infusion in B12 injection, with contributory dysfunctional uterine bleeding, presents requesting medical clearance. Patient is supposed to attend an inpatient treatment program for her eating disorder, her intake is later this morning. Associated chronic fatigue, dizziness, shortness of breath with activity. Denies chest pain.Patient states she has a ongoing black stool. When she has a menstrual cycle, she bleeds for 3 weeks, has reprieve for 1 week, then resumes the heavy bleeding. Patient will be due for her menstrual cycle next week. Problem: Eating disorder, both iron deficiency and B12 deficiency anemia History: Per patient I have considered the following differential diagnoses: Failure to thrive, anemia, electrolyte abnormality, dehydration Plan: Screening labs were ordered from triage, she is critically anemic. Type and screen already in process, ordering 2 units of blood. She has no melena on exam, there was actually no stool in the rectal vault, we will attempt to send the guaiac any ways. She is not currently having her menstrual cycle, that we will begin next week. We will be admitting the patient. I have independently reviewed the following tests: Labs: No leukocytosis, critically anemic at 6.2 and 23, no electrolyte abnormality, not viral panel negative Lab Data 11/12/24 22:53 11/12/24 22:53 Labs: Lab Results 11/12/24 11/13/24 11/13/24 Range/Units 22:53 00:33 02:16 WBC 6.1 (4.8-10.8) X10*3/uL RBC 3.43 L (4.20-5.50) X10*6/uL Hgb 6.2 L* (12.0-16.0) g/dl Hct 23.0 L (37.0-47.0) % MCV 67.1 L (80.0-98.0) fL MCH 18.1 L (27.0-33.0) pg MCHC 27.0 L (31.0-35.0) g/dl RDW 19.5 H (11.0-16.0) % Plt Count 217 D (160-400) X10*3/uL MPV Not Reportable Immature Gran % (Auto) 0.3 (0.0-0.4) % Neut % (Auto) 61.3 (45-73) % Lymph % (Auto) 29.1 (20-40) % [place] % (Auto) 8.0 (2-11) % Eos % (Auto) 1.0 (0-4) % Baso % (Auto) 0.3 (0-2) % Lymph # (Auto) 1.8 (1.2-4.9) X10*3/uL [place] # (Auto) 0.5 (0.1-1.2) X10*3/uL Eos # (Auto) 0.1 (0.0-0.4) X10*3/uL Baso # (Auto) 0.0 (0.0-0.2) X10*3/uL Abs Immat Gran (auto) 0.02 (0.00-0.03) X10*3/uL Absolute Neuts (auto) 3.7 (2.0-8.3) x10*3/uL Absolute Nucleated RBC 0.000 (0.0-0.012) X10*3/uL Nucleated RBC % (auto) 0.0 (0.0-0.2) /100WBC Sodium 139 (135-145) mmol/L Potassium 3.6 (3.3-5.1) mmol/L Chloride 110 H (96-108) mmol/L Carbon Dioxide 22 (22-29) mmol/L Anion Gap 11 L (12-20) BUN 6 L (9-16) mg/dL Creatinine 0.62 (0.5-1.4) mg/dL Estim Creat Clear Calc 82.5 Estimated GFR > 60 Random Glucose 96 (60-115) mg/dL Calcium 9.1 D (8.4-10.2) mg/dL Phosphorus 3.3 (2.7-4.5) mg/dL Magnesium 1.9 (1.6-2.6) mg/dL Total Bilirubin 0.3 (0.0-1.0) mg/dL AST 19 (5-31) U/L ALT 18 (0-31) U/L Alkaline Phosphatase 34 L (39-117) U/L Total Protein 6.9 (6.5-8.0) g/dL Albumin 4.5 (3.5-5.0) g/dL Beta HCG, Quant < 2 mIU/mL Stool Occult Blood NEGATIVE (NEGATIVE) Influenza Type A (PCR) NEGATIVE (Negative) Influenza Type B (PCR) NEGATIVE (Negative) RSV RNA Qual (PCR) NEGATIVE (Negative) SARS-CoV-2 RNA (RT-PCR) NEGATIVE (Negative) Blood Type O Positive Antibody Screen NEGATIVE Crossmatch See Detail Discharge Plan Discharge Clinical Impression: Symptomatic anemia Patient Disposition: Admitted As Inpatient Prescriptions: No Action pantoprazole 40 mg tablet,delayed release (DR/EC) 40 mg PO DAILY Print Language: Indian
[2024-11-13 03:51] LABS: Amphetamine Screen Urine Not Detected (Not Detect); Barbiturates, Urine Not Detected (Not Detect); Benzodiazepines Screen Urine Not Detected (Not Detect); Buprenorphine Scr Not Detected (Not Detect); Cannabinoid Screen Urine Not Detected (Not Detect); Cocaine Screen Urine Not Detected (Not Detect); Fentanyl, urine Not Detected (Not Detect); Methadone Screen, Urine Not Detected (Not Detect); Opiate Screen Urine Not Detected (Not Detect); Oxycodone Screen Urine Not Detected (Not Detect); Phencyclidine Screen Urine Not Detected (Not Detect)
--- NOTE | 2024-11-13 04:55 | P.HPHOSP_ITS ---
History of Present Illness Date of Service: 11/13/24 Chief Complaint: Dyspnea, fatigue This is a 34-year-old female with pertinent history of mood disorder, eating disorder, iron deficiency anemia, dysfunctional uterine bleeding who presents to the emergency department requesting medical clearance and complaining of chronic fatigue and dyspnea which is worse with exertion. Patient states she needs medical clearance and needs forms to be filled out before being admitted for inpatient treatment of her eating disorder at [facility]. States she has received blood transfusion in the past and was on iron supplementation until 6 months ago when she stopped taking it. Patient does endorse frequent dark colored loose stools that has been ongoing for a while. Denies mango red blood in stool, hematuria, hematemesis. He does endorse chronic easy fatigability, weakness and dyspnea which is worse with exertion. Also complaining of uncontrolled anxiety and depression but is not on any home medications for it. Denies SI or HI. States she was previously admitted to inpatient psych for her mood disorder and was also at [facility]. Patient does have heavy menstrual bleeding which lasts for 3 weeks. Her last menstrual cycle was 1 week ago. She has previously refused uterine ablation for her heavy menstrual. No fever, chills, chest pain, palpitations, abdominal pain, changes in urinary habits. In the emergency department, hemoglobin found to be 6.2 and 2 unit PRBC ordered. Review of Systems 2 Constitutional: Constitutional: Reports fatigue, Reports lethargy, Reports malaise and Reports weakness Cardiovascular: Cardiovascular: Reports dyspnea on exertion Respiratory: Respiratory: Reports dyspnea on exertion Gastrointestinal: Gastrointestinal: Reports melena, Reports diarrhea and Reports loose stools Neurologic: Reports weakness Endocrine: Endocrine: Reports fatigue [facility] Medical History Ovarian cyst rupture Conductive hearing loss of left ear with unrestricted hearing of right ear History of pancreatitis Functional diarrhea Chronic abdominal pain History of COVID-19 Concussion with loss of consciousness Systolic murmur Current mild episode of major depressive disorder without prior episode Gastroesophageal reflux disease Closed fracture of left distal radius Vitamin B12 deficiency Syncope and collapse Menorrhagia Iron deficiency Chronic migraine without aura with status migrainosus, not intractable History of bladder stone Family History Father No problems noted. Mother No problems noted. Surgical History S/P laparoscopic appendectomy S/P cholecystectomy Social History Alcohol intake: never Patient Tobacco Use Status: Never used Tobacco Smoked in Last 30 Days: No Use of substances other than those prescribed or required for medical reasons: No Advance Directives: No Advance Directives Information Provided: No Do you have a plan to hurt others: No Plan Patient : Yes Meds Allergies Allergy/AdvReac Type Severity Reaction Status Date / Time No Known Allergies Allergy Verified 11/12/24 22:26 Home Medications ?Medication ?Instructions ?Recorded ?Confirmed ?Last Taken ?Type pantoprazole 40 mg tablet,delayed 40 mg PO DAILY 05/07/24 05/07/24 Unknown History release Physical Exam 2 Vital Signs and Narrative: Vital Signs: Last Vital Signs Temp 98.8 F 11/13/24 03:04 Pulse 70 11/13/24 02:45 Resp 17 11/13/24 03:04 BP 149/85 H 11/13/24 03:04 Pulse Ox 100 11/12/24 22:23 O2 Del Method Room Air 11/12/24 22:23 BMI result Body Mass Index 20.9 Middle-aged female lying in bed in no distress Neck supple, pallor present Regular rate and rhythm, S1-S2 heard Regular breath sounds bilaterally, no wheezing or crackles appreciated Abdomen soft nontender, no guarding, no rigidity Patient is awake, alert and oriented to self, place, time and person ; no focal motor deficit Psych: Normal mood No pedal edema Results Labs 11/12/24 22:53 11/12/24 22:53 Labs: Laboratory Results - last 24 hr 11/12/24 11/13/24 11/13/24 22:53 00:33 02:16 MCV 67.1 L MCH 18.1 L MCHC 27.0 L RDW 19.5 H Plt Count 217 D MPV Not Reportable Immature Gran % (Auto) 0.3 Neut % (Auto) 61.3 Lymph % (Auto) 29.1 [place] % (Auto) 8.0 Eos % (Auto) 1.0 Baso % (Auto) 0.3 Lymph # (Auto) 1.8 [place] # (Auto) 0.5 Eos # (Auto) 0.1 Baso # (Auto) 0.0 Abs Immat Gran (auto) 0.02 Absolute Neuts (auto) 3.7 Absolute Nucleated RBC 0.000 Nucleated RBC % (auto) 0.0 Anion Gap 11 L Estim Creat Clear Calc 82.5 Estimated GFR > 60 Random Glucose 96 Calcium 9.1 D Phosphorus 3.3 Magnesium 1.9 Total Bilirubin 0.3 AST 19 ALT 18 Alkaline Phosphatase 34 L Total Protein 6.9 Albumin 4.5 Beta HCG, Quant < 2 Stool Occult Blood NEGATIVE Urine Opiates Screen Ur Buprenorphine Scrn Ur Oxycodone Screen Urine Methadone Screen Urine Fentanyl Screen Ur Barbiturates Screen Ur Phencyclidine Scrn Ur Amphetamines Screen U Benzodiazepines Scrn Urine Cocaine Screen U Marijuana (THC) Screen Influenza Type A (PCR) NEGATIVE Influenza Type B (PCR) NEGATIVE RSV RNA Qual (PCR) NEGATIVE SARS-CoV-2 RNA (RT-PCR) NEGATIVE Blood Type O Positive Antibody Screen NEGATIVE Crossmatch See Detail 11/13/24 03:32 MCV MCH MCHC RDW Plt Count MPV Immature Gran % (Auto) Neut % (Auto) Lymph % (Auto) [place] % (Auto) Eos % (Auto) Baso % (Auto) Lymph # (Auto) [place] # (Auto) Eos # (Auto) Baso # (Auto) Abs Immat Gran (auto) Absolute Neuts (auto) Absolute Nucleated RBC Nucleated RBC % (auto) Anion Gap Estim Creat Clear Calc Estimated GFR Random Glucose Calcium Phosphorus Magnesium Total Bilirubin AST ALT Alkaline Phosphatase Total Protein Albumin Beta HCG, Quant Stool Occult Blood Urine Opiates Screen Not Detected Ur Buprenorphine Scrn Not Detected Ur Oxycodone Screen Not Detected Urine Methadone Screen Not Detected Urine Fentanyl Screen Not Detected Ur Barbiturates Screen Not Detected Ur Phencyclidine Scrn Not Detected Ur Amphetamines Screen Not Detected U Benzodiazepines Scrn Not Detected Urine Cocaine Screen Not Detected U Marijuana (THC) Screen Not Detected Influenza Type A (PCR) Influenza Type B (PCR) RSV RNA Qual (PCR) SARS-CoV-2 RNA (RT-PCR) Blood Type Antibody Screen Crossmatch Assessment and Plan (1) Symptomatic anemia: Status: Acute Plan This is a 34-year-old female with pertinent history of mood disorder, eating disorder, iron deficiency anemia, dysfunctional uterine bleeding who presents to the emergency department requesting medical clearance and complaining of chronic fatigue and dyspnea which is worse with exertion. #. Symptomatic microcytic anemia: Will admit patient with cardiac monitoring. 2 unit PRBC ordered in the ER. Although stool occult negative, patient complains of loose black colored stools. Will initiate IV Protonix and consulting Gastroenterology. Also does complain of heavy menstrual periods, will need outpatient gynecology follow-up. States she stopped taking her iron supplementation 6 months ago. Recheck iron profile. #. Mood disorder: Patient states she has uncontrolled anxiety and depression. Not on any home mood stabilizers. Consulting Psychiatry to optimize. No SI or HI at the time of admission #. Eating disorder: Patient is supposed to attend inpatient treatment program for her eating disorder at [facility] once medically cleared Med rec pending DVT prophylaxis: Mechanical Full code Admit as inpatient and will require two night minimum hospital stay for close hemodynamic monitoring, monitoring of H&H (as above), which is not possible in a lesser acute setting. Specialist consult pending Quality Stroke Does the patient have a stroke diagnosis?: No VTE Prior VTE?: No VTE Risk Level:: Medical - moderate - high VTE Device Contraindication: Treatment Not Indicated VTE Drug Contraindication: N/A - Med Ordered
[2024-11-13 05:14] LABS: Iron 8 mcg/dL (30-160); Percent Iron Saturation 2 % (15-50); Total Iron Binding Capacity 344 mcg/dL (228-428); Unsaturated Iron Binding 336 ug/dL
[2024-11-13] MEDS: Acetaminophen 325 MG TABLET 650 MG PO ×2 (05:21→20:15)
[2024-11-13] MEDS: Pantoprazole Sodium 40 MG/10 ML VIAL 80 MG IVPUSH (05:21)
[2024-11-13] MEDS: Melatonin 3 MG TABLET 6 MG PO (05:31)
[2024-11-13 09:50] LABS: MANUAL DIFF FLAG NO
[2024-11-13 09:57] LABS: Basophils Percent Auto 0.1 % (0-2); Eosinophils Percent Auto 0.4 % (0-4); Hematocrit 29.4 % (37.0-47.0); Hemoglobin 8.8 g/dl (12.0-16.0); Imm Gran Abs Auto 0.03 X10*3/uL (0.00-0.03); Imm Gran Pct Auto 0.4 % (0.0-0.4); Lymphocytes Absolute Auto 1.4 X10*3/uL (1.2-4.9); Lymphocytes Percent Auto 19.1 % (20-40); Mean Corpuscular HGB Conc 29.9 g/dl (31.0-35.0); Mean Corpuscular Volume 70.2 fL (80.0-98.0); Monocytes Absolute Auto 0.6 X10*3/uL (0.1-1.2); Monocytes Percent Auto 7.6 % (2-11); Neutrophils Absolute Auto 5.2 x10*3/uL (2.0-8.3); Neutrophils Percent Auto 72.4 % (45-73); Platelet Count 189 X10*3/uL (160-400); Red Blood Count 4.19 X10*6/uL (4.20-5.50); Red Cell Distribution Width 21.1 % (11.0-16.0); White Blood Count 7.2 X10*3/uL (4.8-10.8)
[2024-11-13 10:09] LABS: Anion Gap 9 (12-20); Blood Urea Nitrogen 4 mg/dL (9-16); Calcium 8.9 mg/dL (8.4-10.2); Carbon Dioxide 23 mmol/L (22-29); Chloride 111 mmol/L (96-108); Creatinine Clr Calc Pharmacy 86.7; Estimated Glomerular Filt Rate > 60; Glucose Random 109 mg/dL (60-115); Potassium 3.8 mmol/L (3.3-5.1); Sodium 139 mmol/L (135-145)
--- NOTE | 2024-11-13 10:31 | MHC.CM.PN ---
Per ROUNDS discussion, Patient is not yet medically cleared for dc; Patient came to ED, seeking medical clearance to go to [facility] (her intake appointment is today). PCP/VAULT MANAGER is [place] Aj and Patient has no HCP nor Contacts. Patient has been to [facility] in the past. CM has initiated and will follow for dc planning.
--- NOTE | 2024-11-13 10:35 | PHA.MEDREC ---
Pharmacy Consult ? Medication Reconciliation Pharmacy has completed the medication reconciliation. Per patient, she does not take any medications at home.
--- NOTE | 2024-11-13 11:10 | PC.NURSE ---
Patient requesting for labs to be sent to accepting facility. Consent to release medical records signed by patient, labs faxed to Radha. Fax confirmation received
--- NOTE | 2024-11-13 13:54 | PC.NURSE ---
Per patient request called radha at [facility]. Radha aware that patient is going to be admitted. stating that they will do a direct admit to facility when patient is ready for discharge. Cause gis manager at [facility] notifed of marielle contact info ext [phone].
--- NOTE | 2024-11-13 14:03 | MHC.CM.PN ---
Per TOOL CHASER/Ricarda, Once Patient is medically cleared for dc, she can be a Direct Admit to [facility] [place]; the Admissions Contact there is Radha @ [phone], Ext. [phone].
[2024-11-13] MEDS: 0.9 % Sodium Chloride Flush 3 ML SYRINGE IVFLUSH ×2 (16:05→20:17)
[2024-11-13] MEDS: Pantoprazole Sodium 40 MG/10 ML VIAL IVPUSH (16:05)
--- NOTE | 2024-11-13 16:13 | PM.EVENT ---
Event Note Date of Service: 11/13/24 Event Note: Patient seen and examined earlier this morning by hospitalist team. No new bleeding today Has history of black stools Physical exam unchanged from H&P Assessment and plan as per H and P in addition Symptomatic microcytic anemia: Will admit patient with cardiac monitoring. 2 unit PRBC ordered in the ER. Although stool occult negative, patient complains of loose black colored stools. received 2 prbc :h/h improved from 6.2 to 8.8( appropriate adjustment) clear liquid diet, IV Protonix and consulting Gastroenterology. iron studies moniter h/h closely Time Spent With Patient Time: Total time managing care of this patient today ____ minutes.
--- NOTE | 2024-11-13 17:41 | MHC.SHP ---
Pre-Procedural Eval Section A - 24 Hr Update-Section A only Date of Service: 11/14/24 The patient is an INPATIENT: Yes The patient has been examined within 24 hours of the surgical procedure. The History & Physical has been completed within 30 days and I have reviewed it.: Yes Section B - Complete if H&P > 30 days Chief Complaint: fatigue, dyspnea Allergies: Allergies Allergy/AdvReac Type Severity Reaction Status Date / Time No Known Allergies Allergy Verified 11/12/24 22:26 Plan I have reviewed the history and physical and performed a pertinent physical examination on my patient. No changes have occurred unless specified. Time Spent With Patient Time: Total time managing care of this patient today ____ minutes.
--- NOTE | 2024-11-13 17:42 | P.EN_ITS ---
Event Note Date of Service: 11/13/24 Event Note: GI Consult-Full note dictated Imp: Longstanding Iron deficiency anemia most likely related to heavy menses and poor compliance with Iron repletion regimens. She describes intermittent dark stools and reflux symptoms, as well as persistent diarrhea ever since a CCY. She reports having tried cholestyramine without relief. She describes B12 deficiency for which she receives B12 shots. She also describes an EGD at [facility] in 07/2024 that showed reflux , but is not sure if they did duodenal biopsies to look for celiac disease. She has had no obvious bleeding here. She has not had a colonoscopy. Rec: Will try to get [facility] records. If EGD with duodenal bx was nonrevealing in 07/2024 at [facility] I would not repeat an EGD and just continue supportive care. If we can't get the records and/or they did not do duodenal bx at [facility], we will then proceed with an upper endo with duodenal bx on 11/14. Full consent has been obtained for this, including risks of bleeding and perforation. Thanks Time Spent With Patient Time: Total time managing care of this patient today ____ minutes.
--- NOTE | 2024-11-14 02:41 | CONS_ITS ---
DATE OF SERVICE: 11/13/2024 REASON FOR CONSULTATION: Iron deficiency anemia and reported dark stools. HISTORY OF PRESENT ILLNESS: This has been obtained the patient and the medical record. The patient is a 34-year-old female who describes a longstanding history of anemia in relation to heavy menses. The history is somewhat limited as she does not know all the details of her course of treatment. However, she apparently has had a longstanding history of heavy menses and significant anemia, which has required transfusions and iron infusions over the years. She describes treatments at [facility], [facility], and other hospitals as well in which she has received IV iron infusions and blood transfusions. She also describes having been told of a B12 deficiency for which she receives B12 shots. She describes a possible upper endoscopy last year at [facility] that was reportedly negative other than some reflux. She is not sure if they did duodenal biopsies to assess for celiac disease. She reports that she has never had a colonoscopy. She came to the ER yesterday primarily for medical clearance before entering an inpatient eating disorder clinic. However, she was found to be significantly anemic and has required transfusions. A rectal exam in the ER did not reveal any stool, and a Hemoccult of the rectal mucus was negative. The patient does have intermittent reflux, but not on a daily or regular basis. She denies any dysphagia. She does describe diarrhea, which is intermittently dark, but she does not think that it has been actually black. She has not noticed any hematochezia. She denies any dysphagia, vomiting, nor abdominal pain. She denies any jaundice nor unintentional weight loss. However, she has lost about 10 pounds because she has not felt like eating due to the diarrhea. She describes having diarrhea since her gallbladder surgery. She does describe having tried cholestyramine but without any improvement. There is no known family history of colorectal cancer, inflammatory bowel disease, nor celiac disease. Again, as far she knows. She has not been tested for celiac disease. Since admission here, she has not had any black stools today. She has been hemodynamically stable. She has been afebrile. MEDICATIONS: At home none. Her medications here in the hospital include acetaminophen p.r.n., Tums p.r.n., melatonin p.r.n., milk of magnesia p.r.n., Zofran p.r.n., and IV pantoprazole. PAST MEDICAL HISTORY: Cholecystectomy. Iron deficiency anemia. B12 deficiency. She apparently has a history of a mood disorder with previous psych hospitalization. Heavy menses. Ovarian cyst. History of concussion. Diarrhea. Fractured arm. Migraines. She denies history of cardiac disease, diabetes, lung disease, nor renal disease. SOCIAL HISTORY: She denies tobacco and alcohol. She is originally from [facility]. FAMILY HISTORY: Noncontributory. REVIEW OF SYSTEMS: CONSTITUTIONAL: She has been feeling weak and tired. SKIN: No rash nor pruritus. CARDIAC: No chest pain. PULMONARY: No coughing nor hemoptysis. GI: As above. URINARY: No dysuria, no hematuria. NEUROLOGIC: She does have a history of migraines. PHYSICAL EXAMINATION: GENERAL: The patient is a pleasant, alert, pale female, in no distress. SKIN: Warm and dry. Anicteric sclerae. NECK: Supple. CHEST: Clear. CARDIAC: Normal S1, S2. ABDOMEN: Soft, nondistended, nontender. Without mass. EXTREMITIES: No edema. LABORATORY DATA: Stools, Hemoccult negative. White blood cell count was 6.2 on admission and 8.8 after transfusions. MCV was 67. Hemoglobin in July was 7.6. Platelets 217,000, white blood cell count 6.1. Normal electrolytes. BUN 9, creatinine 4. LFTs were normal. Iron was 8 with an iron saturation of 2%. test was negative. Albumin was 4.7. A urine toxicology screen was negative on admission. IMPRESSION: The patient is a 34-year-old female with a longstanding history of chronic heavy menses and chronic iron deficiency anemia. This anemia is most certainly related to her menses. I doubt she has any other source of occult bleeding. She does give a history of some dark stools, which could raise a suspicion for an upper GI bleed, but from the sound of things, I doubt this is the case. Of note, she describes that she has been poorly compliant with either iron infusions and/or oral iron, but even when she was on the oral iron regularly, she was told that she was not absorbing it well. Aside from the heavy menses as the cause of her anemia, I think it would be important to exclude celiac disease as well with potential for iron malabsorption and anemia on that basis. Given the reported B12 deficiency, she may have a component of pernicious anemia and/or celiac disease. I will try to get a copy of her [facility] records in regard to the upper endoscopy and any pathology involving duodenal biopsies. If we cannot get that report or if the endoscopy was done, but without duodenal biopsies, then I would recommend we repeat the exam with duodenal biopsies. If the [facility] endoscopy with duodenal biopsies was done and was nonrevealing, then I would hold off on a repeat endoscopy at this point since I think the yield would be low just several months after that endoscopy. If an endoscopy is required. I did obtain full consent from her for this, including risks of bleeding and perforation. The procedure will be done with monitored anesthesia care. I did review with her again the need to try some cholestyramine as that might help lessen the diarrhea. I also reviewed with her that depending upon her clinical course here, we may want to schedule her for a colonoscopy at some point to evaluate both the diarrhea and the iron deficiency anemia. It will be important to exclude inflammatory bowel disease. This has all been discussed in detail with the patient, and she is comfortable with the plan. Thanks for the consultation. MD SHANI Almanzar/JORDAN / [phone]
[2024-11-14] MEDS: Acetaminophen 325 MG TABLET 650 MG PO ×2 (02:55→10:33)
[2024-11-14 03:42] VITALS: BP 129/66; PULSE 67; RESP 16; TEMP 36.6; O2SAT 99
[2024-11-14] MEDS: Pantoprazole Sodium 40 MG/10 ML VIAL IVPUSH (06:06)
[2024-11-14] MEDS: 0.9 % Sodium Chloride Flush 3 ML SYRINGE IVFLUSH (06:07)
[2024-11-14 07:04] LABS: Hematocrit 30.6 % (37.0-47.0)
[2024-11-14 07:31] VITALS: BP 133/73; PULSE 61; RESP 20; TEMP 37.4; O2SAT 99
[2024-11-14 11:26] VITALS: BP 110/65; PULSE 70; RESP 18; TEMP 36.9; O2SAT 100
--- NOTE | 2024-11-14 12:01 | PM.EVENT ---
Event Note Date of Service: 11/14/24 Event Note: GI-[facility] records reviewed. She had a normal EGD with duodenal biopsies at [facility] in 2022 and a normal colonoscopy in 2022 as well. Therefore, given the clinical history I do not think repeating the upper endoscopy here is required. I will advance her diet. Continue current plan with IV and oral Iron, and eventual PETROLEUM LABORATORY TECHNICIAN evaluation and treatment of the heavy menses. Thanks Time Spent With Patient Time: Total time managing care of this patient today ____ minutes.
--- NOTE | 2024-11-14 14:49 | MHC.CM.PN ---
ANTIC PT WILL BE MEDICALLY CLEARED FOR DC SHE APPEARS TO BE TOLERATING REGULAR DIET, CM MET W/PT TO DISCUSS DISPO AND PT SIGNED CONSENT FORM [place] [facility] [place] TO [facility], PT REPORTS HER CAR IS [employer] LOT AN SHE WILL DRIVE SELF HOME, PT AWARE [facility] HAS A BED FOR PT ON TUESDAY AND THAT MARTHA FROM [facility] WILL FOLLOW-UP W/HER. ADA CALLED MARTHA AT THE [facility], MARTHA REQUESTING DOCUMENTATION INCLUDING H&P, DC SUMMARY, LABS/MEDS, DOCUMENTS FAXED TO MARTHA AT [phone], MARTHA AWARE PT WILL LIKELY DC'D BEFORE THEY HAVE A BED FOR HER ON THURSDAY 11/16, MARTHA REPORTS PT NEEDS TO BE THERE BETWEEN 10AM-1AM OR 1PM AND SHE WILL FOLLOW-UP W/PT.
--- NOTE | 2024-11-14 15:30 | PM.DS ---
DS: Providers Provider Date of Service: 11/14/24 Date of admission: 11/13/24 04:54 Date of discharge: 11/14/24 Primary care physician: France Aj NP Consults: 11/13/24 04:53 Consult to Gastroenterology Routine Consulting Provider: Arturo Faulkner Reason for consultation: ?GI bleed, dark loose stools 11/13/24 04:56 Consult to Psychiatry Routine Consulting Provider: [facility] Covering Reason for consultation: depression, anxiety, eating disorder Attending physician on discharge: Lucian Figueroa Discharging clinician: Lucian Figueroa DS: Diagnosis Discharge Diagnosis (1) Symptomatic anemia: Status: Acute DS: Summary Hospital Course Hospital Course: HPI:34-year-old female with pertinent history of mood disorder, eating disorder, iron deficiency anemia, dysfunctional uterine bleeding who presents to the emergency department requesting medical clearance and complaining of chronic fatigue and dyspnea which is worse with exertion. Patient states she needs medical clearance and needs forms to be filled out before being admitted for inpatient treatment of her eating disorder at [facility]. States she has received blood transfusion in the past and was on iron supplementation until 6 months ago when she stopped taking it. Patient does endorse frequent dark colored loose stools that has been ongoing for a while. Denies mango red blood in stool, hematuria, hematemesis. He does endorse chronic easy fatigability, weakness and dyspnea which is worse with exertion. Also complaining of uncontrolled anxiety and depression but is not on any home medications for it. Denies SI or HI. States she was previously admitted to inpatient psych for her mood disorder and was also at [facility]. Patient does have heavy menstrual bleeding which lasts for 3 weeks. Her last menstrual cycle was 1 week ago. She has previously refused uterine ablation for her heavy menstrual. No fever, chills, chest pain, palpitations, abdominal pain, changes in urinary habits. In the emergency department, hemoglobin found to be 6.2 and 2 unit PRBC ordered. Hospital course: Symptomatic microcytic anemia: Patient initial hemoglobin was 6.2/23- patient received 2 unit PRBC . Although stool occult negative, patient complains of loose black colored stools. Given PPIs. Also does complain of heavy menstrual periods-patient seen by GI:Symptomatic microcytic anemia: normal EGD with duodenal biopsies at [facility] in 2022 and a normal colonoscopy in 2023 as well. Therefore, given the clinical history I do not think repeating the upper endoscopy here is required. Patient H&H is stable around 9, denies any new mango bleeding or any menstrual bleeding currently. Patient asymptomatic, tolerating diet. Patient was strongly advised to continue her B12 injections at home(she says that she has supplies and also she knows how to inject but was not using it)-strongly advised to start using B12 injections. In addition she also says that she is going to make appointment for IV iron, she has p.o. iron also at home. Closely monitor CBC outpatient also follow up with the animal husbandry professor in [facility] as well as PCP outpatient. will need outpatient gynecology follow-up for history of heavy menses. plan: Monitor CBC. Follow-up with [facility] IV iron in addition to p.o. iron. Patient strongly advised for compliance with B12 injections as well as taking iron and also patient advised for IV iron appointment outpatient. Follow-up with PCP, Hematology and genetics physician outpatient. Above management discussed with the patient detail length she understand and in agreement with the above plan, time spent 40 minute, nursing staff was present during the conversation. Time Attestation Total time managing care of this patient today: 40 mintues. Discharge Coordination Time (in mins): 40 minute. Quality: Safe Use of Opioids Does Pt have an Active Cancer Diagnosis on the Problem List?: No Quality: Stroke Does the patient have a stroke diagnosis?: No Physical Exam Vital Signs: Vital Signs: Last Vital Signs Temp 98.5 F 11/14/24 11:26 Pulse 70 11/14/24 11:26 Resp 18 11/14/24 11:26 BP 110/65 11/14/24 11:26 Pulse Ox 100 11/14/24 11:26 O2 Del Method Room Air 11/14/24 11:26 BMI result Body Mass Index 26.3 Appearance: Alert.? Oriented X3.?. cvs: rrr, [id number] , no murmur res: clear to auscultation . abd: no rebound or guarding ,nt, bs present. ext pulses present , no cyanosis . neuro: axo3 , nonfocal. DS: Data Data Completed and Pending Labs on day of discharge: Laboratory Results - last 24 hr 11/13/24 11/14/24 00:33 05:40 Hgb 9.0 L Hct 30.6 L Crossmatch See Detail Discharge Plan Discharge Anticipated Discharge Date/Time: 11/14/24 15:20 Patient Disposition: Home, Self-Care Discharge Diagnosis: anemia Referrals: France Aj, RESPIRATORY THERAPY TECHNICIAN [Primary Care Provider] - 1 Week Discharge Medications: New ferrous sulfate [FeroSul] 325 mg (65 mg iron) tablet 325 mg PO BID Qty: 180 0RF omeprazole 20 mg capsule,delayed release(DR/EC) 20 mg PO DAILY Qty: 90 0RF Discharge Orders: Discharge Order (Routine); Ordered 11/14/24 Ordered By: Lucian Figueroa Diet: Advance to usual diet Activity on Discharge: As tolerated Stand Alone Forms: Patient Portal Discharge page Print Language: Qatari Other Ambulatory Orders: Complete Blood Count no Diff (Routine) Timeframe: 1 Week Facility: [facility] - Location: Laboratory Ordered By: Lucian Figueroa Care Plan Goals: Symptomatic microcytic anemia: Afterwards patient received 2 unit PRBC . Although stool occult negative, patient complains of loose black colored stools. Given PPIs. Also does complain of heavy menstrual periods-patient seen by GI:Symptomatic microcytic anemia: normal EGD with duodenal biopsies at [facility] in 2022 and a normal colonoscopy in 2022 as well. Therefore, given the clinical history I do not think repeating the upper endoscopy here is required. Patient H&H is stable around 9, denies any new mango bleeding or any menstrual bleeding currently. Patient was strongly advised to continue her B12 injections at home(she says that she has supplies and also she knows how to inject but was not using it)-strongly advised to start using B12 injections. In addition she also says that she is going to make appointment for IV iron, she has p.o. iron also at home. Closely monitor CBC outpatient also follow up with the animal husbandry professor in [facility] as well as PCP outpatient. will need outpatient gynecology follow-up for history of heavy menses. Health Concerns: Monitor CBC. Follow-up with [facility] IV iron in addition to p.o. iron. Follow-up with PCP, Hematology and genetics physician outpatient. Plan of Treatment: As above. Assessment: As above.
--- NOTE | 2024-11-15 07:59 | P.CDIM_ITS ---
PROVIDER RESPONSE TEXT: To clarify, the appropriate diagnosis supported by the clinical indicators: Iron deficiency anemia secondary to chronic blood loss: due to heavy menses and ch blood loss QUERY TEXT: PHYSICIAN'S DOCUMENTATION REQUEST Date of Query: 11/15/2024 06:39 AM EDT Patient Name: Latoya Rivera Admit Date: 11/13/2024 Dear Lucian Figueroa MD, RETROSPECTIVE QUERY A review of the medical record indicates additional documentation may be needed. Please review below and update the documentation accordingly. Clinical Indicators: GI consult note : Patient with long standing Iron deficiency anemia most likely related to heavy mens es and poor compliance with iron repletion. Black stools, fatigue, dizziness and shortness of breath. LABS: Iron 8 L Transfused 2 units PRBC H/H 6.2/23.0 Based on the above, could you clarify which of the following is the most likely type of anemia you ar e evaluating, treating, and/or monitoring? Iron deficiency anemia secondary to acute on chronic blood loss Iron deficiency anemia secondary to chronic blood loss possible, suspected, probable etc. Acute blood loss anemia possible, suspected, probable etc. Other (explain) Clinically unable to determine (explain) Thank you, Jeanine Pleitez, CCS, CDIS Use of terms such as suspected, likely, concern for, or probable (associated with a specific diagnosi s that is being evaluated, monitored, or treated as if it exists) are acceptable and can be coded in the inpatient se tting, when documented at the time of discharge. Please use your independent medical judgment in providing your response. THIS QUERY IS PART OF THE PERMANENT MEDICAL RECORD
== END 2024-11-14 15:50 | disposition home or self-care (01) | DRG 663 ==
LOC: HO.ED 11-13 03:10 → HO.EDOVER 11-13 05:19 → HO.IMC 11-13 17:27
PROVIDERS: Physician Assistant Medical; Admitting Provider Student in an Organized Health Care Education/Training Program; Emergency Provider Emergency Medicine Emergency Medical Services; PCP Nurse Practitioner Family; Visit Provider Internal Medicine
DX: D62 Acute posthemorrhagic anemia (principal); F32.A Depression, unspecified; N92.0 Excessive and frequent menstruation with regular cycle; Z20.822 Contact with and (suspected) exposure to COVID-19; F41.9 Anxiety disorder, unspecified; Z79.899 Other long term (current) drug therapy
CPT/HCPCS: 0241U; 36415; 80048; 80053; 80307; 82272; 83540; 83735; 84100; 84702; 85014; 85018; 85025; 86850; 86900; 86901; 86923; 93005; 99285; J2470; P9016

== ENCOUNTER → 2024-11-12 22:42 | Outpatient (BNV) | payer OTHER, SELFPAY | PROVIDERS: Admitting Provider Student in an Organized Health Care Education/Training Program; Emergency Provider Emergency Medicine Emergency Medical Services; PCP Nurse Practitioner Family; Visit Provider Internal Medicine Cardiovascular Disease | DX: Z13.6 Encounter for screening for cardiovascular disorders (principal) | CPT/HCPCS: 93010 ==

== ENCOUNTER → 2024-11-12 22:50 | Outpatient (BNV) | payer OTHER, SELFPAY | PROVIDERS: Emergency Provider Emergency Medicine Emergency Medical Services; PCP Nurse Practitioner Family; Visit Provider Student in an Organized Health Care Education/Training Program | DX: D64.9 Anemia, unspecified (principal) | CPT/HCPCS: 99222; 99239; 99499 ==

== ENCOUNTER 2025-06-25 18:47 | Inpatient (IN) | payer OTHER, SELFPAY ==
[2025-06-25 18:56] VITALS: BMI 21.3
[2025-06-25 19:01] VITALS: BP 185/86; PULSE 61; RESP 18; TEMP 36.4; O2SAT 98
--- NOTE | 2025-06-25 19:05 | PHA.MEDREC ---
Addendum entered by Endy Schuler [facility] 06/25/25 19:13: med rec reviewed Original Note: Pharmacy Consult ? Medication Reconciliation Pharmacy reviewed med rec done by nursing. Claims match.
--- NOTE | 2025-06-25 19:19 | PC.ADMIT ---
Latoya Cano is a 35yr old female with history of Depression, BPD & Anorexia being admitted to today after an intentional overdose on tylenol. Rachael arrived on M5 at 18:53, transported from [facility] ED. Patient is admitted on a 12b, as she refused to answer questions or sign anything. Per crisis report patient had just completed an eating disorder program at [facility] & didn't want to be discharged at that time. Immediately upon discharge, Rachael reportedly overdosed with tylenol & called [facility]. EMS was called & she was transported the ED. After medical clearance & crisis evaluation, she was transferred here to [facility] on a [id number]. Rachael was cooperative with vital signs, skin check & clothing changeover but would not engage in admission assessment. Her skin check is unremarkable. Rachael was shown to her room & placed on 5min safety checks, as she isn't speaking or farrah for safety.
--- OUTSIDE RECORDS SUMMARY | 2025-06-25 19:43 | XMS_ITS | Clinical Summary ---
Author Organization [facility] Address [address] [place] [address] [place] [address] Phone Care Team Providers Care Radiotelephone Operator Name Role Phone France Aj NP Primary Care Provider + Doreen Saavedra Unavailable [phone] Allergies No known active allergies Medications No known medications Active Problems Problem Noted Date Diagnosed Date Absolute anemia 06/15/2024 Iron deficiency anemia due to chronic blood loss 06/15/2024 Assessment & Plan (06/21/2024 11:42 AM EST): 34-year-old female with an established history of iron deficiency anemia secondary to menorrhagia and 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 She has undergone appropriate treatment with IV iron and parenteral B12 in the past, but is now declining these treatments. Oral B12 and iron were not effective previously; she also is not interested in these options. At this time I reviewed carefully with her the cause of her deficiencies, and strongly advised her to restart treatment. Hemoglobin 06/15/2024 was 8.6 with severe iron and B12 deficiency noted. She is aware that her fatigue is secondary to her B12 and iron deficiency. She continues to be symptomatic from her anemia and is declining all intervention, including blood transfusion. She has needed blood transfusions in the past when declining all iron and B12 therapy. She is aware replacement of iron and B12 is a safer option than intermittent blood transfusion.She is aware that she needs to follow-up with her occupational health and safety manager due to menorrhagia. All questions were answered. Follow-up as needed. ER if worsening symptoms. 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 She has undergone appropriate treatment with IV iron and parenteral B12 in the past, but is now declining these treatments. Oral B12 and iron were not effective previously; she also is not interested in these options. At this time I reviewed carefully with her the cause of her deficiencies, and strongly advised her to restart treatment. Hemoglobin today is 8.6 with severe iron and B12 deficiency noted. She is aware that her fatigue is secondary to her B12 and iron deficiency. She has indicated she will contact us if she changes her mind. She has needed blood transfusions in the past when declining all therapy. She is aware replacement of iron and B12 is a safer option than intermittent blood transfusion.She is aware that she needs to follow-up with her occupational health and safety manager due to menorrhagia. All questions were answered. Follow-up as needed. She has indicated she will likely undergo treatment here if she decides to follow through with recommendations. I called patient and discussed all results with her today. Social History Tobacco Use Types Packs/Day Years Used Date Smoking Tobacco: Never Smokeless Tobacco: Never Tobacco Cessation:Counseling Given: Not Answered Alcohol Use Standard Drinks/Week Comments Never 0 (1 standard drink = 0.6 oz pur e alcohol) Education Answer Date Recorded Are you interested in more education? Not on aubrie e 04/02/2024 Are you concerned about learning? Not on file 04/02/2024 No 04/02/2024 No 04/02/2024 Food Answer Date Recorded Within the past 6 months we worried whether our food would run out before we got money to buy more. Unable to assess 025 Within the past 6 months the food we bought just didn't last and we didn't have enough money to get more. Unable to assess 12/14/2024 Residential Stability Answer Date Recor ded What is your housing situation today? Unable to assess 12/14/2024 How many times have you moved in the past 12 mon ths? Unable to assess 12/14/2024 Paying for Meds Answer Date Recorded Do you have trouble paying for medicines? Unable to assess 12/14/2024 Paying Utility Bills Answer Date Record ed Do you have trouble paying y our heating or electricity bill? Unable to assess 12/14/2024 Transportation Answer Date Recorded Has the lack of transportati on kept you from medical appointments or from getting medications? Unable to assess 12/14/2024 Digital Access Answer Date Recorded No 12/14/2024 No 12/14/2024 Do you have reliable internet access at home? Un able to assess 12/14/2024 Do you have a device (e.g., phone, tablet, computer) with a working camera? Unable to assess 12/14/2024 Intimate Partner Violence Answer Date R ecorded Are you denied basic needs s uch as food, clothing, or medical care? No 08/09/2024 In the past 12 months have y ou been in a relationship with a person who hurts, threatens, or tries to control you? No 08/09/2024 Are you denied basic needs s uch as food, clothing, or medical care? No 08/09/2024 In the past 12 months have y ou been in a relationship with a person who hurts, threatens, or tries to control you? No 08/09/2024 Comments Unknown Sex and Gender Information Value Date Recorded Sex Assigned at Female 04/02/2024 8:27 PM EDT Legal Sex Female 8:18 PM EDT Gender Identity Female 04/02/2024 8:27 PM EDT Sexual Orientation Don't know 04/02/2024 8: 57 PM EDT Last Filed Vital Signs Vital Sign Reading Time Taken Comments Blood Pressure 114/63 12/20/2024 7:01 PM EDT Pulse 58 12/20/2024 7:01 PM EDT Temperature 36.6 C (97.9 F) 12/20/2024 7:01 PM EDT Respiratory Rate 18 12/20/2024 7:01 PM EDT Oxygen Saturation 99% 12/20/2024 7:01 PM EDT Inhaled Oxygen Concentration - - Weight 47.2 kg (104 lb) 12/14/2024 2:39 PM EDT Height 147.3 cm (4' 10 ) 12/14/2024 2:39 PM EDT Body Mass Index 21.74 12/14/2024 2:39 PM EDT Plan of Treatment Health Maintenance Due Date Last Done Comments DEPRESSION SCREENING 2002 HIV ONE-TIME SCREENING (18-6 5 YEARS) 2008 PAP SMEAR 2011 INFLUENZA VACCINE (#1) 2025 COVID-19 VACCINE ( - 2024-2 6 season) 2025 Adult Td,Tdap Booster 08/07/2025 08/07/2015 MENINGOCOCCAL VACCINES (ACWY) Aged Out 04/29/2009 No longer eligible based on patient's age to complete this topic HEPATITIS C SCREENING Completed 03/30/2021 SMOKING STATUS SCREENING (On ce After 26 Yrs) Completed 06/15/2024 HEPATITIS A VACCINES Aged Out No long er eligible based on patient's age to complete this topic HIB VACCINES Aged Out No longer eligi ble based on patient's age to complete this topic MENINGOCOCCAL VACCINES (B) Aged Out N o longer eligible based on patient's age to complete this topic PNEUMOCOCCAL VACCINES (0-49 years) Aged Out No longer eligible based on patient's age to complete this topic Medical Devices Not on file Insurance HEALTHY PARTNERSHIP ACO BE HEALTHY PARTNERSHIP ACO HEALTHY [facility] ACO ACO ACO [facility] HEALTHY PARTNERSHIP ACO Care Teams Radiotelephone Operator Relationship Specialty Start Date End Date France Aj NP [address] [place] [id number] PCP - General Nurse Practitioner 04/02/24 Doreen Saavedra MBBS [address] [place] [address] Medical Oncology 04/19/24 Additional Source Comments The information contained in this document represents components of the legal health record. It is not the complete legal health record.[facility]
--- OUTSIDE RECORDS SUMMARY | 2025-06-25 19:43 | XMS_ITS | Clinical Summary ---
Author Organization [facility] Address [address] [place] [address] Phone Care Team Providers Care Fish Boning Machine Feeder Name Role Phone France Aj Primary Care Provider [phone] Allergies No known active allergies Medical History Medical History Date Comments Anemia [...] 72 10/22/2024 10:40 PM EDT Temperature 36.8 C (98.2 F) 10/22/2024 10:40 PM EDT Respiratory Rate 16 10/22/2024 10:40 PM EDT [...] Influencers of Health Screening 07/04/2022 Depression Screening 08/01/2024 COVID-19 Vaccine ( season) 2025 Influenza Vaccine (#1) 2025 , 09/17/2016, 07/03/2015 DTaP,Tdap,and Td Vaccines (6 - Td or Tdap) 08/07/2025 08/07/2015, 09/29/2001, 12/20/2000, Additional history exists RSV Immunization Adult Patients (1 - 1-dose 75+ series) 2065 IPV Vaccines Completed 11/15/1996, 01/30, 06/28/1992, Additional history exists MMR Vaccines Completed 07/20/2000, 06/06/2000 Hepatitis A Vaccines Completed 12/21/2000, 07/20/2000, 06/06/2000 Hepatitis B Vaccines Completed 12/21/2000, [...] and At-Risk Patients (6 to 49 Years) Aged Out No longer eligible based on patient's age to complete this topic RSV Immunization Patients Under 20 months Aged Out No longer eligible based on patient's age to complete this topic Insurance Care Teams Fish Boning Machine Feeder Relationship Specialty Start Date End Date France Aj [address] [place] [id number] PCP - General 07/04/24
--- OUTSIDE RECORDS SUMMARY | 2025-06-25 19:43 | XMS_ITS | Clinical Summary ---
Author Organization [facility] Address [address] [facility] [address] [place] [address] Phone Care Team Providers Care Senior Pensions Administrator Name Role Phone MadaiFrance sun ELIZABETH Primary Care Provider [phone] Allergies No known active allergies Medications No known medications Active Problems Problem Noted Date Diagnosed Date Urinary tract infection 01/31/2024 Vitamin B12 deficiency 07/04/2017 Overview (01/31/2024): 07/18/23-07/24/23 Admitted for severe acute on chronic anemia; needs weekly B12 injection and iron infusions, f/u with hematology Iron deficiency anemia 02/27/2015 Overview (01/31/2024): 06/18/[address] Tuttle at [facility] Heme/Onc for anemia. Advised to take B12 [...] 6 months. 05/17/17 F/u Dr Tuttle at [facility] Heme/Onc. Plan: scheduled for iron infusion (ferrous [...] restarting iron infusions. Advised to f/u with aws architect re: menorrhagia 03/01/23 F/u Heme/onc; plan to [...] of 2 - PCV) 2009 Influenza Vaccine (#1) 2025 07/08/2021, 2016 Hepatitis B Vaccine Completed 12/21/2000, 07/20/2000, 06/06/2000 Insurance [facility] Care Teams Senior Pensions Administrator Relationship Specialty Start Date End Date France Aj NP [address] [place] [phone] PCP - General Nurse Practitioner 10/27/23
--- OUTSIDE RECORDS SUMMARY | 2025-06-25 19:43 | XMS_ITS | Encounter Summary ---
Author Organization [facility] Address [address] [place] [address] [place] [address] Phone Care Team Providers Care Pipelines Laborer Name Role Phone France Aj ASSEMBLER BODY Primary Care Provider + Doreen Saavedra MBBS Unavailable [phone] Encounter Details Date Type Department Care Team (Late st Contact Info) Description 12/14/2024 Procedure Pass [facility] Emergency Department, [facility] [address] [place] [address] Social History Tobacco Use Types Packs/Day Years Used Date Smoking Tobacco: Never Smokeless Tobacco: Never Alcohol Use Standard Drinks/Week Comments Never 0 [...] have you moved in the past 12 tue ths? Unable to assess 12/14/2024 Paying for [...] Don't know 04/02/2024 8: 57 PM EDT documented as of this encounter Functional Status * Calculated C-SSRS Risk Score (Lifetime/Recent) Answer Date of Assessment Author No Risk Indicated 12/14/2024 3:25 PM EDT Rox Daniels RN * [place] Suicide Severity Rating Scale (Screener/Recent Self-Report) Question Answer Date of Assessment Author 1. Wish to be (Past 1 Month) No 12/14/2024 3:25 PM EDT Rox Mercer, KE 2. Non-Specific Active Suicidal Thoughts (Past 1 Month) No 12/14/2024 3:25 PM EDT Rox Mercer, KE 6. Suicidal Behavior (Lifetime) No 12/14/2024 3:25 PM EDT Rox Mercer RN documented as of this encounter Plan of Treatment Not on file documented as of this encounter Visit Diagnoses Not on filedocumented in this encounter Care Teams Pipelines Laborer Relationship Specialty Start Date End Date France Aj NP [address] [place] [id number] PCP - General Nurse Practitioner 04/02/24 Doreen Saavedra MBBS [address] [place] [id number] [email or web address] Medical Oncology 04/19/24 documented as of this encounter Additional Source Comments The information contained in this document represents components of the legal health record. It is not the complete legal health record.[facility]
--- NOTE | 2025-06-25 20:45 | HO.PSYADMNOT ---
HPI Date of Service: 06/25/25 Chief Complaint: OD Sources of Information: patient interviewed, chart reviewed and crisis/core team assessment reviewed HPI Subjective Notes: Section 12B Healthcare Proxy: No Guardianship: No Medical Problems Affecting Mental Status: No Narrative: Per ED note: patient is a 35 y.o with past hx of depression, borderline personality disorder, and eating disorder(Anorexia) who was transported to [facility] after intention OD on Tylenol. It was reported that patient ingested 13 [ills of 250mg Tylenol as a suicide attempts. No Utox or BAL obtained. Patient says she is not sure why she took the pills. She goes back and forth with report it was a suicide attempts then says it was not. Patient discharged from [facility] . She got home and called them asking to take her back and they said no. She then impulsively went and ingested the pills. This is her first time she has done anything like this. While in [facility], weight was stabilized, was treated for anorexia. Report no issues with sleep. She lives with sibling at home. Was at [facility] in November until January of 2025. Was re-admitted in May and was discharged today. These are her only two IP admissions. On M5: patient got change and skin checked done by nursing staff, used restroom and got back to exam room where this provider approaches her for legal and 1-1 assessment. Patient is not cooperative. Do not talk mostly. Only says you have record when asked what main reason brought her to the hospital. She does not want to answer regarding her . She does gesture to show this provider that her is on the wristband. When this provider says it could be not accurate and we may make mistake and we would like to her to confirm. She says nothing but appears to take a look at the wristband to see if it is right. Patient does not want to be there I am not singing it or I am not singing anything . When this provider explains to patient that we legally can keep her for three business-day to monitor for safety. She says you cannot keep me here beyond 48 hours . Patient then says nothing after, does not even have eye contact, she just look downs while sitting in the chair. Choose to mute the rest of the time this provider attempts to ask further questions regarding safety concerns. Patient is not cooperative. No able to assess for if she has any SI/SIB/HI/AVH or any hx regarding safety concerns or treatment hx as well as medication hx. Therefore, Place patient on 5 min checks. Nursing notified. Medication ordered per ED record, and discussed with admitting RN. Patient is A+O, wearing hospital attire, irritable. No cooperative, no do answer questions or engage in assessment. Unkempt long hair. Eye avoided. Not able to assess for thought process or thought content, guarded, chose to mute majority of the time during 1-1 assessment but normal speech and volume when speak up. Does not want to be here. Appear anxious. Do appear to be psychotic. Do not appear to respond to phd internship stimuli. Do not make any delusional or paranoid statement made. Impulsive per hx. Poor judgment and insight. Past Psychiatric History: [facility]. Discharged 06/25/25. OD's on Tylenol after discharged. This is first time. Not able to obtain if patient has OP providers or medication trials. Patient is not cooperative. Medical Evaluation Reviewed: Hospitalist Jenni Pending [facility] Medical History Ovarian cyst rupture Conductive hearing loss of left ear with unrestricted hearing of right ear History of pancreatitis Functional diarrhea Chronic abdominal pain History of COVID-19 Concussion with loss of consciousness Systolic murmur Current mild episode of major depressive disorder without prior episode Gastroesophageal reflux disease Closed fracture of left distal radius Vitamin B12 deficiency Syncope and collapse Menorrhagia Iron deficiency Chronic migraine without aura with status migrainosus, not intractable History of bladder stone Surgical History S/P laparoscopic appendectomy S/P cholecystectomy Family History: Not able to obtain. Patient is not cooperative on admission. Social History: Not able to obtain. Patient is not cooperative on admission. Per record, patient was discharged home from [facility] and patient lives with siblings. Substance History: Not able to obtain. Patient is not cooperative on admission. Trauma History: Not able to obtain. Patient is not cooperative on admission. Diagnostics Vital Signs (24Hr): Vital Signs - 24 hr 06/25/25 19:01 Temperature 97.6 F Pulse Rate 61 Respiratory Rate 18 Blood Pressure 185/86 H Pulse Oximetry 98 Oxygen Delivery Method Room Air BMI result Body Mass Index 21.3 Meds/Allergies Meds Home Medications ?Medication ?Instructions ?Recorded ?Confirmed ?Type ascorbic acid (vitamin C) 500 mg 500 mg PO BID 06/25/25 06/25/25 History tablet cholecalciferol (vitamin D3) 50 50 mcg PO DAILY 06/25/25 06/25/25 History mcg (2,000 unit) tablet (Vitamin D3) cyanocobalamin (vitamin B-12) 1,000 mcg PO DAILY 06/25/25 06/25/25 History 1,000 mcg tablet etodolac 400 mg tablet 400 mg PO Q6H PRN Headache 06/25/25 06/25/25 History ferrous sulfate 325 mg (65 mg 325 mg PO BID 06/25/25 06/25/25 History iron) tablet,delayed release fluoxetine 20 mg tablet 20 mg PO QAM 06/25/25 06/25/25 History melatonin 3 mg tablet 3 mg PO BEDTIME PRN Sleep 06/25/25 06/25/25 History prazosin 1 mg capsule 2 mg PO BEDTIME 06/25/25 06/25/25 History Allergies Allergies Allergy/AdvReac Type Severity Reaction Status Date / Time No Known Allergies Allergy Verified 11/12/24 22:26 Mental Status Exam Mental Status Exam Narrative: Patient is A+O, wearing hospital attire, irritable. No cooperative, no do answer questions or engage in assessment. Unkempt long hair. Eye avoided. Not able to assess for thought process or thought content, guarded, chose to mute majority of the time during 1-1 assessment but normal speech and volume when speak up. Does not want to be here. Appear anxious. Do appear to be psychotic. Do not appear to respond to phd internship stimuli. Do not make any delusional or paranoid statement made. Impulsive per hx. Poor judgment and insight. Assessment & Plan Assessment & Plan (1) Overdose by acetaminophen: Status: Acute Code(s): T39.1X1A - Poisoning by 4-Aminophenol derivatives, accidental (unintentional), initial encounter (2) Borderline personality disorder in adult: Status: Acute Code(s): F60.3 - Borderline personality disorder (3) Eating disorder: Status: Acute Code(s): F50.9 - Eating disorder, unspecified Plan HPI: patient is a 35 y.o with past hx of depression, borderline personality disorder, and eating disorder(Anorexia) who was transported to [facility] after intention OD on Tylenol. It was reported that patient ingested 13 pills of 250mg Tylenol as a suicide attempts. No Utox or BAL obtained. Patient says she is not sure why she took the pills. She goes back and forth with report it was a suicide attempts then says it was not. Patient discharged from [facility] . She got home and called them asking to take her back and they said no. She then impulsively went and ingested the pills. This is her first time she has done anything like this. While in [facility], weight was stabilized, was treated for anorexia. Report no issues with sleep. She lives with sibling at home. Was at [facility] in November until January of 2025. Was re-admitted in May and was discharged today. These are her only two IP admissions. Formulation/clinical reasoning: Impulsive, took Tylenol as an OD on the same day after discharged from [facility] after about 2 month-hospital stay. This is first suicide attempt per ED record. Meet criteria for restrictive environment d/t safety concerns, medication management and provider therapeutic environment for coping skills. Hospital course: 06/25/25: very guarded, not cooperative. Do not want to be here. Continue with home meds per ED record. Patient was discharged from [facility] and readmitted same day here. Will continue with home meds. Not able to assess for safety. Not able to discuss with patient regarding PRN available. Will reassess. BP elevated on admission. Will continue to monitor. Will hold Tylenol until further notice. Plan Patient on 5 minute checks for safety: not answering any questions during 1-1 assessment Admitted to . Section 12B. Work with treatment team to do collateral Contact the hospitalist regarding hospitalist consultation on admission: pending Amphetamine level 55, then 33 in the ED on 06/25/25. Patient educated on: other (Not able to provide education. Patient is not cooperative on admission. ) Informed Consent: further education needed Reason for continued inpatient stay Substantial Risk for: harm to self and med/psych decompensation Statement Statement: I have reviewed the history and physical and performed a pertinent examination on my patient. No changes have occurred unless specified. If the History and Physical was not performed prior to admission, the Hospitalist's service will be consulted for completing the admission physical. Time Spent With Patient Time: Total time managing care of this patient today ____ minutes.
--- NOTE | 2025-06-26 06:50 | PC.NURSE ---
Update, Patient is more open to asking for things and talking. Pt this am asked for tea and is cooperative. Pt refused medications and would not speak to RN. Pt rested well (per pt).
--- NOTE | 2025-06-26 08:12 | P.CONHOSP_ITS ---
History of Present Illness Data of Consult Service Date: 06/26/25 Primary Care Provider: [place] Aj NP [facility] Reason for consult: Medical H&P 35-year-old female with a past medical history of depression and eating disorder presented to [place] emergency room with an intentional overdose of Tylenol. Initial ED workup revealed no evidence of renal or kidney dysfunction, no electrolyte imbalances, no leukocytosis, mild anemia. ECG negative. She initially had an elevated acetaminophen level and salicylate which trended down. Her liver function tests are normal. On exam patient has no medical concerns. She is calm, building a puzzle. Review of Systems 2 Review of Systems: Denies any shortness of breath, chest pain, headaches, dysuria, abdominal pain or discomfort, nausea, vomiting or diarrhea. Denies fever or chills. [facility] Medical History Ovarian cyst rupture Conductive hearing loss of left ear with unrestricted hearing of right ear History of pancreatitis Functional diarrhea Chronic abdominal pain History of COVID-19 Concussion with loss of consciousness Systolic murmur Current mild episode of major depressive disorder without prior episode Gastroesophageal reflux disease Closed fracture of left distal radius Vitamin B12 deficiency Syncope and collapse Menorrhagia Iron deficiency Chronic migraine without aura with status migrainosus, not intractable History of bladder stone Family History Father No problems noted. Mother No problems noted. Surgical History S/P laparoscopic appendectomy S/P cholecystectomy Social History Household Members: Other Household Members Other:: parents Housing: House Alcohol intake: never Patient Tobacco Use Status: Never used Tobacco Currently Displaying Signs/Symptoms of Drug Intoxication Withdrawal: No Advance Directives: No Advance Directives Information Provided: No Do you have thoughts of harming others: None Do you have a plan to hurt others: No Plan service: No Sexual orientation: Straight/Heterosexual Meds Allergies Allergy/AdvReac Type Severity Reaction Status Date / Time No Known Allergies Allergy Verified 11/12/24 22:26 Active Medications: Current Medications Acetaminophen (Acetaminophen 325 Mg Tablet) 650 mg PO Q6H PRN On Hold: 06/25/25 21:36 PRN Reason: Headache/Pain, Scale 1-10 Al Hydroxide/Mg Hydroxide (Magnesium Hydrox/Alum Hydrox 30 Ml Oral.Susp) 30 ml PO Q6H PRN PRN Reason: Heartburn/Nausea Ascorbic Acid (Ascorbic Acid 500 Mg Tablet) 500 mg PO BID [facility] Last Admin: 06/25/25 22:15 Dose: Not Given Cyanocobalamin (Cyanocobalamin (Vitamin B-12) 1,000 Mcg Tablet) 1,000 mcg PO DAILY [facility] Ferrous Sulfate (Ferrous Sulfate 324 Mg Tablet.Dr) 324 mg PO BID [facility] Last Admin: 06/25/25 22:16 Dose: Not Given Fluoxetine HCl (Fluoxetine Hcl 20 Mg Capsule) 20 mg PO DAILY [facility] Hydroxyzine HCl (Hydroxyzine Hcl 25 Mg Tablet) 25 mg PO Q6H PRN PRN Reason: mild anxiety Magnesium Hydroxide (Milk Of Magnesia 30 Ml Oral.Susp) 30 ml PO DAILY PRN PRN Reason: Constipation Melatonin (Melatonin 3 Mg Tablet) 3 mg PO BEDTIME PRN PRN Reason: Sleep Nicotine Polacrilex (Nicotine Polacrilex 2 Mg Gum) 2 mg BUCCAL Q2H PRN PRN Reason: Nicotine Cravings Olanzapine (Olanzapine 5 Mg Tablet) 5 mg PO BID PRN PRN Reason: agitation Prazosin HCl (Prazosin Hcl 1 Mg Capsule) 2 mg PO BEDTIME [facility]; Protocol Last Admin: 06/25/25 22:16 Dose: Not Given Trazodone HCl (Trazodone Hcl 50 Mg Tablet) 50 mg PO BEDTIME MRX1 PRN PRN Reason: Insomnia Vitamin D (Cholecalciferol (Vitamin D3) 25 Mcg Tablet) 50 mcg PO DAILY [facility] Home Medications ?Medication ?Instructions ?Recorded ?Confirmed ?Last Taken ?Type ascorbic acid (vitamin C) 500 mg 500 mg PO BID 5 06/25/25 Unknown History tablet cholecalciferol (vitamin D3) 50 50 mcg PO DAILY 06/25/25 Unknown History mcg (2,000 unit) tablet (Vitamin D3) cyanocobalamin (vitamin B-12) 1,000 mcg PO DAILY 06/2506/25/25 Unknown History 1,000 mcg tablet etodolac 400 mg tablet 400 mg PO Q6H PRN Headache 1 08/25/24 06/25/25 Unknown History ferrous sulfate 325 mg (65 mg 325 mg PO BID 06/25/25 1 08/25/24 Unknown History iron) tablet,delayed release fluoxetine 20 mg tablet 20 mg PO QAM 06/25/25 Unknown History melatonin 3 mg tablet 3 mg PO BEDTIME PRN Sleep 06/25/25 Unknown History prazosin 1 mg capsule 2 mg PO BEDTIME 06/25/25 Unknown History Physical Exam 2 Vital Signs and Narrative: Vital Signs: Last Vital Signs Temp 97.6 F 06/25/25 19:01 Pulse 61 06/25/25 19:01 Resp 18 06/25/25 19:01 BP 185/86 H 06/25/25 19:01 Pulse Ox 98 06/25/25 19:01 O2 Del Method Room Air 06/25/25 19:01 BMI result Body Mass Index 21.3 Alert and oriented X3, calm and cooperative. Answers questions. Thin. Neuro: CN II-X11 intact, no focal neuro deficits. EYES: PERRLA, EOM intact ENT: Hearing intact, MMM Cardiac: S1 S2 RRR, No ectopy Pulmonary: lungs clear to auscultation, No increased WOB. Abdominal: BS active in all 4 quadrants, no guarding or tenderness MSK: Strength 5/5 upper and lower extremities : Deferred Extremities: No edema in lower extremities Psych: Mood stable, Quiet and cooperative. Skin: Warm and dry, Intact Results Labs 06/26/25 09:38 Assessment and Plan (1) Overdose by acetaminophen: Status: Acute Plan 35-year-old female with a past medical history listed below presented to the ED with intentional overdose of Tylenol. She is admitted for inpatient psychiatric stabilization. Borderline personality disorder/eating disorder/depression Treatment per psychiatric team Eating disorder Patient reports that she did not eat any food today. Continue to monitor Continue vitamin supplementation Thank you for allowing me to participate in the care of this patient. Will follow with you, please notify medical provider with any changes in condition or concerns.
[2025-06-26 08:27] VITALS: BP 128/84; PULSE 51; RESP 16; TEMP 36.4; O2SAT 99
--- NOTE | 2025-06-26 09:51 | HO.PSYCHPN ---
Subjective Subjective Date of Service: 06/26/25 Reason For Visit: OD Subjective Notes: Section 12B Interim History: Patient from sitting on her bed. She states that she is Okay. She wants be discharged and states, this place is not going to help me with my eating disorder . She denies anxiety or depression. She denies SI/HI anxious AVH. She refuse her medications and states I don't need them. I usually do not take them at home. Medication Compliance: No Attending Groups: No Review of Systems Acute medical concerns: No Mental Status Exam Mental Status Exam Narrative: Appearance: Casually dressed, adequate hygiene and grooming Behavior: Calm and cooperative throughout the interview. Minimal eye contact, and there are no signs of psychomotor agitation or retardation Speech: Normal volume and prosody Thought process: Logical and goal-directed Thought content: On discharge Mood: Good Affect: Mood-congruent SI: Denies HI: Denies VH/AH: None Delusions: None Insight/judgment: Impaired insight and judgment Memory/cog: Alert, oriented x 4. grossly intact to conversational testing Diagnostics Vital Signs (24Hr): Vital Signs - 24 hr 06/25/25 19:01 06/26/25 08:27 Temperature 97.6 F 97.6 F Pulse Rate 61 51 Respiratory Rate 18 16 Blood Pressure 185/86 H 128/84 Pulse Oximetry 98 99 Oxygen Delivery Method Room Air Room Air BMI result Body Mass Index 21.3 Labs 06/26/25 09:38 Medications Medications Current Medications Acetaminophen (Acetaminophen 325 Mg Tablet) 650 mg PO Q6H PRN On Hold: 06/25/25 21:36 PRN Reason: Headache/Pain, Scale 1-10 Al Hydroxide/Mg Hydroxide (Magnesium Hydrox/Alum Hydrox 30 Ml Oral.Susp) 30 ml PO Q6H PRN PRN Reason: Heartburn/Nausea Ascorbic Acid (Ascorbic Acid 500 Mg Tablet) 500 mg PO BID [facility] Last Admin: 06/26/25 08:26 Dose: Not Given Cyanocobalamin (Cyanocobalamin (Vitamin B-12) 1,000 Mcg Tablet) 1,000 mcg PO DAILY [facility] Last Admin: 06/26/25 08:26 Dose: Not Given Ferrous Sulfate (Ferrous Sulfate 324 Mg Tablet.) 324 mg PO BID [facility] Last Admin: 06/26/25 08:26 Dose: Not Given Fluoxetine HCl (Fluoxetine Hcl 20 Mg Capsule) 20 mg PO DAILY [facility] Last Admin: 06/26/25 08:26 Dose: Not Given Hydroxyzine HCl (Hydroxyzine Hcl 25 Mg Tablet) 25 mg PO Q6H PRN PRN Reason: mild anxiety Magnesium Hydroxide (Milk Of Magnesia 30 Ml Oral.Susp) 30 ml PO DAILY PRN PRN Reason: Constipation Melatonin (Melatonin 3 Mg Tablet) 3 mg PO BEDTIME PRN PRN Reason: Sleep Nicotine Polacrilex (Nicotine Polacrilex 2 Mg Gum) 2 mg BUCCAL Q2H PRN PRN Reason: Nicotine Cravings Olanzapine (Olanzapine 5 Mg Tablet) 5 mg PO BID PRN PRN Reason: agitation Prazosin HCl (Prazosin Hcl 1 Mg Capsule) 2 mg PO BEDTIME [facility]; Protocol Last Admin: 06/25/25 22:16 Dose: Not Given Trazodone HCl (Trazodone Hcl 50 Mg Tablet) 50 mg PO BEDTIME MRX1 PRN PRN Reason: Insomnia Vitamin D (Cholecalciferol (Vitamin D3) 25 Mcg Tablet) 50 mcg PO DAILY [facility] Last Admin: 06/26/25 08:26 Dose: Not Given Allergies Allergies Allergy/AdvReac Type Severity Reaction Status Date / Time No Known Allergies Allergy Verified 11/12/24 22:26 Assessment & Plan Assessment & Plan (1) Overdose by acetaminophen: Status: Acute Code(s): T39.1X1A - Poisoning by 4-Aminophenol derivatives, accidental (unintentional), initial encounter (2) Borderline personality disorder in adult: Status: Acute Code(s): F60.3 - Borderline personality disorder (3) Eating disorder: Status: Acute Code(s): F50.9 - Eating disorder, unspecified Plan HPI: patient is a 35 y.o with past hx of depression, borderline personality disorder, and eating disorder(Anorexia) who was transported to [facility] after intention OD on Tylenol. It was reported that patient ingested 13 pills of 250mg Tylenol as a suicide attempts. No Utox or BAL obtained. Patient says she is not sure why she took the pills. She goes back and forth with report it was a suicide attempts then says it was not. Patient discharged from [place] . She got home and called them asking to take her back and they said no. She then impulsively went and ingested the pills. This is her first time she has done anything like this. While in [place], weight was stabilized, was treated for anorexia. Report no issues with sleep. She lives with sibling at home. Was at [place] in November until January of 2025. Was re-admitted in May and was discharged today. These are her only two IP admissions. Formulation/clinical reasoning: Impulsive, took Tylenol as an OD on the same day after discharged from [place] after about 2 month-hospital stay. This is first suicide attempt per ED record. Meet criteria for restrictive environment d/t safety concerns, medication management and provider therapeutic environment for coping skills. Hospital course: 06/25/25: very guarded, not cooperative. Do not want to be here. Continue with home meds per ED record. Patient was discharged from [place] and readmitted same day here. Will continue with home meds. Not able to assess for safety. Not able to discuss with patient regarding PRN available. Will reassess. BP elevated on admission. Will continue to monitor. Will hold Tylenol until further notice. 06/26: Denies anxiety or depressive symptoms. Denies SI/HI/AVH. community service worker is trying to find a facility that can accept patient for eating disorder treatment. Encouraged to take her medications as prescribed and to attend groups. Plan Patient on 5 minute checks for safety: not answering any questions during 1-1 assessment Admitted to . Section 12B. Work with treatment team to do collateral Contact the hospitalist regarding hospitalist consultation on admission: pending Amphetamine level 55, then 33 in the ED on 06/25/25. Patient educated on: therapeutic strategies Reason for continued inpatient stay Substantial Risk for: rapid decompensation Time Spent With Patient Time: Total time managing care of this patient today ____ minutes.
[2025-06-26 10:59] LABS: Alanine Aminotransferase 26 U/L (0-31); Albumin Level 4.9 g/dL (3.5-5.0); Alkaline Phosphatase 40 U/L (39-117); Anion Gap 13 (12-20); Aspartate Amino Transferase 26 U/L (5-31); Blood Urea Nitrogen 14 mg/dL (9-16); Calcium 9.9 mg/dL (8.4-10.2); Carbon Dioxide 27 mmol/L (22-29); Chloride 106 mmol/L (96-108); Cholesterol 162 mg/dL (<200); Creatinine Clr Calc Pharmacy 80.4; Estimated Glomerular Filt Rate > 60; HDL Cholesterol 47 mg/dL (>40); Magnesium 2.0 mg/dL (1.6-2.6); Potassium 4.1 mmol/L (3.3-5.1); Sodium 142 mmol/L (135-145); Total Protein 7.7 g/dL (6.5-8.0); Triglycerides 95 mg/dL (<150)
[2025-06-26 11:18] LABS: Free T4 (Free Thyroxine) 0.95 ng/dL (0.71-1.85); Thyroid Stimulating Hormone 1.27 uIU/mL (0.32-4.0)
[2025-06-26 11:23] LABS: Folate 14.3 ng/mL (> or = 4.0); Vitamin B12 1106 pg/mL (200-900)
[2025-06-26 20:00] VITALS: BP 103/59; PULSE 60; RESP 20; TEMP 36.8; O2SAT 98
[2025-06-27 08:00] VITALS: BP 132/61; PULSE 64; RESP 16; TEMP 36.6; O2SAT 99
[2025-06-27] MEDS: Ferrous Sulfate 324 MG TABLET.DR PO ×2 (09:17→21:29)
[2025-06-27 19:55] VITALS: BP 127/72; PULSE 60; TEMP 37.1; O2SAT 100
--- NOTE | 2025-06-27 21:41 | HO.PSYCHPN ---
Subjective Subjective Date of Service: 06/27/25 Reason For Visit: OD Subjective Notes: Section 12B Healthcare Proxy: No Guardianship: No Medical Problems Affecting Mental Status: No Interim History: Medical record and nursing notes reviewed; case discussed during rounds with team/nursing staff, and met with patient for supportive therapy/psychoeducation, as well as medication management. Patient reports sleep was ok but I do not want to eat. I think I have eating disorder . I want to go home . I am not taking medications. I do not take it at home so she does not think she needs meds. Denies SI/SIB/HI/AVH. Per nursing, patient slept for 8 hours. Have been refused meds but took all scheduled meds this morning. Patient also reports to nursing that she has a couple bites of bagel this morning. Change to 15min check. Medication Compliance: Yes (Been refused but took all this AM) Side effects from medications: No Review of Systems Acute medical concerns: No Medical Review of Systems: unchanged Review of Systems Review of Systems Denies any shortness of breath, chest pain, headaches, dysuria, abdominal pain or discomfort, nausea, vomiting or diarrhea. Denies fever or chills. Mental Status Exam Mental Status Exam Narrative: Appearance: Casually dressed, adequate hygiene and grooming Behavior: Calm and cooperative throughout the interview. fair eye contact, and there are no signs of psychomotor agitation or retardation Speech: Normal volume and prosody Thought process: Logical and goal-directed Thought content: On discharge Mood: Good Affect: Mood-incongruent SI: Denies HI: Denies VH/AH: None Delusions: None Insight/judgment: Impaired insight and judgment Memory/cog: Alert, oriented x 4. grossly intact to conversational testing Diagnostics Vital Signs (24Hr): Vital Signs - 24 hr 06/27/25 08:00 06/27/25 19:55 Temperature 97.9 F 98.7 F Pulse Rate 64 60 Respiratory Rate 16 Blood Pressure 132/61 127/72 Pulse Oximetry 99 100 Oxygen Delivery Method Room Air Room Air BMI result Body Mass Index 21.3 Labs 06/26/25 09:38 Labs: Laboratory Results - last 48 hr 06/26/25 09:38 Sodium 142 Potassium 4.1 Chloride 106 Carbon Dioxide 27 Anion Gap 13 BUN 14 Creatinine 0.63 Estim Creat Clear Calc 80.4 Estimated GFR > 60 Random Glucose 96 Estimat Average Glucose 103 Hemoglobin A1c % 5.2 Calcium 9.9 D Magnesium 2.0 Total Bilirubin 0.5 AST 26 ALT 26 Alkaline Phosphatase 40 Total Protein 7.7 Albumin 4.9 Triglycerides 95 Cholesterol 162 LDL Cholesterol, Calc 96 HDL Cholesterol 47 Vitamin B12 1106 H Folate 14.3 TSH 1.27 Free T4 0.95 Medications Medications Current Medications Acetaminophen (Acetaminophen 325 Mg Tablet) 650 mg PO Q6H PRN PRN Reason: Headache/Pain, Scale 1-10 Last Admin: 06/27/25 13:21 Dose: 650 mg Al Hydroxide/Mg Hydroxide (Magnesium Hydrox/Alum Hydrox 30 Ml Oral.Susp) 30 ml PO Q6H PRN PRN Reason: Heartburn/Nausea Ascorbic Acid (Ascorbic Acid 500 Mg Tablet) 500 mg PO BID [facility] Last Admin: 06/27/25 21:29 Dose: 500 mg Cyanocobalamin (Cyanocobalamin (Vitamin B-12) 1,000 Mcg Tablet) 1,000 mcg PO DAILY [facility] Last Admin: 06/27/25 09:17 Dose: 1,000 mcg Ferrous Sulfate (Ferrous Sulfate 324 Mg Tablet.Dr) 324 mg PO BID [facility] Last Admin: 06/27/25 21:29 Dose: 324 mg Fluoxetine HCl (Fluoxetine Hcl 20 Mg Capsule) 20 mg PO DAILY [facility] Last Admin: 06/27/25 09:16 Dose: 20 mg Hydroxyzine HCl (Hydroxyzine Hcl 25 Mg Tablet) 25 mg PO Q6H PRN PRN Reason: mild anxiety Magnesium Hydroxide (Milk Of Magnesia 30 Ml Oral.Susp) 30 ml PO DAILY PRN PRN Reason: Constipation Melatonin (Melatonin 3 Mg Tablet) 3 mg PO BEDTIME PRN PRN Reason: Sleep Last Admin: 06/27/25 21:28 Dose: 3 mg Nicotine Polacrilex (Nicotine Polacrilex 2 Mg Gum) 2 mg BUCCAL Q2H PRN PRN Reason: Nicotine Cravings Olanzapine (Olanzapine 5 Mg Tablet) 5 mg PO BID PRN PRN Reason: agitation Prazosin HCl (Prazosin Hcl 1 Mg Capsule) 2 mg PO BEDTIME [facility]; Protocol Last Admin: 06/27/25 21:28 Dose: 2 mg Trazodone HCl (Trazodone Hcl 50 Mg Tablet) 50 mg PO BEDTIME MRX1 PRN PRN Reason: Insomnia Last Admin: 06/27/25 21:28 Dose: 50 mg Vitamin D (Cholecalciferol (Vitamin D3) 25 Mcg Tablet) 50 mcg PO DAILY [facility] Last Admin: 06/27/25 09:17 Dose: 50 mcg Allergies Allergies Allergy/AdvReac Type Severity Reaction Status Date / Time No Known Allergies Allergy Verified 11/12/24 22:26 Assessment & Plan Assessment & Plan (1) Overdose by acetaminophen: Status: Acute Code(s): T39.1X1A - Poisoning by 4-Aminophenol derivatives, accidental (unintentional), initial encounter (2) Borderline personality disorder in adult: Status: Acute Code(s): F60.3 - Borderline personality disorder (3) Eating disorder: Status: Acute Code(s): F50.9 - Eating disorder, unspecified Plan HPI: patient is a 35 y.o with past hx of depression, borderline personality disorder, and eating disorder(Anorexia) who was transported to [facility] after intention OD on Tylenol. It was reported that patient ingested 13 pills of 250mg Tylenol as a suicide attempts. No Utox or BAL obtained. Patient says she is not sure why she took the pills. She goes back and forth with report it was a suicide attempts then says it was not. Patient discharged from [place] . She got home and called them asking to take her back and they said no. She then impulsively went and ingested the pills. This is her first time she has done anything like this. While in [place], weight was stabilized, was treated for anorexia. Report no issues with sleep. She lives with sibling at home. Was at [place] in November until January of 2025. Was re-admitted in May and was discharged today. These are her only two IP admissions. Formulation/clinical reasoning: Impulsive, took Tylenol as an OD on the same day after discharged from [place] after about 2 month-hospital stay. This is first suicide attempt per ED record. Meet criteria for restrictive environment d/t safety concerns, medication management and provider therapeutic environment for coping skills. Hospital course: 06/25/25: very guarded, not cooperative. Do not want to be here. Continue with home meds per ED record. Patient was discharged from [place] and readmitted same day here. Will continue with home meds. Not able to assess for safety. Not able to discuss with patient regarding PRN available. Will reassess. BP elevated on admission. Will continue to monitor. Will hold Tylenol until further notice. 06/26: Denies anxiety or depressive symptoms. Denies SI/HI/AVH. forestry conservation worker is trying to find a facility that can accept patient for eating disorder treatment. Encouraged to take her medications as prescribed and to attend groups. 06/27/25: Patient reports sleep was ok but I do not want to eat. I think I have eating disorder . I want to go home . I am not taking medications. I do not take it at home so she does not think she needs meds. Denies SI/SIB/HI/AVH. Per nursing, patient slept for 8 hours. Have been refused meds but took all scheduled meds this morning. Patient also reports to nursing that she has a couple bites of bagel this morning. Change to 15min check. Plan Patient on 5 minute checks for safety: not answering any questions during 1-1 assessment Admitted to . Section 12B. Work with treatment team to do collateral Contact the hospitalist regarding hospitalist consultation on admission: pending Amphetamine level 55, then 33 in the ED on 06/25/25. Patient educated on: diagnosis, medication risk/benefits and therapeutic strategies Informed Consent: further education needed Reason for continued inpatient stay Substantial Risk for: med/psych decompensation Time Spent With Patient Time: Total time managing care of this patient today ____ minutes.
[2025-06-28 07:57] VITALS: BP 111/66; PULSE 76; RESP 18; TEMP 36.8; O2SAT 98
[2025-06-28] MEDS: Ferrous Sulfate 324 MG TABLET.DR PO ×2 (08:57→21:19)
--- NOTE | 2025-06-28 15:07 | P.PNPSI_ITS ---
Subjective Subjective Date of Service: 06/28/25 Reason For Visit: OD Subjective Notes: Section 12B Healthcare Proxy: No Guardianship: No Medical Problems Affecting Mental Status: No Interim History: Medical record and nursing notes reviewed; case discussed during rounds with team/nursing staff, and met with patient for supportive therapy/psychoeducation, as well as medication management. Meet with patient in Group room C. Patient reports I took medication last night so she slept better when asked how her night was. Patient does not diana food we offered here saying I have eating disorder . Patient does not know what her favorite food is. Patient reports that she worries that her cousins who are working here at this hospital from other floor would come up here to see her and that she is afraid that they will tell her family that she is here. Remind patient that if she does not want any visit, she then can refuse. Also, does not want her family to know that she is here. She asks when she can be discharged but do not know where she is going to be discharged to. She hopes that she can be back to [place]. If not she would accept [facility] referral. Denies SI/SIB/HI/AVH. Report worry , denies anxiety or depression. Happier affect, pleasant and cooperative upon approach, improve in sleep abut remain poor PO food intake. Today is second day that she is compliant with medications. In better mood, less guarded, engaged. Medication Compliance: Yes Side effects from medications: No Review of Systems Acute medical concerns: No Medical Review of Systems: unchanged Review of Systems Review of Systems Denies any shortness of breath, chest pain, headaches, dysuria, abdominal pain or discomfort, nausea, vomiting or diarrhea. Denies fever or chills. Mental Status Exam Mental Status Exam Narrative: Appearance: Casually dressed, adequate hygiene and grooming Behavior: Calm and cooperative throughout the interview. fair eye contact, and there are no signs of psychomotor agitation or retardation Speech: Normal volume and prosody Thought process: Logical and goal-directed Thought content: On discharge Mood: Good Affect: Mood-incongruent SI: Denies HI: Denies VH/AH: None Delusions: None Insight/judgment: Impaired insight and judgment Memory/cog: Alert, oriented x 4. grossly intact to conversational testing Diagnostics Vital Signs (24Hr): Vital Signs - 24 hr 06/27/25 19:55 06/28/25 07:57 Temperature 98.7 F 98.2 F Pulse Rate 60 76 Respiratory Rate 18 Blood Pressure 127/72 111/66 Pulse Oximetry 100 98 Oxygen Delivery Method Room Air Room Air BMI result Body Mass Index 21.3 Labs 06/26/25 09:38 Medications Medications Current Medications Acetaminophen (Acetaminophen 325 Mg Tablet) 650 mg PO Q6H PRN PRN Reason: Headache/Pain, Scale 1-10 Last Admin: 06/27/25 13:21 Dose: 650 mg Al Hydroxide/Mg Hydroxide (Magnesium Hydrox/Alum Hydrox 30 Ml Oral.Susp) 30 ml PO Q6H PRN PRN Reason: Heartburn/Nausea Ascorbic Acid (Ascorbic Acid 500 Mg Tablet) 500 mg PO BID [facility] Last Admin: 06/28/25 08:57 Dose: 500 mg Cyanocobalamin (Cyanocobalamin (Vitamin B-12) 1,000 Mcg Tablet) 1,000 mcg PO DAILY [facility] Last Admin: 06/28/25 08:58 Dose: 1,000 mcg Ferrous Sulfate (Ferrous Sulfate 324 Mg Tablet.) 324 mg PO BID [facility] Last Admin: 06/28/25 08:57 Dose: 324 mg Fluoxetine HCl (Fluoxetine Hcl 20 Mg Capsule) 20 mg PO DAILY [facility] Last Admin: 06/28/25 08:58 Dose: 20 mg Hydroxyzine HCl (Hydroxyzine Hcl 25 Mg Tablet) 25 mg PO Q6H PRN PRN Reason: mild anxiety Magnesium Hydroxide (Milk Of Magnesia 30 Ml Oral.Susp) 30 ml PO DAILY PRN PRN Reason: Constipation Melatonin (Melatonin 3 Mg Tablet) 3 mg PO BEDTIME PRN PRN Reason: Sleep Last Admin: 06/27/25 21:28 Dose: 3 mg Nicotine Polacrilex (Nicotine Polacrilex 2 Mg Gum) 2 mg BUCCAL Q2H PRN PRN Reason: Nicotine Cravings Olanzapine (Olanzapine 5 Mg Tablet) 5 mg PO BID PRN PRN Reason: agitation Prazosin HCl (Prazosin Hcl 1 Mg Capsule) 2 mg PO BEDTIME [facility]; Protocol Last Admin: 06/27/25 21:28 Dose: 2 mg Trazodone HCl (Trazodone Hcl 50 Mg Tablet) 50 mg PO BEDTIME MRX1 PRN PRN Reason: Insomnia Last Admin: 06/27/25 21:28 Dose: 50 mg Vitamin D (Cholecalciferol (Vitamin D3) 25 Mcg Tablet) 50 mcg PO DAILY [facility] Last Admin: 06/28/25 08:58 Dose: 50 mcg Allergies Allergies Allergy/AdvReac Type Severity Reaction Status Date / Time No Known Allergies Allergy Verified 11/12/24 22:26 Assessment & Plan Assessment & Plan (1) Overdose by acetaminophen: Status: Acute Code(s): T39.1X1A - Poisoning by 4-Aminophenol derivatives, accidental (unintentional), initial encounter (2) Borderline personality disorder in adult: Status: Acute Code(s): F60.3 - Borderline personality disorder (3) Eating disorder: Status: Acute Code(s): F50.9 - Eating disorder, unspecified Plan HPI: patient is a 35 y.o with past hx of depression, borderline personality disorder, and eating disorder(Anorexia) who was transported to [facility] after intention OD on Tylenol. It was reported that patient ingested 13 pills of 250mg Tylenol as a suicide attempts. No Utox or BAL obtained. Patient says she is not sure why she took the pills. She goes back and forth with report it was a suicide attempts then says it was not. Patient discharged from [place] . She got home and called them asking to take her back and they said no. She then impulsively went and ingested the pills. This is her first time she has done anything like this. While in [place], weight was stabilized, was treated for anorexia. Report no issues with sleep. She lives with sibling at home. Was at [place] in November until January of 2025. Was re-admitted in May and was discharged today. These are her only two IP admissions. Formulation/clinical reasoning: Impulsive, took Tylenol as an OD on the same day after discharged from [place] after about 2 month-hospital stay. This is first suicide attempt per ED record. Meet criteria for restrictive environment d/t safety concerns, medication management and provider therapeutic environment for coping skills. Hospital course: 06/25/25: very guarded, not cooperative. Do not want to be here. Continue with home meds per ED record. Patient was discharged from [place] and readmitted same day here. Will continue with home meds. Not able to assess for safety. Not able to discuss with patient regarding PRN available. Will reassess. BP elevated on admission. Will continue to monitor. Will hold Tylenol until further notice. 06/26: Denies anxiety or depressive symptoms. Denies SI/HI/AVH. laundry worker is trying to find a facility that can accept patient for eating disorder treatment. Encouraged to take her medications as prescribed and to attend groups. 06/27/25: Patient reports sleep was ok but I do not want to eat. I think I have eating disorder . I want to go home . I am not taking medications. I do not take it at home so she does not think she needs meds. Denies SI/SIB/HI/AVH. Per nursing, patient slept for 8 hours. Have been refused meds but took all scheduled meds this morning. Patient also reports to nursing that she has a couple bites of bagel this morning. Change to 15min check. 06/28/25: Meet with patient in Group room C. Patient reports I took medication last night so she slept better when asked how her night was. Patient does not diana food we offered here saying I have eating disorder . Patient does not know what her favorite food is. Patient reports that she worries that her cousins who are working here at this hospital from other floor would come up here to see her and that she is afraid that they will tell her family that she is here. Remind patient that if she does not want any visit, she then can refuse. Also, does not want her family to know that she is here. She asks when she can be discharged but do not know where she is going to be discharged to. She hopes that she can be back to [place]. If not she would accept [facility] referral. Denies SI/SIB/HI/AVH. Report worry , denies anxiety or depression. Happier affect, pleasant and cooperative upon approach, improve in sleep abut remain poor PO food intake. Today is second day that she is compliant with medications. In better mood, less guarded, engaged. Ok to offer Tylenol (was held after OD) Plan Patient on 15 min check. Admitted to M5. Section 12B. Work with treatment team to do collateral Contact the hospitalist regarding hospitalist consultation on admission: pending Amphetamine level 55, then 33 in the ED on 06/25/25. Patient educated on: diagnosis, medication risk/benefits and therapeutic strategies Informed Consent: understands and further education needed Reason for continued inpatient stay Substantial Risk for: med/psych decompensation Time Spent With Patient Time: Total time managing care of this patient today ____ minutes.
[2025-06-28 20:12] VITALS: BP 113/68; PULSE 59; RESP 18; TEMP 36.5; O2SAT 100
[2025-06-28 21:20] VITALS: BP 123/81
[2025-06-29 08:20] VITALS: BP 111/56; PULSE 72; TEMP 36.8; O2SAT 97
[2025-06-29] MEDS: Ferrous Sulfate 324 MG TABLET.DR PO ×2 (08:33→21:10)
--- NOTE | 2025-06-29 09:04 | P.PNPSI_ITS ---
Subjective Subjective Date of Service: 06/29/25 Reason For Visit: OD Subjective Notes: Section 12B Healthcare Proxy: No Guardianship: No Medical Problems Affecting Mental Status: No Interim History: Medical record and nursing notes reviewed; case discussed during rounds with team/nursing staff, and met with patient for supportive therapy/psychoeducation, as well as medication management. Met with patient in art room. Reported that she slept better with trazodone as melatonin last night. Reported that she does not like to eat and feel frustrated when seen people eating all day long as is not my thing . Poor Appetite Denies SI/SIB?HI/AVH. Denies side effects from medication. Today is the 3rd bed that she has been compliant with medication. More pleasant, cooperative, scientific writer affect, smile. Remain on section 12B. Do not want to sign herself in. Continue with current plan. Medication Compliance: Yes Side effects from medications: No Attending Groups: Intermittent Review of Systems Acute medical concerns: No Medical Review of Systems: unchanged Review of Systems Review of Systems Denies any shortness of breath, chest pain, headaches, dysuria, abdominal pain or discomfort, nausea, vomiting or diarrhea. Denies fever or chills. Mental Status Exam Mental Status Exam Narrative: Appearance: Casually dressed, adequate hygiene and grooming Behavior: Calm and cooperative throughout the interview. fair eye contact, and there are no signs of psychomotor agitation or retardation Speech: Normal volume and prosody Thought process: Logical and goal-directed Thought content: On discharge Mood: Good Affect: Mood-incongruent SI: Denies HI: Denies VH/AH: None Delusions: None Insight/judgment: Impaired insight and judgment Memory/cog: Alert, oriented x 4. grossly intact to conversational testing Diagnostics Vital Signs (24Hr): Vital Signs - 24 hr 06/28/25 20:12 06/28/25 21:20 06/29/25 08:20 Temperature 97.7 F 98.2 F Pulse Rate 59 72 Respiratory Rate 18 Blood Pressure 113/68 123/81 111/56 L Pulse Oximetry 100 97 Oxygen Delivery Method Room Air Room Air BMI result Body Mass Index 21.3 Labs 06/26/25 09:38 Medications Medications Current Medications Acetaminophen (Acetaminophen 325 Mg Tablet) 650 mg PO Q6H PRN PRN Reason: Headache/Pain, Scale 1-10 Last Admin: 06/27/25 13:21 Dose: 650 mg Al Hydroxide/Mg Hydroxide (Magnesium Hydrox/Alum Hydrox 30 Ml Oral.Susp) 30 ml PO Q6H PRN PRN Reason: Heartburn/Nausea Ascorbic Acid (Ascorbic Acid 500 Mg Tablet) 500 mg PO BID [facility] Last Admin: 06/29/25 08:33 Dose: 500 mg Cyanocobalamin (Cyanocobalamin (Vitamin B-12) 1,000 Mcg Tablet) 1,000 mcg PO DAILY [facility] Last Admin: 06/29/25 08:33 Dose: 1,000 mcg Ferrous Sulfate (Ferrous Sulfate 324 Mg Tablet.Dr) 324 mg PO BID [facility] Last Admin: 06/29/25 08:33 Dose: 324 mg Fluoxetine HCl (Fluoxetine Hcl 20 Mg Capsule) 20 mg PO DAILY [facility] Last Admin: 06/29/25 08:33 Dose: 20 mg Hydroxyzine HCl (Hydroxyzine Hcl 25 Mg Tablet) 25 mg PO Q6H PRN PRN Reason: mild anxiety Magnesium Hydroxide (Milk Of Magnesia 30 Ml Oral.Susp) 30 ml PO DAILY PRN PRN Reason: Constipation Melatonin (Melatonin 3 Mg Tablet) 3 mg PO BEDTIME PRN PRN Reason: Sleep Last Admin: 06/28/25 21:20 Dose: 3 mg Nicotine Polacrilex (Nicotine Polacrilex 2 Mg Gum) 2 mg BUCCAL Q2H PRN PRN Reason: Nicotine Cravings Olanzapine (Olanzapine 5 Mg Tablet) 5 mg PO BID PRN PRN Reason: agitation Prazosin HCl (Prazosin Hcl 1 Mg Capsule) 2 mg PO BEDTIME [facility]; Protocol Last Admin: 06/28/25 21:20 Dose: 2 mg Trazodone HCl (Trazodone Hcl 50 Mg Tablet) 50 mg PO BEDTIME MRX1 PRN PRN Reason: Insomnia Last Admin: 06/28/25 21:20 Dose: 50 mg Vitamin D (Cholecalciferol (Vitamin D3) 25 Mcg Tablet) 50 mcg PO DAILY [facility] Last Admin: 06/29/25 08:33 Dose: 50 mcg Allergies Allergies Allergy/AdvReac Type Severity Reaction Status Date / Time No Known Allergies Allergy Verified 11/12/24 22:26 Assessment & Plan Assessment & Plan (1) Overdose by acetaminophen: Status: Acute Code(s): T39.1X1A - Poisoning by 4-Aminophenol derivatives, accidental (unintentional), initial encounter (2) Borderline personality disorder in adult: Status: Acute Code(s): F60.3 - Borderline personality disorder (3) Eating disorder: Status: Acute Code(s): F50.9 - Eating disorder, unspecified Plan HPI: patient is a 35 y.o with past hx of depression, borderline personality disorder, and eating disorder(Anorexia) who was transported to [facility] after intention OD on Tylenol. It was reported that patient ingested 13 pills of 250mg Tylenol as a suicide attempts. No Utox or BAL obtained. Patient says she is not sure why she took the pills. She goes back and forth with report it was a suicide attempts then says it was not. Patient discharged from [place] . She got home and called them asking to take her back and they said no. She then impulsively went and ingested the pills. This is her first time she has done anything like this. While in [place], weight was stabilized, was treated for anorexia. Report no issues with sleep. She lives with sibling at home. Was at [place] in November until January of 2025. Was re-admitted in May and was discharged today. These are her only two IP admissions. Formulation/clinical reasoning: Impulsive, took Tylenol as an OD on the same day after discharged from [place] after about 2 month-hospital stay. This is first suicide attempt per ED record. Meet criteria for restrictive environment d/t safety concerns, medication management and provider therapeutic environment for coping skills. Hospital course: 06/25/25: very guarded, not cooperative. Do not want to be here. Continue with home meds per ED record. Patient was discharged from [place] and readmitted same day here. Will continue with home meds. Not able to assess for safety. Not able to discuss with patient regarding PRN available. Will reassess. BP elevated on admission. Will continue to monitor. Will hold Tylenol until further notice. 06/26: Denies anxiety or depressive symptoms. Denies SI/HI/AVH. transfer worker is trying to find a facility that can accept patient for eating disorder treatment. Encouraged to take her medications as prescribed and to attend groups. 06/27/25: Patient reports sleep was ok but I do not want to eat. I think I have eating disorder . I want to go home . I am not taking medications. I do not take it at home so she does not think she needs meds. Denies SI/SIB/HI/AVH. Per nursing, patient slept for 8 hours. Have been refused meds but took all scheduled meds this morning. Patient also reports to nursing that she has a couple bites of bagel this morning. Change to 15min check. 06/28/25: Meet with patient in Group room C. Patient reports I took medication last night so she slept better when asked how her night was. Patient does not diana food we offered here saying I have eating disorder . Patient does not know what her favorite food is. Patient reports that she worries that her cousins who are working here at this hospital from other floor would come up here to see her and that she is afraid that they will tell her family that she is here. Remind patient that if she does not want any visit, she then can refuse. Also, does not want her family to know that she is here. She asks when she can be discharged but do not know where she is going to be discharged to. She hopes that she can be back to [place]. If not she would accept [facility] referral. Denies SI/SIB/HI/AVH. Report worry , denies anxiety or depression. Happier affect, pleasant and cooperative upon approach, improve in sleep abut remain poor PO food intake. Today is second day that she is compliant with medications. In better mood, less guarded, engaged. Ok to offer Tylenol (was held after OD) 06/29/25: Met with patient in art room. Reported that she slept better with trazodone as melatonin last night. Reported that she does not like to eat and feel frustrated when seen people eating all day long as is not my thing . Poor Appetite Denies SI/SIB?HI/AVH. Denies side effects from medication. Today is the 3rd bed that she has been compliant with medication. More pleasant, cooperative, scientific writer affect, smile. Remain on section 12B. Do not want to sign herself in. Patient his signed herself in knowing that bed is available at [facility] for eating disorder if she need wait. However, has no bed available, then she wants to be discharged. Continue with current plan. Monitor for meal intake. Plan Patient on 15 min check. Admitted to M5. Section 12B. Tentative to be discharge on Tuesday. Work with treatment team to do collateral Contact the hospitalist regarding hospitalist consultation on admission: pending Amphetamine level 55, then 33 in the ED on 06/25/25. Patient educated on: diagnosis, medication risk/benefits and therapeutic strategies Informed Consent: understands and further education needed Reason for continued inpatient stay Substantial Risk for: med/psych decompensation Time Spent With Patient Time: Total time managing care of this patient today ____ minutes.
[2025-06-29 20:39] VITALS: BP 103/56; PULSE 62; RESP 18; TEMP 36.8; O2SAT 99
[2025-06-29 21:10] VITALS: BP 103/56
[2025-06-30 08:04] VITALS: BP 98/50; PULSE 65; TEMP 36.9; O2SAT 99
[2025-06-30] MEDS: Ferrous Sulfate 324 MG TABLET.DR PO ×2 (08:57→22:17)
[2025-06-30 20:00] VITALS: BP 113/57; PULSE 59; TEMP 36.9; O2SAT 100
--- NOTE | 2025-06-30 21:17 | P.PNPSI_ITS ---
Subjective Subjective Date of Service: 06/30/25 Reason For Visit: OD Subjective Notes: Section 12B Healthcare Proxy: No Guardianship: No Medical Problems Affecting Mental Status: No Interim History: Medical record and nursing notes reviewed; case discussed during rounds with team/nursing staff, and met with patient for supportive therapy/psychoeducation, as well as medication management. Improve in mood, less anxious, less irritable. Very pleasant upon approach, been taking medication the past couple of days, slept is improved, appetite is not that great but hydrate self with fluid. Do not appear to be in distress. Reports feeling bored and annoyed . Will touch base with psychiatric social worker supervisor to see what the placement will be like. Potential to be discharged if patient is not accepted at [facility] for eating disorder. She agreed to go to [facility] if no beds at [facility]. Denies safety concerns, denies hallucinations. Continue to monitor for PO food intake Medication Compliance: Yes Side effects from medications: No Attending Groups: Intermittent Review of Systems Acute medical concerns: No Medical Review of Systems: unchanged Review of Systems Review of Systems Denies any shortness of breath, chest pain, headaches, dysuria, abdominal pain or discomfort, nausea, vomiting or diarrhea. Denies fever or chills. Mental Status Exam Mental Status Exam Narrative: Appearance: Casually dressed, adequate hygiene and grooming Behavior: Calm and cooperative throughout the interview. fair eye contact, and there are no signs of psychomotor agitation or retardation Speech: Normal volume and prosody Thought process: Logical and goal-directed Thought content: On discharge Mood: Good Affect: Mood-incongruent SI: Denies HI: Denies VH/AH: None Delusions: None Insight/judgment: improved insight and judgment Memory/cog: Alert, oriented x 4. grossly intact to conversational testing Diagnostics Vital Signs (24Hr): Vital Signs - 24 hr 06/30/25 08:04 Temperature 98.5 F Pulse Rate 65 Blood Pressure 98/50 L Pulse Oximetry 99 Oxygen Delivery Method Room Air BMI result Body Mass Index 21.3 Labs 06/26/25 09:38 Medications Medications Current Medications Acetaminophen (Acetaminophen 325 Mg Tablet) 650 mg PO Q6H PRN PRN Reason: Headache/Pain, Scale 1-10 Last Admin: 06/27/25 13:21 Dose: 650 mg Al Hydroxide/Mg Hydroxide (Magnesium Hydrox/Alum Hydrox 30 Ml Oral.Susp) 30 ml PO Q6H PRN PRN Reason: Heartburn/Nausea Ascorbic Acid (Ascorbic Acid 500 Mg Tablet) 500 mg PO BID [facility] Last Admin: 06/30/25 08:57 Dose: 500 mg Cyanocobalamin (Cyanocobalamin (Vitamin B-12) 1,000 Mcg Tablet) 1,000 mcg PO DAILY [facility] Last Admin: 06/30/25 08:57 Dose: 1,000 mcg Ferrous Sulfate (Ferrous Sulfate 324 Mg Tablet.) 324 mg PO BID [facility] Last Admin: 06/30/25 08:57 Dose: 324 mg Fluoxetine HCl (Fluoxetine Hcl 20 Mg Capsule) 20 mg PO DAILY [facility] Last Admin: 06/30/25 08:57 Dose: 20 mg Hydroxyzine HCl (Hydroxyzine Hcl 25 Mg Tablet) 25 mg PO Q6H PRN PRN Reason: mild anxiety Magnesium Hydroxide (Milk Of Magnesia 30 Ml Oral.Susp) 30 ml PO DAILY PRN PRN Reason: Constipation Melatonin (Melatonin 3 Mg Tablet) 3 mg PO BEDTIME PRN PRN Reason: Sleep Last Admin: 06/29/25 21:10 Dose: 3 mg Nicotine Polacrilex (Nicotine Polacrilex 2 Mg Gum) 2 mg BUCCAL Q2H PRN PRN Reason: Nicotine Cravings Olanzapine (Olanzapine 5 Mg Tablet) 5 mg PO BID PRN PRN Reason: agitation Prazosin HCl (Prazosin Hcl 1 Mg Capsule) 2 mg PO BEDTIME [facility]; Protocol Last Admin: 06/29/25 21:10 Dose: 2 mg Trazodone HCl (Trazodone Hcl 50 Mg Tablet) 50 mg PO BEDTIME MRX1 PRN PRN Reason: Insomnia Last Admin: 06/29/25 21:10 Dose: 50 mg Vitamin D (Cholecalciferol (Vitamin D3) 25 Mcg Tablet) 50 mcg PO DAILY [facility] Last Admin: 06/30/25 08:57 Dose: 50 mcg Allergies Allergies Allergy/AdvReac Type Severity Reaction Status Date / Time No Known Allergies Allergy Verified 11/12/24 22:26 Assessment & Plan Assessment & Plan (1) Overdose by acetaminophen: Status: Acute Code(s): T39.1X1A - Poisoning by 4-Aminophenol derivatives, accidental (unintentional), initial encounter (2) Borderline personality disorder in adult: Status: Acute Code(s): F60.3 - Borderline personality disorder (3) Eating disorder: Status: Acute Code(s): F50.9 - Eating disorder, unspecified Plan HPI: patient is a 35 y.o with past hx of depression, borderline personality disorder, and eating disorder(Anorexia) who was transported to [facility] after intention OD on Tylenol. It was reported that patient ingested 13 pills of 250mg Tylenol as a suicide attempts. No Utox or BAL obtained. Patient says she is not sure why she took the pills. She goes back and forth with report it was a suicide attempts then says it was not. Patient discharged from [facility] . She got home and called them asking to take her back and they said no. She then impulsively went and ingested the pills. This is her first time she has done anything like this. While in [facility], weight was stabilized, was treated for anorexia. Report no issues with sleep. She lives with sibling at home. Was at [facility] in November until January of 2025. Was re-admitted in May and was discharged today. These are her only two IP admissions. Formulation/clinical reasoning: Impulsive, took Tylenol as an OD on the same day after discharged from [facility] after about 2 month-hospital stay. This is first suicide attempt per ED record. Meet criteria for restrictive environment d/t safety concerns, medication management and provider therapeutic environment for coping skills. Hospital course: 06/25/25: very guarded, not cooperative. Do not want to be here. Continue with home meds per ED record. Patient was discharged from [facility] and readmitted same day here. Will continue with home meds. Not able to assess for safety. Not able to discuss with patient regarding PRN available. Will reassess. BP elevated on admission. Will continue to monitor. Will hold Tylenol until further notice. 06/26: Denies anxiety or depressive symptoms. Denies SI/HI/AVH. youth support worker is trying to find a facility that can accept patient for eating disorder treatment. Encouraged to take her medications as prescribed and to attend groups. 06/27/25: Patient reports sleep was ok but I do not want to eat. I think I have eating disorder . I want to go home . I am not taking medications. I do not take it at home so she does not think she needs meds. Denies SI/SIB/HI/AVH. Per nursing, patient slept for 8 hours. Have been refused meds but took all scheduled meds this morning. Patient also reports to nursing that she has a couple bites of bagel this morning. Change to 15min check. 06/28/25: Meet with patient in Group room C. Patient reports I took medication last night so she slept better when asked how her night was. Patient does not diana food we offered here saying I have eating disorder . Patient does not know what her favorite food is. Patient reports that she worries that her cousins who are working here at this hospital from other floor would come up here to see her and that she is afraid that they will tell her family that she is here. Remind patient that if she does not want any visit, she then can refuse. Also, does not want her family to know that she is here. She asks when she can be discharged but do not know where she is going to be discharged to. She hopes that she can be back to [facility]. If not she would accept [facility] referral. Denies SI/SIB/HI/AVH. Report worry , denies anxiety or depression. Happier affect, pleasant and cooperative upon approach, improve in sleep abut remain poor PO food intake. Today is second day that she is compliant with medications. In better mood, less guarded, engaged. Ok to offer Tylenol (was held after OD) 06/29/25: Met with patient in art room. Reported that she slept better with trazodone as melatonin last night. Reported that she does not like to eat and feel frustrated when seen people eating all day long as is not my thing . Poor Appetite Denies SI/SIB?HI/AVH. Denies side effects from medication. Today is the 3rd bed that she has been compliant with medication. More pleasant, cooperative, chart writer affect, smile. Remain on section 12B. Do not want to sign herself in. Patient his signed herself in knowing that bed is available at [facility] for eating disorder if she need wait. However, has no bed available, then she wants to be discharged. Continue with current plan. Monitor for meal intake. 06/30/25: Improve in mood, less anxious, less irritable. Very pleasant upon approach, been taking medication the past couple of days, slept is improved, appetite is not that great but hydrate self with fluid. Do not appear to be in distress. Reports feeling bored and annoyed . Will touch base with psychiatric social worker supervisor to see what the placement will be like. Potential to be discharged if patient is not accepted at [facility] for eating disorder. She agreed to go to [facility] if no beds at [facility]. Denies safety concerns, denies hallucinations. slept for 9 hours. Continue to monitor for PO food intake Plan Patient on 15 min check. Admitted to [facility]. Section 12B. Tentative to be discharge on Tuesday. Work with treatment team to do collateral Contact the hospitalist regarding hospitalist consultation on admission: pending Amphetamine level 55, then 33 in the ED on 06/25/25. Patient educated on: diagnosis, medication risk/benefits and therapeutic strategies Informed Consent: understands Reason for continued inpatient stay Substantial Risk for: med/psych decompensation Time Spent With Patient Time: Total time managing care of this patient today ____ minutes.
[2025-07-01 08:03] VITALS: BP 108/57; PULSE 63; RESP 16; TEMP 36.6; O2SAT 94
--- NOTE | 2025-07-01 08:34 | PM.PSYDC ---
DS: Providers Provider Date of Service: 07/01/25 Date of admission: 06/25/25 18:47 Date of discharge: 07/01/25 Primary care physician: France Aj NP Attending physician on admission: Elsa Rosas Consults: 06/25/25 18:46 Consult to Hospitalist Routine Comment: Consulting Provider: [facility] Hospitalists Reason For Exam: admission physical Attending physician on discharge: Elsa Rosas DS: Diagnosis Discharge Diagnosis (1) Overdose by acetaminophen: Status: Acute (2) Borderline personality disorder in adult: Status: Acute (3) Eating disorder: Status: Acute DS: Medications Discharge Medications Home Medications: Home Medications ?Medication ?Instructions ?Recorded ?Confirmed ascorbic acid (vitamin C) 500 mg 500 mg PO BID 06/25/25 06/25/25 tablet cholecalciferol (vitamin D3) 50 50 mcg PO DAILY 06/25/25 06/25/25 mcg (2,000 unit) tablet (Vitamin D3) cyanocobalamin (vitamin B-12) 1,000 mcg PO DAILY 06/25/25 06/25/25 1,000 mcg tablet etodolac 400 mg tablet 400 mg PO Q6H PRN Headache 06/25/25 06/25/25 ferrous sulfate 325 mg (65 mg 325 mg PO BID 06/25/25 06/25/25 iron) tablet,delayed release fluoxetine 20 mg tablet 20 mg PO QAM 06/25/25 06/25/25 melatonin 3 mg tablet 3 mg PO BEDTIME PRN Sleep 06/25/25 06/25/25 prazosin 1 mg capsule 2 mg PO BEDTIME 06/25/25 06/25/25 Mental Status Exam Mental Status Exam Narrative: Patient presents well-groomed, casually dressed. Affect is euthymic with full range. Speech is clear and coherent. Thought process is linear and logical. Thought content is appropriate and relevant. Patient denies suicidal or homicidal ideation intent or plan. No overt psychotic symptoms elicited. Insight is fair. Judgment is fair. Data Data Completed and Pending Completed studies during hospitalization [Text1]: 06/26/25 09:38 Sodium 142 Potassium 4.1 Chloride 106 Carbon Dioxide 27 Anion Gap 13 BUN 14 Creatinine 0.63 Estim Creat Clear Calc 80.4 Estimated GFR > 60 Random Glucose 96 Estimat Average Glucose 103 Hemoglobin A1c % 5.2 Calcium 9.9 D Magnesium 2.0 Total Bilirubin 0.5 AST 26 ALT 26 Alkaline Phosphatase 40 Total Protein 7.7 Albumin 4.9 Triglycerides 95 Cholesterol 162 LDL Cholesterol, Calc 96 HDL Cholesterol 47 Vitamin B12 1106 H Folate 14.3 TSH 1.27 Free T4 0.95 DS: Summary Hospital Course Hospital Course: HPI: patient is a 35 y.o with past hx of depression, borderline personality disorder, and eating disorder(Anorexia) who was transported to [facility] after intention OD on Tylenol. It was reported that patient ingested 13 pills of 250mg Tylenol as a suicide attempts. No Utox or BAL obtained. Patient says she is not sure why she took the pills. She goes back and forth with report it was a suicide attempts then says it was not. Patient discharged from [facility] . She got home and called them asking to take her back and they said no. She then impulsively went and ingested the pills. This is her first time she has done anything like this. While in [facility], weight was stabilized, was treated for anorexia. Report no issues with sleep. She lives with sibling at home. Was at [facility] in November until January of 2025. Was re-admitted in May and was discharged today. These are her only two IP admissions. Formulation/clinical reasoning: Impulsive, took Tylenol as an OD on the same day after discharged from [facility] after about 2 month-hospital stay. This is first suicide attempt per ED record. Meet criteria for restrictive environment d/t safety concerns, medication management and provider therapeutic environment for coping skills. Hospital course: 06/25/25: very guarded, not cooperative. Do not want to be here. Continue with home meds per ED record. Patient was discharged from [facility] and readmitted same day here. Will continue with home meds. Not able to assess for safety. Not able to discuss with patient regarding PRN available. Will reassess. BP elevated on admission. Will continue to monitor. Will hold Tylenol until further notice. 06/26: Denies anxiety or depressive symptoms. Denies SI/HI/AVH. 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 Encouraged to take her medications as prescribed and to attend groups. 06/27/25: Patient reports sleep was ok but I do not want to eat. I think I have eating disorder . I want to go home . I am not taking medications. I do not take it at home so she does not think she needs meds. Denies SI/SIB/HI/AVH. Per nursing, patient slept for 8 hours. Have been refused meds but took all scheduled meds this morning. Patient also reports to nursing that she has a couple bites of bagel this morning. Change to 15min check. 06/28/25: Meet with patient in Group room C. Patient reports I took medication last night so she slept better when asked how her night was. Patient does not diana food we offered here saying I have eating disorder . Patient does not know what her favorite food is. Patient reports that she worries that her cousins who are working here at this hospital from other floor would come up here to see her and that she is afraid that they will tell her family that she is here. Remind patient that if she does not want any visit, she then can refuse. Also, does not want her family to know that she is here. She asks when she can be discharged but do not know where she is going to be discharged to. She hopes that she can be back to [facility]. If not she would accept [facility] referral. Denies SI/SIB/HI/AVH. Report worry , denies anxiety or depression. Happier affect, pleasant and cooperative upon approach, improve in sleep abut remain poor PO food intake. Today is second day that she is compliant with medications. In better mood, less guarded, engaged. Ok to offer Tylenol (was held after OD) 06/29/25: Met with patient in art room. Reported that she slept better with trazodone as melatonin last night. Reported that she does not like to eat and feel frustrated when seen people eating all day long as is not my thing . Poor Appetite Denies SI/SIB?HI/AVH. Denies side effects from medication. Today is the 3rd bed that she has been compliant with medication. 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 Remain on section 12B. Do not want to sign herself in. Patient his signed herself in knowing that bed is available at [facility] for eating disorder if she need wait. However, has no bed available, then she wants to be discharged. Continue with current plan. Monitor for meal intake. 06/30/25: Improve in mood, less anxious, less irritable. Very pleasant upon approach, been taking medication the past couple of days, slept is improved, appetite is not that great but hydrate self with fluid. Do not appear to be in distress. Reports feeling bored and annoyed . Will touch base with social services manager to see what the placement will be like. Potential to be discharged if patient is not accepted at [facility] for eating disorder. She agreed to go to [facility] if no beds at [place]. Denies safety concerns, denies hallucinations. slept for 9 hours. Continue to monitor for PO food intake. 07/01/25: patient Denies safety concern. Denies SI/SIB/HI/AVH. Report all her meds was canceled from [facility] even though patient was given only 1 week supply. Patient agrees to take medication after discharged and was informed will send 14-day supply. D/t OD risk (by hx),will not discharge patient with 30-day supply. Patient would stay with her grandmother as it is about 30 [address] away from where her car located. She does not go to groups here, therefore she is not helpful to refer patient to [facility]. Admitted to . Section 12B. today but do not want to stay longer for treatment. Patient does not meet criteria for civil court commitment for mental health. Therefore, will discharge patient home to [facility] to continue with psychiatric services. Patient would reach out if need and feel unsafe. Remain guarded in term of consent for family collateral. Amphetamine level 55, then 33 in the ED on 06/25/25. Time spent discussing smoking cessation with patient: 3 to 10 minutes Status at Discharge Cognitive/behavioral status at discharge: CONDITION ON DISCHARGE: CURRENT STATUS IT RELATES TO ADMISSION CRITERIA: Stable, improved. Improvements in depression, anxiety, and suicidal ideation. Improvements in sleep, energy. and no hallucination or paranoia/delusional thought. Not great in meal intake d/t eating disorder. Functional status at discharge: independent ambulation Overall status at discharge: patient is back to baseline Time Spent with Patient Time attestation: Total time managing care of this patient today ____ minutes. Time spent: Greater than 30 minutes Discharge Plan Discharge Anticipated Discharge Date/Time: 07/01/25 12:30 Patient Disposition: Home, Self-Care Discharge Diagnosis: Eating Disorder, Borderline personality disorder. [facility] [Other] - 07/22/25 11:20 am Referral Note: Follow up medication management appointment with Cathy Fountain (In Person) [facility] [Other] - 07/02/25 12:00 pm Referral Note: Follow up therapy appointment with Annel Ryan (Telehealth) [facility] [Other] - 1 Week Referral Note: A referral was sent to Nick (disability services coordinator) for residential services on your behalf. Please follow up with coordinator. France Aj NP [Primary Care Provider, Medical] - 1 Week Discharge Medications: New trazodone 50 mg Tablet 50 mg PO BEDTIME 14 Days Qty: 14 0RF Continued etodolac 400 mg tablet 400 mg PO Q6H PRN (Reason: Headache) prazosin 1 mg capsule 2 mg PO BEDTIME 14 Days Qty: 28 0RF cyanocobalamin (vitamin B-12) 1,000 mcg tablet 1,000 mcg PO DAILY 14 Days Qty: 14 0RF melatonin 3 mg tablet 3 mg PO BEDTIME PRN (Reason: Sleep) 14 Days Qty: 14 0RF ascorbic acid (vitamin C) 500 mg tablet 500 mg PO BID 14 Days Qty: 28 0RF fluoxetine 20 mg tablet 20 mg PO QAM 14 Days Qty: 14 0RF ferrous sulfate 325 mg (65 mg iron) tablet,delayed release (DR/EC) 325 mg PO BID 14 Days Qty: 28 0RF cholecalciferol (vitamin D3) [Vitamin D3] 50 mcg (2,000 unit) tablet 50 mcg PO DAILY 14 Days Qty: 14 0RF Discharge Orders: Discharge Order (Routine); Ordered 07/01/25 Ordered By: Elsa Rosas Diet: Regular diet Activity on Discharge: No Restrictions Stand Alone Forms: Patient Portal Discharge page, Community Support Print Language: Ecuadorean Care Plan Goals: Maintain mood and safe behaviors Take medications as prescribed Continue to pursue sobriety Practice coping skills Continue with outpatient providers and reach out to them as needed Health Concerns: Mood stability and behaviors. Eating habit and disorder. Fair fluid intake but poor appetite. Plan of Treatment: Follow up with your PCP, psychiatric provider and other outpatient providers regarding above concerns Take medications as prescribed Assessment: Assessment: Risk assessment at time of discharge: Patient was interviewed prior to discharge and found to be fully oriented and without any SI or HI. Patient has improved insight and judgment and wants to continue treatment. Patient is not in imminent risk of harm to self or others and has a safety plan that includes presenting to the closest ER or calling 911 if feeling unsafe. Patient has been observed closely by nursing and unit staff throughout admission; patient has not engaged in any behaviors that suggest dangerousness to self or others and has demonstrated appropriate behaviors and impulse control Discharge Date/Time: 07/01/25 12:24
[2025-07-01] MEDS: Ferrous Sulfate 324 MG TABLET.DR PO (10:54)
== END 2025-07-01 12:24 | disposition home or self-care (01) | DRG 752 ==
PROVIDERS: Nurse Practitioner Psychiatric/Mental Health; Admitting Provider Psychiatry & Neurology Psychiatry; PCP Nurse Practitioner Family; Visit Provider Psychiatry & Neurology Psychiatry
DX: F60.3 Borderline personality disorder (principal); F50.00 Anorexia nervosa, unspecified; Z91.51 Personal history of suicidal behavior; Z68.21 Body mass index [BMI] 21.0-21.9, adult; Z79.899 Other long term (current) drug therapy
CPT/HCPCS: 36415; 80053; 80061; 82607; 82746; 83036; 83735; 84439; 84443

== ENCOUNTER → 2025-06-25 18:47 | Outpatient (BNV) | payer OTHER, SELFPAY | PROVIDERS: Admitting Provider Psychiatry & Neurology Psychiatry; PCP Nurse Practitioner Family; Visit Provider Nurse Practitioner Family | DX: Z02.2 Encounter for examination for admission to residential institution (principal) | CPT/HCPCS: 99499 ==

== ENCOUNTER → 2025-06-25 18:47 | Outpatient (BNV) | payer OTHER, SELFPAY | PROVIDERS: Admitting Provider Psychiatry & Neurology Psychiatry; PCP Nurse Practitioner Family; Visit Provider Nurse Practitioner Family | DX: F60.3 Borderline personality disorder (principal); T39.1X1A Poisoning by 4-Aminophenol derivatives, accidental (unintentional), initial encounter; F50.9 Eating disorder, unspecified | CPT/HCPCS: 99231 ==